=== PATIENT | female | born 1940 | race Caucasian/White ===

== ENCOUNTER 2019-11-28 09:55 | Outpatient (CLI) | payer MEDICARE, SELFPAY ==
--- NOTE | ~2019-11-28 | CT_ITS ---
EXAMINATION: CTA chest PE protocol EXAM DATE: 11/28/2019 11:27 INDICATION: Shortness of breath. TECHNIQUE: Spiral CTA of the chest (pulmonary arteries) was performed with 100 cc Omnipaque 350 intr avenous contrast injection. Images were acquired during the pulmonary arterial phase. Coronal maxi mum intensity projection 3D-reconstructions were created by the technologist on dedicated workstation . Axial, coronal and sagittal reformatted images were reviewed. The dose-length product (DLP) for t his examination was 184.13 mGy-cm. The exposure was tailored according to patient size (auto mA exp osure control), and iterative reconstruction (ASIR) was used as additional dose reduction technique. There is no prior study for comparison. FINDINGS: Pulmonary arteries are well opacified and without intraluminal filling defects. No thora cic aortic dissection. The lungs are clear. Lungs are mildly hyperinflated. There are no pleural or pericardial effusions. Tracheobronchial tree is patent. There is no mediastinal, hilar or axillar y lymphadenopathy. There is no pneumothorax. Heart normal in size. There is mild coronary arter ial calcification, arterial sclerosis. Left liver lobe 1.9 cm cyst. There is small sliding gastroeso phageal hiatal hernia. There is moderate thoracic spondylosis without osteoblastic or osteolytic les ions identified. Breast implants bilaterally. IMPRESSION: 1. No pulmonary emboli or acute findings. 2. Mild hyperinflation. 3. Small hiatal hernia. Reviewed, dictated and finalized at location A. [facility]
--- NOTE | ~2019-11-28 | XR_ITS ---
XR hip RT min 3V w AP pelvis DATE: 11/28/2019 10:57 INDICATION: Right hip pain TECHNIQUE: AP pelvis. AP, lateral and crosstable lateral views of right hip COMPARISON: 08/20/2018 pelvis and left hip 08/10/2018 pelvis and right hip FINDINGS: Diffuse osteopenia. Levoscoliosis and degenerative disease of the lumbar and lumbosacral spine. Probable bone island of the left superior acetabular area. Status post left proximal femur ORIF with compression screw and intramedullary nail. Normal alignment at the pubic symphysis and sacroiliac joints. No pelvic fracture or bone destruction is evident. Prominent osteoarthritic changes including prominent spurring at both hip joints. No fracture, dislocation, avascular necrosis or bone destruction of the right hip is detected. IMPRESSION: Bilateral hip osteoarthritis ORIF left hip Osteopenia Degenerative disc disease of the lumbar/lumbosacral spine Reviewed, dictated and finalized at location B. CAL INSTRUMENT MAKER
[2019-11-28 10:37] LABS: Basophils Absolute Auto 0.1 K/mm3 (0.0-0.1); Basophils Percent Auto 0.9 % (0.2-1.2); Eosinophils Absolute Auto 0.1 K/mm3 (0-0.3); Hemoglobin 12.7 g/dL (12.0-15.0); Immature Granulocyte Absolute 0.02 K/mm3 (0.00-0.031); Immature Granulocyte Percent A 0.4 % (0-0.5); Lymphocytes Absolute Auto 1.55 K/mm3 (0.9-3.2); Lymphocytes Percent Auto 28.1 % (18.3-44.2); Mean Corpuscular HGB Conc 32.6 g/dl (32-36); Mean Corpuscular Hemoglobin 28.2 pg (26-34); Mean Corpuscular Volume 86.5 fl (80-100); Mean Platelet Volume 10.6 fl (7.4-10.4); Monocytes Absolute Auto 0.6 K/mm3 (0.1-0.6); Monocytes Percent Auto 11.1 % (2.6-8.5); Neutrophils Absolute Auto 3.2 K/mm3 (1.3-6.7); Neutrophils Percent Auto 57.5 % (45.5-73.1); Platelet Count Result 260 k/mm3 (150-375); Red Blood Count 4.51 M/mm3 (4.2-5.4); Red Cell Distribution Width 13.3 % (11.5-14.5); White Blood Count 5.5 K/mm3 (4.5-10.0)
[2019-11-28 10:46] LABS: Blood Urea Nitrogen 26 mg/dL (7-17); Calcium 9.7 mg/dL (8.4-10.2); Carbon Dioxide 24 mmol/L (22-30); Chloride 106 mmol/L (98-107); Cholesterol 195 mg/dL (0-200); Estimated Glomerular Filt Rate > 60; Glucose 104 mg/dL (65-105); HDL Direct 60 mg/dL; Potassium 4.4 mmol/L (3.4-5.0); Sodium 140 mmol/L (137-145); Triglycerides 85 mg/dL (<150)
[2019-11-28 10:47] LABS: Add Urine Microscopic? YES; Appearance Urine Cloudy (Clear); Bacteria Urine Trace /hpf; Bilirubin Urine Negative (Negative); Blood Urine Negative (Negative); Color Urine Yellow (Yellow); Glucose Urine UA Negative (Negative); Ketones Urine Negative (Negative); Leukocyte Esterase Ur 3+ LEU/UL (NEGATIVE); Mucus Urine Few /lpf; Nitrate Urine Negative (Negative); Protein Urine Negative (Negative); Specific Grav Ur 1.024 (1.001-1.035); Squamous Epithelial Cell Urine Many /hpf (Few); Urobilinogen Urine Negative mg/dL (<2.0)
[2019-11-28 10:57] LABS: LDL Cholesterol Direct 121 mg/dL
[2019-11-28 12:12] LABS: Free T4 Free Thyroxine 1.25 ng/mL (0.78-2.19)
== END 2019-11-28 09:56 | disposition home or self-care (01) ==
PROVIDERS: PCP Internal Medicine; Visit Provider Internal Medicine
DX: R91.8 Other nonspecific abnormal finding of lung field (principal); K44.9 Diaphragmatic hernia without obstruction or gangrene; M16.0 Bilateral primary osteoarthritis of hip; Z91.89 Other specified personal risk factors, not elsewhere classified; Z87.81 Personal history of (healed) traumatic fracture; E78.5 Hyperlipidemia, unspecified; Z79.899 Other long term (current) drug therapy
CPT/HCPCS: 36415; 71275; 73502; 80048; 80061; 81001; 84439; 84443; 85025; Q9967

== ENCOUNTER 2019-12-09 09:27 | Outpatient (CLI) | payer MEDICARE, SELFPAY ==
--- NOTE | ~2019-12-09 | CT_ITS ---
EXAMINATION: CT abdomen pelvis wo con DATE: 12/09/2019 10:10 INDICATION: Microscopic hematuria with bilateral flank pain TECHNIQUE: Computed tomography (CT) of the abdomen and pelvis was performed without intravenous contr ast. Automated exposure control and iterative reconstruction technique were employed. The dose-length product was 256.50 mGy-cm. COMPARISON: 09/13/2013 FINDINGS: Small fat-containing focal eventration along the posterior left hemidiaphragm. Mild bibasilar atelect asis. Heart size is normal. Atherosclerotic coronary artery calcifications. Bilateral breast implants . Small sliding-type hiatal hernia. 1.8 cm septated cyst in the left hepatic lobe. Cholecystectomy cl ips at the gallbladder fossa. Spleen, pancreas and bilateral adrenal glands are normal. Possible <1 m m nonobstructing stone at the interpolar region of the right kidney but no other urolithiasis. Kidney s and ureters are otherwise normal with no hydroureteronephrosis or perinephric/ureteral stranding. Bladder is normal. The uterus is not identified and has likely been surgically resected. Bowels inclu ding the appendix are normal. There is calcified atherosclerosis of the aorta and many of the other a rteries. Fusiform aneurysm of the infrarenal aorta measuring up to 3.7 x 3.3 cm in maximal diameter m easured orthogonal to the axis flow on sagittal and coronal images respectively. No free intraperiton eal gas or fluid. No pathologically enlarged abdominal or pelvic lymphadenopathy. Relatively recent-a ppearing L4 central superior endplate compression fracture with one third central vertebral body heig ht loss. Lumbar Metcalfe's disease and multilevel moderate to severe lumbar facet osteoarthritis. Halle re right hip osteoarthritis. Moderate osteoarthritis at the left hip with their spleen prior antegrad e intramedullary katie and dynamic femoral screw fixation of an old healed intertrochanteric fracture w hich is in near-anatomic alignment. There are also old healed fractures of the left superior and infe rior pubic rami. Ankylosis across the bilateral sacroiliac joints. IMPRESSION: 1. Possible <1 mm nonobstructing right renal stone. No other urolithiasis or acute intra-abdominal/pe lvic process. 2. Relatively recent-appearing L4 central superior endplate compression fracture with one third centr al vertebral body height loss. Reviewed, dictated and finalized at location A. IAGE COUNSELOR IMPRESSION: 1. Possible <1 mm nonobstructing right renal stone. No other urolithiasis or ac [place] intra-abdominal/pelvic process. 2. Relatively recent-appearing L4 central superior endplate compression fractur e with one third central vertebral body height loss.
== END 2019-12-09 09:28 | disposition home or self-care (01) ==
PROVIDERS: PCP Internal Medicine; Visit Provider Internal Medicine
DX: R31.29 Other microscopic hematuria (principal); N20.0 Calculus of kidney
CPT/HCPCS: 74176

== ENCOUNTER 2019-12-24 09:36 | Outpatient (CLI) | payer MEDICARE, SELFPAY ==
--- NOTE | ~2019-12-24 | MR_ITS ---
EXAMINATION: MR lumbar spine wo con DATE: 12/24/2019 10:15 INDICATION: Lumbago. L4 vertebral fracture. TECHNIQUE: Magnetic resonance imaging (MRI) of the lumbar spine was performed without intravenous con trast. Sequences included sagittal T2-weighted FSE, sagittal T2-weighted FS FSE, sagittal T1-weighted FSE, and axial T2-weighted FSE. COMPARISON: CT abdomen and pelvis 12/09/2019 FINDINGS: There is 4 degrees levocurvature of lumbar spine. There is a burst fracture of L4 with 2/5 loss of height, bone marrow edema, and 4 mm retropulsion of bone fragments. There is mildly decreased disc height at L2-L3. There is ligamentum flavum hypertrophy at the disc levels from L1-L2 through L 4-L5. The distal spinal cord signal intensity is normal. The conus medullaris is at T12-L1. The follo wing disc levels are specifically discussed: L1-L2: The disc is mildly bulging. There is mild bilateral facet joint osteoarthritis. There is mild bilateral neural foraminal stenosis. There is no central canal stenosis. L2-L3: The disc is bulging. There is moderate bilateral facet joint osteoarthritis. There is moderate bilateral neural foraminal stenosis. There is mild central canal stenosis. L3-L4: The disc is bulging. There is severe bilateral facet joint osteoarthritis. There is mild bilat eral neural foraminal stenosis. There is mild central canal stenosis. L4-L5: The disc is mildly bulging. There is severe bilateral facet joint osteoarthritis. There is mil d bilateral neural foraminal stenosis. There is mild central canal stenosis. L5-S1: The disc is mildly bulging. There is severe bilateral facet joint osteoarthritis. There is mod erate bilateral neural foraminal stenosis. There is mild central canal stenosis. IMPRESSION: 1. Subacute L4 burst fracture. 2. Moderate lumbar spondylosis. Reviewed, dictated and finalized at location A. PER OPERATOR
== END 2019-12-24 09:37 | disposition home or self-care (01) ==
PROVIDERS: PCP Internal Medicine; Visit Provider Nurse Practitioner Family
DX: M47.896 Other spondylosis, lumbar region (principal); S32.041D Stable burst fracture of fourth lumbar vertebra, subsequent encounter for fracture with routine healing; X58.XXXD Exposure to other specified factors, subsequent encounter
CPT/HCPCS: 72148

== ENCOUNTER 2020-01-31 09:10 | Observation (INO) | payer MEDICARE, SELFPAY ==
[2020-01-31] VITALS (12 sets, daily range): BP systolic 124–141; BP diastolic 55–74; PULSE 66–73; RESP 14–19; TEMP 36–36.6; O2SAT 18–100; BMI 22.6
--- NOTE | ~2020-01-31 | CT_ITS ---
EXAMINATION: CTA brain carotid DATE: 01/31/2020 09:42 INDICATION: Dysarthria. TECHNIQUE: Computed tomographic angiography (CTA) of the head was performed without and with 100 mL O mnipaque-350 intravenous contrast. CTA of the neck was performed with intravenous contrast. Automated exposure control and iterative reconstruction technique were employed. The dose-length product was 1 519.27 mGy-cm. Maximum intensity projection and volume rendered 3D-reconstructions were created by chris bennett technologist on a separate workstation. COMPARISON: None. FINDINGS: HEAD CTA: There is an old infarct involving the right basal ganglia and anterior limb right internal capsule. There is an old infarct in right cerebellum. There are scattered areas of low attenuation in the cerebral white matter. There is no intracranial hemorrhage, acute infarction, or abnormal intrac ranial mass lesion. There is ex vacuo dilatation of anterior body of right lateral ventricle. The par anasal sinuses are clear. The mastoid air cells are normal. There are likely changes of ocular lens r eplacement surgeries. Left vertebral artery is dominant. There is no significant stenosis of basilar artery or the posterior cerebral arteries. There is no significant stenosis of the intracranial inter nal carotid arteries or anterior or middle cerebral arteries. Anterior communicating artery is normal . Posterior communicating arteries are not identified. There is no aneurysm. NECK CTA: There are nodules in the thyroid measuring up to 9 mm, likely not clinically significant. T here are no pathologically enlarged lymph nodes. There is no significant stenosis of the vertebral ar teries. There is plaque in the proximal internal carotid arteries. There is 0% stenosis of the proxim al right internal carotid artery relative to normal distal artery lumen diameter (NASCET criteria). T here is 0% stenosis of the proximal left internal carotid artery relative to normal distal artery lum en diameter. There is mild cervical spondylosis. IMPRESSION: 1. 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 2. Moderate nonspecific cerebral white matter disease, which likely represents chronic small vessel i schemic disease. 3. No aneurysm or significant intracranial arterial stenosis. 4. 0% stenosis of the proximal internal carotid arteries relative to normal distal artery lumen diame ters (NASCET criteria). Reviewed, dictated and finalized at location A. IMPRESSION: 1. 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 2. Moderate nonspecific cerebral white matter disease, which likely represents chronic small vessel ischemic disease. 3. No aneurysm or significant intracranial arterial stenosis. 4. 0% stenosis of the proximal internal carotid arteries relative to normal dis otoniel artery lumen diameters (NASCET criteria).
--- NOTE | ~2020-01-31 | MR_ITS ---
EXAMINATION: MR brain/brain stem wo/w con EXAM DATE: 01/31/2020 14:14 INDICATION: Intermittent slurred speech. TECHNIQUE: Magnetic resonance imaging (MRI) of the brain/brain stem obtained without contrast. Sagit otoniel T1, axial diffusion, gradient echo (T2*), T1, T2, FLAIR sequences obtained. Patient was then inj ected with 12 cc intravenous Multihance contrast. Axial and coronal postcontrast T1 weighted sequence s obtained. There is no prior study for comparison. FINDINGS: There are no areas of restricted diffusion to suggest acute infarction. There is no acute hemorrhage seen on the T2*, a hemosiderin sensitive sequence. No intraparenchymal brain mass lesion. Old small right cerebellar and right periventricular infarctions. There is moderate periventricula r and subcortical T2/FLAIR signal hyperintensity, nonspecific but probably related to small vessel is chemic disease (microangiopathy). There is moderate prominence of the sulci and ventricles related to cerebral atrophy. There are no extra-axial collections. Flow voids are seen in the cerebral art eries on the T2-weighted sequences consistent with their expected patency. Patient has had bilateral ocular lens surgery. Soft tissue is unremarkable. There are no areas of abnormal enhancement on th e postcontrast images. IMPRESSION: 1. No acute intracranial findings. 2. Chronic age related findings. 3. 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 Reviewed, dictated and finalized at location B.
--- NOTE | ~2020-01-31 | XR_ITS ---
EXAMINATION: XR chest 1V DATE: 01/31/2020 09:55 INDICATION: Dysarthria. TECHNIQUE: A single frontal view of the chest was obtained. COMPARISON: Chest single view 07/04/2014, CT abdomen and pelvis 12/09/2019 FINDINGS: There is eventration of left hemidiaphragm. No pleural effusion or pneumothorax. The heart size is normal. There are multiple healed left rib fractures. Breast implants are noted. Surgical cli ps in the right upper quadrant are likely from cholecystectomy. IMPRESSION: 1. No acute cardiopulmonary disease. Reviewed, dictated and finalized at location A.
--- NOTE | ~2020-01-31 | XR_ITS ---
EXAMINATION: XR lumbar spine 2-3V EXAM DATE: 01/31/2020 10:06 INDICATION: Chronic back pain. TECHNIQUE: Lumber spine frontal, lateral, lateral L5-S1 projections for interpretation. There is no prior study for comparison. FINDINGS: There is contrast within the kidneys. There is a compression fracture of the L4 vertebral body with mild to moderate loss of this vertebral body height centrally and anteriorly, age indetermi leyda. There is advanced lumbar facet arthropathy. There is mild lumbar disc disease. There is a left hip gamma nail. IMPRESSION: 1. Age-indeterminate L4 mild to moderate compression fracture. 2. Advanced lumbar facet arthropathy. Reviewed, dictated and finalized at location B.
--- NOTE | 2020-01-31 09:16 | ECG_ITS ---
Measurements Intervals [place] Rate: 66 P: 60 WI: 133 QRS: -22 QRSD: 81 T: 34 QT: 415 QTc: 436 Interpretive Statements SINUS RHYTHM WITH SINUS ARRHYTHMIA NORMAL ECG Electronically Signed On 01-31-2020 12:38:51 CDT by Davonte Yoon D.O.
--- NOTE | 2020-01-31 09:19 | ED.NEUROSD ---
HPI - Neuro Symptoms/Deficit General Chief Complaint: Suspected CVA Stated Complaint: cva? Time Seen by Provider: 01/31/20 09:14 Source: patient Mode of arrival: wheelchair (from radiology registration) Limitations: no limitations History of Present Illness HPI Narrative: An 79 y/o female pt presents to the ED, with c/o change in speech and tongue irritation that began 20 minutes ago. Pt states she was being registered for radiology/imaging on her lower back when her Sx began. She states she noticed when she was talking to the employee in registration that her tongue began feeling irritated with a burning sensation and she notes feeling that her tongue was too big for her mouth, which was affecting her speech. Pt states that a similar episode happened yesterday morning upon waking up, but she states that she is unsure how long the episode lasted. She states she woke up this morning at 630AM and recalls feeling normal and notes eating yogurt and fruit for breakfast. Pt notes sinus pressure to the lt side of her face, but denies syncope, LOCKE, visual changes, N/V, SOB, CP, weakness or numbness to extremities. She notes a chronic hx of lower back pain, difficulty walking, and SOB upon sitting up that she is actively seeing Dr. Luna for. Onset (ago): minute(s) (20) Location: speech History of same: Yes (yesterday morning) Quality: burning (tongue) Context: sudden onset Associated symptoms: other (sinus pressure to the lt side of face, change in speech, burning and thick sensation to tongue) Related Data Home Medications Medication Instructions Recorded Confirmed brexpiprazole 1 mg tablet 2 mg PO DAILY 11/28/19 01/31/20 escitalopram oxalate 10 mg tablet 10 mg PO DAILY 11/28/19 01/31/20 pravastatin 40 mg tablet 40 mg PO DAILY 11/28/19 01/31/20 Allergies Allergy/AdvReac Type Severity Reaction Status Date / Time No Known Allergies Allergy Verified 01/31/20 09:15 Review of Systems Review of Systems: All systems reviewed & are unremarkable except as noted in HPI and below Constitutional: Constitutional: Denies headache(s) Eyes: Eyes: Denies change in vision ENT: Reports sinus pressure (lt side of face) and Reports other (burning sensation to tongue, tongue too big for mouth ) Cardiovascular: Cardiovascular: Denies chest pain Respiratory: Respiratory: Denies dyspnea Gastrointestinal: Gastrointestinal: Denies nausea and Reports vomiting Neurologic: Reports Abnormal speech present, Denies syncope, Denies numbness (to extremities) and Denies weakness PMFSH Past Medical History Medical History (Updated 01/31/20 @ 15:55 by Tracy Fong MD) Anxiety Arthritis BMI 23.0-23.9, adult Closed fracture of ramus of left pubis Compression fx, lumbar spine Degenerative joint disease of both hips Depression DENNIS (dyspnea on exertion) Dysuria Encounter for Medicare annual wellness exam Encounter for routine adult health examination with abnormal findings Hearing loss Hematuria, microscopic Hyperlipidemia Kidney stone On rat exterminator drug therapy Osteoporosis Recurrent major depression Seasonal allergies SOB (shortness of breath) Vitamin D deficiency Surgical History Surgical History (Updated 01/31/20 @ 10:50 by XIOMY Lopez) History of cholecystectomy History of hip surgery History of hysterectomy History of tubal ligation Family History Family History (Updated 01/31/20 @ 12:21 by Kaitlyn Pool RN) Other COPD (chronic obstructive pulmonary disease) Social History Social History Smoking status: Never smoker Alcohol intake: never Substance use: never Gender identity (if verbalized by the patient): Female Spiritual care concerns: No Agree to blood products: Yes Exam Narrative: Exam Narrative: GENERAL: Well-appearing, well-nourished, and in no acute distress. HEAD: Normocephalic, atraumatic EYES: PERRLA and EOMI, co
[2020-01-31 09:24] LABS: Glucose Point of Care 108 (65-105)
[2020-01-31 09:32] LABS: Basophils Absolute Auto 0.1 K/mm3 (0.0-0.1); Basophils Percent Auto 1.3 % (0.2-1.2); Eosinophils Absolute Auto 0.1 K/mm3 (0-0.3); Eosinophils Percent Auto 1.9 % (0-4.4); Hematocrit 38.6 % (37.0-47.0); Hemoglobin 12.4 g/dL (12.0-15.0); Immature Granulocyte Absolute 0.01 K/mm3 (0.00-0.031); Immature Granulocyte Percent A 0.2 % (0-0.5); Lymphocytes Absolute Auto 1.37 K/mm3 (0.9-3.2); Lymphocytes Percent Auto 28.7 % (18.3-44.2); Mean Corpuscular HGB Conc 32.1 g/dl (32-36); Mean Corpuscular Volume 87.1 fl (80-100); Mean Platelet Volume 10.8 fl (7.4-10.4); Monocytes Absolute Auto 0.4 K/mm3 (0.1-0.6); Monocytes Percent Auto 8.2 % (2.6-8.5); Neutrophils Absolute Auto 2.9 K/mm3 (1.3-6.7); Neutrophils Percent Auto 59.7 % (45.5-73.1); Platelet Count Result 238 k/mm3 (150-375); Red Blood Count 4.43 M/mm3 (4.2-5.4); Red Cell Distribution Width 13.5 % (11.5-14.5); White Blood Count 4.8 K/mm3 (4.5-10.0)
[2020-01-31 09:40] LABS: INR 1.1; Partial Thromboplastin Time 24.7 SECONDS (22.3-36.8); Prothrombin Time 13.8 Seconds (11.1-14.7)
[2020-01-31 09:42] LABS: Blood Urea Nitrogen 27 mg/dL (7-17); Calcium 9.8 mg/dL (8.4-10.2); Carbon Dioxide 30 mmol/L (22-30); Chloride 105 mmol/L (98-107); Estimated CRCL calculation 47 ml/min; Estimated Glomerular Filt Rate > 60; Glucose 92 mg/dL (65-105); Potassium 4.1 mmol/L (3.4-5.0); Sodium 140 mmol/L (137-145)
[2020-01-31 09:54] LABS: Troponin I < 0.012 ng/mL (0.000-0.034)
--- NOTE | 2020-01-31 10:06 | PC.NURSE ---
PT IN CT/XRAY
--- NOTE | 2020-01-31 10:12 | PC.NURSE ---
PT HAS ARRIVED BACK FROM CT AT THIS TIME.
--- NOTE | 2020-01-31 10:35 | PC.NURSE ---
PT FAMILY MEMBER STANDING IN DOOR OF PT ROOM DEMANDING A CONCLUSION FROM THE ERP ABOUT HIS MOTHER'S STATUS. INFORMED PT THAT THE ERP WAS ON THE PHONE AND WILL SPEAK WITH HIM WHEN SHE IS DONE. PT THEN REPLIES WELL, I HAVE PEOPLE COMING TO SIGN LEGAL DOCUMENTS AT 11 SO I NEED HER TO FIGURE THIS OUT NOW. I INFORMED THE FAMILY MEMBER THAT HE IS FREE TO LEAVE THE ED AND WE CAN CONTACT HIM WITH UPDATES. HE THEN TURNS AND RETURNS TO ROOM.
[2020-01-31 11:00] LABS: Estimated CRCL calculation 41 ml/min; Estimated Glomerular Filt Rate > 60
[2020-01-31] MEDS: ASPIRIN 81 MG CHEWABLE TABLET 324 MG PO (11:00)
--- NOTE | 2020-01-31 11:36 | PC.NURSE ---
attempted to call report, RN refused due to being in room with pt, to call back.
--- NOTE | 2020-01-31 12:19 | ADMGEN ---
This patient, Yesenia Mcdonough, was admitted to 2 Medical Room 241-01. Patient/family oriented to hospital policies and general routines including ID bracelet, bed and alarms, visiting hours, pain management, procedures, bathroom and other care routines, personal items, smoking policy, room service/diet, and visiting hours. Valuables list has been completed. Information on how to activate the Rapid Response Team has been discussed. Patient/Family are encouraged to report perceived risks to care and to ask questions if they do not understand what they are told or what they should do.
--- NOTE | 2020-01-31 16:15 | PM.IMHP ---
H&P: HPI History of Present Illness Chief complaint: Intermittent slurred speech. Narrative: Yesenia Mcdonough is an 79-year-old female with dyslipidemia and depression who presented to the emergency department earlier this morning from radiology for evaluation of intermittent slurred speech. While on the phone with her brother yesterday morning, she suddenly began slurring her speech, which lasted throughout the morning before resolving. This morning, she reports that the anterior 1/3 of her tongue as well as the anterior most part of her hard palate feel ?raw and irritated.? She goes on to say that she has been experiencing a burning sensation in these areas as well if she is chewing gum or sucking on a mint. In any regard, she went through outpatient radiology today for lumbar spine x-rays given back pain. While she was registering, the burning sensation returned and she had feelings that her ?tongue was too big for my mouth? and her speech became slurred once again. CTA of the head and neck done on arrival to the emergency department showed old infarcts of which she had no previous knowledge of, and brain MRI this afternoon demonstrated no acute intracranial findings. At the time my evaluation, her speech sounds intermittently slurred but with careful watching it appears that at times she avoids touching the tip of her tongue to her teeth and roof of her mouth while talking. I questioned her about this, and she is uncertain if she is doing this to avoid the discomfort and burning sensation that she has been describing. With further questioning, she reports having felt off balance and occasionally describes vertigo, which is apparently been occurring for the past 1 year and this is unchanged. She denies actual swelling of the tongue and is not having numbness or tingling. She also denies focal weakness and paresthesias. No auditory or visual changes. No chest pain or palpitations. She has not eaten any hot food recently and does not think that she may have accidentally burned her tongue or the roof of her mouth. It should be noted that the patient spends a majority of the time that I am in the room perseverating on family discord, her underlying depression, and increasing stress levels. She was started on Rexulti about in addition to 2 other antidepressants per her psychiatrist. She denies symptoms of tardive dyskinesia. No dysarthria. No diplopia. Review of Systems Review of Systems: Narrative: Twelve systems were reviewed with pertinent positives and negatives as per HPI. She wears corrective lenses. She had shingles in 2015 on her right leg, and has some mild post herpetic neuralgia. She notes losing 25 to 30 pounds in the last 6 months since her passed today, which she attributes to stress. She denies fever, chills, and sweats. No recent cold or flu symptoms. She notes progressive dyspnea on lesser and lesser exertion over the past 2 months, however. No orthopnea, PND, or lower extremity edema. No nausea or vomiting. Occasional constipation. She denies history of venous thromboembolism. She denies suicidal ideation. She has been having pain in the lumbar back, but it has not been significant enough for her to take analgesics. Except as documented, all other systems were reviewed and are negative. [facility] Past Medical History Medical History (Updated 01/31/20 @ 20:52 by Katherine White PA-C) Anxiety Arthritis Closed fracture of ramus of left pubis Compression fx, lumbar spine Degenerative joint disease of both hips Depression Dyslipidemia Hearing loss Hyperlipidemia Kidney stone Lumbar compression fracture Osteoporosis Recurrent major depression Seasonal allergies Vitamin D deficiency Surgical History Surgical History History of cholecystectomy History of hip surgery History of hysterectomy History of tubal ligation Family History Family History (Updated 0
[2020-01-31] MEDS: ENOXAPARIN 40 MG/0.4 ML SYRINGE SUB-Q (21:10)
[2020-02-01] VITALS: PULSE 67
[2020-02-01 04:00] VITALS: PULSE 67
[2020-02-01 05:34] LABS: Alanine Aminotransferase 19 U/L (4-35); Albumin Level 3.4 g/dL (3.5-5.1); Alkaline Phosphatase 90 U/L (38-126); Aspartate Amino Transferase 25 U/L (14-36); Bilirubin,Total 0.4 mg/dL (0.2-1.3); Blood Urea Nitrogen 21 mg/dL (7-17); Calcium 8.8 mg/dL (8.4-10.2); Carbon Dioxide 29 mmol/L (22-30); Chloride 105 mmol/L (98-107); Estimated CRCL calculation 47 ml/min; Estimated Glomerular Filt Rate > 60; Glucose 91 mg/dL (65-105); Magnesium 2.1 mg/dL (1.6-2.3); Phosphorus 4.1 mg/dL (2.5-4.5); Potassium 3.9 mmol/L (3.4-5.0); Sodium 138 mmol/L (137-145)
[2020-02-01 05:57] VITALS: BP 124/63; PULSE 65; RESP 18; TEMP 36.9; O2SAT 96
[2020-02-01 06:38] LABS: Folic Acid 9.2 ng/mL (2.76->20)
[2020-02-01 06:48] LABS: Thyroid Stimulating Hormone Reflex 0.883 uIU/mL (0.465-4.68)
[2020-02-01 08:00] VITALS: PULSE 69
[2020-02-01] MEDS: ASPIRIN 81 MG ENTERIC TABLET PO (08:40)
[2020-02-01] MEDS: PRAVASTATIN SODIUM 20 MG TABLET 40 MG PO (08:40)
[2020-02-01] MEDS: CYANOCOBALAMIN INJ 1,000 MCG/ML VIAL 1000 MCG IM (08:40)
[2020-02-01] MEDS: DULOXETINE 60 MG CAPSULE.DR PO (08:40)
[2020-02-01] MEDS: ESCITALOPRAM OXALATE 10 MG TABLET PO (08:40)
--- NOTE | 2020-02-01 10:00 | PM.DS ---
DS: Diagnosis Admitting Diagnosis Admitting Diagnosis: Slurred speech Discharge Diagnosis (1) Slurred speech: Code(s): R47.81 - Slurred speech Status: Acute Assessment and Plan: Imaging of head/neck demonstrates old strokes, of which the patient was unaware. No acute findings were noted on brain CT or brain MRI. Echo shows normal EF with Grade I diastolic dysfunction. Telemetry shows NSR with no alarms. Still noting occasional slurred speech , but as noted by previous provider, she appears to avoid touching her tongue to her teeth to pronounce certain words occasionally. Majority of my visit today revealed she was speaking normally. She complains of tongue and palate discomfort. Vit B12 low today; replaced. Tardive dyskinesia and myasthenia gravis considered, but are unlikely. There may be a anxiety component and she even notes that she believes this is due to her mental status , spending most of our visit talking about her family issues; it appears she is referring to her anxiety/depression. Recommend discharge today with f/u with PCP Will send home with Vit B12 Recommended patient discuss potentially being fitted for a heart monitor, although, I do not believe this is a cardiovascular-related at this moment (2) Dyslipidemia: Code(s): E78.5 - Hyperlipidemia, unspecified Status: Acute Assessment and Plan: LFTs WNL Continue statin (3) Depression: Code(s): F32.9 - Major depressive disorder, single episode, unspecified Status: Acute Assessment and Plan: Patient continues to have depression, and seems despondent that the 3 medications she is taking for such (brexpiprazole, duloxetine, and escitalopram) are not helping whatsoever, as well as, speaking with her therapist during her sessions Recommneded her f/u with with her psychiatrist, Dr. Grigsby, and her therapist, but also recommended discussing her feelings with her treatment strategy with Dr. Luna as well She denies active suicidal and homicidal ideation. (4) Anxiety: Code(s): F41.9 - Anxiety disorder, unspecified Status: Acute Assessment and Plan: Continue home medication. (5) Shortness of breath: Code(s): R06.02 - Shortness of breath Status: Acute Assessment and Plan: Ongoing over the past 2 months. Lung exam unremarkable. Pulmonary embolism unlikely and echo unremarkable for etiology for SOB. F/u with PCP (6) Lumbar compression fracture: Code(s): S32.000A - Wedge compression fracture of unspecified lumbar vertebra, initial encounter for closed fracture Status: Acute Assessment and Plan: Age indeterminate compression fracture of L4 noted on imaging today as an outpatient. F/u with Dr. Luna Patient declined PT/OT evaluation at this time DS: Summary Hospital Course Reason for hospitalization: Slurred speech Hospital Course: Patient is a 79 yo F with history of anxiety/depression and dyslipidemia who presented to the ER on morning of 01/30 from the radiology department for evaluation of intermittent slurred speech. Patient noticed this slurred speech the day prior while on the phone with her brother; this had resolved after that morning. She then reported that her anterior third of her tongue and her anterior hard palate felt raw and irritated on morning of presentation. She felt a burning sensation in these areas as if she were chewing gum or mint. Her speech became slurred again once in radiology for an outpatient image of her lumbar spine ordered by her PCP for her unrelated back issues. A rapid response was called as she was reported to have also passed out as well. CTA of head/neck was unremarkable other than old infarts. B
--- NOTE | 2020-02-01 20:47 | ECHO_ITS ---
Patient Info Name: Yesenia Mcdonough Age: 79 years : 1940 Gender: Female Ht: 64 in Wt: 131 lbs BSA: 1.64 m2 HR: 70 bpm BP: 124 / 63 mmHg Technical Quality: Good Exam Date: 02/01/2020 7:58 AM Exam Location: [facility] Patient Status: Outpatient Admit Date: 01/31/2020 Staff Ordering Physician: Katherine White PA-C [employer] Lay Up Worker: Daryl Hogan RDCS, RT Attending Provider: Carlos Maxwell PA-C Referring Physician: Christopher LANE; Exam Type: CA echo doppler color flow Study Info Indications R06.02 - Shortness of breath Summary 1. Left ventricular chamber dimension is normal. 2. Left ventricular systolic function is normal, estimated at 65-70%. 3. The left ventricular diastolic function is grade I diastolic dysfunction. 4. There is mild aortic valve sclerosis. 5. The mitral valve has mildly calcified annulus. Left Ventricle Tissue doppler is not performed. Left ventricular chamber dimension is normal. Left ventricular systolic function is normal, estimated at 65-70%. The left ventricular diastolic function is grade I diastolic dysfunction. Right Ventricle Right ventricular chamber dimension is normal. Right ventricular systolic function is normal. Left Atria Left atrial chamber dimension is normal. Right Atria Atrial septal aneurysm. Right atrial chamber dimension is normal. Aortic Valve The aortic valve is trileaflet. There is mild aortic valve sclerosis. There is no aortic valve stenosis. There is no aortic valve regurgitation. Pulmonic Valve There is no pulmonic regurgitation. Mitral Valve The mitral valve has mildly calcified annulus. There is no mitral valve stenosis. There is no mitral valve regurgitation. Tricuspid Valve There is no tricuspid valve regurgitation. Pericardium/Pleural There is no pericardial effusion. Inferior Vena Cava Normal inferior vena cava with >50% collapse upon inspiration consistent with normal right atrial pressure, 5 mmHg. Aorta The aortic root size at the sinus of Valsalva is normal. Left Ventricular Outflow Tract Name Value Normal LVOT Doppler LVOT Peak Gradient 5 mmHg LVOT Mean Gradient 2 mmHg LVOT VTI 21 cm LVOT VTI/AV VTI Ratio 0.8 Pulmonic Valve Name Value Normal PV Doppler PV Peak Gradient 3 mmHg Mitral Valve Name Value Normal MV Doppler MV Decel Potter 202 cm/s2 MV PHT 98 ms MV Area (PHT) 2.2 cm2 4.0-5.0 MV Diastolic Function
== END 2020-02-01 10:57 | disposition home or self-care (01) ==
LOC: ANHED 10:53 → ANH2MED 11:27
PROVIDERS: Physician Assistant; Admitting Provider Internal Medicine; Emergency Provider General Practice; PCP Internal Medicine; Visit Provider Physician Assistant
DX: R47.81 Slurred speech (principal); E53.8 Deficiency of other specified B group vitamins; E78.5 Hyperlipidemia, unspecified; F32.9 Major depressive disorder, single episode, unspecified; F41.9 Anxiety disorder, unspecified; R06.02 Shortness of breath; S32.040A Wedge compression fracture of fourth lumbar vertebra, initial encounter for closed fracture; X58.XXXA Exposure to other specified factors, initial encounter; B02.29 Other postherpetic nervous system involvement; Z79.899 Other long term (current) drug therapy
CPT/HCPCS: 36415; 70496; 70498; 70553; 71045; 72100; 80048; 80053; 82607; 82746; 82948; 83735; 84100; 84443; 84484; 85025; 85610; 85730; 93005; 93306; 96372; 99285; A9270; A9577; G0378; J1650; J3420; Q9967

== ENCOUNTER 2020-02-27 09:04 | Outpatient (CLI) | payer MEDICARE, SELFPAY ==
--- NOTE | ~2020-02-27 | XR_ITS ---
XR lumbar spine 2-3V 02/27/2020 09:32 Indication: Follow-up L4 compression fracture Procedure: 3 views lumbar spine Comparison: Lumbar spine series dated 01/31/2020 and MRI dated 12/24/2019 Findings: Stable appearance to chronic burst fracture of L4. There is loss of disc height at all lumb ar levels. There is advanced multilevel facet hypertrophy at all levels. No new fractures. No evidenc e for spondylolisthesis. Impression: 1: Stable chronic L4 burst fracture. 2: Moderate-severe lumbar spondylosis. Reviewed, dictated and finalized at location A. Impression: 1: Stable chronic L4 burst fracture. 2: Moderate-severe lumbar spondylosis.
== END 2020-02-27 09:05 | disposition home or self-care (01) ==
PROVIDERS: PCP Internal Medicine; Visit Provider Neurological Surgery
DX: S32.041A Stable burst fracture of fourth lumbar vertebra, initial encounter for closed fracture (principal); M47.816 Spondylosis without myelopathy or radiculopathy, lumbar region
CPT/HCPCS: 72100

== ENCOUNTER 2020-03-08 13:35 | Outpatient (CLI) | payer MEDICARE, SELFPAY ==
--- NOTE | ~2020-03-08 | DEXA_ITS ---
Bone Density Report Name: Yesenia Mcdonough Age: 79 Sex: Female Ethnicity: White Date of : 1940 Indication: postmenopausal osteoporosis; height loss; prior fracture; hysterectomy; Referring Provider: ANGELA GREGORY Study: Bone densitometry was performed. Exam Date: March 08, 2020 Accession number: [id number] Bone Density: Region BMD T-score Z-score Classification AP Spine (L1, L2, L3) 0.883 -1.2 1.4 Osteopenia Femoral Neck (Right) 0.607 -2.2 0.2 Osteopenia Total Hip (Right) 0.511 -3.5 -1.4 Osteoporosis World Health Organization criteria for BMD impression classify patients as: Normal (T-score at or above -1.0), Osteopenia (T-score between -1.0 and -2.5), or Osteoporosis (T-score at or below -2.5). 10-year Fracture Risk: FRAX not reported because: Some T-score for Spine Total or Hip Total or Femoral Neck at or below -2.5 Previous Exams: Region Exam Age BMD T-score BMD Change BMD Change Date g/cm2 vs Baseline vs Previous AP Spine(L1, L2, L3) 03/08/2020 79 0.883 -1.2 0.006(0.7%)# 0.006(0.7%)# 12/28/2008 68 0.878 -1.3 Total Hip(Right) 03/08/2020 79 0.511 -3.5 -0.112(-18.0%) -0.112(-18.0%) 12/28/2008 68 0.623 -2.6 *Denotes significance at 95% confidence level, LSC for AP Spine = 0.022 g/cm2, LSC for Total Hip = 0.027 g/cm2 Clinical Information Provided by Patient: Have had a previous hip or vertebral fracture Has had a low trauma fracture Has used the following medications: Vitamin D Has the following medical conditions: Hysterectomy Patient maximum height was 64 Menopause Age: 43 No regular weight bearing exercise Onset of menses at age 11 Number of children 4 Impression: The patient has established osteoporosis, based on the Right Total Hip T-score and the existence of a prior fracture. The patient has risk factors, including: previous fracture. No significant bone loss was observed. Discussion: HIGH RISK OF FRACTURE. BONE DENSITY IS UNDESIRABLY LOW AT ONE OR MORE SKELETAL SITES, CONSISTENT WITH POSTMENOPAUSAL OSTEOPOROSIS. This patient's lowest T-score, in a patient who has previously fractured, meets the World Health Organization's (WHO) criteria for severe osteoporosis. In untreated patients, the risk of osteoporotic fracture increases approximately two-fold for each 1.0 SD decrease in T-score. Low bone density is not the only risk factor for fracture; also consider factors such as patient's age, frailty or poor health, risk of falling, risk of injury, previous osteoporotic fracture, family history
[2020-03-08 14:40] LABS: Calcium 9.6 mg/dL (8.4-10.2); Phosphorus 4.5 mg/dL (2.5-4.5)
[2020-03-08 15:55] LABS: Vitamin D 25 Hydroxy 37.9 ng/mL
[2020-03-12 04:21] LABS: Ionized Calcium 5.4 mg/dL (4.8-5.6)
== END 2020-03-08 13:36 | disposition home or self-care (01) ==
PROVIDERS: PCP Internal Medicine; Visit Provider Internal Medicine
DX: M81.0 Age-related osteoporosis without current pathological fracture (principal); E55.9 Vitamin D deficiency, unspecified; S32.000A Wedge compression fracture of unspecified lumbar vertebra, initial encounter for closed fracture; X58.XXXA Exposure to other specified factors, initial encounter; M85.851 Other specified disorders of bone density and structure, right thigh
CPT/HCPCS: 36415; 77080; 82306; 82310; 82330; 84100

== ENCOUNTER 2020-03-20 08:51 | Outpatient (CLI) | payer MEDICARE, SELFPAY ==
[2020-03-20 09:42] LABS: Cholesterol 220 mg/dL (0-200); HDL Direct 55 mg/dL; Triglycerides 110 mg/dL (<150)
[2020-03-20 09:52] LABS: LDL Cholesterol Direct 128 mg/dL
== END 2020-03-20 08:52 | disposition home or self-care (01) ==
LOC: ANHLAB 08:52
PROVIDERS: PCP Internal Medicine; Visit Provider Internal Medicine
DX: E78.2 Mixed hyperlipidemia (principal)
CPT/HCPCS: 36415; 80061

== ENCOUNTER 2020-05-23 14:55 | Outpatient (CLI) | payer MEDICARE, SELFPAY ==
[2020-05-23 19:12] LABS: Hemoglobin A1C 5.7 % (<5.7)
[2020-05-29 13:08] LABS: Vitamin B1 23 nmol/L (8-30)
== END 2020-05-23 14:56 | disposition home or self-care (01) ==
PROVIDERS: PCP Internal Medicine; Visit Provider Internal Medicine
DX: E53.8 Deficiency of other specified B group vitamins (principal); R53.81 Other malaise; Z79.899 Other long term (current) drug therapy
CPT/HCPCS: 36415; 83036; 84207; 84425

== ENCOUNTER 2020-08-07 12:14 | Outpatient (CLI) | payer MEDICARE, SELFPAY ==
[2020-08-07 12:47] LABS: Basophils Absolute Auto 0.1 K/mm3 (0.0-0.1); Eosinophils Absolute Auto 0.1 K/mm3 (0-0.3); Hematocrit 36.6 % (37.0-47.0); Hemoglobin 11.8 g/dL (12.0-15.0); Immature Granulocyte Absolute 0.01 K/mm3 (0.00-0.031); Immature Granulocyte Percent A 0.2 % (0-0.5); Lymphocytes Absolute Auto 1.81 K/mm3 (0.9-3.2); Lymphocytes Percent Auto 35.8 % (18.3-44.2); Mean Corpuscular HGB Conc 32.2 g/dl (32-36); Mean Corpuscular Hemoglobin 27.9 pg (26-34); Mean Corpuscular Volume 86.5 fl (80-100); Mean Platelet Volume 10.7 fl (7.4-10.4); Monocytes Absolute Auto 0.4 K/mm3 (0.1-0.6); Monocytes Percent Auto 7.7 % (2.6-8.5); Neutrophils Absolute Auto 2.7 K/mm3 (1.3-6.7); Neutrophils Percent Auto 53.3 % (45.5-73.1); Platelet Count Result 201 k/mm3 (150-375); Red Blood Count 4.23 M/mm3 (4.2-5.4); Red Cell Distribution Width 13.7 % (11.5-14.5); White Blood Count 5.1 K/mm3 (4.5-10.0)
[2020-08-07 12:56] LABS: Hemoglobin A1C 5.8 % (<5.7)
[2020-08-07 12:57] LABS: Add Urine Microscopic? YES; Appearance Urine Cloudy (Clear); Bacteria Urine 1+ /hpf; Bilirubin Urine Negative (Negative); Blood Urine 2+ (Negative); Color Urine Yellow (Yellow); Glucose Urine UA Negative (Negative); Ketones Urine Negative (Negative); Leukocyte Esterase Ur 2+ LEU/UL (NEGATIVE); Mucus Urine Few /lpf; Nitrate Urine Positive (Negative); Protein Urine 1+ mg/dL (Negative); Specific Grav Ur 1.021 (1.001-1.035); Squamous Epithelial Cell Urine Many /hpf (Few); Transitional Epi Cells Urine Rare /hpf (None Seen); WBC Urine 31-50 /hpf (0-3)
[2020-08-07 12:59] LABS: Alanine Aminotransferase 23 U/L (4-35); Albumin Level 3.9 g/dL (3.5-5.1); Alkaline Phosphatase 105 U/L (38-126); Anion Gap 6 mmol/L (8-16); Aspartate Amino Transferase 24 U/L (14-36); Bilirubin,Total 0.5 mg/dL (0.2-1.3); Blood Urea Nitrogen 25 mg/dL (7-17); Calcium 9.5 mg/dL (8.4-10.2); Carbon Dioxide 32 mmol/L (22-30); Chloride 104 mmol/L (98-107); Estimated Glomerular Filt Rate > 60; Glucose 98 mg/dL (65-105); Potassium 3.9 mmol/L (3.4-5.0); Sodium 142 mmol/L (137-145)
[2020-08-07 13:30] LABS: Thyroid Stimulating Hormone 0.755 uIU/mL (0.465-4.680)
[2020-08-07 13:36] LABS: Free T4 Free Thyroxine 0.99 ng/mL (0.78-2.19)
[2020-08-07 14:12] LABS: Folic Acid > 20.0 ng/mL (2.76->20)
== END 2020-08-07 12:15 | disposition home or self-care (01) ==
PROVIDERS: PCP Internal Medicine; Visit Provider Internal Medicine
DX: E53.8 Deficiency of other specified B group vitamins (principal); Z79.899 Other long term (current) drug therapy
CPT/HCPCS: 36415; 80053; 81001; 82607; 82746; 83036; 84439; 84443; 85025

== ENCOUNTER 2020-08-10 11:04 | Outpatient (CLI) | payer MEDICARE, SELFPAY ==
[2020-08-10 11:39] LABS: Cholesterol 151 mg/dL (0-200); HDL Direct 46 mg/dL; Triglycerides 98 mg/dL (<150)
[2020-08-10 11:49] LABS: LDL Cholesterol Direct 72 mg/dL
== END 2020-08-10 11:05 | disposition home or self-care (01) ==
LOC: ANHLAB 11:05
PROVIDERS: PCP Internal Medicine; Visit Provider Internal Medicine
DX: E78.2 Mixed hyperlipidemia (principal)
CPT/HCPCS: 36415; 80061

== ENCOUNTER 2021-02-04 09:54 | Outpatient (CLI) | payer MEDICARE, SELFPAY | END 2021-02-04 09:55 | disposition home or self-care (01) | LOC: ANHCOVIDVC 09:54 | PROVIDERS: PCP Internal Medicine | DX: Z23 Encounter for immunization (principal) | CPT/HCPCS: 0001A; 91300 ==

== ENCOUNTER 2021-02-25 10:06 | Outpatient (CLI) | payer MEDICARE, SELFPAY | END 2021-02-25 10:07 | disposition home or self-care (01) | LOC: ANHCOVIDVC 10:06 | PROVIDERS: PCP Internal Medicine | DX: Z23 Encounter for immunization (principal) | CPT/HCPCS: 0002A; 91300 ==

== ENCOUNTER → 2021-07-15 10:19 | Outpatient (CLI) | payer MEDICARE, SELFPAY ==
--- NOTE | ~2021-07-15 | US_ITS ---
EXAMINATION: US abdomen complete EXAM DATE: 07/15/2021 11:09 INDICATION: R63.4 - Abnormal weight loss . Loss of taste. TECHNIQUE: Multiple grayscale and Doppler images of the complete abdomen were obtained (by a technolo sushant who performed the scan) and subsequently reviewed. Correlation is made to CT abdomen and/ FINDINGS: There are scattered aortic arteriosclerosis. The infrarenal abdominal aorta measures 4.1 x 3.9 cm. V isualized portion IVC is patent. The pancreatic head and body are normal in appearance. The pancre atic tail is not visualized. The liver has normal echogenicity and contour. There is a 2 cm cyst in the left liver lobe. There i s no evidence of intrahepatic biliary duct dilation. Portal venous flow was seen in the hepatopedal, normal direction and has normal Doppler waveform. Common bile duct measures 8 mm, which is normal. The gallbladder fossa is unremarkable. Right kidney: There is normal contour and echogenicity. It measures 9.5 x 4.9 x 4.5 centimeters. T here are no focal renal lesions identified. There is no hydronephrosis. Left kidney: There is normal contour and echogenicity. It measures 9.5 x 4.7 x 4.9 centimeters. Th ere are no focal renal lesions identified. There is no hydronephrosis. The spleen measures 8.6 centimeters and is morphologically normal. IMPRESSION: 1. Abdominal aortic 4.1 cm aneurysm. Reviewed, dictated and finalized at location B.
--- NOTE | ~2021-07-15 | XR_ITS ---
EXAMINATION: XR UGIAC w barium swallow EXAM DATE: 07/15/2021 12:19 INDICATION: R68.81 - Early satiety . Loss of appetite. History of COVID. TECHNIQUE: Limited single and double contrast barium esophagram and upper GI examination was performe d by radiologist Rory Kelley M.D. according to patient abilities (difficulty standing, positioning) P ulsed dose reduction fluoroscopy was used with fluoroscopic time of 0.4 minutes. The DAP for this pr ocedure was 0.9 Gycm2. A total of 57 images obtained for the exam. There is no prior study for keith white. FINDINGS: The pharynx is symmetric and without evidence of mass lesion or mucosal irregularity. Ther e is no esophageal stricture, diverticulum or mass identified. Gastroesophageal junction is normal i n appearance. Reflux was not demonstrated during this examination. The stomach has a normal appearance without evidence of mass lesion, ulceration or filling defect. T here is normal rugal fold pattern. Duodenum did not opacify before the exam was. IMPRESSION: Unremarkable esophagus, stomach. Reviewed, dictated and finalized at location B.
== END ==
PROVIDERS: PCP Internal Medicine; Visit Provider Internal Medicine
DX: R68.81 Early satiety (principal); R63.4 Abnormal weight loss; I71.4 Abdominal aortic aneurysm, without rupture
CPT/HCPCS: 74246; 76700

== ENCOUNTER 2022-01-24 11:59 | Outpatient (CLI) | payer MEDICARE, SELFPAY ==
--- NOTE | ~2022-01-24 | XR_ITS ---
XR knee RT 3V DATE: 01/24/2022 12:27 INDICATION: Right lateral knee pain TECHNIQUE: [place], AP, lateral views COMPARISON: 10/24/2016 right knee FINDINGS: There is tricompartment osteophytosis, most severe at the medial and patellofemoral compart ments. Diffuse osteopenia. No fracture or dislocation or joint effusion. No periosteal reaction or bone destruction. No radiopaq ue intra-articular loose body or chondrocalcinosis. 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
== END 2022-01-24 12:00 | disposition home or self-care (01) ==
PROVIDERS: PCP Internal Medicine; Visit Provider Internal Medicine
DX: M25.561 Pain in right knee (principal); M17.11 Unilateral primary osteoarthritis, right knee; M85.861 Other specified disorders of bone density and structure, right lower leg
CPT/HCPCS: 73562

== ENCOUNTER 2022-07-26 18:11 | Inpatient (IN) | payer MEDICARE, SELFPAY ==
[2022-07-26] VITALS (10 sets, daily range): BP systolic 176–203; BP diastolic 80–95; PULSE 84–97; RESP 12–19; TEMP 36.6–36.7; O2SAT 96–99; BMI 23.5
--- NOTE | ~2022-07-26 | MR_ITS ---
EXAMINATION: MR brain/brain stem wo con DATE: 07/27/2022 07:54 INDICATION: Stroke TECHNIQUE: Magnetic resonance imaging (MRI) of the brain and brainstem was performed without intraven ous contrast. Sequences included sagittal and axial T1-weighted SE, axial diffusion-weighted FS SE, a xial T2*-weighted GRE, axial 3D SWAN, axial T2-weighted FLAIR, and axial T2-weighted FSE. Apparent di ffusion coefficient (ADC) maps were created. COMPARISON: Brain CT angiogram dated 07/26/2022 FINDINGS: Multiple small regions of restricted diffusion consistent with acute infarct in the left parietal, po sterior left frontal and posterior left insular regions and lower extremity within the vascular distr ibution of the left middle cerebral artery. Small old infarcts in the left parietal lobe and right fr ontal lobe schmidt radiata and right cerebellar hemisphere. No intracranial hemorrhage or abnormal int racranial mass lesion. There are scattered areas of nonspecific increased T2-weighted signal intensit y in the cerebral white matter, predominantly involving the deep and periventricular white matter. Th ere are no intraparenchymal signal abnormalities seen on the other pulse sequences. The ventricles ar e symmetric and normal in size. There are no abnormal extra-axial fluid collections. Flow voids are s een in the cerebral arteries on the T2-weighted sequences consistent with their expected patency. Chantal nges of bilateral intraocular lens replacement with chronic bilateral lens dislocation. With mild muc osal thickening in the paranasal sinuses. IMPRESSION: 1. Possible small acute infarcts in the posterior left frontal lobe, left parietal lobe and posterior left insula consistent sharp emboli in the transverse views of the left middle cerebral artery. 2. 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 3. Moderate more extensive scattered white matter T2 hyperintensity consistent with chronic small ves kathleen ischemic disease. 4. Changes of bilateral intraocular lens replacement with chronic bilateral lens dislocation. Reviewed, dictated and finalized at location A. IMPRESSION: 1. Possible small acute infarcts in the posterior left frontal lobe, left parie otoniel lobe and posterior left insula consistent sharp emboli in the transverse vi ews of the left middle cerebral artery. 2. Chronic old infarcts in the left parietal lobe and right frontal schmidt radi janet and right cerebellar hemisphere. 3. Moderate more extensive scattered white matter T2 hyperintensity consistent with chronic small vessel ischemic disease. 4. Changes of bilateral intraocular lens replacement with chronic bilateral ceci s dislocation.
--- NOTE | ~2022-07-26 | CT_ITS ---
EXAMINATION: CT cervical spine wo con DATE: 07/26/2022 19:18 INDICATION: fall, HI, ams TECHNIQUE: Computed tomography (CT) of the cervical spine was performed without intravenous contrast. Automated exposure control and iterative reconstruction technique were employed. The dose-length pro duct was 148.61 mGy-cm. COMPARISON: None FINDINGS: Vertebral Body Alignment: Intact. Craniocervical and atlantoaxial alignment: Severe degenerative change. Alignment intact. Osseous structures/fracture: No evidence of a lytic or blastic process in the visualized spine. No e vidence of acute fracture. Cervical soft tissues: The paraspinal soft tissues planes are maintained. Degenerative changes: Degenerative changes, without severe neural foraminal or central canal narrowin g. IMPRESSION: No acute fracture or traumatic malalignment in the cervical spine. Reviewed, dictated and finalized at location K.
--- NOTE | ~2022-07-26 | US_ITS ---
EXAMINATION: US carotid duplex BI DATE: 07/28/2022 15:50 INDICATION: TIA TECHNIQUE: Grayscale, color Doppler, and pulsed Doppler images of the cervical carotid arteries were obtained. The degree of vessel stenosis is placed in one of the following categories: normal, <50%, 5 0-69%, >=70% but less than near-occlusion, near-occlusion, or total occlusion. Note that percent sten osis relative to normal distal artery lumen diameter is indirectly measured from velocity measurement s as described by Tadeo, et al. Radiology 2003; 229:340-346. Notes: Normal: Peak systolic velocity <125 centimeters/sec and no plaque <50%. Peak systolic velocity <125 ( EDV <40; ICA/CCA PSV ratio <2.0; used these factors only a tandem lesions or low cardiac output or co ntralateral disease) 50-69 %: PSV 125-230 (EDV 40-100; ratio 2-4) >= 70% but less than near occlusion: PSV greater than 230 (EDV > 100; ratio> 4.0) Near Occlusion: PSV that is variable; markedly narrowed lumen Occlusion: Absent flow on color/spectral Doppler and no lumen on ramos scale. COMPARISON: None. FINDINGS: RIGHT: The right common carotid artery (CCA) peak systolic velocity (PSV) is 87 cm/s. The right internal car otid artery (ICA) PSV is 85 cm/s. The right ICA end-diastolic velocity (EDV) is 31 cm/s. The right IC A/CCA PSV ratio is 1.0. The external carotid artery (ECA) PSV is 155 cm/s. There is antegrade flow in the right vertebral artery. LEFT: The left CCA PSV is 98 cm/s. The left ICA PSV is 96 cm/s. The left ICA EDV is 33 cm/s. The left ICA/C CA PSV ratio is 1.0. The ECA PSV is 116 cm/s. There is antegrade flow in the left vertebral artery. IMPRESSION: 1. Less than 50% stenosis in the right internal carotid artery by sonographic criteria. 2. Less than 50% stenosis in the left internal carotid artery by sonographic criteria. Reviewed, dictated and finalized at location A. IMPRESSION: 1. Less than 50% stenosis in the right internal carotid artery by sonographic erick borrero. 2. Less than 50% stenosis in the left internal carotid artery by sonographic eric mccall.
--- NOTE | ~2022-07-26 | CT_ITS ---
EXAMINATION: CTA brain DATE: 07/26/2022 19:21 INDICATION: altered mental status s/p fall TECHNIQUE: Computed tomographic angiography (CTA) of the head was performed without and with 100 mL O mnipaque-350 intravenous contrast. CTA of the neck was performed with intravenous contrast. The dose- length product was 1010.97 mGy-cm. Maximum intensity projection and volume rendered 3D-reconstruction s were created by the technologist on a separate workstation. COMPARISON: 01/31/2020. FINDINGS: CT BRAIN: No acute large vessel infarct, intracranial hemorrhage, mass, or hydrocephalus. Moderate atrophy and chronic white matter change. Atherosclerotic intracranial calcification. Bilateral lens replacements, which do not appear to be in standard position. 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 CTA HEAD: No large vessel occlusion, aneurysm, high flow vascular malformation, nidus or extravasation. IMPRESSION: No acute intracranial process. No acute large vessel occlusion. Possible bilateral lens dislocation v ersus postsurgical changes, correlate with recent change in visual acuity and surgical history. Reviewed, dictated and finalized at location K. IMPRESSION: No acute intracranial process. No acute large vessel occlusion. Possible bilate ral lens dislocation versus postsurgical changes, correlate with recent change in visual acuity and surgical history.
--- NOTE | ~2022-07-26 | XR_ITS ---
EXAMINATION: XR chest 1V portable Exam Date/Time: 07/26/2022 21:18 CDT HISTORY: AMS; hx of AAA, non smoker Comparison: 01/31/2020. RESULT: Lines, tubes, and devices: Cholecystectomy clips. Bilateral breast augmentation. Lungs and pleura: Senescent changes, otherwise clear. Cardiomediastinal silhouette: Stable. Other: No acute osseous or upper abdominal finding. IMPRESSION: No acute cardiopulmonary process. Reviewed, dictated and finalized at location K.
--- NOTE | 2022-07-26 18:35 | ECG_ITS ---
Measurements Intervals [place] Rate: 94 P: 65 SD: 204 QRS: -9 QRSD: 77 T: 63 QT: 374 QTc: 470 Interpretive Statements SINUS RHYTHM BASELINE ARTIFACT PRESENT COMPARED TO ECG 01/31/2020 09:20:04 NO SIGNIFICANT CHANGES Electronically Signed On 07-27-2022 17:40:[address] M.D.
[2022-07-26 18:41] LABS: Glucose Point of Care 139 mg/dl (65-105)
[2022-07-26 18:49] LABS: Basophils Absolute Auto 0.1 K/mm3 (0.0-0.1); Basophils Percent Auto 0.9 % (0.2-1.2); Eosinophils Absolute Auto 0.1 K/mm3 (0-0.3); Eosinophils Percent Auto 0.9 % (0-4.4); Hematocrit 38.9 % (37.0-47.0); Hemoglobin 12.9 g/dL (12.0-15.0); Immature Granulocyte Absolute 0.04 K/mm3 (0.00-0.031); Immature Granulocyte Percent A 0.5 % (0-0.5); Lymphocytes Percent Auto 11.5 % (18.3-44.2); Mean Corpuscular HGB Conc 33.2 g/dl (32-36); Mean Corpuscular Hemoglobin 28.6 pg (26-34); Mean Corpuscular Volume 86.3 fl (80-100); Mean Platelet Volume 10.6 fl (7.4-10.4); Monocytes Absolute Auto 0.4 K/mm3 (0.1-0.6); Monocytes Percent Auto 4.6 % (2.6-8.5); Neutrophils Absolute Auto 6.4 K/mm3 (1.3-6.7); Neutrophils Percent Auto 81.6 % (45.5-73.1); Platelet Count Result 196 k/mm3 (150-375); Red Blood Count 4.51 M/mm3 (4.2-5.4); Red Cell Distribution Width 13.3 % (11.5-14.5); White Blood Count 7.8 K/mm3 (4.5-10.0)
[2022-07-26 19:00] LABS: Alanine Aminotransferase 36 U/L (6-35); Albumin Level 4.3 g/dL (3.5-5.1); Alkaline Phosphatase 142 U/L (38-126); Anion Gap 9 mmol/L (8-16); Aspartate Amino Transferase 37 U/L (14-36); Bilirubin,Total 0.7 mg/dL (0.2-1.3); Blood Urea Nitrogen 22 mg/dL (7-17); Calcium 9.5 mg/dL (8.4-10.2); Carbon Dioxide 27 mmol/L (22-30); Chloride 105 mmol/L (98-107); Estimated Glomerular Filt Rate > 60; Glucose 130 mg/dL (65-110); Potassium 4.2 mmol/L (3.4-5.0); Sodium 141 mmol/L (137-145)
[2022-07-26 19:18] LABS: INR 1.2; Prothrombin Time 14.8 Seconds (11.1-14.7)
--- NOTE | 2022-07-26 19:21 | PC.NURSE ---
Assumed care of pt at this time. Pt supine on stretcher, A&Ox2, disoriented to time. Pt and family updated on POC.
[2022-07-26 20:01] LABS: Appearance Urine Clear (Clear); Bilirubin Urine Negative (Negative); Blood Urine Negative (Negative); Color Urine Yellow (Yellow); Glucose Urine UA Negative (Negative); Ketones Urine Trace mg/dL (Negative); Leukocyte Esterase Ur 3+ LEU/UL (Negative); Nitrate Urine Positive (Negative); Protein Urine Negative (Negative); Specific Grav Ur 1.025 (1.001-1.035); Urobilinogen Urine 0.2 mg/dL (<2.0); pH Urine 5.5 (5.0-9.0)
[2022-07-26 20:02] LABS: Bacteria Urine 4+ /hpf; Calcium Oxalate Crystals Urine Present /hpf; Mucus Urine Few /lpf; Squamous Epithelial Cell Urine Moderate /hpf (Few); WBC Urine >75 /hpf
[2022-07-26 20:04] LABS: Add Urine Microscopic? YES
--- NOTE | 2022-07-26 21:02 | ED.GENADULT ---
HPI - General Adult General Chief complaint: Fall Stated complaint: ground level fall, unknown down time Time Seen by Provider: 07/26/22 18:51 History of Present Illness HPI narrative: This is an 81-year-old female presenting ED with a chief complaint of Falling at home. last time her sons are normal was at 10:00 p.m. last night. When he got home he found her lying in bed with a skin tear on her right arm. The patient herself does not recall what happens. She is usually alert and oriented to x4. At this time she knows her name. She denies any physical complaints at this time outside of pain to her right arm. Related Data Home Medications Medication Instructions Recorded Confirmed vitamin B complex (Super B-50 1 cap PO DAILY 05/23/21 06/02/22 Complex capsule) duloxetine 60 mg capsule,delayed 60 mg PO DAILY 07/11/21 06/02/22 release cetirizine 10 mg tablet (Zyrtec) 10 mg PO DAILY PRN 02/17/22 06/02/22 Allergies Allergy/AdvReac Type Severity Reaction Status Date / Time No Known Allergies Allergy Verified 07/26/22 18:39 Review of Systems Review of Systems: CONSTITUTIONAL: Denies night sweats. EYES: No eye pain ENT: Denies rhinorrhea CARDIOVASCULAR: Denies palpitations RESPIRATORY: Denies hemoptysis GASTROINTESTINAL: Denies hematemesis GENITOURINARY: Denies hematuria. SKIN: Denies rash MUSCULOSKELETAL: Denies myalgia. NEUROLOGIC: Denies weakness. PSYCHIATRIC: Denies delusions PMFSH Past Medical History Medical History AAA (abdominal aortic aneurysm) Adult BMI 19-24 kg/sq m Adult BMI <19 kg/sq m Anxiety Anxiety with depression Arthritis BMI 20.0-20.9, adult BMI 21.0-21.9, adult BMI 22.0-22.9, adult Closed fracture of ramus of left pubis Compression fx, lumbar spine Constipation Degenerative joint disease of both hips Depression DJD (degenerative joint disease) Early satiety Encounter for routine adult health examination without abnormal findings Exposure to COVID-19 virus Follow up Hearing loss Hyperlipidemia Impaired functional mobility, balance, gait, and endurance Kidney stone Lumbar compression fracture Orthostatic hypotension Osteoporosis Parkinsonism Physical deconditioning Recurrent major depression Right knee pain Seasonal allergies Sinus congestion Sinus drainage Swollen tongue TIA (transient ischemic attack) Unintentional weight loss Vestibular dizziness Vitamin B12 deficiency Vitamin B6 deficiency Vitamin D deficiency Weakness Surgical History Surgical History History of cholecystectomy History of hip surgery History of hysterectomy History of tubal ligation Family History Family History Grandparent No problems noted. Father Hypertension Other COPD (chronic obstructive pulmonary disease) Social History Social History Social History: The patient lives in her own home in [place]. She has been as of July 2019. She and her were for 60 years and they have 3 sons and 1 daughter. 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 She is a lifelong nonsmoker and denies alcohol and drug abuse. Smoking status: Never smoker Alcohol intake: never Substance use: never Gender identity (if verbalized by the patient): Female Spiritual care concerns: No Agree to blood products: Yes Exam Narrative: APPEARANCE: No apparent distress. Head atraumatic. EYES: PERRLA/EOMI, NOSE: Normal no drainage NECK: Supple, Trachea midline RESPIRATORY: CTAB, No increased work of breathing. CARDIOVASCULAR: S1S2 appreciated ABDOMINAL: Soft, nontender, nondistended, MUSCULOSKELETAl: No obvious deformities NEURO: Alert. Moving 4/4 extremities SKIN:: Patient has a 10 cm size superficial skin tear on the r
[2022-07-26] MEDS: ASPIRIN 81 MG CHEWABLE TABLET 324 MG PO (21:35)
[2022-07-26] MEDS: TETANUS,DIPHTHERIA,AC PERTUSSIS ADULT (0.5 ML) BOOSTRIX IM (21:36)
--- NOTE | 2022-07-26 23:15 | ADMGEN ---
This patient, Yesenia Mcdonough, was admitted to Medical Room 250-01. Patient/family oriented to hospital policies and general routines including ID bracelet, bed and alarms, visiting hours, pain management, procedures, bathroom and other care routines, personal items, smoking policy, room service/diet, and visiting hours. Information on how to activate the Rapid Response Team has been discussed. Patient/Family are encouraged to report perceived risks to care and to ask questions if they do not understand what they are told or what they should do.
[2022-07-26] MEDS: LACTATED RINGERS 1,000 ML 100 ML IV CONT (23:34)
[2022-07-27] VITALS (8 sets, daily range): BP systolic 142–168; BP diastolic 63–75; PULSE 77–92; RESP 16–18; TEMP 36.3–36.7; O2SAT 96–98
[2022-07-27] MEDS: DULoxetine HCL 60 MG CAPSULE.DR PO (09:03)
[2022-07-27] MEDS: FOLIC ACID 1 MG TABLET 2 MG PO (09:03)
[2022-07-27] MEDS: CARBIDOPA/LEVODOPA 10/100 MG TABLET 2 TABLET PO ×3 (09:03→17:42)
[2022-07-27] MEDS: ATORVASTATIN 40 MG TABLET PO (09:04)
[2022-07-27] MEDS: VITAMIN B COMPLEX CAPSULE 1 CAP PO (09:04)
[2022-07-27] MEDS: ENOXAPARIN 40 MG/0.4 ML SYRINGE SUB-Q (09:04)
[2022-07-27] MEDS: MEMANTINE 10 MG TABLET PO ×2 (09:04→17:42)
--- NOTE | 2022-07-27 09:45 | PM.IMHP ---
H&P: HPI History of Present Illness Date/Time: 07/27/22 9751 Chief Complaint: fall, confusion Narrative: Patient is an 81 year old female with a past medical history of dementia, parkinsons, HLD, Anxiety, depression, kidney stones who presented to the ED after a fall. According to the ED the patient was found laying in bed by her son at 10:00pm. Patient stated that she was unable to tell me what happened as she does not remember. She stated that her was a normal day as per usual for her. She does not remember anything being off however she is unsure. She states that she has been urinating okay with no pain or burning. She states that she has been eating and drinking. She did state that she has not done really eat much of anything but go back more to the bathroom. Her younger son does live with her. Patient does have a nice skin tear or wound up the left forearm. Her biggest complaint is that she is very tired. She denies any chest pain, shortness of breath, nausea, vomiting, diarrhea, constipation, visual changes, lightheadedness, dizziness, syncope or falls. She denies any abdominal pain as well. She states that she feels very weak. Patient also states that she has been taking her meds as she should be. Patient is being admitted to the hospitalist service as observation Review of Systems Review of Systems: All systems reviewed & are unremarkable except as noted in HPI and below PMFSH Past Medical History Medical History AAA (abdominal aortic aneurysm) Adult BMI 19-24 kg/sq m Anxiety with depression Closed fracture of ramus of left pubis Compression fx, lumbar spine DJD (degenerative joint disease) History of COVID-19 Hyperlipidemia Kidney stone Osteoporosis Parkinsonism Seasonal allergies TIA (transient ischemic attack) Vestibular dizziness Vitamin B12 deficiency Vitamin B6 deficiency Vitamin D deficiency Surgical History Surgical History History of cholecystectomy History of hip surgery History of hysterectomy History of tubal ligation Family History Family History Grandparent No problems noted. Father Hypertension Other COPD (chronic obstructive pulmonary disease) Social History Social History Social History: The patient lives in her own home in [place]. She has been as of July 2019. She and her were for 60 years and they have 3 sons and 1 daughter. 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 She is a lifelong nonsmoker and denies alcohol and drug abuse. Smoking status: Never smoker Alcohol intake: never Substance use: never Substance use type: does not use Gender identity (if verbalized by the patient): Female Spiritual care concerns: No Agree to blood products: Yes Meds Home Medications and Allergies Home Medications Medication Instructions Recorded Confirmed Type vitamin B complex (Super B-50 1 cap PO DAILY 05/23/21 07/27/22 History Complex capsule) duloxetine 60 mg capsule,delayed 60 mg PO DAILY 07/11/21 07/27/22 History release hydroxyzine HCl 25 mg tablet 25 mg PO BID PRN anxiety #60 tabs 06/16/22 07/27/22 Rx atorvastatin 40 mg tablet 40 mg PO DAILY 07/27/22 07/27/22 History carbidopa 10 mg-levodopa 100 mg 2 tablet PO TID 07/27/22 07/27/22 History disintegrating tablet folic acid 1 mg tablet 2 mg PO DAILY 07/27/22 07/27/22 History memantine 10 mg tablet 10 mg PO BID 07/27/22 07/27/22 History quetiapine 25 mg tablet 25 mg PO HS 07/27/22 07/27/22 History Allergies Allergy/AdvReac Type Severity Reaction Status Date / Time No Known Allergies Allergy Verified 07/26/22 18:39 Vital Signs Vital Signs - 24 hr 07/26/22 18:29 07/26/22 18:45 07/26/22 19:21 Temperat
[2022-07-27] MEDS: polyethylene glycoL 3350 17 GM POWD.PACK PO (13:04)
[2022-07-27] MEDS: SENNA/DOCUSATE SODIUM TABLET 1 TAB PO (13:04)
[2022-07-27] MEDS: hydrOXYzine HCL 25 MG TABLET PO (13:52)
[2022-07-27] MEDS: ONDANSETRON INJ 4 MG/2 ML VIAL IV PUSH (13:55)
[2022-07-27] MEDS: LACTATED RINGERS 1,000 ML 100 ML IV CONT (15:50)
[2022-07-27] MEDS: QUEtiapine FUMARATE 25 MG TABLET PO (21:45)
[2022-07-28] VITALS (9 sets, daily range): BP systolic 115–155; BP diastolic 64–84; PULSE 68–84; RESP 14–20; TEMP 36.2–36.8; O2SAT 97–99
[2022-07-28] MEDS: LACTATED RINGERS 1,000 ML 100 ML IV CONT ×2 (01:52→11:29)
[2022-07-28 06:09] LABS: Basophils Absolute Auto 0.1 K/mm3 (0.0-0.1); Eosinophils Absolute Auto 0.3 K/mm3 (0-0.3); Eosinophils Percent Auto 5.4 % (0-4.4); Hematocrit 32.1 % (37.0-47.0); Hemoglobin 10.2 g/dL (12.0-15.0); Immature Granulocyte Absolute 0.01 K/mm3 (0.00-0.031); Immature Granulocyte Percent A 0.2 % (0-0.5); Lymphocytes Absolute Auto 1.75 K/mm3 (0.9-3.2); Lymphocytes Percent Auto 33.7 % (18.3-44.2); Mean Corpuscular HGB Conc 31.8 g/dl (32-36); Mean Corpuscular Hemoglobin 28.4 pg (26-34); Mean Corpuscular Volume 89.4 fl (80-100); Mean Platelet Volume 10.6 fl (7.4-10.4); Monocytes Absolute Auto 0.6 K/mm3 (0.1-0.6); Monocytes Percent Auto 10.6 % (2.6-8.5); Neutrophils Absolute Auto 2.6 K/mm3 (1.3-6.7); Neutrophils Percent Auto 49.1 % (45.5-73.1); Platelet Count Result 161 k/mm3 (150-375); Red Blood Count 3.59 M/mm3 (4.2-5.4); Red Cell Distribution Width 13.3 % (11.5-14.5); White Blood Count 5.2 K/mm3 (4.5-10.0)
[2022-07-28 06:28] LABS: Alanine Aminotransferase 18 U/L (6-35); Albumin Level 3.3 g/dL (3.5-5.1); Alkaline Phosphatase 102 U/L (38-126); Anion Gap 5 mmol/L (8-16); Aspartate Amino Transferase 43 U/L (14-36); Bilirubin,Total 0.5 mg/dL (0.2-1.3); Blood Urea Nitrogen 16 mg/dL (7-17); Calcium 8.4 mg/dL (8.4-10.2); Carbon Dioxide 26 mmol/L (22-30); Chloride 106 mmol/L (98-107); Cholesterol 131 mg/dL (0-200); Estimated CRCL calculation 50 ml/min; Estimated Glomerular Filt Rate > 60; Glucose 91 mg/dL (65-110); HDL Direct 42 mg/dL; Magnesium 1.9 mg/dL (1.6-2.3); Potassium 3.6 mmol/L (3.4-5.0); Sodium 137 mmol/L (137-145); Triglycerides 92 mg/dL (<150)
[2022-07-28 06:40] LABS: LDL Cholesterol Direct 65 mg/dL
[2022-07-28 07:43] LABS: Hepatitis B Surface Antigen Negative (Negative)
[2022-07-28 07:49] LABS: HAV RESULT Negative (Negative); Hepatitis B Core IgM Result Negative (Negative)
[2022-07-28] MEDS: CARBIDOPA/LEVODOPA 10/100 MG TABLET 2 TABLET PO ×3 (08:41→16:55)
[2022-07-28] MEDS: ATORVASTATIN 40 MG TABLET PO (08:41)
[2022-07-28] MEDS: ASPIRIN 81 MG ENTERIC TABLET PO (08:41)
[2022-07-28] MEDS: FOLIC ACID 1 MG TABLET 2 MG PO (08:41)
[2022-07-28] MEDS: SENNA/DOCUSATE SODIUM TABLET 1 TAB PO (08:41)
[2022-07-28] MEDS: MEMANTINE 10 MG TABLET PO ×2 (08:42→16:54)
[2022-07-28] MEDS: DULoxetine HCL 60 MG CAPSULE.DR PO (08:42)
[2022-07-28] MEDS: VITAMIN B COMPLEX CAPSULE 1 CAP PO (08:42)
[2022-07-28] MEDS: ENOXAPARIN 40 MG/0.4 ML SYRINGE SUB-Q (08:42)
[2022-07-28] MEDS: hydrOXYzine HCL 25 MG TABLET PO ×2 (11:23→18:12)
[2022-07-28] MEDS: ONDANSETRON INJ 4 MG/2 ML VIAL IV PUSH (11:26)
--- NOTE | 2022-07-28 11:47 | PM.IMPN ---
Progress Note: A&P Assessment and Plan (1) CVA (cerebral vascular accident): Code(s): I63.9 - Cerebral infarction, unspecified Status: Acute Assessment and Plan: The patient's son found her in bed, more confused and oriented to self only. On arrival to the ED, noted to have difficulty with word finding NIHSS upon arrival was 2 CTA of the brain showed no acute intracranial process and no acute large vessel occlusion Patient not a candidate for tPA due to duration of time since last known well Received dose of aspirin 325 mg in the ED. Continue aspirin at this time Brain MRI shows possible small acute infarcts in the posterior left frontal lobe, left parietal lobe, and posterior left insula consistent with sharp emboli in the transverse views of the left middle cerebral artery. Also with findings of chronic old infarcts in left parietal lobe and right frontal schmidt radiata and right cerebellar hemisphere Appreciate neurology consultation Appreciate PT/OT eval Continue aspirin 81 mg daily Continue high-intensity statin. Lipid panel reviewed. Echo is pending Continue to monitor on telemetry (2) Acute metabolic encephalopathy: Code(s): G93.41 - Metabolic encephalopathy Status: Acute Assessment and Plan: Patient noted to be confused upon arrival, likely secondary to acute CVA, however may be related to UTI. Patient is not endorse urinary symptoms, though does feel poorly and urine culture is positive. See plan below. Patient A&O x2 today and answered questions appropriately (3) UTI (urinary tract infection): Code(s): N39.0 - Urinary tract infection, site not specified Status: Acute Assessment and Plan: UA abnormal presentation. Urine culture with growth of >100k Klebsiella pneumoniae. Susceptibility report pending. Continue empiric ceftriaxone at this time. Blood cultures pending, negative to date. (4) Fall: Code(s): W19.XXXA - Unspecified fall, initial encounter Status: Acute Assessment and Plan: Unwitnessed, however patient was found with large skin tear to her right forearm. Implement fall precautions. Appreciate PT/OT eval (5) Parkinsonism: Qualifiers: Parkinsonism type: unspecified Qualified Code(s): G20 - Parkinson's disease Code(s): G20 - Parkinson's disease Status: Acute Assessment and Plan: Does not appear to have any acute issues. Continue home carbidopa/levodopa (6) Transaminitis: Code(s): R74.01 - Elevation of levels of liver transaminase levels Status: Acute Assessment and Plan: Nearly resolved. AST mildly elevated with normal ALT and alk-phos. Hepatitis panel negative. Continue to trend. Consider right upper quadrant ultrasound if no improvement/worsening (7) Hypertension: Code(s): I10 - Essential (primary) hypertension Status: Acute Assessment and Plan: Pressures have been stable. Patient does not appear to be on any antihypertensives. Monitor blood pressure trends (8) Skin tear of right upper extremity: Code(s): S41.111A - Laceration without foreign body of right upper arm, initial encounter Status: Acute Assessment and Plan: Patient found by large right skin tear, presumably sustained from a fall. Steri-Strips applied in the ED. Continue with dressing. Subjective Date/time seen: 07/28/22 11:47 Interval history: date of service: 07/28/2022 Yesenia Mcdonough is an 81 year old female with a history of TIA, parkinsonism, HLD, anxiety, depression who is seen in follow up for acute CVA. She is not feeling well today. She states she is terrible but not really able to elaborate on specific symptoms or what is bothering her. She stated multiple times she is just not sure what is wrong. She does endorse headache and weakness. She has been able to get up and walk to the bathroom But does endorse some diff
--- NOTE | 2022-07-28 13:02 | WPDNEURCNPN ---
Assessment and Plan Assessment and plan (1) Parkinsonism: Qualifiers: Parkinsonism type: unspecified Qualified Code(s): G20 - Parkinson's disease Code(s): G20 - Parkinson's disease Status: Acute (2) Fall: Code(s): W19.XXXA - Unspecified fall, initial encounter Status: Acute (3) Acute metabolic encephalopathy: Code(s): G93.41 - Metabolic encephalopathy Status: Acute (4) CVA (cerebral vascular accident): Code(s): I63.9 - Cerebral infarction, unspecified Status: Acute Plan 1 cerebrovascular accident as detailed 2 encephalopathy 3 Parkinson's disease with gait dysfunction 4 multifactorial gait dysfunction and confusion plan is to obtain the EEG as the MRI has already done and also echocardiogram Consult date: 07/28/22 Time Seen: 11:30 Reason for consult: unwitnessed fall HPI: Yesenia Mcdonough is a 81 year old female admitted to the hospital through the emergency room for the complaints of fall at home she was reportedly seen by her son last time at 10:00 p.m. when he returned he found her lying in bed with skin tear on her right upper extremity and patient herself was unable to recall what has actually happened though usually she is awake alert and oriented x4. She has been taking medications such as duloxetine 60 mg daily cetirizine 10 mg daily. He has rather complicated past history but particularly history of abdominal aortic aneurysm, impaired functional mobility with gait disturbance, Parkinson's disease, vestibular dizziness, and generalized weakness with multiple vitamin deficiencies. Never a smoker or drinker and her initial examination was consistent with no focal neurological deficit. Her vital signs were stable except blood pressure was 197/95, she was found to have lacerations on 3 different locations, CTA of the brain documented moderate atrophy with chronic white matter changes and old cerebellar and right basal gangliar infarct but no evidence of epidural or subdural bleed, CT of the cervical spine was negative for fracture and dislocation, routine lab studies were normal though her UA was positive for nitrate and EKG revealed no atrial fibrillation, her medications included duloxetine 60 mg daily carbidopa levodopa 10/102 tablets 3 times a day and Seroquel 25 mg at night. She was admitted to the hospital for the metabolic encephalopathy in addition to the underlying conditions but MRI of the brain has documented small acute infarct in the posterior left frontal lobe and left parietal lobe and posterior left insula in addition to the chronic old infarcts patient's medications include carbidopa levodopa as mentioned above in addition to memantine and Seroquel Review of Systems Review of Systems: All systems reviewed & are unremarkable except as noted in HPI and below PMFSH Past Medical History Medical History AAA (abdominal aortic aneurysm) Adult BMI 19-24 kg/sq m Anxiety with depression Closed fracture of ramus of left pubis Compression fx, lumbar spine DJD (degenerative joint disease) History of COVID-19 Hyperlipidemia Kidney stone Osteoporosis Parkinsonism Seasonal allergies TIA (transient ischemic attack) Vestibular dizziness Vitamin B12 deficiency Vitamin B6 deficiency Vitamin D deficiency Surgical History Surgical History History of cholecystectomy History of hip surgery History of hysterectomy History of tubal ligation Family History Family History Grandparent No problems noted. Father Hypertension Other COPD (chronic obstructive pulmonary disease) Social History Social History Social History: The patient lives in her own home in [place]. She has been as of July 2019. She and her were
[2022-07-28] MEDS: QUEtiapine FUMARATE 25 MG TABLET PO (19:37)
[2022-07-28 22:13] LABS: Hepatitis C Virus Antibody Negative (Negative)
[2022-07-29] VITALS (9 sets, daily range): BP systolic 128–147; BP diastolic 61–92; PULSE 72–82; RESP 20; TEMP 36.3–36.8; O2SAT 92–99
--- NOTE | 2022-07-29 | ECHO_ITS ---
Patient Info Name: Yesenia Mcdonough Age: 81 years : 1940 Gender: Female Ht: 63 in Wt: 132 lbs BSA: 1.64 m2 HR: 71 bpm BP: 159 / 63 mmHg Heart Rhythm: Sinus Rhythm Technical Quality: Fair Exam Date: 07/29/2022 8:39 AM Exam Location: [facility] Card Pulmonary Patient Status: Inpatient Admit Date: 07/28/2022 Staff Ordering Physician: Abhishek King Student Services Advisor: Ruth Oakley RDCS Attending Provider: Kimberly Avina PA-C Referring Physician: Fernando LANDRY; Exam Type: CA echo doppler w bubble study Study Info Indications - TIA/CVA Complete two-dimensional, color flow and Doppler transthoracic echocardiogram is performed with agitated saline. Contrast/Agitated Saline Contrast/Ag. Saline: Agitated Saline Amount: 20.00 ml Administered By: Anahi Jones RDCS Existing IV Access: Yes IV Access Condition: patent with no signs of infiltration Summary 1. Left ventricular systolic function is hyperdynamic, estimated at >70%. 2. The left ventricular diastolic function is grade I diastolic dysfunction. 3. Right ventricular systolic function is normal. 4. Suspected patent foramen ovale visualized by agitated saline imaging. 5. 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 6. The mitral valve has thickened leaflets and restricted posterior leaflet motion. Left Ventricle Left ventricular chamber dimension is normal. Left ventricular systolic function is hyperdynamic, estimated at >70%. There is no increased left ventricular wall thickness. The left ventricular diastolic function is grade I diastolic dysfunction. Right Ventricle Right ventricular chamber dimension is normal. Right ventricular systolic function is normal. Left Atria Left atrial chamber dimension is normal. Right Atria Right atrial chamber dimension is normal. 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 Suspected patent foramen ovale visualized by agitated saline imaging. Aortic Valve The aortic valve is not well visualized. There is no aortic valve stenosis. There is no aortic valve regurgitation. Pulmonic Valve The pulmonic valve is not well visualized. Mitral Valve The mitral valve has thickened leaflets and restricted posterior leaflet motion. There is no mitral valve stenosis. There is no mitral valve regurgitation. There is mild mitral valve calcification. Tricuspid Valve The tricuspid valve leaflets are normal. There is no significant tricuspid valve stenosis. There is trace tricuspid valve regurgitation. Pericardium/Pleural The pericardium appears epicardial fat pad. There is no pericardial effusion. Aorta The aortic root size at the sinus of Valsalva is normal. The prox ascending aorta size is normal. Left Ventricular Outflow Tract Name Value Normal LVOT 2D LVOT Diameter 1.9 cm LVOT Doppler LVOT Peak Gradient 5 mmHg LVOT Mean Gradient 2 mmHg LVOT VTI 19 cm LVOT VTI/AV VTI Ratio 0.6
[2022-07-29] MEDS: LACTATED RINGERS 1,000 ML 65 ML IV CONT (04:36)
[2022-07-29 05:02] LABS: Hematocrit 30.6 % (37.0-47.0); Hemoglobin 9.9 g/dL (12.0-15.0); Mean Corpuscular HGB Conc 32.4 g/dl (32-36); Mean Corpuscular Hemoglobin 28.4 pg (26-34); Mean Corpuscular Volume 87.7 fl (80-100); Mean Platelet Volume 10.8 fl (7.4-10.4); Platelet Count Result 151 k/mm3 (150-375); Red Blood Count 3.49 M/mm3 (4.2-5.4); Red Cell Distribution Width 13.3 % (11.5-14.5)
[2022-07-29 05:18] LABS: Anion Gap 7 mmol/L (8-16); Blood Urea Nitrogen 9 mg/dL (7-17); Calcium 8.3 mg/dL (8.4-10.2); Carbon Dioxide 29 mmol/L (22-30); Chloride 103 mmol/L (98-107); Estimated CRCL calculation 50 ml/min; Estimated Glomerular Filt Rate > 60; Glucose 94 mg/dL (65-110); Potassium 3.3 mmol/L (3.4-5.0); Sodium 139 mmol/L (137-145)
[2022-07-29] MEDS: ASPIRIN 81 MG ENTERIC TABLET PO (08:15)
[2022-07-29] MEDS: DULoxetine HCL 60 MG CAPSULE.DR PO (08:16)
[2022-07-29] MEDS: ATORVASTATIN 40 MG TABLET PO (08:16)
[2022-07-29] MEDS: FOLIC ACID 1 MG TABLET 2 MG PO (08:16)
[2022-07-29] MEDS: CARBIDOPA/LEVODOPA 10/100 MG TABLET 2 TABLET PO ×3 (08:16→16:11)
[2022-07-29] MEDS: SENNA/DOCUSATE SODIUM TABLET 1 TAB PO (08:17)
[2022-07-29] MEDS: MEMANTINE 10 MG TABLET PO ×2 (08:17→16:11)
[2022-07-29] MEDS: VITAMIN B COMPLEX CAPSULE 1 CAP PO (08:17)
[2022-07-29] MEDS: ENOXAPARIN 40 MG/0.4 ML SYRINGE SUB-Q (08:17)
--- NOTE | 2022-07-29 10:52 | PM.IMPN ---
Progress Note: A&P Assessment and Plan (1) CVA (cerebral vascular accident): Code(s): I63.9 - Cerebral infarction, unspecified Status: Acute Assessment and Plan: The patient's son found her in bed, more confused and oriented to self only. On arrival to the ED, noted to have difficulty with word finding NIHSS upon arrival was 2 CTA of the brain showed no acute intracranial process and no acute large vessel occlusion Patient not a candidate for tPA due to duration of time since last known well Received dose of aspirin 325 mg in the ED. Continue aspirin 81 mg daily at this time Brain MRI shows possible small acute infarcts in the posterior left frontal lobe, left parietal lobe. Also with findings of chronic old infarcts in left parietal lobe and right frontal schmidt radiata and right cerebellar hemisphere Appreciate neurology consultation Appreciate PT/OT eval Continue high-intensity statin. Lipid panel reviewed. Echo is pending Continue to monitor on telemetry (2) Acute metabolic encephalopathy: Code(s): G93.41 - Metabolic encephalopathy Status: Acute Assessment and Plan: Patient noted to be confused upon arrival, likely secondary to acute CVA, however may be related to UTI. Patient does not endorse urinary symptoms, though does feel poorly and urine culture is positive. See plan below. Patient alerttoday and answered questions appropriately, likely back to her baseline at this time. (3) UTI (urinary tract infection): Code(s): N39.0 - Urinary tract infection, site not specified Status: Acute Assessment and Plan: UA abnormal presentation. Urine culture with growth of >100k Klebsiella pneumoniae. Continue ceftriaxone based on susceptibility report. Will plan to transition to PO cefdinir pending blood culture results. (4) Fall: Code(s): W19.XXXA - Unspecified fall, initial encounter Status: Acute Assessment and Plan: Unwitnessed, however patient was found with large skin tear to her right forearm. Fall precautions in place. Appreciate PT/OT eval (5) Parkinsonism: Qualifiers: Parkinsonism type: unspecified Qualified Code(s): G20 - Parkinson's disease Code(s): G20 - Parkinson's disease Status: Acute Assessment and Plan: Does not appear to have any acute issues. Continue home carbidopa/levodopa (6) Transaminitis: Code(s): R74.01 - Elevation of levels of liver transaminase levels Status: Acute Assessment and Plan: Nearly resolved. AST mildly elevated with normal ALT and alk-phos. Hepatitis panel negative. Continue to trend. Consider right upper quadrant ultrasound if no improvement/worsening (7) Hypertension: Code(s): I10 - Essential (primary) hypertension Status: Acute Assessment and Plan: Pressures have been stable. Last BP 133/64. Patient does not appear to be on any antihypertensives. Monitor blood pressure trends (8) Skin tear of right upper extremity: Code(s): S41.111A - Laceration without foreign body of right upper arm, initial encounter Status: Acute Assessment and Plan: Patient found to have large right skin tear, presumably sustained from a fall. Steri-Strips applied in the ED. Continue with dressing. Subjective Date/time seen: 07/29/22 10:52 Interval history: date of service: 07/29/2022 Yesenia Mcdonough is an 81 year old female with a history of TIA, parkinsonism, HLD, anxiety, depression who is seen in follow up for acute CVAAnd UTI. She states she does not feel well today. She feels very worn out and fatigued. like someone took my battery out. She states this is been going on for a few months. She denies nausea, vomiting, fever, chills, dizziness, lightheadedness. She denies any weakness. No visual changes, no speech changes. She did not eat much of her breakfast today. She states she has a poor appe
[2022-07-29] MEDS: hydrOXYzine HCL 25 MG TABLET PO (12:36)
[2022-07-29] MEDS: POTASSIUM CHLORIDE 20 MEQ PACKET (FOR LIQUID) PO (15:10)
[2022-07-29] MEDS: QUEtiapine FUMARATE 25 MG TABLET PO (20:09)
[2022-07-30] VITALS (10 sets, daily range): BP systolic 153–163; BP diastolic 69–78; PULSE 68–83; RESP 16–18; TEMP 36.2–36.6; O2SAT 93–97
[2022-07-30] MEDS: LACTATED RINGERS 1,000 ML 65 ML IV CONT (00:40)
[2022-07-30 05:22] LABS: Hematocrit 31.5 % (37.0-47.0); Hemoglobin 10.3 g/dL (12.0-15.0); Mean Corpuscular HGB Conc 32.7 g/dl (32-36); Mean Corpuscular Hemoglobin 28.1 pg (26-34); Mean Corpuscular Volume 85.8 fl (80-100); Mean Platelet Volume 10.6 fl (7.4-10.4); Platelet Count Result 155 k/mm3 (150-375); Red Blood Count 3.67 M/mm3 (4.2-5.4); Red Cell Distribution Width 13.2 % (11.5-14.5); White Blood Count 4.4 K/mm3 (4.5-10.0)
[2022-07-30 05:26] LABS: Alanine Aminotransferase 27 U/L (6-35); Albumin Level 3.2 g/dL (3.5-5.1); Alkaline Phosphatase 91 U/L (38-126); Anion Gap 8 mmol/L (8-16); Aspartate Amino Transferase 46 U/L (14-36); Bilirubin,Total 0.4 mg/dL (0.2-1.3); Blood Urea Nitrogen 6 mg/dL (7-17); Calcium 8.5 mg/dL (8.4-10.2); Carbon Dioxide 29 mmol/L (22-30); Chloride 103 mmol/L (98-107); Estimated CRCL calculation 50 ml/min; Estimated Glomerular Filt Rate > 60; Glucose 98 mg/dL (65-110); Sodium 140 mmol/L (137-145)
[2022-07-30] MEDS: ATORVASTATIN 40 MG TABLET PO (08:44)
[2022-07-30] MEDS: MEMANTINE 10 MG TABLET PO ×2 (08:44→16:56)
[2022-07-30] MEDS: VITAMIN B COMPLEX CAPSULE 1 CAP PO (08:44)
[2022-07-30] MEDS: FOLIC ACID 1 MG TABLET 2 MG PO (08:44)
[2022-07-30] MEDS: CARBIDOPA/LEVODOPA 10/100 MG TABLET 2 TABLET PO ×3 (08:45→16:56)
[2022-07-30] MEDS: DULoxetine HCL 60 MG CAPSULE.DR PO (08:45)
[2022-07-30] MEDS: ENOXAPARIN 40 MG/0.4 ML SYRINGE SUB-Q (08:45)
[2022-07-30] MEDS: SENNA/DOCUSATE SODIUM TABLET 1 TAB PO (08:45)
[2022-07-30] MEDS: ASPIRIN 81 MG ENTERIC TABLET PO (08:45)
--- NOTE | 2022-07-30 13:27 | PC.NURSE ---
On 07/30/22, the student, [Radha Naidu], provided care and completed [facility] documentation on this patient. I have reviewed the student's documentation and agree with the findings.
--- NOTE | 2022-07-30 13:39 | PM.IMPN ---
Progress Note: A&P Assessment and Plan (1) CVA (cerebral vascular accident): Code(s): I63.9 - Cerebral infarction, unspecified Status: Acute Assessment and Plan: The patient's son found her in bed, more confused and oriented to self only. On arrival to the ED, noted to have difficulty with word finding NIHSS upon arrival was 2 CTA of the brain showed no acute intracranial process and no acute large vessel occlusion Patient not a candidate for tPA due to duration of time since last known well Received dose of aspirin 325 mg in the ED. Continue aspirin 81 mg daily at this time Brain MRI shows possible small acute infarcts in the posterior left frontal lobe, left parietal lobe, and posterior left insula consistent with shower emboli in distribution of left MCA . Also with findings of chronic old infarcts in left parietal lobe and right frontal schmidt radiata and right cerebellar hemisphere Echo completed which revealed suspected PFO. Consult to cardiology. Input is appreciated. Appreciate neurology consultation Appreciate PT/OT eval Continue high-intensity statin. Lipid panel reviewed. Continue to monitor on telemetry (2) Acute metabolic encephalopathy: Code(s): G93.41 - Metabolic encephalopathy Status: Acute Assessment and Plan: Patient noted to be confused upon arrival, likely secondary to acute CVA, however may be related to UTI. Patient does not endorse urinary symptoms, though does feel poorly and urine culture is positive. See plan below. Patient alert today and answering questions appropriately, likely back to her baseline at this time. (3) UTI (urinary tract infection): Code(s): N39.0 - Urinary tract infection, site not specified Status: Acute Assessment and Plan: UA abnormal presentation. Urine culture with growth of >100k Klebsiella pneumoniae. Received IV ceftriaxone and has been transition to p.o. cefdinir which she will continue for 7 days total. (4) Fall: Code(s): W19.XXXA - Unspecified fall, initial encounter Status: Acute Assessment and Plan: Unwitnessed, however patient was found with large skin tear to her right forearm. Fall precautions in place. Appreciate PT/OT eval (5) Parkinsonism: Qualifiers: Parkinsonism type: unspecified Qualified Code(s): G20 - Parkinson's disease Code(s): G20 - Parkinson's disease Status: Acute Assessment and Plan: Does not appear to have any acute issues. Continue home carbidopa/levodopa (6) Transaminitis: Code(s): R74.01 - Elevation of levels of liver transaminase levels Status: Acute Assessment and Plan: Nearly resolved. AST mildly elevated with normal ALT and alk-phos. Hepatitis panel negative. Continue to trend. Consider right upper quadrant ultrasound if no improvement/worsening (7) Hypertension: Code(s): I10 - Essential (primary) hypertension Status: Acute Assessment and Plan: Pressures have been stable. Patient does not appear to be on any antihypertensives. Monitor blood pressure trends (8) Skin tear of right upper extremity: Code(s): S41.111A - Laceration without foreign body of right upper arm, initial encounter Status: Acute Assessment and Plan: Patient found to have large right skin tear, presumably sustained from a fall. Steri-Strips applied in the ED. Continue with dressing. Subjective Date/time seen: 07/30/22 13:39 Interval history: date of service: 07/30/2022 Yesenia Mcdonough is an 81 year old female with a history of TIA, parkinsonism, HLD, anxiety, depression who is seen in follow up for acute CVA and UTI. She feels okay today. She admits to being nervous about being in the hospital. She also states that she is having a hard time today because the anniversary of her 's is upcoming. Otherwise, she has no concerns. She has been up and ambul
--- NOTE | 2022-07-30 13:40 | WPDNEUROPN ---
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 left parietal lobe and right frontal coronal radiata and right cerebellar hemisphere patient is receiving aspirin 81 mg daily, echocardiogram has revealed suspected patent foramina ovale by agitated saline imaging and also interatrial septum appeared to be aneurysmal mitral wall has thickened leaflets and restricted posterior as the patient was not candidate for tPA and considering the MRI finding she will be continued on aspirin and Plavix for 4 weeks in addition to continuation of her other medications such Objective Data Vital Signs Vital Signs: Vital Signs - 24 hr 07/29/22 14:00 07/29/22 16:00 07/29/22 20:00 Temperature 36.8 C Pulse Rate 77 80 80 Respiratory Rate 20 20 Blood Pressure 128/61 Pulse Oximetry 92 92 Oxygen Delivery Room Air 07/29/22 20:00 07/29/22 22:57 07/30/22 00:00 Temperature 36.3 C L Pulse Rate 77 79 74 Respiratory Rate 20 Blood Pressure 147/92 H Pulse Oximetry 98 Oxygen Delivery 07/30/22 04:00 07/30/22 06:55 07/30/22 10:20 Temperature 36.2 C L Pulse Rate 73 68 Respiratory Rate 18 Blood Pressure 154/69 H Pulse Oximetry 96 93 Oxygen Delivery Room Air Intake/Output Intake/Output: Intake & Output 07/27/22 07/28/22 07/29/22 07/30/22 23:59 23:59 23:59 23:59 Intake Total 1480 3460 2620 300 Output Total 850 1200 500 700 Balance 630 2260 2120 -400 Meds/Results Medications: Active Medications Generic Name Dose Route Start Last Admin Trade Name Freq PRN Reason Stop Dose Admin Aspirin 81 mg 07/28/22 09:00 07/30/22 08:45 Aspirin 81 Mg Enteric Tablet PO 81 mg QAM EVE Administration Atorvastatin Calcium 40 mg 07/27/22 09:00 07/30/22 08:44 Atorvastatin 40 Mg Tablet PO 40 mg DAILY EVE Administration Carbidopa/Levodopa 2 tablet 07/27/22 09:00 07/30/22 12:54 Carbidopa/Levodopa 10/100 Mg Tablet PO 08/26/22 08:59 2 tablet TID EVE Administration Duloxetine HCl 60 mg 07/27/22 09:00 07/30/22 08:45 Duloxetine Hcl 60 Mg Capsule.Dr PO 60 mg DAILY EVE Administration Enoxaparin Sodium 40 mg 07/27/22 09:00 07/30/22 08:45 Enoxaparin 40 Mg/0.4 Ml Syringe SUB-Q 40 mg DAILY EVE Administration Folic Acid 2 mg 07/27/22 09:00 07/30/22 08:44 Folic Acid 1 Mg Tablet PO 2 mg DAILY EVE Administration Hydroxyzine HCl 25 mg 07/27/22 07:42 07/29/22 12:36 Hydroxyzine Hcl 25 Mg Tablet PO 25 mg BID PRN Administration anxiety Lactated Ringer's 1,000 mls @ 65 mls/hr 07/26/22 22:10 07/30/22 00:40 Lr - Lactated Ringers Iv IV CONT 65 mls/hr .[id number] EVE Administration Ceftriaxone Sodium/Dextrose 1 gm in 50 mls @ 100 mls/hr 07/28/22 08:00 07/30/22 08:44 Rocephin 1 Gm/D5w 50 Ml IVPB 100 mls/hr Q24H EVE Administration Memantine 10 mg 07/27/22 09:00 07/30/22 08:44 Memantine 10 Mg Tablet PO 10 mg BID EVE Administration Ondansetron HCl 4 mg 07/27/22 13:49 07/28/22 11:26 Ondansetron Inj 4 Mg/2 Ml Vial IV PUSH 4 mg Q6H PRN Administration Nausea And Vomiting Polyethylene Glycol 17 gm 07/27/22 10:33 07/27/22 13:04 Polyethylene Glycol 3350 17 Gm Powd.Pack PO 17 gm QAM PRN Administration Constipation Quetiapine Fumarate 25 mg 07/27/22 21:00 07/29/22 20:09 Quetiapine Fumarate 25 Mg Tablet PO 25 mg HS EVE Administration Senna/Docusate Sodium 1 tab 07/27/22 09:00 07/30/22 08:45 S
--- NOTE | 2022-07-30 13:52 | PM.CNCAR ---
Assessment and Plan Assessment and plan (1) CVA (cerebral vascular accident): Code(s): I63.9 - Cerebral infarction, unspecified Status: Acute Assessment and Plan: Given history of old and several acute small infarcts with radiologic concern for showering emboli clinically more suggestive of paroxysmal atrial fibrillation and/or atrial flutter. However, this has yet to be documented patient reports no symptoms suggestive of arrhythmia. Nonetheless, given her risk factors and age in radiographic appearance paroxysmal atrial fibrillation and/or atrial flutter remains a likely contributor and this such given risk versus benefits initiation of systemic anticoagulation is warranted for further stroke risk reduction. Timing of initiation to be okayed by Neurology. I would discontinue aspirin upon initiation of anticoagulation. Discussed at great length risk versus benefit in this regard with anticoagulation including but not limited to bleeding and or potential for catastrophic head bleed if fall with head injury. Patient verbalized understanding. We discussed further evaluation with transesophageal echocardiogram. The likelihood of intracardiac thrombus discovered on MAXX is highly unlikely. Furthermore, given decision to initiate systemic anticoagulation risk versus benefit with MAXX is less favorable. The likelihood of her PFO with atrial septal aneurysm as primary mechanism for recurrent stroke consists with paradoxical septal emboli, while not impossible, clinically would be significantly less likely. Therefore, while we will exclude additional contributions and certainly consideration will be made for risk versus benefit of PFO closure, this should not be the primary focus for source of her strokes. Patient verbalized understanding and agreed with plan of care. Discussed with Dr. Luna and my colleague who are all in agreement with plan of care. -initiate Eliquis 5 mg twice daily and discontinue aspirin. -outpatient 30 day night monitor to assess for atrial fibrillation/flutter. Further recommendation after review at that time in the office with regards to continuation of anticoagulation or discontinuation in favor of aspirin. We also discussed potential recommendations for loop recorder implantation for more definitive and longer-term assessment for paroxysmal AFib and or flutter. She verbalized understanding and agreed with plan of care. All questions answered to her satisfaction. -telemetry has been unremarkable thus far. Continue for now. Disposition per hospitalist service. -continue atorvastatin 40 mg at bedtime. (2) Interatrial septal aneurysm with PFO: Code(s): Q21.12 - Patent foramen ovale; I25.3 - Aneurysm of heart Status: Acute Assessment and Plan: As above. While possible, this is significantly less likely the primary contribution to her recurrent strokes. We did discuss the concept of PFO closure which is not performed in this institution and requires additional and more exhaustive exclusion of hypercoagulable state, AFib/flutter and or treatable reversible metabolic and anatomic causes. (3) Hypertension: Code(s): I10 - Essential (primary) hypertension Status: Acute Assessment and Plan: Patient was significantly hypertensive presentation consistent initially with hypertensive urgency. BP remains elevated but better controlled. Caution to avoid hypotension and or aggressive BP control such close oximetry to acute CVA. Cautious lowering BP is appropriate. (4) Hyperlipidemia: Qualifiers: Hyperlipidemia type: mixed hyperlipidemia Qualified Code(s): E78.2 - Mixed hyperlipidemia Code(s): E78.5 - Hyperlipidemia, unspecified Status: Acute Assessment and Plan: Continue atorvastatin 40 mg at bedtime goal LDL< 70, controlled at present 65. (5) UTI (urinary tract infection): Code(s): N39.0 - Urinary tract infection, site not specified Stat
--- NOTE | 2022-07-30 14:25 | PHAR ---
SPOKE WITH DR. MURRELL ABOUT APIXABAN ORDER AND HE WANTS IT ORDERED AND WILL DISCONTINUE IT IF NEUROLOGY DOESN'T APPROVE.
[2022-07-30] MEDS: CEFDINIR 300 MG CAPSULE PO (20:43)
[2022-07-30] MEDS: QUEtiapine FUMARATE 25 MG TABLET PO (20:43)
[2022-07-31] VITALS: PULSE 71
[2022-07-31 04:00] VITALS: PULSE 66
[2022-07-31 05:10] LABS: Hematocrit 34.9 % (37.0-47.0); Hemoglobin 11.4 g/dL (12.0-15.0); Mean Corpuscular HGB Conc 32.7 g/dl (32-36); Mean Corpuscular Hemoglobin 28.1 pg (26-34); Platelet Count Result 126 k/mm3 (150-375); Red Blood Count 4.06 M/mm3 (4.2-5.4); Red Cell Distribution Width 13.2 % (11.5-14.5); White Blood Count 4.4 K/mm3 (4.5-10.0)
[2022-07-31 05:26] LABS: Anion Gap 7 mmol/L (8-16); Blood Urea Nitrogen 7 mg/dL (7-17); Calcium 8.8 mg/dL (8.4-10.2); Carbon Dioxide 30 mmol/L (22-30); Chloride 102 mmol/L (98-107); Estimated CRCL calculation 43 ml/min; Estimated Glomerular Filt Rate > 60; Glucose 93 mg/dL (65-110); Potassium 4.2 mmol/L (3.4-5.0); Sodium 139 mmol/L (137-145)
[2022-07-31 05:46] VITALS: BP 138/68; PULSE 72; RESP 20; TEMP 36.4; O2SAT 97
[2022-07-31 08:00] VITALS: PULSE 66
[2022-07-31] MEDS: APIXABAN 5 MG TABLET PO (09:36)
[2022-07-31] MEDS: ATORVASTATIN 40 MG TABLET PO (09:36)
[2022-07-31] MEDS: CEFDINIR 300 MG CAPSULE PO (09:36)
[2022-07-31] MEDS: CARBIDOPA/LEVODOPA 10/100 MG TABLET 2 TABLET PO ×2 (09:36→12:13)
[2022-07-31] MEDS: SENNA/DOCUSATE SODIUM TABLET 1 TAB PO (09:36)
[2022-07-31] MEDS: DULoxetine HCL 60 MG CAPSULE.DR PO (09:36)
[2022-07-31] MEDS: VITAMIN B COMPLEX CAPSULE 1 CAP PO (09:36)
[2022-07-31] MEDS: MEMANTINE 10 MG TABLET PO (09:37)
[2022-07-31] MEDS: FOLIC ACID 1 MG TABLET 2 MG PO (09:37)
[2022-07-31 12:00] VITALS: PULSE 81
--- NOTE | 2022-07-31 13:46 | WPDNEUROPN ---
Subjective Date/time seen: 07/31/22 13:46 Interval history: 81 years old lady with ongoing history of Parkinson's disease and cerebrovascular accident with abnormal MRI in the left posterior frontal area and left parietal area in addition to left insula again raising the possibility of multiple emboli, cardiology consultation has been obtained and agreeable with the possibility of multiple strokes likely related to atrial fibrillation but considering the findings of PFO on echocardiogram anticoagulation has been suggest patient was taking Plavix which will be discontinued and at this stage the closure of the PFO has not been recommended patient will be continued on anticoagulation therapy followed by Dr. mann Objective Data Vital Signs Vital Signs: Vital Signs - 24 hr 07/30/22 14:00 07/30/22 16:00 07/30/22 21:21 Temperature 36.5 C 36.6 C Pulse Rate 75 73 83 Respiratory Rate 16 16 Blood Pressure 163/78 H 153/71 H Pulse Oximetry 96 97 07/30/22 20:00 07/31/22 00:00 07/31/22 04:00 Temperature Pulse Rate 83 71 66 Respiratory Rate Blood Pressure Pulse Oximetry 07/31/22 05:46 Temperature 36.4 C Pulse Rate 72 Respiratory Rate 20 Blood Pressure 138/68 Pulse Oximetry 97 Intake/Output Intake/Output: Intake & Output 07/28/22 07/29/22 07/30/22 07/31/22 23:59 23:59 23:59 23:59 Intake Total 3460 2620 1450 470 Output Total 1200 500 700 100 Balance 2260 2120 750 370 Meds/Results Medications: Active Medications Generic Name Dose Route Start Last Admin Trade Name Freq PRN Reason Stop Dose Admin Apixaban 5 mg 07/31/22 09:00 07/31/22 09:36 Apixaban 5 Mg Tablet PO 5 mg Q12HR EVE Administration Atorvastatin Calcium 40 mg 07/27/22 09:00 07/31/22 09:36 Atorvastatin 40 Mg Tablet PO 40 mg DAILY EVE Administration Carbidopa/Levodopa 2 tablet 07/27/22 09:00 07/31/22 12:13 Carbidopa/Levodopa 10/100 Mg Tablet PO 08/26/22 08:59 2 tablet TID EVE Administration Cefdinir 300 mg 07/30/22 21:00 07/31/22 09:36 Cefdinir 300 Mg Capsule PO 300 mg Q12HR EVE Administration Duloxetine HCl 60 mg 07/27/22 09:00 07/31/22 09:36 Duloxetine Hcl 60 Mg Capsule.Dr PO 60 mg DAILY EVE Administration Folic Acid 2 mg 07/27/22 09:00 07/31/22 09:37 Folic Acid 1 Mg Tablet PO 2 mg DAILY EVE Administration Hydroxyzine HCl 25 mg 07/27/22 07:42 07/29/22 12:36 Hydroxyzine Hcl 25 Mg Tablet PO 25 mg BID PRN Administration anxiety Memantine 10 mg 07/27/22 09:00 07/31/22 09:37 Memantine 10 Mg Tablet PO 10 mg BID EVE Administration Ondansetron HCl 4 mg 07/27/22 13:49 07/28/22 11:26 Ondansetron Inj 4 Mg/2 Ml Vial IV PUSH 4 mg Q6H PRN Administration Nausea And Vomiting Polyethylene Glycol 17 gm 07/27/22 10:33 07/27/22 13:04 Polyethylene Glycol 3350 17 Gm Powd.Pack PO 17 gm QAM PRN Administration Constipation Quetiapine Fumarate 25 mg 07/27/22 21:00 07/30/22 20:43 Quetiapine Fumarate 25 Mg Tablet PO 25 mg HS EVE Administration Senna/Docusate Sodium 1 tab 07/27/22 09:00 07/31/22 09:36 Senna/Docusate Sodium Tablet PO 1 tab DAILY EVE Administration Vitamin B Complex 1 cap 07/27/22 09:00 07/31/22 09:36 Vitamin B Complex Capsule PO 1 cap DAILY EVE Administration Radiology Results: ITS Impressions CT Brain Angiography 07/26/22 19:35 IMPRESSION: No acute intracranial process. No acute large vessel occlusion. Possible bilateral lens dislocation versus postsurgical changes, correlate with recent change in visual acuity and surgical history. Cervical Spine CT 07/26/22 19:50 IMPRESSION: No acute fracture or traumatic malalignment in the cervical spine. Chest X-Ray 07/26/22 22:07 IMPRESSION: No acute cardiopulmonary process. Brain MRI 07/27/22 08:22 IMPRESSION: 1. Possible small acute infarcts in the posterior left frontal lobe, left pariet
--- NOTE | 2022-07-31 13:59 | PM.DS ---
DS: Admitting Diagnosis Discharge Date 07/31/2022 Admitting Diagnosis Acute CVA DS: Discharge Diagnosis Discharge Diagnosis (1) CVA (cerebral vascular accident): Code(s): I63.9 - Cerebral infarction, unspecified Status: Acute Assessment and Plan: The patient's son found her in bed, more confused and oriented to self only. On arrival to the ED, noted to have difficulty with word finding. NIHSS upon arrival was 2 CTA of the brain showed no acute intracranial process and no acute large vessel occlusion Patient not a candidate for tPA due to duration of time since last known well Brain MRI showed possible small acute infarcts in the posterior left frontal lobe, left parietal lobe, and posterior left insula consistent with shower emboli in distribution of left MCA . Also with findings of chronic old infarcts in left parietal lobe and right frontal schmidt radiata and right cerebellar hemisphere Seen in consultation by Neurology during admission Echo completed which revealed suspected PFO inpatient was seen in consultation by Cardiology. See plan below Participated in PT/OT during admission, patient was at baseline with no deficits Initiated on Eliquis 5 mg b.i.d. per Cardiology and Neurology recommendations. Aspirin was discontinued upon initiation of Eliquis. Continue high-intensity statin. Lipid panel reviewed. Patient monitored on telemetry during admission and remained in sinus rhythm. Following discharge from the hospital, she will be provided a 30 day conveyor monitor to assess for atrial fibrillation/flutter and will follow-up with cardiology as an outpatient to review. Loop recorder implantation can be considered at a later date. (2) Interatrial septal aneurysm with PFO: Code(s): Q21.12 - Patent foramen ovale; I25.3 - Aneurysm of heart Status: Acute Assessment and Plan: Evident on echocardiogram. Patient was evaluated by Cardiology. Not felt to be primary contribution of recurrent stroke. She will have outpatient telemetry monitoring with subsequent cardiology follow-up. PFO closure to be considered based on results/further workup. (3) Acute metabolic encephalopathy: Code(s): G93.41 - Metabolic encephalopathy Status: Acute Assessment and Plan: Patient noted to be confused upon arrival, likely secondary to acute CVA, however may have also been related to UTI. She had overall improvement and mental status returned to baseline. (4) UTI (urinary tract infection): Code(s): N39.0 - Urinary tract infection, site not specified Status: Acute Assessment and Plan: UA abnormal on presentation. Urine culture with growth of >100k Klebsiella pneumoniae. Received IV ceftriaxone and was transition to p.o. cefdinir which she will continue for 7 days total. (5) Fall: Code(s): W19.XXXA - Unspecified fall, initial encounter Status: Acute Assessment and Plan: Unwitnessed, however patient was found with large skin tear to her right forearm. Fall precautions implemented. Evaluated by PT/OT. No ongoing therapy requirement. (6) Parkinsonism: Qualifiers: Parkinsonism type: unspecified Qualified Code(s): G20 - Parkinson's disease Code(s): G20 - Parkinson's disease Status: Acute Assessment and Plan: No acute issues. Continue home carbidopa/levodopa (7) Transaminitis: Code(s): R74.01 - Elevation of levels of liver transaminase levels Status: Acute Assessment and Plan: AST mildly elevated with normal ALT and alk-phos. Hepatitis panel negative. Outpatient follow up. (8) Hypertension: Code(s): I10 - Essential (primary) hypertension Status: Acute Assessment and Plan: Blood pressures were well controlled. Permissive hypertension allowed in setting of acute CVA. Patient is not on any antihypertensives. (9) Skin tear of right upper extremity: Code
== END 2022-07-31 15:46 | disposition home health service (06) | DRG 65 ==
LOC: ANHED 22:15 → ANH2MED 07-27 02:54
PROVIDERS: Nurse Practitioner; Physician Assistant; Admitting Provider Internal Medicine; Emergency Provider Emergency Medicine; PCP Internal Medicine; Visit Provider Internal Medicine
DX: I63.412 Cerebral infarction due to embolism of left middle cerebral artery (principal); I25.3 Aneurysm of heart; Q21.12 Patent foramen ovale; N39.0 Urinary tract infection, site not specified; I48.92 Unspecified atrial flutter; R29.702 NIHSS score 2; B96.1 Klebsiella pneumoniae [K. pneumoniae] as the cause of diseases classified elsewhere; W19.XXXA Unspecified fall, initial encounter; S61.411A Laceration without foreign body of right hand, initial encounter; S51.811A Laceration without foreign body of right forearm, initial encounter; D64.9 Anemia, unspecified; E78.5 Hyperlipidemia, unspecified; E53.8 Deficiency of other specified B group vitamins; E53.1 Pyridoxine deficiency; E55.9 Vitamin D deficiency, unspecified; F41.8 Other specified anxiety disorders; F03.90 Unspecified dementia, unspecified severity, without behavioral disturbance, psychotic disturbance, mood disturbance, and anxiety; G20 Parkinson's disease; H91.90 Unspecified hearing loss, unspecified ear; I71.40 Abdominal aortic aneurysm, without rupture, unspecified; I10 Essential (primary) hypertension; I48.0 Paroxysmal atrial fibrillation; M16.0 Bilateral primary osteoarthritis of hip; M81.0 Age-related osteoporosis without current pathological fracture; R47.9 Unspecified speech disturbances; R74.01 Elevation of levels of liver transaminase levels; Z86.73 Personal history of transient ischemic attack (TIA), and cerebral infarction without residual deficits; Z79.82 Long term (current) use of aspirin; Z90.49 Acquired absence of other specified parts of digestive tract; Z90.710 Acquired absence of both cervix and uterus
CPT/HCPCS: 36415; 70496; 70551; 71045; 72125; 80048; 80053; 80061; 80074; 81001; 82948; 83735; 85025; 85027; 85610; 85730; 87040; 87077; 87086; 87186; 90471; 90715; 93005; 93306; 93880; 96361; 96365; 96366; 96367; 96372; 96375; 96376; 97161; 97165; 99285; A9270; G0378; J0131; J0696; J1650; J2405; J7120; Q9967

== ENCOUNTER 2022-08-05 08:37 | Outpatient (CLI) | payer MEDICARE, SELFPAY ==
[2022-08-05 09:10] LABS: Add Urine Microscopic? YES; Appearance Urine Cloudy (Clear); Bacteria Urine Trace /hpf; Bilirubin Urine Negative (Negative); Blood Urine Negative (Negative); Color Urine Yellow (Yellow); Glucose Urine UA Negative (Negative); Ketones Urine 1+ mg/dL (Negative); Leukocyte Esterase Ur 3+ LEU/UL (Negative); Mucus Urine Rare /lpf; Nitrate Urine Negative (Negative); Protein Urine 1+ mg/dL (Negative); Specific Grav Ur 1.024 (1.001-1.035); Squamous Epithelial Cell Urine Many /hpf (Few); Urobilinogen Urine Negative mg/dL (<2.0); WBC Urine 21-30 /hpf
== END 2022-08-05 08:38 | disposition home or self-care (01) ==
LOC: ANHLAB 08:38
PROVIDERS: PCP Internal Medicine; Visit Provider Internal Medicine
DX: N39.0 Urinary tract infection, site not specified (principal)
CPT/HCPCS: 81001; 87086; 87088

== ENCOUNTER 2022-08-19 13:06 | Outpatient (NON) | payer MEDICARE, SELFPAY ==
[2022-08-19 15:02] LABS: Add Urine Microscopic? YES; Appearance Urine Cloudy (Clear); Bilirubin Urine Negative (Negative); Calcium Oxalate Crystals Urine Present /hpf; Color Urine Yellow (Yellow); Glucose Urine UA Negative (Negative); Ketones Urine 1+ mg/dL (Negative); Leukocyte Esterase Ur 3+ LEU/UL (Negative); Mucus Urine Rare /lpf; Nitrate Urine Negative (Negative); Protein Urine Negative (Negative); Specific Grav Ur 1.023 (1.001-1.035); Squamous Epithelial Cell Urine Many /hpf (Few); Transitional Epi Cells Urine Rare /hpf (None Seen); Urobilinogen Urine Negative mg/dL (<2.0); WBC Urine 31-50 /hpf
[2022-08-19 15:11] LABS: Blood Urine Negative (Negative)
== END 2022-08-19 13:07 | disposition home or self-care (01) ==
PROVIDERS: PCP Internal Medicine; Visit Provider Internal Medicine
DX: N39.0 Urinary tract infection, site not specified (principal); I69.398 Other sequelae of cerebral infarction; G93.41 Metabolic encephalopathy; R53.1 Weakness
CPT/HCPCS: 81001; 87086; 87088

== ENCOUNTER 2022-08-27 13:03 | Outpatient (NON) | payer MEDICARE, SELFPAY ==
[2022-08-27 13:24] LABS: Appearance Urine Cloudy (Clear); Bilirubin Urine 1+ (Negative); Blood Urine Negative (Negative); Color Urine Yellow (Yellow); Glucose Urine UA Negative (Negative); Ketones Urine 4+ mg/dL (Negative); Leukocyte Esterase Ur 3+ LEU/UL (Negative); Nitrate Urine Negative (Negative); Protein Urine Trace mg/dL (Negative); Specific Grav Ur 1.025 (1.001-1.035); Urobilinogen Urine 0.2 mg/dL (<2.0)
[2022-08-27 14:06] LABS: Bacteria Urine Trace /hpf; Mucus Urine Rare /lpf; RBC Urine 21-50 /hpf (0-2); Squamous Epithelial Cell Urine Many /hpf (Few); Transitional Epi Cells Urine Occasional /hpf (None Seen); WBC Urine 31-50 /hpf
[2022-08-27 14:07] LABS: Add Urine Microscopic? YES
== END 2022-08-27 13:04 | disposition home or self-care (01) ==
PROVIDERS: PCP Internal Medicine; Visit Provider Internal Medicine
DX: N39.0 Urinary tract infection, site not specified (principal)
CPT/HCPCS: 81001; 87077; 87086; 87186

== ENCOUNTER 2022-09-17 10:25 | Emergency (ER) | payer MEDICARE, SELFPAY ==
[2022-09-17] VITALS (28 sets, daily range): BP systolic 112–155; BP diastolic 51–93; PULSE 77–87; RESP 13–29; TEMP 36.3; O2SAT 91–98
--- NOTE | 2022-09-17 10:44 | ECG_ITS ---
Measurements Intervals [place] Rate: 76 P: 77 TN: 168 QRS: -20 QRSD: 70 T: 46 QT: 395 QTc: 446 Interpretive Statements SINUS RHYTHM EARLY PRECORDIAL R/S TRANSITION BASELINE ARTIFACT- II, III, AVR, AVL, AVF, V3-V6 BORDERLINE ECG COMPARED TO ECG 07/26/2022 19:21:16 NO SIGNIFICANT CHANGES Electronically Signed On 09-17-2022 12:00:22 CEMETERY MANAGER by Davonte Yoon D.O.
[2022-09-17 11:08] LABS: Glucose Point of Care 106 mg/dl (65-105)
[2022-09-17 11:11] LABS: Basophils Absolute Auto 0.1 K/mm3 (0.0-0.1); Basophils Percent Auto 1.1 % (0.2-1.2); Eosinophils Absolute Auto 0.1 K/mm3 (0-0.3); Eosinophils Percent Auto 1.8 % (0-4.4); Hematocrit 40.5 % (37.0-47.0); Hemoglobin 13.5 g/dL (12.0-15.0); Immature Granulocyte Absolute 0.02 K/mm3 (0.00-0.031); Immature Granulocyte Percent A 0.3 % (0-0.5); Lymphocytes Percent Auto 12.3 % (18.3-44.2); Mean Corpuscular HGB Conc 33.3 g/dl (32-36); Mean Corpuscular Hemoglobin 28.9 pg (26-34); Mean Corpuscular Volume 86.7 fl (80-100); Mean Platelet Volume 11.1 fl (7.4-10.4); Monocytes Absolute Auto 0.4 K/mm3 (0.1-0.6); Neutrophils Absolute Auto 5.1 K/mm3 (1.3-6.7); Neutrophils Percent Auto 78.5 % (45.5-73.1); Platelet Count Result 245 k/mm3 (150-375); Red Blood Count 4.67 M/mm3 (4.2-5.4); Red Cell Distribution Width 15.8 % (11.5-14.5); White Blood Count 6.5 K/mm3 (4.5-10.0)
[2022-09-17 11:12] LABS: Appearance Urine Clear (Clear); Bilirubin Urine 1+ (Negative); Blood Urine Negative (Negative); Color Urine Yellow (Yellow); Glucose Urine UA Negative (Negative); Ketones Urine 3+ mg/dL (Negative); Leukocyte Esterase Ur Negative LEU/UL (Negative); Nitrate Urine Negative (Negative); Protein Urine 1+ mg/dL (Negative); Urobilinogen Urine 0.2 mg/dL (<2.0)
[2022-09-17] MEDS: SODIUM CHLORIDE 0.9% IV 1,000 ML 999 ML IV CONT ×2 (11:13→12:58)
[2022-09-17 11:16] LABS: INR 1.3; Prothrombin Time 15.4 Seconds (11.1-14.7)
[2022-09-17 11:17] LABS: Partial Thromboplastin Time 22.5 SECONDS (22.3-36.8)
[2022-09-17 11:21] LABS: RBC Urine 0-2 /hpf (0-2); Squamous Epithelial Cell Urine Rare /hpf (Few); WBC Urine 0-3 /hpf
[2022-09-17 11:22] LABS: Add Urine Microscopic? YES
[2022-09-17 11:29] LABS: Alanine Aminotransferase 14 U/L (6-35); Albumin Level 4.6 g/dL (3.5-5.1); Alkaline Phosphatase 131 U/L (38-126); Anion Gap 8 mmol/L (8-16); Aspartate Amino Transferase 65 U/L (14-36); Bilirubin,Total 1.2 mg/dL (0.2-1.3); Blood Urea Nitrogen 32 mg/dL (7-17); Calcium 9.8 mg/dL (8.4-10.2); Carbon Dioxide 28 mmol/L (22-30); Chloride 101 mmol/L (98-107); Estimated CRCL calculation 51 ml/min; Estimated Glomerular Filt Rate > 60; Glucose 101 mg/dL (65-110); Potassium 4.2 mmol/L (3.4-5.0); Sodium 137 mmol/L (137-145)
--- NOTE | 2022-09-17 14:11 | ED.GENADULT ---
HPI - General Adult General Chief complaint: Altered Mental Status Stated complaint: dr. lubin wants a full workup and evaluation Time Seen by Provider: 09/17/22 10:43 History of Present Illness HPI narrative: Patient is an 81-year-old man who presents the ER for evaluation. Patient was hospitalized 6 weeks ago for multiple acute infarcts. She then received home health. She finished on 08/28. Reports patient has been persistently confused since then. He is going to see a patient's PCP today to discuss potentially other options patient lacks appetite. No recent acute changes. Unfortunately patient's PCP is unable to see the patient in the office today. Related Data Home Medications Medication Instructions Recorded Confirmed vitamin B complex (Super B-50 1 cap PO DAILY 05/23/21 08/07/22 Complex capsule) duloxetine 60 mg capsule,delayed 60 mg PO DAILY 07/11/21 08/07/22 release atorvastatin 40 mg tablet 40 mg PO DAILY 07/27/22 08/07/22 carbidopa 10 mg-levodopa 100 mg 2 tablet PO TID 07/27/22 08/07/22 disintegrating tablet memantine 10 mg tablet 10 mg PO BID 07/27/22 08/07/22 quetiapine 25 mg tablet 25 mg PO HS 07/27/22 08/07/22 amoxicillin 500 mg-potassium 1 tablet PO Q12H 09/01/22 clavulanate 125 mg tablet (Augmentin) Allergies Allergy/AdvReac Type Severity Reaction Status Date / Time No Known Allergies Allergy Verified 08/05/22 07:59 Review of Systems Review of Systems: ROS unobtainable: Yes unobtainable due to mental status PMFSH Past Medical History Medical History (Updated 09/17/22 @ 14:27 by Fernando Hernandez MD) AAA (abdominal aortic aneurysm) Adult BMI 19-24 kg/sq m Anxiety with depression Closed fracture of ramus of left pubis Compression fx, lumbar spine DJD (degenerative joint disease) History of COVID-19 Hyperlipidemia Kidney stone Osteoporosis Parkinsonism Seasonal allergies Severe depression Skin tear of upper extremity TIA (transient ischemic attack) Vestibular dizziness Vitamin B12 deficiency Vitamin B6 deficiency Vitamin D deficiency Surgical History Surgical History History of cholecystectomy History of hip surgery History of hysterectomy History of tubal ligation Family History Family History Grandparent No problems noted. Father Hypertension Other COPD (chronic obstructive pulmonary disease) Social History Social History Social History: The patient lives in her own home in [place]. She has been as of July 2019. She and her were for 60 years and they have 3 sons and 1 daughter. 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 She is a lifelong nonsmoker and denies alcohol and drug abuse. Smoking status: Never smoker Alcohol intake: never Substance use: never Substance use type: does not use Gender identity (if verbalized by the patient): Female Spiritual care concerns: No Agree to blood products: Yes Exam Narrative: GENERAL: Well-appearing, well-nourished, and in no acute distress. HEAD: Normocephalic, atraumatic. EYES: PERRL and EOMI. ENT: Dry mucous membranes. CHEST: Clear to auscultation. No respiratory distress. HEART: Regular rate and rhythm. Normal peripheral pulses. ABDOMEN: Soft, nontender, nondistended. EXTREMITIES: Normal range of motion. No edema. SKIN: Warm, dry, no rash. NEURO: No facial droop. Alert and oriented x2. PSYCH: Normal mood and affect. Course Course Emergency Course: Discussed case with patient's son. Feels comfortable with discharge home. Patient received 2 L bolus as he is afebrile. Discussed patient may require assisted living/memory care. Suspect she is beginning to have decline due to her chronic debility. No CVAs from previous hospitalization. May eventually need palliat
== END 2022-09-17 14:35 | disposition home or self-care (01) ==
PROVIDERS: Emergency Provider Emergency Medicine; PCP Internal Medicine
DX: E86.0 Dehydration (principal); E78.5 Hyperlipidemia, unspecified; I25.2 Old myocardial infarction; G20 Parkinson's disease; E53.8 Deficiency of other specified B group vitamins; M81.0 Age-related osteoporosis without current pathological fracture; E55.9 Vitamin D deficiency, unspecified; E53.1 Pyridoxine deficiency; Z90.710 Acquired absence of both cervix and uterus; Z86.73 Personal history of transient ischemic attack (TIA), and cerebral infarction without residual deficits; Z86.16 Personal history of COVID-19; Z87.442 Personal history of urinary calculi; Z79.01 Long term (current) use of anticoagulants; R94.31 Abnormal electrocardiogram [ECG] [EKG]
CPT/HCPCS: 36415; 51701; 80053; 81001; 82948; 85025; 85610; 85730; 93005; 96360; 99283; J7030

== ENCOUNTER 2022-10-29 13:10 | Outpatient (CLI) | payer MEDICARE, SELFPAY ==
[2022-10-29 14:17] LABS: Add Urine Microscopic? YES; Appearance Urine Cloudy (Clear); Bilirubin Urine Negative (Negative); Blood Urine Trace-Intact (Negative); Color Urine Yellow (Yellow); Glucose Urine UA Negative (Negative); Ketones Urine Negative (Negative); Leukocyte Esterase Ur 3+ LEU/UL (Negative); Nitrate Urine Negative (Negative); Protein Urine Trace mg/dL (Negative); Urobilinogen Urine 0.2 mg/dL (<2.0); pH Urine 6.5 (5.0-9.0)
[2022-10-29 14:42] LABS: Mucus Urine Rare /lpf; Squamous Epithelial Cell Urine Occasional /hpf (Few); Transitional Epi Cells Urine Rare /hpf (None Seen); WBC Urine >75 /hpf
== END 2022-10-29 13:11 | disposition home or self-care (01) ==
PROVIDERS: PCP Internal Medicine; Visit Provider Internal Medicine
DX: R41.0 Disorientation, unspecified (principal)
CPT/HCPCS: 81001; 87086; 87147; 87181; 87186

== ENCOUNTER 2022-11-18 10:56 | Outpatient (CLI) | payer MEDICARE, SELFPAY ==
[2022-11-18 13:02] LABS: Appearance Urine Clear (Clear); Bilirubin Urine Negative (Negative); Blood Urine Negative (Negative); Color Urine Yellow (Yellow); Glucose Urine UA Negative (Negative); Ketones Urine Negative (Negative); Leukocyte Esterase Ur Trace LEU/UL (Negative); Nitrate Urine Negative (Negative); Protein Urine Negative (Negative); Urobilinogen Urine 0.2 mg/dL (<2.0)
[2022-11-18 13:11] LABS: Calcium Oxalate Crystals Urine Present /hpf; Mucus Urine Rare /lpf; Squamous Epithelial Cell Urine Few /hpf (Few)
[2022-11-18 13:13] LABS: Add Urine Microscopic? YES
== END 2022-11-18 10:57 | disposition home or self-care (01) ==
LOC: ANHLAB 10:59
PROVIDERS: PCP Internal Medicine; Visit Provider Internal Medicine
DX: N39.0 Urinary tract infection, site not specified (principal)
CPT/HCPCS: 81001

== ENCOUNTER 2023-02-02 14:07 | Outpatient (CLI) | payer MEDICARE, SELFPAY ==
[2023-02-02 14:35] LABS: Basophils Absolute Auto 0.1 K/mm3 (0.0-0.1); Basophils Percent Auto 1.4 % (0.2-1.2); Eosinophils Absolute Auto 0.1 K/mm3 (0-0.3); Eosinophils Percent Auto 2.7 % (0-4.4); Hematocrit 40.7 % (37.0-47.0); Hemoglobin 12.9 g/dL (12.0-15.0); Immature Granulocyte Absolute 0.02 K/mm3 (0.00-0.031); Immature Granulocyte Percent A 0.4 % (0-0.5); Lymphocytes Absolute Auto 1.07 K/mm3 (0.9-3.2); Mean Corpuscular HGB Conc 31.7 g/dl (32-36); Mean Corpuscular Hemoglobin 28.9 pg (26-34); Mean Corpuscular Volume 91.1 fl (80-100); Mean Platelet Volume 10.6 fl (7.4-10.4); Monocytes Absolute Auto 0.4 K/mm3 (0.1-0.6); Monocytes Percent Auto 7.2 % (2.6-8.5); Neutrophils Absolute Auto 3.2 K/mm3 (1.3-6.7); Neutrophils Percent Auto 66.3 % (45.5-73.1); Platelet Count Result 178 k/mm3 (150-375); Red Blood Count 4.47 M/mm3 (4.2-5.4); Red Cell Distribution Width 14.2 % (11.5-14.5); White Blood Count 4.9 K/mm3 (4.5-10.0)
[2023-02-02 14:46] LABS: Alanine Aminotransferase 11 U/L (6-35); Albumin Level 4.3 g/dL (3.5-5.1); Alkaline Phosphatase 115 U/L (38-126); Anion Gap 4 mmol/L (8-16); Aspartate Amino Transferase 36 U/L (14-36); Bilirubin,Total 0.7 mg/dL (0.2-1.3); Blood Urea Nitrogen 19 mg/dL (7-17); Calcium 9.2 mg/dL (8.4-10.2); Carbon Dioxide 36 mmol/L (22-30); Chloride 101 mmol/L (98-107); Estimated Glomerular Filt Rate > 60; Glucose 114 mg/dL (65-110); Potassium 3.5 mmol/L (3.4-5.0); Sodium 141 mmol/L (137-145)
[2023-02-02 15:18] LABS: Thyroid Stimulating Hormone 0.451 uIU/mL (0.465-4.680)
[2023-02-02 17:23] LABS: Free T4 Free Thyroxine 1.21 ng/mL (0.78-2.19); Vitamin D 25 Hydroxy 37.2 ng/mL
[2023-02-02 17:49] LABS: Hemoglobin A1C 5.4 % (<5.7)
== END 2023-02-02 14:08 | disposition home or self-care (01) ==
PROVIDERS: PCP Internal Medicine; Visit Provider Internal Medicine
DX: Z13.1 Encounter for screening for diabetes mellitus (principal); I10 Essential (primary) hypertension; Z79.899 Other long term (current) drug therapy; Z13.29 Encounter for screening for other suspected endocrine disorder; E55.9 Vitamin D deficiency, unspecified
CPT/HCPCS: 36415; 80053; 82306; 83036; 84439; 84443; 85025

== ENCOUNTER 2023-06-02 09:43 | Outpatient (CLI) | payer MEDICARE, SELFPAY ==
[2023-06-02 10:11] LABS: Basophils Absolute Auto 0.1 K/mm3 (0.0-0.1); Basophils Percent Auto 1.1 % (0.2-1.2); Eosinophils Absolute Auto 0.2 K/mm3 (0-0.3); Eosinophils Percent Auto 2.9 % (0-4.4); Hematocrit 34.3 % (37.0-47.0); Hemoglobin 10.8 g/dL (12.0-15.0); Immature Granulocyte Absolute 0.01 K/mm3 (0.00-0.031); Immature Granulocyte Percent A 0.2 % (0-0.5); Lymphocytes Absolute Auto 1.45 K/mm3 (0.9-3.2); Lymphocytes Percent Auto 25.8 % (18.3-44.2); Mean Corpuscular HGB Conc 31.5 g/dl (32-36); Mean Corpuscular Hemoglobin 28.1 pg (26-34); Mean Corpuscular Volume 89.3 fl (80-100); Mean Platelet Volume 10.4 fl (7.4-10.4); Monocytes Absolute Auto 0.5 K/mm3 (0.1-0.6); Monocytes Percent Auto 8.2 % (2.6-8.5); Neutrophils Absolute Auto 3.5 K/mm3 (1.3-6.7); Neutrophils Percent Auto 61.8 % (45.5-73.1); Platelet Count Result 179 k/mm3 (150-375); Red Blood Count 3.84 M/mm3 (4.2-5.4); Red Cell Distribution Width 14.1 % (11.5-14.5); White Blood Count 5.6 K/mm3 (4.5-10.0)
[2023-06-02 10:21] LABS: Hemoglobin A1C 5.5 % (<5.7)
[2023-06-02 10:34] LABS: Alanine Aminotransferase 11 U/L (6-35); Albumin Level 3.6 g/dL (3.5-5.1); Alkaline Phosphatase 90 U/L (38-126); Anion Gap 4 mmol/L (8-16); Aspartate Amino Transferase 33 U/L (14-36); Bilirubin,Total 0.4 mg/dL (0.2-1.3); Blood Urea Nitrogen 26 mg/dL (7-17); Calcium 8.9 mg/dL (8.4-10.2); Carbon Dioxide 28 mmol/L (22-30); Chloride 105 mmol/L (98-107); Cholesterol 175 mg/dL (0-200); Estimated Glomerular Filt Rate > 60; Glucose 91 mg/dL (65-110); HDL Direct 65 mg/dL; Sodium 137 mmol/L (137-145); Triglycerides 92 mg/dL (<150)
[2023-06-02 10:39] LABS: LDL Cholesterol Direct 87 mg/dL
[2023-06-02 10:44] LABS: Free T4 Free Thyroxine 0.99 ng/mL (0.78-2.19); Vitamin D 25 Hydroxy 23.7 ng/mL
[2023-06-02 10:56] LABS: Thyroid Stimulating Hormone 0.816 uIU/mL (0.465-4.680)
[2023-06-02 11:52] LABS: Appearance Urine Clear (Clear); Bacteria Urine None Seen /hpf; Bilirubin Urine Negative (Negative); Blood Urine Negative (Negative); Calcium Oxalate Crystals Urine Present /hpf; Color Urine Dark Yellow (Yellow); Glucose Urine UA Negative (Negative); Ketones Urine Trace mg/dL (Negative); Leukocyte Esterase Ur Trace LEU/UL (Negative); Need Manual Microscopic Reviewed; Nitrate Urine Negative (Negative); Non Pathogenic Casts 0-2; Protein Urine Negative (Negative); RBC Urine 0-2 /hpf (0-2); Squamous Epithelial Cell Urine None seen /hpf (Few); WBC Urine 0-5 /hpf; pH Urine 5.5 (5.0-9.0)
[2023-06-02 11:56] LABS: Add Urine Microscopic? YES
== END 2023-06-02 09:44 | disposition home or self-care (01) ==
PROVIDERS: PCP Internal Medicine; Visit Provider Internal Medicine
DX: Z51.81 Encounter for therapeutic drug level monitoring (principal); Z79.899 Other long term (current) drug therapy; I10 Essential (primary) hypertension; Z13.29 Encounter for screening for other suspected endocrine disorder; E78.2 Mixed hyperlipidemia; E55.9 Vitamin D deficiency, unspecified; Z13.1 Encounter for screening for diabetes mellitus
CPT/HCPCS: 36415; 80053; 80061; 81001; 82306; 83036; 84439; 84443; 85025

== ENCOUNTER 2023-06-16 23:15 | Emergency (ER) | payer MEDICARE, SELFPAY ==
--- NOTE | ~2023-06-16 | XR_ITS ---
EXAMINATION: XR hip RT min 3V w AP pelvis DATE: 06/17/2023 03:11 INDICATION: Right hip pain. Fall. TECHNIQUE: An anteroposterior view of the pelvis and 3 views of right hip were obtained. COMPARISON: Pelvis and right hip radiographs 02/11/2022 FINDINGS: Bone alignment is normal. No acute fracture. There is old healed fracture of left femoral n patrice with internal fixation with antegrade intramedullary katie and femoral head/neck screw. There is a benign bone island in left ilium. There is severe right hip osteoarthritis and moderate left hip oste oarthritis. There is severe lumbar spondylosis. IMPRESSION: 1. Severe right hip osteoarthritis and moderate left hip osteoarthritis. Reviewed, dictated and finalized at location A.
[2023-06-16 23:19] VITALS: BP 130/50; PULSE 75; RESP 16; TEMP 36.7; O2SAT 100
[2023-06-17 01:54] VITALS: BP 207/89; PULSE 77; RESP 15; O2SAT 97
[2023-06-17 03:54] LABS: Appearance Urine Cloudy (Clear); Bacteria Urine None Seen /hpf; Bilirubin Urine 1+ (Negative); Blood Urine Negative (Negative); Calcium Oxalate Crystals Urine Present /hpf; Color Urine Dark Yellow (Yellow); Glucose Urine UA Negative (Negative); Hyaline Casts Urine Present /lpf; Ketones Urine 1+ mg/dL (Negative); Leukocyte Esterase Ur 2+ LEU/UL (Negative); Mucus Urine Present /lpf; Nitrate Urine Negative (Negative); Non Pathogenic Casts 0-2; Protein Urine Trace mg/dL (Negative); RBC Urine 0-2 /hpf (0-2); Specific Grav Ur 1.021 (1.001-1.035); Squamous Epithelial Cell Urine Few /hpf (Few); pH Urine 5.5 (5.0-9.0)
[2023-06-17 03:55] LABS: Add Urine Microscopic? YES
--- NOTE | 2023-06-17 04:58 | ED.FALL ---
HPI - Fall General Chief Complaint: Fall Stated Complaint: fall History of Present Illness HPI Narrative: This is an 82-year-old female, with past history of Parkinson's and TIA, brought in by EMS after ground-level fall. The patient was reportedly walking, when she tripped and landed on her buttocks. She did not hit her head did not lose consciousness. She complains of mild right hip and distal right leg pain. She has no other complaints at this time. Related Data Home Medications Medication Instructions Recorded Confirmed vitamin B complex (Super B-50 1 cap PO DAILY 05/23/21 06/02/23 Complex capsule) quetiapine 25 mg tablet 25 mg PO HS 07/27/22 06/02/23 sertraline 100 mg tablet 100 mg PO DAILY 01/02/23 06/02/23 cholecalciferol (vitamin D3) 50 50 mcg PO DAILY 02/03/23 06/02/23 mcg (2,000 unit) capsule carbidopa 10 mg-levodopa 100 mg 2 tablet PO TID 04/13/23 06/02/23 disintegrating tablet Allergies Allergy/AdvReac Type Severity Reaction Status Date / Time No Known Allergies Allergy Verified 06/02/23 14:01 Review of Systems Review of Systems: CONSTITUTIONAL: Denies fever, chills, or sweats. CARDIOVASCULAR: Denies chest pain, palpitations, or edema. RESPIRATORY: Denies cough or dyspnea. GASTROINTESTINAL: Denies abdominal pain, nausea, vomiting, or diarrhea. GENITOURINARY: Denies dysuria or hematuria. SKIN: Denies rash or itching. MUSCULOSKELETAL: Mild right hip and distal right leg pain denies back pain, or myalgia. NEUROLOGIC: Denies headache, numbness, dizziness, or weakness. PSYCHIATRIC: Denies anxiety or depression. [facility] Past Medical History Medical History AAA (abdominal aortic aneurysm) Adult BMI 19-24 kg/sq m Anxiety with depression Closed fracture of ramus of left pubis Compression fx, lumbar spine Dizziness DJD (degenerative joint disease) Encounter for routine adult health examination with abnormal findings History of COVID-19 Hyperlipidemia Kidney stone Mild cognitive impairment On computer terminal operator drug therapy Orthostatic hypotension Osteoporosis Parkinsonism Seasonal allergies Severe depression Skin tear of upper extremity TIA (transient ischemic attack) Vestibular dizziness Vitamin B12 deficiency Vitamin B6 deficiency Vitamin D deficiency Surgical History Surgical History History of cholecystectomy History of hip surgery History of hysterectomy History of tubal ligation Family History Family History Grandparent No problems noted. Father Hypertension Other COPD (chronic obstructive pulmonary disease) Social History Social History Social History: The patient lives in her own home in [place]. She has been as of July 2019. She and her were for 60 years and they have 3 sons and 1 daughter. 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 She is a lifelong nonsmoker and denies alcohol and drug abuse. Smoking status: Never smoker Alcohol intake: never Substance use: never Substance use type: does not use Lack of Transportation: No Lack of Food: Never True Current Housing: I Have Housing Concerned About Future Housing: No Difficulty Paying Gas/Electric Bills: No Difficulty Paying for Meds: No Currently Unemployed: No Education: High School Diploma/GED Difficulty w/ Childcare or Family Care: No Living arrangements: with family Occupation/Education: retired Gender identity (if verbalized by the patient): Female Spiritual care concerns: No Agree to blood products: Yes Exam Narrative: GENERAL: Well-developed, well-nourished, and in no acute distress. HEAD: Normocephalic, atraumatic. EYES: PERRLA and EOMI. NECK: No midline spine tenderness to palpation, no s
[2023-06-17 06:06] VITALS: BP 173/69; PULSE 67; RESP 15; O2SAT 100
--- NOTE | 2023-06-17 06:14 | PC.NURSE ---
This RN spoke with staff from [facility] around 0400. [facility] requested an update when a plan was made for pt. This RN attempted to call report at this time. No answer, voicemail left.
[2023-06-17 06:41] VITALS: BP 166/74; PULSE 67; RESP 15; O2SAT 99
== END 2023-06-17 07:12 ==
PROVIDERS: Emergency Provider Preventive Medicine Aerospace Medicine; PCP Internal Medicine
DX: S80.11XA Contusion of right lower leg, initial encounter (principal); W18.30XA Fall on same level, unspecified, initial encounter; E78.5 Hyperlipidemia, unspecified; G20 Parkinson's disease
CPT/HCPCS: 73502; 81001; 87086; 99283

== ENCOUNTER 2023-07-02 16:46 | Inpatient (IN) | payer MEDICARE, SELFPAY ==
--- NOTE | ~2023-07-02 | XR_ITS ---
EXAMINATION: XR chest 1V DATE: 07/02/2023 18:21 INDICATION: Hiatal hernia. Preop. TECHNIQUE: A single frontal view of the chest was obtained. COMPARISON: Chest CT 12/27/2019, chest single view 07/26/2022 FINDINGS: There is no pneumonia, pleural effusion, or pneumothorax. The heart size is normal. There a re bilateral breast implants. Surgical clips in the right upper quadrant are likely from cholecystect tonya. IMPRESSION: 1. No acute cardiopulmonary disease. Reviewed, dictated and finalized at location E.
--- NOTE | ~2023-07-02 | XR_ITS ---
EXAMINATION: XR hip RT 2V w AP pelvis DATE: 07/02/2023 18:21 INDICATION: Right hip pain. Fall. TECHNIQUE: An anteroposterior view of the pelvis and 2 views of right hip were obtained. COMPARISON: Pelvis and right hip radiographs 06/17/2023 FINDINGS: There is a comminuted intertrochanteric fracture of proximal right femur. The main distal f racture fragment demonstrates posterior angulation. There are old healed fractures of left superior a nd inferior pubic rami. There is internal fixation of proximal left femur. There is severe osteoarthr itis of hips. There is severe lumbar spondylosis. There is a benign bone island in left ilium. IMPRESSION: 1. Comminuted intertrochanteric fracture of proximal right femur. 2. Severe osteoarthritis of the hips. Reviewed, dictated and finalized at location E.
--- NOTE | ~2023-07-02 | XR_ITS ---
EXAMINATION: XR surgery orthopedic DATE: 07/03/2023 14:46 INDICATION: Right hip fracture post intertrochanteric nailing TECHNIQUE: 7 fluoroscopic images of the right hip and proximal femur were obtained during procedure p erformed by Dr. Amin. Radiologist was not present for the imaging or procedure. The amount of f luoroscopy time used during this procedure was 1.5 minutes. COMPARISON: None. FINDINGS: Intratrochanteric katie with femoral neck dynamic erosions through distal interlocking screw fixation. Mildly comminuted intratrochanteric fracture of the proximal right femur. There is near anatomic alig nment of the proximal femoral head and neck fragment and the main more distal fragment comprising the greater trochanter and subtrochanteric femur. No interval change in approximately 2 cm medial distra ction of the lesser trochanteric fragment which is not included within the fixation. No new fractures identified. Moderate osteoarthritis at the right hip. IMPRESSION: 1. Fluoroscopy utilized during internal fixation of a comminuted intratrochanteric fracture of the pr oximal right femur with expected appearance. Reviewed, dictated and finalized at location A. IMPRESSION: 1. Fluoroscopy utilized during internal fixation of a comminuted intratrochante stanley fracture of the proximal right femur with expected appearance.
[2023-07-02 16:46] VITALS: BP 107/73; PULSE 80; RESP 13; TEMP 36.4; O2SAT 99
--- NOTE | 2023-07-02 17:14 | ED.FALL ---
HPI - Fall General Chief Complaint: Fall Stated Complaint: fall Time Seen by Provider: 07/02/23 17:14 Source: patient Mode of arrival: ambulatory Limitations: no limitations History of Present Illness HPI Narrative: 82 years old white female [facility] ground [facility], complaining of right hip pain. History of Parkinson's, TIA, hypertension, hyperlipidemia, major depression patient Eliquis. Related Data Home Medications Medication Instructions Recorded Confirmed vitamin B complex (Super B-50 1 cap PO DAILY 05/23/21 06/02/23 Complex capsule) quetiapine 25 mg tablet 25 mg PO HS 07/27/22 06/02/23 sertraline 100 mg tablet 100 mg PO DAILY 01/02/23 06/02/23 cholecalciferol (vitamin D3) 50 50 mcg PO DAILY 02/03/23 06/02/23 mcg (2,000 unit) capsule carbidopa 10 mg-levodopa 100 mg 2 tablet PO TID 04/13/23 06/02/23 disintegrating tablet Allergies Allergy/AdvReac Type Severity Reaction Status Date / Time No Known Allergies Allergy Verified 07/02/23 17:00 Review of Systems Review of Systems: ROS unobtainable: Yes unobtainable due to medical condition and unobtainable due to mental status PMFSH Past Medical History Medical History AAA (abdominal aortic aneurysm) Adult BMI 19-24 kg/sq m Anxiety with depression Closed fracture of ramus of left pubis Compression fx, lumbar spine Dizziness DJD (degenerative joint disease) Encounter for routine adult health examination with abnormal findings History of COVID-19 Hyperlipidemia Kidney stone Mild cognitive impairment On group home drug therapy Orthostatic hypotension Osteoporosis Parkinsonism Seasonal allergies Severe depression Skin tear of upper extremity TIA (transient ischemic attack) Vestibular dizziness Vitamin B12 deficiency Vitamin B6 deficiency Vitamin D deficiency Surgical History Surgical History History of cholecystectomy History of hip surgery History of hysterectomy History of tubal ligation Family History Family History Grandparent No problems noted. Father Hypertension Other COPD (chronic obstructive pulmonary disease) Social History Social History Social History: The patient lives in her own home in [place]. She has been as of July 2019. She and her were for 60 years and they have 3 sons and 1 daughter. 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 She is a lifelong nonsmoker and denies alcohol and drug abuse. Smoking status: Never smoker Alcohol intake: never Substance use: never Substance use type: does not use Lack of Transportation: No Lack of Food: Never True Current Housing: I Have Housing Concerned About Future Housing: No Difficulty Paying Gas/Electric Bills: No Difficulty Paying for Meds: No Currently Unemployed: No Education: High School Diploma/GED Difficulty w/ Childcare or Family Care: No Living arrangements: with family Occupation/Education: retired Gender identity (if verbalized by the patient): Female Spiritual care concerns: No Agree to blood products: Yes Exam Narrative: General appearance: Well-developed, well-nourished, in pain Skin: Normal color Head: Normocephalic, nontraumatic Eyes: Clear conjunctiva ENT: Oropharynx normal, ears normal, nose normal Neck: Supple, nontender Chest and respiratory: Airway patent, no respiratory distress, no accessory muscle use Heart: Regular rate/rhythm Abdomen: Soft, nontender, no organomegaly, quiet bowel sounds Vascular: Normal peripheral pulses, normal capillary refill. Musculoskeletal: Right lower extremity externally rotated and shorter than the left 1 Neurologic: Alert and oriented to her name only
--- NOTE | 2023-07-02 17:15 | ECG_ITS ---
Measurements Intervals Warner Rate: 82 P: 78 CO: 170 QRS: 22 QRSD: 72 T: 51 QT: 304 QTc: 357 Interpretive Statements SINUS RHYTHM BASELINE ARTIFACT- I, III, AVL NORMAL ECG COMPARED TO ECG 09/17/2022 10:58:15 NO SIGNIFICANT CHANGES Electronically Signed On 07-02-2023 19:42:36 CDT by Davonte Yoon D.O.
[2023-07-02] MEDS: HYDROmorphone HCL INJ (*CRX) 1 MG/ML SYR 0.5 MG IV PUSH ×3 (17:16→22:08)
[2023-07-02 17:21] VITALS: BP 172/78; PULSE 83; RESP 20; O2SAT 96
[2023-07-02 17:50] LABS: Eosinophils Absolute Auto 0.1 K/mm3 (0-0.3); Eosinophils Percent Auto 1.7 % (0-4.4); Hematocrit 34.5 % (37.0-47.0); Hemoglobin 10.8 g/dL (12.0-15.0); Immature Granulocyte Absolute 0.02 K/mm3 (0.00-0.031); Immature Granulocyte Percent A 0.5 % (0-0.5); Lymphocytes Absolute Auto 0.74 K/mm3 (0.9-3.2); Mean Corpuscular HGB Conc 31.3 g/dl (32-36); Mean Corpuscular Hemoglobin 28.6 pg (26-34); Mean Corpuscular Volume 91.5 fl (80-100); Mean Platelet Volume 10.8 fl (7.4-10.4); Monocytes Absolute Auto 0.3 K/mm3 (0.1-0.6); Neutrophils Absolute Auto 2.9 K/mm3 (1.3-6.7); Neutrophils Percent Auto 70.8 % (45.5-73.1); Platelet Count Result 151 k/mm3 (150-375); Red Blood Count 3.77 M/mm3 (4.2-5.4); Red Cell Distribution Width 14.4 % (11.5-14.5); White Blood Count 4.1 K/mm3 (4.5-10.0)
[2023-07-02 18:01] LABS: Alanine Aminotransferase 14 U/L (6-35); Albumin Level 3.1 g/dL (3.5-5.1); Alkaline Phosphatase 77 U/L (38-126); Anion Gap 4 mmol/L (8-16); Aspartate Amino Transferase 32 U/L (14-36); Bilirubin,Total 0.5 mg/dL (0.2-1.3); Blood Urea Nitrogen 27 mg/dL (7-17); Calcium 7.9 mg/dL (8.4-10.2); Carbon Dioxide 31 mmol/L (22-30); Chloride 108 mmol/L (98-107); Estimated CRCL calculation 60 ml/min; Estimated Glomerular Filt Rate > 60; Glucose 113 mg/dL (65-110); Potassium 3.7 mmol/L (3.4-5.0); Sodium 143 mmol/L (137-145)
[2023-07-02 18:02] LABS: INR 1.6; Partial Thromboplastin Time 28.8 SECONDS (22.3-36.8); Prothrombin Time 20.5 Seconds (11.1-14.7)
[2023-07-02 18:07] LABS: Appearance Urine Cloudy (Clear); Bacteria Urine None Seen /hpf; Bilirubin Urine Negative (Negative); Blood Urine Negative (Negative); Color Urine Dark Yellow (Yellow); Glucose Urine UA Negative (Negative); Ketones Urine Negative (Negative); Leukocyte Esterase Ur Trace LEU/UL (Negative); Nitrate Urine Negative (Negative); Non Pathogenic Casts 0-2; Protein Urine Negative (Negative); RBC Urine 0-2 /hpf (0-2); Specific Grav Ur 1.018 (1.001-1.035); Squamous Epithelial Cell Urine None seen /hpf (Few); WBC Urine 0-5 /hpf; pH Urine 6.5 (5.0-9.0)
[2023-07-02 18:09] LABS: Add Urine Microscopic? YES
--- NOTE | 2023-07-02 18:09 | PC.NURSE ---
Pt to XRAY via stretcher at this time.
[2023-07-02 18:40] VITALS: BP 170/78; PULSE 85; RESP 13; O2SAT 95
[2023-07-02 21:09] VITALS: BP 150/72; PULSE 87; RESP 18; TEMP 36.4; O2SAT 93; BMI 18.6
--- NOTE | 2023-07-02 21:13 | ADMGEN ---
This patient, Yesenia Mcdonough, was admitted to 2 Medical Room 260-01. Patient/family oriented to hospital policies and general routines including ID bracelet, bed and alarms, visiting hours, pain management, procedures, bathroom and other care routines, personal items, smoking policy, room service/diet, and visiting hours. Information on how to activate the Rapid Response Team has been discussed. Patient/Family are encouraged to report perceived risks to care and to ask questions if they do not understand what they are told or what they should do.
[2023-07-02] MEDS: SODIUM CHLORIDE 0.9% IV 1,000 ML 100 ML IV CONT (22:14)
[2023-07-02 23:50] VITALS: BP 142/72; PULSE 93; RESP 18; TEMP 36; O2SAT 94
[2023-07-03] VITALS (13 sets, daily range): BP systolic 111–147; BP diastolic 53–105; PULSE 67–95; RESP 13–22; TEMP 36.1–37; O2SAT 93–100
--- NOTE | 2023-07-03 02:04 | PM.IMHP ---
H&P: HPI History of Present Illness Date/Time: 07/03/23 02:04 Chief Complaint: Fall Narrative: 82 y/o F with PMH of parkinsonism, HLD, HTN, depression, TIA and AAA presents here with fall from skilled nursing. Patient unable to collaborate HPI. Per ED note, patient sustained ground level fall and complaining of right hip pain. No report of headache, abdominal pain, upper extremity pain. Patient denies syncope. Orientated to self only. Review of Systems Review of Systems: All systems reviewed & are unremarkable except as noted in HPI and below PMFSH Past Medical History Medical History AAA (abdominal aortic aneurysm) Adult BMI 19-24 kg/sq m Anxiety with depression Closed fracture of ramus of left pubis Compression fx, lumbar spine Dizziness DJD (degenerative joint disease) Encounter for routine adult health examination with abnormal findings History of COVID-19 Hyperlipidemia Kidney stone Mild cognitive impairment On senior care drug therapy Orthostatic hypotension Osteoporosis Parkinsonism Seasonal allergies Severe depression Skin tear of upper extremity TIA (transient ischemic attack) Vestibular dizziness Vitamin B12 deficiency Vitamin B6 deficiency Vitamin D deficiency Surgical History Surgical History History of cholecystectomy History of hip surgery History of hysterectomy History of tubal ligation Family History Family History Grandparent No problems noted. Father Hypertension Other COPD (chronic obstructive pulmonary disease) Social History Social History Social History: The patient lives in her own home in [place]. She has been as of July 2019. She and her were for 60 years and they have 3 sons and 1 daughter. 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 Smoking status: Never smoker Alcohol intake: never Substance use: never Substance use type: does not use Lack of Transportation: No Lack of Food: Never True Current Housing: I Have Housing Concerned About Future Housing: No Difficulty Paying Gas/Electric Bills: No Difficulty Paying for Meds: No Currently Unemployed: No Education: Don't Know Difficulty w/ Childcare or Family Care: No Living arrangements: with family Occupation/Education: retired Gender identity (if verbalized by the patient): Female Spiritual care concerns: No Agree to blood products: Yes Meds Home Medications and Allergies Home Medications Medication Instructions Recorded Confirmed Type vitamin B complex (Super B-50 1 cap PO DAILY 05/23/21 07/02/23 History Complex capsule) quetiapine 25 mg tablet 25 mg PO HS 07/27/22 07/02/23 History fludrocortisone 0.1 mg tablet 0.1 mg PO DAILY #30 tabs 01/02/23 07/02/23 Rx folic acid 1 mg tablet See Rx Instructions .Route 01/02/23 07/02/23 Rx .COMPLEX #60 tabs sertraline 100 mg tablet 125 mg PO DAILY 01/02/23 07/02/23 History cholecalciferol (vitamin D3) 50 50 mcg PO DAILY 02/03/23 07/02/23 History mcg (2,000 unit) capsule carbidopa 10 mg-levodopa 100 mg 2 tablet PO TID 04/13/23 07/02/23 History disintegrating tablet duloxetine 60 mg capsule,delayed 60 mg PO DAILY #90 caps 04/21/23 07/02/23 Rx release atorvastatin 40 mg tablet 40 mg PO DAILY #90 tabs 05/18/23 07/02/23 Rx cholecalciferol (vitamin D3) 1,250 1,250 mcg PO WEEKLY #10 caps 06/02/23 07/02/23 Rx mcg (50,000 unit) capsule apixaban 5 mg tablet (Eliquis) See Rx Instructions .Route 06/22/23 07/02/23 Rx .COMPLEX #60 tabs hydroxyzine HCl 50 mg tablet See Rx Instructions .Route 07/02/23 07/02/23 History .COMPLEX PRN Anxiety mirtazapine 15 mg tablet 15 mg PO DAILY 07/02/23 07/02/23
[2023-07-03] MEDS: QUEtiapine FUMARATE 25 MG TABLET PO ×2 (02:15→19:58)
[2023-07-03] MEDS: ACETAMINOPHEN 325 MG TABLET 650 MG PO ×2 (04:09→11:09)
[2023-07-03] MEDS: HYDROmorphone HCL INJ (*CRX) 1 MG/ML SYR 0.5 MG IV PUSH (05:10)
--- NOTE | 2023-07-03 09:15 | PM.IMPN ---
Progress Note: A&P Assessment and Plan (1) Closed fracture of right hip: Qualifiers: Encounter type: subsequent encounter Fracture healing: with nonunion Qualified Code(s): S72.001K - Fracture of unspecified part of neck of right femur, subsequent encounter for closed fracture with nonunion Code(s): S72.001A - Fracture of unspecified part of neck of right femur, initial encounter for closed fracture Status: Acute Assessment and Plan: Patient presented after a fall. x-ray shows community intratrochanteric fracture of the proximal right femur neurovascular checks q.4 pain medications on board, Dilaudid Tylenol Eliquis on home await further recommendations from Ortho PT OT when appropriate (2) Parkinsonism: Qualifiers: Parkinsonism type: unspecified Qualified Code(s): G20 - Parkinson's disease Code(s): G20 - Parkinson's disease Status: Acute Assessment and Plan: alert oriented times to self location continue carbidopa levodopa and fludrocortisone mental status seems to be stable and at baseline Trend mental status (3) Mild cognitive impairment: Code(s): G31.84 - Mild cognitive impairment of uncertain or unknown etiology Status: Acute Assessment and Plan: seems to be at baseline A&O x2 continue current vitamin-D, folic acid, vitamin-B continue hydroxyzine, sertraline, mirtazapine, Seroquel Trend mood and cognition appears stable at this point adjust therapy as indicated Time Spent With Patient Time: 48 minutes Time with patient: Greater than 35 minutes Subjective Date/time seen: 07/03/23914 Interval history: 07/03/23914 patient is resting comfortably in bed. She denies any current chest pain, shortness a breath, nausea, vomiting, diarrhea constipation. She did state that she had pain in her hip however she stated that she could tell me how much pain. She finally just tell me to put a 5 down. She does appear to be thirsty. Currently awaiting Orthopedics at this point. She was alert oriented times 2. 07/03/23? 02:04 82 y/o F with PMH of parkinsonism, HLD, HTN, depression, TIA and AAA presents here with fall from [facility]. Patient unable to collaborate HPI.? Per ED note, patient sustained ground level fall and complaining of right hip pain.? No report of headache, abdominal pain, upper extremity pain.? Patient denies syncope. Orientated to self only. Review of Systems Review of Systems: All systems reviewed & are unremarkable except as noted in HPI and below Exam Narrative: General: well-nourished, well-appearing 82-year-old female, laying in bed, comfortable, NARD Neuro: awake, alert and oriented x2, speech clear, no focal neuro deficits noted HEENMT: normocephalic, atraumatic, EOMI, sclerae anicteric, moist oral mucosa Respiratory: Clear to auscultation bilaterally without crackles, rhonchi or wheezes, nonlabored breathing Cardio: regular rate, regular rhythm with S1-S2 Abdomen: nondistended, normoactive bowel sounds, soft, nontender to palpation Extremities: no edema, erythema, or tenderness to palpation, DP pulses 2+ bilaterally, right foot is externally rotated, slight bruising noted to the other lateral part of the hip Skin: no rashes or lesions, warm and dry Psych: appropriate mood and affect, judgment and insight intact Objective Data Vital Signs Vital Signs: Vital Signs - 24 hr 07/02/23 16:46 07/02/23 17:21 07/02/23 18:40 Temperature 97.5 F L Pulse Rate 80 83 85 Respiratory Rate 13 20 13 Blood Pressure 107/73 172/78 H 170/78 H Pulse Oximetry 99 96 95 Oxygen Delivery Room Air 07/02/23 21:09 07/02/23 21:50 07/02/23 23:50 Temperature 97.6 F 96.8 F L Pulse Rate 87 93 Respiratory Rate 18 18 Blood Pressure 150/72 H 142/72 H Pulse Oximetry 93 94 Oxygen Delivery Room Air 07/03/23 05:01 Temperature 97.2 F L Pul
--- NOTE | 2023-07-03 09:22 | PM.CNOR ---
Assessment and Plan Assessment and plan (1) Closed intertrochanteric fracture of right hip: Qualifiers: Encounter type: initial encounter <CHENTE Hwang - Last Filed: 07/03/23 09:27> Code(s): S72.141A - Displaced intertrochanteric fracture of right femur, initial encounter for closed fracture <CHENTE Hwang - Last Filed: 07/03/23 09:27> Status: Acute <CHENTE Hwang - Last Filed: 07/03/23 09:27> Assessment and Plan: Displaced intertrochanteric fracture right hip. Associated arthritis and dementia. Patient seen and examined. Radiographic images reviewed personally. Will benefit from surgery. I reviewed the proposed procedure with the patient and her son, the LYNN. Risks, benefits, and alternatives discussed. Proceed with ORIF right hip with IM nail. <Rene Amin MD - Last Filed: 07/03/23 13:00> History of Present Illness HPI Consult date: 07/03/23 <CHENTE Hwang - Last Filed: 07/03/23 09:27> 07/03/23 <Rene Amin MD - Last Filed: 07/03/23 13:00> Chief complaint: Right Hip FX <CHENTE Hwang - Last Filed: 07/03/23 09:27> Narrative: Patient was found on the ground at [facility]. History of left hip fracture 8-9 years ago. [place] Per her son, she thinks [facility] is a casino most of the time. PMH: parkinsonism, HLD, HTN, depression, TIA and AAA <CHENTE Hwang - Last Filed: 07/03/23 09:27> Review of Systems Review of Systems: All systems reviewed & are unremarkable except as noted in HPI and below <CHENTE Hwang - Last Filed: 07/03/23 09:27> PMFSH Past Medical History Medical History: Medical History AAA (abdominal aortic aneurysm) Adult BMI 19-24 kg/sq m Anxiety with depression Closed fracture of ramus of left pubis Compression fx, lumbar spine Dizziness DJD (degenerative joint disease) Encounter for routine adult health examination with abnormal findings History of COVID-19 Hyperlipidemia Kidney stone Mild cognitive impairment On director long term care drug therapy Orthostatic hypotension Osteoporosis Parkinsonism Seasonal allergies Severe depression Skin tear of upper extremity TIA (transient ischemic attack) Vestibular dizziness Vitamin B12 deficiency Vitamin B6 deficiency Vitamin D deficiency <CHENTE Hwang - Last Filed: 07/03/23 09:27> Surgical History Surgical History: Surgical History History of cholecystectomy History of hip surgery History of hysterectomy History of tubal ligation <CHENTE Hwang - Last Filed: 07/03/23 09:27> Family History Family History: Family History Grandparent No problems noted. Father Hypertension Other COPD (chronic obstructive pulmonary disease) <CHENTE Hwang - Last Filed: 07/03/23 09:27> Social History Social History: Social History Social History: The patient lives in her own home in [place]. She has been as of July 2019. She and her were for 60 years and they have 3 sons and 1 daughter. 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 Smoking status: Never smoker Alcohol intake: never Substance use: never Substance use type: does not use Lack of Transportation: No Lack of Food: Never True Current Housing: I Have Housing Concerned About Future Housing: No Difficulty Paying Gas/Electric Bills: No Difficulty Paying for Meds: No Currently Unemployed: No Education: Don't Know Difficulty w/ Childcare or Family Care: No Living arrangements: with family
[2023-07-03] MEDS: CARBIDOPA/LEVODOPA 10/100 MG TABLET 2 TABLET PO ×3 (11:11→21:43)
[2023-07-03] MEDS: SERTRALINE HCL 50 MG TABLET 100 MG PO (11:17)
[2023-07-03] MEDS: SERTRALINE HCL 25 MG TABLET PO (11:18)
--- NOTE | 2023-07-03 12:03 | PC.NURSE ---
To OR per bed, IV left AC. Report given to Rg. RN
--- NOTE | 2023-07-03 12:19 | WPDANESEPPF ---
Anes - Initial Pre Proc Eval Procedure: Operation Date: 07/03/23 13:30 Proposed Procedures p Right Intertrochanteric Nail - Rene Amin MD Date/Time: 07/03/23 12:19 Surgeon: Zhane Calhoun DO Pre Op Diagnosis: Right Hip FX Patient Data Age: 82 Gender: F Height: 1.6 m Weight: 47.6 kg Last Vital Signs Temp 36.2 C L 07/03/23 05:01 Pulse 94 07/03/23 05:01 Resp 18 07/03/23 05:01 BP 143/68 H 07/03/23 05:01 Pulse Ox 93 07/03/23 05:01 O2 Del Method Room Air 07/02/23 21:50 Allergies Allergy/AdvReac Type Severity Reaction Status Date / Time No Known Allergies Allergy Verified 07/02/23 17:00 Home Medications Medication Instructions Recorded Confirmed Type vitamin B complex (Super B-50 1 cap PO DAILY 05/23/21 07/02/23 History Complex capsule) quetiapine 25 mg tablet 25 mg PO HS 07/27/22 07/02/23 History fludrocortisone 0.1 mg tablet 0.1 mg PO DAILY #30 tabs 01/02/23 07/02/23 Rx folic acid 1 mg tablet See Rx Instructions .Route 01/02/23 07/02/23 Rx .COMPLEX #60 tabs sertraline 100 mg tablet 125 mg PO DAILY 01/02/23 07/02/23 History cholecalciferol (vitamin D3) 50 50 mcg PO DAILY 02/03/23 07/02/23 History mcg (2,000 unit) capsule carbidopa 10 mg-levodopa 100 mg 2 tablet PO TID 04/13/23 07/02/23 History disintegrating tablet duloxetine 60 mg capsule,delayed 60 mg PO DAILY #90 caps 04/21/23 07/02/23 Rx release atorvastatin 40 mg tablet 40 mg PO DAILY #90 tabs 05/18/23 07/02/23 Rx cholecalciferol (vitamin D3) 1,250 1,250 mcg PO WEEKLY #10 caps 06/02/23 07/02/23 Rx mcg (50,000 unit) capsule apixaban 5 mg tablet (Eliquis) See Rx Instructions .Route 06/22/23 07/02/23 Rx .COMPLEX #60 tabs hydroxyzine HCl 50 mg tablet See Rx Instructions .Route 07/02/23 07/02/23 History .COMPLEX PRN Anxiety mirtazapine 15 mg tablet 15 mg PO DAILY 07/02/23 07/02/23 History Laboratory Tests 07/02/23 07/02/23 17:31 17:53 WBC 4.1 L K/mm3 (4.5-10.0) RBC 3.77 L M/mm3 (4.2-5.4) Hgb 10.8 L g/dL (12.0-15.0) Hct 34.5 L % (37.0-47.0) MCV 91.5 fl (80-100) MCH 28.6 pg (26-34) MCHC 31.3 L g/dl (32-36) RDW 14.4 % (11.5-14.5) Plt Count 151 k/mm3 (150-375) MPV 10.8 H fl (7.4-10.4) Immature Gran % (Auto) 0.5 % (0-0.5) Neut % (Auto) 70.8 % (45.5-73.1) Lymph % (Auto) 18.0 L % (18.3-44.2) Cook % (Auto) 8.0 % (2.6-8.5) Eos % (Auto) 1.7 % (0-4.4) Baso % (Auto) 1.0 % (0.2-1.2) Lymph # (Auto) 0.74 L K/mm3 (0.9-3.2) Cook # (Auto) 0.3 K/mm3 (0.1-0.6) Eos # (Auto) 0.1 K/mm3 (0-0.3) Baso # (Auto) 0.0 K/mm3 (0.0-0.1) Abs Immat Gran (auto) 0.02 K/mm3 (0.00-0.031) Absolute Neuts (auto) 2.9 K/mm3 (1.3-6.7) Absolute Nucleated RBC 0.0 K/mm3 (0.0-0.012) Nucleated RBC % 0.0 % (0.0-0.2) PT 20.5 H Seconds (11.1-14.7) INR 1.6 APTT 28.8 SECONDS (22.3-36.8) Sodium 143 mmol/L (137-145) Potassium 3.7 mmol/L (3.4-5.0) Chloride 108 H mmol/L (98-107) Carbon Dioxide 31 H mmol/L (22-30) Anion Gap 4 L mmol/L (8-16) BUN 27 H mg/dL (7-17) Creatinine 0.50 L mg/dL (0.7-1.0) Estim Creat Clear Calc 60 ml/min Estimated GFR > 60 (59 - ) Glucose 113 H mg/dL (65-110) Calcium 7.9 L mg/dL (8.4-10.2) Total Bilirubin 0.5 mg/dL (0.2-1.3) AST 32 U/L (14-36) ALT 14 U/L (6-35) Alkaline Phosphatase 77 U/L (38-126) Total Protein 6.0 L g/dL (6.3-8.2) Albumin 3.1 L g/dL (3.5-5.1) Urine Color Dark yellow (Yellow) Urine Appearance Cloudy H (Clear) Urine pH 6.5 (5.0-9.0) Ur Specific [place] 1.018 (1.001-1.035) Urine Protein Negative mg/dL (Negative) Urine Glucose (UA) Negative mg/dL (Negativ
[2023-07-03] MEDS: fentaNYL CITRATE INJ (*CRX) 100 MCG/2 ML VIAL 25 MCG IV PUSH ×7 (12:50→15:51)
--- NOTE | 2023-07-03 13:00 | WPDHPUPDATE1 ---
History and Physical Update Update Date/Time: 07/03/23 13:00 History and Physical has been reviewed, including an updated exam of the patient. There are NO changes in the patient's condition. Risks, benefits, and alternatives have been discussed and questions answered. Patient agrees to proceed with procedure.
[2023-07-03] MEDS: LACTATED RINGERS 1,000 ML 30 ML IV CONT (13:01)
[2023-07-03] MEDS: TRANEXAMIC ACID 1,000MG/ISO100 1,000 MG/100 ML BAG 200 MG IVPB (13:01)
[2023-07-03] MEDS: ceFAZolin 2 GM/D5W 50 ML 2 GM/50 ML BAG IVPB ×2 (13:39→21:44)
--- NOTE | 2023-07-03 15:19 | W.PM.PROC2 ---
Procedure Note - Detailed Date of Procedure 07/03/23 Pre-op Diagnosis Intertrochanteric hip fracture displaced right hip. Post-op Diagnosis Same Procedure Performed Open reduction and internal fixation right hip intertrochanteric fracture with cephalomedullary nail. Surgeon Rene Amin MD Pre Billing Specialist Charlee Lui PA-C Anesthesia General Findings Degenerative disease at that joint. Short locked nail used. Near anatomic reduction residual lesser tuberosity displacement. Description of Procedure The patient was given a general anesthetic, then carefully placed in fracture table. Sterile prep and drape performed in the usual fashion. Sterile curtain was used. Gentle traction was utilized to reduce the fracture. Fluoroscopy was used to confirm anatomic reduction and a proper placement of the implants. A longitudinal incision was created at the tip of the trochanter. The deep fascia was incised. The cannulated awl was used to open the proximal femur. The guidewire was placed across the fracture. The reamer was used to open the canal. The gamma nail was placed across the fracture site. A separate incision was made for placement of the cannulated guide sleeve. The guide pin was placed in the center of the femoral head. Appropriate measurement was taken. The pin was over reamed. The screw was placed with excellent purchase. The set screw was placed proximally and backed out a quater turn. The distal locking screw was drilled through the jig attachment. 35 mm screw was used. The jig was removed. The wound was irrigated. The deep fascia was closed with #1 Vicryl suture followed by 2-0 Vicryl suture and aretha. Sterile dressing was applied. The patient was transferred to the recovery room in stable condition. There were no complications. Implants Henok gamma nail 125 degree angle 11 mm distal diameter, short. 35 mm locking screw. Estimated Blood Loss -100.0 Urine Output -25.0 Drains No Complications None Condition Stable Disposition PACU [facility] Billing Surgery - Charge Forward: Surgery Billing
[2023-07-03] MEDS: SODIUM CHLORIDE 0.9% IV 1,000 ML 125 ML IV CONT (16:05)
--- NOTE | 2023-07-03 16:25 | PC.NURSE ---
Returned from OR per bed. Report received from Andrew DE LA CRUZ.
--- NOTE | 2023-07-03 16:37 | PM.PNORT ---
Progress Note: A&P Assessment and Plan (1) Closed intertrochanteric fracture of right hip: Qualifiers: Encounter type: initial encounter Code(s): S72.141A - Displaced intertrochanteric fracture of right femur, initial encounter for closed fracture Status: Acute Plan Postoperative check. Patient is comfortable. Responsive. Here with 2 family members. Vital signs stable. Dressing clean dry and intact. Thigh soft no hematoma. Wiggles toes. Dorsalis pedis pulse palpable. No edema. Overall limb alignment very good. Doing well. Discussed care plan with the patient and the family. Advanced diet as tolerated. Mobilize as able. Physical therapy and occupational therapy consulted. Plan for discharge back to [facility] early next week. When she is discharged we will resume her previous oral anticoagulant. Subjective Subjective Date/Time Seen: 07/03/23 16:37 Objective Data Vital Signs Vital Signs: Vital Signs - 24 hr 07/02/23 16:46 07/02/23 17:21 07/02/23 18:40 Temperature 36.4 C L Pulse Rate 80 83 85 Respiratory Rate 13 20 13 Blood Pressure 107/73 172/78 H 170/78 H Pulse Oximetry 99 96 95 Oxygen Delivery Room Air Oxygen Flow Rate 07/02/23 21:09 07/02/23 21:50 07/02/23 23:50 Temperature 36.4 C 36.0 C L Pulse Rate 87 93 Respiratory Rate 18 18 Blood Pressure 150/72 H 142/72 H Pulse Oximetry 93 94 Oxygen Delivery Room Air Oxygen Flow Rate 07/03/23 05:01 07/03/23 12:15 07/03/23 15:01 Temperature 36.2 C L 36.2 C L 36.1 C L Pulse Rate 94 83 81 Respiratory Rate 18 16 22 H Blood Pressure 143/68 H 140/65 125/105 H Pulse Oximetry 93 97 97 Oxygen Delivery Room Air Simple Face Mask Oxygen Flow Rate 10 07/03/23 15:15 07/03/23 15:30 07/03/23 15:45 Temperature Pulse Rate 82 88 88 Respiratory Rate 13 17 16 Blood Pressure 140/70 111/63 127/67 Pulse Oximetry 98 98 100 Oxygen Delivery Simple Face Mask Nasal Cannula Nasal Cannula Oxygen Flow Rate 10 2 2 07/03/23 16:00 Temperature Pulse Rate 88 Respiratory Rate 16 Blood Pressure 111/80 Pulse Oximetry 100 Oxygen Delivery Nasal Cannula Oxygen Flow Rate 2 Intake/Output Intake/Output: Intake & Output 06/30/23 07/01/23 07/02/23 07/03/23 23:59 23:59 23:59 23:59 Intake Total 350 Output Total 550 Balance -200 Meds/Results Medications: Active Medications Generic Name Dose Route Start Last Admin Trade Name Freq PRN Reason Stop Dose Admin Acetaminophen 1,000 mg 07/03/23 16:05 Acetaminophen 500 Mg Tablet PO Q6H [facility] Atorvastatin Calcium 40 mg 07/03/23 09:00 Atorvastatin 40 Mg Tablet PO DAILY EVE Carbidopa/Levodopa 2 tablet 07/03/23 08:00 07/03/23 11:11 Carbidopa/Levodopa 10/100 Mg Tablet PO 2 tablet TIDWM EVE Administration Duloxetine HCl 60 mg 07/03/23 09:00 Duloxetine Hcl 60 Mg Capsule.Dr PO DAILY [facility] Enoxaparin Sodium 30 mg 07/04/23 09:00 Enoxaparin 30 Mg/0.3 Ml Syringe SUB-Q DAILY [facility] Ergocalciferol 50,000 units 07/08/23 09:00 Ergocalciferol 50,000 Units Capsule PO We@0900 [facility] Fludrocortisone Acetate 0.1 mg 07/03/23 08:00 Fludrocortisone Acetate 0.1 Mg Tablet PO DAILY@0800 [facility] Folic Acid 2 mg 07/03/23 09:00 Folic Acid 1 Mg Tablet PO DAILY [facility] Hydromorphone HCl 0.5 mg 07/02/23 19:16 07/03/23 05:10 Hydromorphone Hcl Inj (*Crx) 1 Mg/Ml Syr IV PUSH 0.5 mg Q4H PRN Administration Pain Rated 7-10 Hydroxyzine HCl 50 mg 07/03/23 00:30 Hydroxyzine Hcl 25 Mg Tablet PO Q8H PRN Anxiety Sodium Chloride 1,000 mls @ 100 mls/hr 07/02/23 19:30 07/02/23 22:14 Normal Saline Iv IV CONT 100 mls/hr .Q10H EVE Administration Sodium Chloride 1,000 mls @ 125 mls/hr 07/03/23 16:05 Normal Saline Iv IV CONT .Q8H [facility]E Cefazolin Sodium 2 gm in 50 mls @ 100 mls/hr 07/03/23 22:00 Ancef 2 Gm/D5w 50 Ml IVPB 07/04/23 14:29 Q8H EVE Mirtazapine
[2023-07-03] MEDS: ACETAMINOPHEN 500 MG TABLET 1000 MG PO ×2 (18:06→21:43)
[2023-07-03] MEDS: SENNA/DOCUSATE SODIUM TABLET 2 TAB PO (18:06)
[2023-07-03] MEDS: hydrOXYzine HCL 25 MG TABLET 50 MG PO (19:58)
[2023-07-04] VITALS (9 sets, daily range): BP systolic 100–121; BP diastolic 48–58; PULSE 77–84; RESP 14–18; TEMP 36.5–37.1; O2SAT 95–98
[2023-07-04] MEDS: SODIUM CHLORIDE 0.9% IV 1,000 ML 125 ML IV CONT ×2 (00:32→09:01)
[2023-07-04] MEDS: ACETAMINOPHEN 500 MG TABLET 1000 MG PO ×4 (05:13→21:22)
[2023-07-04] MEDS: ceFAZolin 2 GM/D5W 50 ML 2 GM/50 ML BAG IVPB ×2 (05:14→13:40)
[2023-07-04 05:26] LABS: Basophils Percent Auto 0.6 % (0.2-1.2); Immature Granulocyte Absolute 0.03 K/mm3 (0.00-0.031); Immature Granulocyte Percent A 0.5 % (0-0.5); Immature Platelet Fraction Pct 4.6 % (0.9-11.2); Lymphocytes Absolute Auto 0.99 K/mm3 (0.9-3.2); Mean Corpuscular HGB Conc 31.9 g/dl (32-36); Mean Corpuscular Hemoglobin 29.1 pg (26-34); Mean Corpuscular Volume 91.2 fl (80-100); Mean Platelet Volume 11.3 fl (7.4-10.4); Monocytes Absolute Auto 0.8 K/mm3 (0.1-0.6); Monocytes Percent Auto 12.6 % (2.6-8.5); Neutrophils Absolute Auto 4.4 K/mm3 (1.3-6.7); Neutrophils Percent Auto 70.3 % (45.5-73.1); Platelet Count Result 140 k/mm3 (150-375); Red Blood Count 2.27 M/mm3 (4.2-5.4); Red Cell Distribution Width 14.4 % (11.5-14.5); White Blood Count 6.2 K/mm3 (4.5-10.0)
[2023-07-04 05:38] LABS: Alanine Aminotransferase 12 U/L (6-35); Albumin Level 2.6 g/dL (3.5-5.1); Alkaline Phosphatase 66 U/L (38-126); Anion Gap 4 mmol/L (8-16); Aspartate Amino Transferase 56 U/L (14-36); Bilirubin,Total 0.4 mg/dL (0.2-1.3); Blood Urea Nitrogen 34 mg/dL (7-17); Carbon Dioxide 30 mmol/L (22-30); Chloride 105 mmol/L (98-107); Estimated CRCL calculation 31 ml/min; Estimated Glomerular Filt Rate 60; Glucose 132 mg/dL (65-110); Magnesium 1.9 mg/dL (1.6-2.3); Sodium 139 mmol/L (137-145)
[2023-07-04 05:54] LABS: Hemoglobin 6.6 g/dL (12.0-15.0)
[2023-07-04 05:55] LABS: Hematocrit 20.7 % (37.0-47.0)
--- NOTE | 2023-07-04 06:05 | PC.NURSE ---
Contacted pt Jose A BAILEY, to obtain consent to give blood. Orders placed (1 unit of PRBC)
--- NOTE | 2023-07-04 06:40 | PC.NURSE ---
0640 ATTEMPTED TO CALL LYNN GRAY AGAIN. NO ANSWER TO OBTAIN CONSENT.
--- NOTE | 2023-07-04 07:41 | PC.NURSE ---
call to LYNN Naranjo to attempt to get consent for blood transfusion, message left on cell phone
--- NOTE | 2023-07-04 07:51 | WPDANESPN ---
Anes - Prog Note Post-Op Date/Time: 07/04/23 07:51 Cardiovascular status: normal Respiratory status: normal Airway patency: baseline Mental status: baseline Post-Op hydration status: normal Vital Signs: Last Vital Signs Temp 36.7 C 07/04/23 05:21 Pulse 84 07/04/23 05:21 Resp 16 07/04/23 05:21 BP 121/50 L 07/04/23 05:21 Pulse Ox 95 07/04/23 05:21 O2 Del Method Room Air 07/03/23 21:42 O2 Flow Rate 2 07/03/23 16:00 Pain Score (VAS): 2 I/O: Intake & Output 07/03/23 07/03/23 07/04/23 15:59 23:59 07:59 Intake Total 406 091 0577 Output Total 200 300 Balance -50 410 1100 Laboratory Tests 07/04/23 04:59 07/04/23 04:59 07/03/23 07/04/23 16:42 04:59 WBC 6.2 RBC 2.27 L Hgb 6.6 L* D Hct 20.7 L* MCV 91.2 MCH 29.1 MCHC 31.9 L RDW 14.4 Plt Count 140 L MPV 11.3 H Immature Gran % (Auto) 0.5 Neut % (Auto) 70.3 Lymph % (Auto) 16.0 L [place] % (Auto) 12.6 H Eos % (Auto) 0.0 Baso % (Auto) 0.6 Lymph # (Auto) 0.99 [place] # (Auto) 0.8 H Eos # (Auto) 0.0 Baso # (Auto) 0.0 Abs Immat Gran (auto) 0.03 Absolute Neuts (auto) 4.4 Absolute Nucleated RBC 0.0 Nucleated RBC % 0.0 % Immature Plt Fraction 4.6 Sodium 139 Potassium 5.0 Chloride 105 Carbon Dioxide 30 Anion Gap 4 L BUN 34 H Creatinine 0.90 Estim Creat Clear Calc 31 Estimated GFR 60 Glucose 132 H Calcium 8.0 L Magnesium 1.9 Total Bilirubin 0.4 AST 56 H ALT 12 Alkaline Phosphatase 66 Total Protein 5.0 L Albumin 2.6 L Blood Type A Negative Antibody Screen Negative Post-procedural complaints: none Patient Feedback: Patient satisfied with anesthetic care.
--- NOTE | 2023-07-04 08:41 | PCPTNOTE ---
08:42 Per nursing, request PT/OT to return later. Pt cont to have bedrest orders that need to be removed to proceed with therapy.
--- NOTE | 2023-07-04 08:50 | PCOTNOTE ---
Attempted OT evaluation; per RN please hold this morning as she may receive blood. Will check back this afternoon as able.
[2023-07-04 09:00] LABS: Hemoglobin 6.1 g/dL (12.0-15.0)
[2023-07-04 09:01] LABS: Hematocrit 19.3 % (37.0-47.0)
[2023-07-04] MEDS: SERTRALINE HCL 50 MG TABLET 100 MG PO (09:04)
[2023-07-04] MEDS: SERTRALINE HCL 25 MG TABLET PO (09:04)
[2023-07-04] MEDS: SENNA/DOCUSATE SODIUM TABLET 2 TAB PO ×2 (09:05→16:55)
[2023-07-04] MEDS: FOLIC ACID 1 MG TABLET 2 MG PO (09:05)
[2023-07-04] MEDS: DULoxetine HCL 60 MG CAPSULE.DR PO (09:06)
[2023-07-04] MEDS: MIRTAZAPINE 15 MG TABLET PO (09:06)
[2023-07-04] MEDS: ATORVASTATIN 40 MG TABLET PO (09:06)
[2023-07-04] MEDS: VITAMIN B COMPLEX CAPSULE 1 CAP PO (09:06)
[2023-07-04] MEDS: CHOLECALCIFEROL 1,000 UNITS TABLET 2000 UNITS PO (09:07)
[2023-07-04] MEDS: FLUDROCORTISONE ACETATE 0.1 MG TABLET PO (09:07)
[2023-07-04] MEDS: polyethylene glycoL 3350 17 GM POWD.PACK PO (09:08)
[2023-07-04] MEDS: CARBIDOPA/LEVODOPA 10/100 MG TABLET 2 TABLET PO ×3 (09:08→16:55)
--- NOTE | 2023-07-04 09:16 | PC.NURSE ---
repeat call to son LYNN, able to obtain telephone consent for transfusion
--- NOTE | 2023-07-04 09:17 | PM.IMPN ---
Progress Note: A&P Assessment and Plan (1) Closed fracture of right hip: Qualifiers: Encounter type: subsequent encounter Fracture healing: with nonunion Qualified Code(s): S72.001K - Fracture of unspecified part of neck of right femur, subsequent encounter for closed fracture with nonunion Code(s): S72.001A - Fracture of unspecified part of neck of right femur, initial encounter for closed fracture Status: Acute Assessment and Plan: S/p surgery Patient pain is under control. Plan is to continue current treatment, start physical therapy. l (2) Parkinsonism: Qualifiers: Parkinsonism type: unspecified Qualified Code(s): G20 - Parkinson's disease Code(s): G20 - Parkinson's disease Status: Acute Assessment and Plan: alert oriented times to self location continue carbidopa levodopa and fludrocortisone mental status seems to be stable and at baseline (3) Mild cognitive impairment: Code(s): G31.84 - Mild cognitive impairment of uncertain or unknown etiology Status: Acute Assessment and Plan: seems to be at baseline A&O x2 continue current vitamin-D, folic acid, vitamin-B continue hydroxyzine, sertraline, mirtazapine, Seroquel appears stable at this point adjust therapy as indicated (4) Anemia: Qualifiers: Iron deficiency anemia type: other iron deficiency Code(s): D64.9 - Anemia, unspecified Status: Acute Assessment and Plan: Hemoglobin 6.1. Will transfuse 1 unit and monitor glucose Subjective Date/time seen: 07/04/23 09:17 Interval history: Patient was seen during the today. 82 y/o F with PMH of parkinsonism, HLD, HTN, depression, TIA and AAA presents here with fall from detention. Patient is status post right intertrochanteric surgery. Patient is feeling fine. Pain control. No shortness of breath or chest pain No abdominal pain, nausea or vomiting Mood stable. Review of Systems Review of Systems: All systems reviewed & are unremarkable except as noted in HPI and below Exam Narrative: General: well-nourished, well-appearing 82-year-old female, laying in bed, comfortable, NARD Neuro: awake, alert and oriented x2, speech clear, no focal neuro deficits noted HEENMT: normocephalic, atraumatic, EOMI, sclerae anicteric, moist oral mucosa Respiratory: Clear to auscultation bilaterally without crackles, rhonchi or wheezes, nonlabored breathing Cardio: regular rate, regular rhythm with S1-S2 Abdomen: nondistended, normoactive bowel sounds, soft, nontender to palpation Extremities: no edema, erythema, or tenderness to palpation, DP pulses 2+ bilaterally, S/p right leg surgery. Skin: no rashes or lesions, warm and dry Psych: appropriate mood and affect, judgment and insight intact Const: General: comfortable Other: mild distress due to pain/confusion due to new setting. HENMT: Mouth: Yes moist mucous membranes Eyes: General: appearance normal, both eyes and all related structures Sclera: sclerae normal Pupils: Equal, round and reactive pupils present EOM: EOMs intact bilaterally Resp: Effort & Inspection: normal respiratory effort Auscultation: clear to auscultation bilaterally Cardio: Rate: regular rate Rhythm: regular rhythm GI: Auscultation: normal bowel sounds Other: non-tender. Skin: General skin exam: normal color and no rashes or lesions noted Wounds: no wounds Neuro: Cranial nerves: Yes Equal, round and reactive pupils present Speech: normal speech Other: A/Ox1 (self), unable to assess gait. +5 in BUE. Normal sensation. Extrem: Other: deformity to R upper thigh/hip, +tenderness. RLE shortened and externally rotated. Cap refill sluggish in RLE compared to LLE. LLE cooler than RLE. Pulse diminished on R compared to L. Psych: Affect: Sad affect present and Anxious affect present Other: A/
--- NOTE | 2023-07-04 10:01 | PC.NURSE ---
Addendum entered by Hermelinda Peralta RN 07/04/23 10:03: time of note 0818 Original Note: repeat H&H ordered to confirm value prior to blood transfusion
[2023-07-04] MEDS: ENOXAPARIN 30 MG/0.3 ML SYRINGE SUB-Q (11:18)
[2023-07-04] MEDS: SODIUM CHLORIDE 0.9% IV 250 ML 30 ML IV CONT (11:19)
[2023-07-04] MEDS: hydrOXYzine HCL 25 MG TABLET 50 MG PO (14:53)
[2023-07-04] MEDS: HYDROmorphone HCL INJ (*CRX) 1 MG/ML SYR 0.5 MG IV PUSH (17:45)
[2023-07-04] MEDS: QUEtiapine FUMARATE 25 MG TABLET PO (21:22)
[2023-07-05 04:40] VITALS: BP 134/61; PULSE 73; RESP 16; TEMP 36.6; O2SAT 95
[2023-07-05] MEDS: ACETAMINOPHEN 500 MG TABLET 1000 MG PO ×4 (05:00→21:34)
[2023-07-05 05:06] LABS: Immature Platelet Fraction Pct 5.5 % (0.9-11.2); Mean Corpuscular Hemoglobin 29.7 pg (26-34); Mean Corpuscular Volume 92.7 fl (80-100); Mean Platelet Volume 11.6 fl (7.4-10.4); Platelet Count Result 89 k/mm3 (150-375); Red Blood Count 2.19 M/mm3 (4.2-5.4); White Blood Count 4.4 K/mm3 (4.5-10.0)
[2023-07-05 05:31] LABS: Hemoglobin 6.5 g/dL (12.0-15.0)
[2023-07-05 05:32] LABS: Hematocrit 20.3 % (37.0-47.0)
[2023-07-05] MEDS: SODIUM CHLORIDE 0.9% IV 250 ML 30 ML IV CONT (05:40)
[2023-07-05 05:55] VITALS: BP 119/49; PULSE 73; RESP 16; TEMP 36.1; O2SAT 99
[2023-07-05 06:10] VITALS: BP 125/55; PULSE 73; RESP 18; TEMP 36; O2SAT 99
[2023-07-05] MEDS: HYDROmorphone HCL INJ (*CRX) 1 MG/ML SYR 0.5 MG IV PUSH ×2 (06:14→19:59)
[2023-07-05 09:15] VITALS: BP 130/50; PULSE 73; RESP 16; TEMP 35.8; O2SAT 95
[2023-07-05 09:23] LABS: Hematocrit 27.3 % (37.0-47.0); Hemoglobin 8.9 g/dL (12.0-15.0)
[2023-07-05] MEDS: CARBIDOPA/LEVODOPA 10/100 MG TABLET 2 TABLET PO ×3 (09:57→17:08)
[2023-07-05] MEDS: SENNA/DOCUSATE SODIUM TABLET 2 TAB PO ×2 (09:58→17:09)
[2023-07-05] MEDS: ATORVASTATIN 40 MG TABLET PO (09:58)
[2023-07-05] MEDS: FLUDROCORTISONE ACETATE 0.1 MG TABLET PO (09:58)
[2023-07-05] MEDS: CHOLECALCIFEROL 1,000 UNITS TABLET 2000 UNITS PO (09:58)
[2023-07-05] MEDS: SERTRALINE HCL 50 MG TABLET 100 MG PO (09:59)
[2023-07-05] MEDS: polyethylene glycoL 3350 17 GM POWD.PACK PO (09:59)
[2023-07-05] MEDS: MIRTAZAPINE 15 MG TABLET PO (09:59)
[2023-07-05] MEDS: DULoxetine HCL 60 MG CAPSULE.DR PO (09:59)
[2023-07-05] MEDS: VITAMIN B COMPLEX CAPSULE 1 CAP PO (09:59)
[2023-07-05] MEDS: SERTRALINE HCL 25 MG TABLET PO (09:59)
[2023-07-05] MEDS: FOLIC ACID 1 MG TABLET 2 MG PO (09:59)
--- NOTE | 2023-07-05 12:50 | PM.IMPN ---
Progress Note: A&P Assessment and Plan (1) Closed fracture of right hip: Qualifiers: Encounter type: subsequent encounter Fracture healing: with nonunion Qualified Code(s): S72.001K - Fracture of unspecified part of neck of right femur, subsequent encounter for closed fracture with nonunion Code(s): S72.001A - Fracture of unspecified part of neck of right femur, initial encounter for closed fracture Status: Acute Assessment and Plan: S/p surgery with therapy services involved pt/ot. Patient pain is variable. Will add in moderate pain option with oxycodone 2.5mg q6hprn. Tylenol is scheduled. (2) Parkinsonism: Qualifiers: Parkinsonism type: unspecified Qualified Code(s): G20 - Parkinson's disease Code(s): G20 - Parkinson's disease Status: Acute Assessment and Plan: alert oriented times to self and situation. continue carbidopa levodopa and fludrocortisone mental status seems to be stable and at baseline. (3) Mild cognitive impairment: Code(s): G31.84 - Mild cognitive impairment of uncertain or unknown etiology Status: Acute Assessment and Plan: seems to be at baseline A&O x2 continue current vitamin-D, folic acid, vitamin-B continue hydroxyzine, sertraline, mirtazapine, Seroquel appears stable at this point adjust therapy as indicated (4) Anemia: Qualifiers: Iron deficiency anemia type: other iron deficiency Code(s): D64.9 - Anemia, unspecified Status: Acute Assessment and Plan: Hgb at 6.5 this am, transfusions were not complete as of lab time. - Repeat hgb ~9. Hold lovenox. Check stool occult blood. - Review of guest experience captain labs show hgb in 11 range. (5) Urinary retention: Code(s): R33.9 - Retention of urine, unspecified Status: Acute Assessment and Plan: Urinary retention overnight with bladder scan in the 400ml range this am. Have ordered straight cath and scan protocol. Likely postop retention that should resolve spontaneously. Plan - Stable with improved hgb, further evaluation to ensure no GI cause. Holding home anticoag planned from ortho as per their note. Possibly able to resume this on discharge if no additional sources of bleeding noted. Time Spent With Patient Time: >35 minutes. Subjective Date/time seen: 07/05/23 12:50 Interval history: Yesenia states she is not short of breath this morning and does not have chest pain. She does have pain in the right hip but it is stable while still, the pain increases in intensity with movement, such as working with therapy services. Review of Systems Review of Systems: No new ROS items other than as detailed above. Exam Narrative: GENERAL APPEARANCE: Appears to be in no acute distress. HEAD: normocephalic atraumatic EYES: PERRL, EOMI. Vision grossly intact. ENT: Hearing grossly intact, no nasal discharge NECK: Neck supple, trachea midline. CARDIAC: Normal S1/S2. Rhythm is regular. No murmurs, rubs, or gallops. No cyanosis or pallor. Extremities are warm and well perfused. LUNGS: Clear to auscultation without rales, rhonchi, wheezing or diminished breath sounds. Respirations even and unlabored. ABDOMEN: BS positive x 4 quadrants. Soft, nondistended, nontender. No guarding or rebound. PERIPHERAL VASCULAR: Peripheral pulses palpable. Normal perfusion, cap refill <2 seconds. No edema. NEURO: Follows commands. No focal deficits. Moves all extremities. Distal NV intact lower ext bilat. SKIN: [place] without lesions or eruptions. PSYCH: Stable, no paranoia or delusional thinking. Objective Data Vital Signs Vital Signs: Vital Signs - 24 hr 07/04/23 13:00 07/04/23 15:17 07/04/23 15:55 Temperature 98.3 F Pulse Rate 77 Respiratory Rate 18 Blood Pressure 108/54 L Pulse Oximetry 98 Oxygen Delivery Room Air Room Air 07/04/23 21:24 07/04/23 20:00 07/04/23 23:29 Temperature 98.2 F Pulse R
[2023-07-05] MEDS: hydrOXYzine HCL 25 MG TABLET 50 MG PO ×2 (12:58→21:34)
[2023-07-05] MEDS: oxyCODONE HCL (*CRX) 2.5 MG TAB IR PO (12:59)
[2023-07-05 14:07] VITALS: BP 160/67; PULSE 71; RESP 18; TEMP 36.5; O2SAT 99
[2023-07-05] MEDS: QUEtiapine FUMARATE 25 MG TABLET PO (19:32)
[2023-07-05 19:58] VITALS: BP 139/55; PULSE 79; RESP 16; TEMP 36.8; O2SAT 100
[2023-07-06] MEDS: HYDROmorphone HCL INJ (*CRX) 1 MG/ML SYR 0.5 MG IV PUSH (05:11)
[2023-07-06] MEDS: ACETAMINOPHEN 500 MG TABLET 1000 MG PO ×3 (05:12→17:35)
[2023-07-06 05:38] VITALS: BP 142/64; PULSE 77; RESP 17; TEMP 36.8; O2SAT 98
[2023-07-06 06:12] LABS: Hematocrit 28.7 % (37.0-47.0); Hemoglobin 9.4 g/dL (12.0-15.0); Immature Platelet Fraction Pct 5.7 % (0.9-11.2); Mean Corpuscular HGB Conc 32.8 g/dl (32-36); Mean Corpuscular Hemoglobin 30.9 pg (26-34); Mean Corpuscular Volume 94.4 fl (80-100); Mean Platelet Volume 11.5 fl (7.4-10.4); Platelet Count Result 112 k/mm3 (150-375); Red Blood Count 3.04 M/mm3 (4.2-5.4); Red Cell Distribution Width 14.7 % (11.5-14.5)
[2023-07-06 06:28] LABS: Alanine Aminotransferase 34 U/L (6-35); Albumin Level 2.8 g/dL (3.5-5.1); Alkaline Phosphatase 78 U/L (38-126); Anion Gap 2 mmol/L (8-16); Aspartate Amino Transferase 62 U/L (14-36); Bilirubin,Total 0.7 mg/dL (0.2-1.3); Blood Urea Nitrogen 19 mg/dL (7-17); Calcium 8.1 mg/dL (8.4-10.2); Carbon Dioxide 28 mmol/L (22-30); Chloride 107 mmol/L (98-107); Estimated CRCL calculation 52 ml/min; Estimated Glomerular Filt Rate > 60; Glucose 87 mg/dL (65-110); Phosphorus 2.3 mg/dL (2.5-4.5); Potassium 3.7 mmol/L (3.4-5.0); Sodium 137 mmol/L (137-145)
--- NOTE | 2023-07-06 07:17 | P.PNIM_ITS ---
Progress Note: A&P Assessment and Plan (1) Closed fracture of right hip: Qualifiers: Encounter type: subsequent encounter Fracture healing: with nonunion Qualified Code(s): S72.001K - Fracture of unspecified part of neck of right femur, subsequent encounter for closed fracture with nonunion Code(s): S72.001A - Fracture of unspecified part of neck of right femur, initial encounter for closed fracture Status: Acute Assessment and Plan: * POD 3 * Patient presented after a fall. * x-ray shows community intratrochanteric fracture of the proximal right femur * neurovascular checks q.4 * pain medications on board, Dilaudid Tylenol, oxycodone add for intermediate pain * Eliquis on home * await further recommendations from Ortho * PT OT when appropriate (2) Parkinsonism: Qualifiers: Parkinsonism type: unspecified Qualified Code(s): G20 - Parkinson's disease Code(s): G20 - Parkinson's disease Status: Acute Assessment and Plan: * alert oriented times to self and situation * continue carbidopa levodopa and fludrocortisone * mental status seems to be stable and at baseline * Trend mental status (3) Mild cognitive impairment: Code(s): G31.84 - Mild cognitive impairment of uncertain or unknown etiology Status: Acute Assessment and Plan: * seems to be at baseline A&O x2 * continue current vitamin-D, folic acid, vitamin-B * continue hydroxyzine, sertraline, mirtazapine, Seroquel * Trend mood and cognition * appears stable at this point * adjust therapy as indicated (4) Anemia: Qualifiers: Anemia type: B12 deficiency Vitamin B12 deficiency anemia type: unspecified B12 deficiency Qualified Code(s): D51.9 - Vitamin B12 deficiency anemia, unspecified Code(s): D64.9 - Anemia, unspecified Status: Acute Assessment and Plan: * H/H 6.1/19.3 post op * Post 3 units of PRBC * Current H/H is 9.4/28.7 * Continue to trend H/H * Continue folic acid * Add ferrous sulfate on daily * Most likely acute blood loss from surgery and chronic iron deficiency anemia * Occult blood pending (5) Urinary retention: Code(s): R33.9 - Retention of urine, unspecified Status: Acute Assessment and Plan: * Noted after surgery * Bladder scan was 400ml * Post residual void ordered * PRN bladder scans * Consider tamsulosin Time Spent With Patient Time: 47 minutes Time with patient: Greater than 35 minutes Subjective Date/time seen: 07/06/23 07:17 Interval history: 07/06/23 07/05/23? 12:50 Yesenia states she is not short of breath this morning and does not have chest pain.? She does have pain in the right hip but it is stable while still, the pain increases in intensity with movement, such as working with therapy services. 07/04/23? 09:17 Patient was seen during the today. 82 y/o F with PMH of parkinsonism, HLD, HTN, depression, TIA and AAA presents here with fall from retirement. Patient is status post right intertrochanteric surgery. Patient is feeling fine. Pain control. No shortness of breath or chest pain No abdominal pain, nausea or vomiting Mood stable. 07/03/23 0915 patient is resting comfortably in bed. She denies any current chest pain, shortness a breath, nausea, vomit
--- NOTE | 2023-07-06 07:17 | PM.IMPN ---
Progress Note: A&P Assessment and Plan (1) Closed fracture of right hip: Qualifiers: Encounter type: subsequent encounter Fracture healing: with nonunion Qualified Code(s): S72.001K - Fracture of unspecified part of neck of right femur, subsequent encounter for closed fracture with nonunion Code(s): S72.001A - Fracture of unspecified part of neck of right femur, initial encounter for closed fracture Status: Acute Assessment and Plan: POD 3 Patient presented after a fall. x-ray shows community intratrochanteric fracture of the proximal right femur neurovascular checks q.4 pain medications on board, Dilaudid Tylenol, oxycodone add for intermediate pain Eliquis on home await further recommendations from Ortho PT OT when appropriate (2) Parkinsonism: Qualifiers: Parkinsonism type: unspecified Qualified Code(s): G20 - Parkinson's disease Code(s): G20 - Parkinson's disease Status: Acute Assessment and Plan: alert oriented times to self and situation continue carbidopa levodopa and fludrocortisone mental status seems to be stable and at baseline Trend mental status (3) Mild cognitive impairment: Code(s): G31.84 - Mild cognitive impairment of uncertain or unknown etiology Status: Acute Assessment and Plan: seems to be at baseline A&O x2 continue current vitamin-D, folic acid, vitamin-B continue hydroxyzine, sertraline, mirtazapine, Seroquel Trend mood and cognition appears stable at this point adjust therapy as indicated (4) Anemia: Qualifiers: Anemia type: B12 deficiency Vitamin B12 deficiency anemia type: unspecified B12 deficiency Qualified Code(s): D51.9 - Vitamin B12 deficiency anemia, unspecified Code(s): D64.9 - Anemia, unspecified Status: Acute Assessment and Plan: H/H 6.1/19.3 post op Post 3 units of PRBC Current H/H is 9.4/28.7 Continue to trend H/H Continue folic acid Add ferrous sulfate on daily Most likely acute blood loss from surgery and chronic iron deficiency anemia Occult blood pending (5) Urinary retention: Code(s): R33.9 - Retention of urine, unspecified Status: Acute Assessment and Plan: Noted after surgery Bladder scan was 400ml Post residual void ordered PRN bladder scans Consider tamsulosin Time Spent With Patient Time: 47 minutes Time with patient: Greater than 35 minutes Subjective Date/time seen: 07/06/23 07:17 Interval history: 07/06/23 07/05/23? 12:50 Yesenia states she is not short of breath this morning and does not have chest pain.? She does have pain in the right hip but it is stable while still, the pain increases in intensity with movement, such as working with therapy services. 07/04/23? 09:17 Patient was seen during the today. 82 y/o F with PMH of parkinsonism, HLD, HTN, depression, TIA and AAA presents here with fall from long-term. Patient is status post right intertrochanteric surgery. Patient is feeling fine. Pain control. No shortness of breath or chest pain No abdominal pain, nausea or vomiting Mood stable. 07/03/23 0915 patient is resting comfortably in bed. She denies any current chest pain, shortness a breath, nausea, vomiting, diarrhea constipation. She did state that she had pain in her hip however she stated that she could tell me how much pain. She finally just tell me to put a 5 down. She does appear to be thirsty. Currently awaiting Orthopedics at this point. She was alert oriented times 2. 07/03/23? 02:04 82 y/o F with PMH of parkinsonism, HLD, HTN, depression, TIA and AAA presents here with fall from long-term. Patient unable to collaborate HPI.? Per ED note, patient sustained ground level fall and complaining of right hip pain.? No report of headache, abdominal pain, upper extremit
[2023-07-06] MEDS: oxyCODONE HCL (*CRX) 2.5 MG TAB IR PO (08:40)
[2023-07-06] MEDS: FOLIC ACID 1 MG TABLET 2 MG PO (08:41)
[2023-07-06] MEDS: SERTRALINE HCL 50 MG TABLET 100 MG PO (08:41)
[2023-07-06] MEDS: ATORVASTATIN 40 MG TABLET PO (08:41)
[2023-07-06] MEDS: VITAMIN B COMPLEX CAPSULE 1 CAP PO (08:41)
[2023-07-06] MEDS: SERTRALINE HCL 25 MG TABLET PO (08:42)
[2023-07-06] MEDS: MIRTAZAPINE 15 MG TABLET PO (08:42)
[2023-07-06] MEDS: SENNA/DOCUSATE SODIUM TABLET 2 TAB PO ×2 (08:42→17:35)
[2023-07-06] MEDS: CARBIDOPA/LEVODOPA 10/100 MG TABLET 2 TABLET PO ×3 (08:42→17:35)
[2023-07-06] MEDS: CHOLECALCIFEROL 1,000 UNITS TABLET 2000 UNITS PO (08:42)
[2023-07-06] MEDS: FLUDROCORTISONE ACETATE 0.1 MG TABLET PO (08:42)
[2023-07-06] MEDS: polyethylene glycoL 3350 17 GM POWD.PACK PO (08:43)
--- NOTE | 2023-07-06 10:15 | PM.DS ---
DS: Admitting Diagnosis Discharge Date 07/06/23 1015 Admitting Diagnosis Right hip fracture DS: Discharge Diagnosis Discharge Diagnosis (1) Closed fracture of right hip: Qualifiers: Encounter type: subsequent encounter Fracture healing: with nonunion Qualified Code(s): S72.001K - Fracture of unspecified part of neck of right femur, subsequent encounter for closed fracture with nonunion Code(s): S72.001A - Fracture of unspecified part of neck of right femur, initial encounter for closed fracture Status: Acute Assessment and Plan: POD 3 Patient presented after a fall. x-ray shows community intratrochanteric fracture of the proximal right femur neurovascular checks q.4 pain medications on board, Dilaudid Tylenol, oxycodone add for intermediate pain Eliquis on home await further recommendations from Ortho PT OT when appropriate (2) Parkinsonism: Qualifiers: Parkinsonism type: unspecified Qualified Code(s): G20 - Parkinson's disease Code(s): G20 - Parkinson's disease Status: Acute Assessment and Plan: alert oriented times to self and situation continue carbidopa levodopa and fludrocortisone mental status seems to be stable and at baseline Trend mental status (3) Mild cognitive impairment: Code(s): G31.84 - Mild cognitive impairment of uncertain or unknown etiology Status: Acute Assessment and Plan: seems to be at baseline A&O x2 continue current vitamin-D, folic acid, vitamin-B continue hydroxyzine, sertraline, mirtazapine, Seroquel Trend mood and cognition appears stable at this point adjust therapy as indicated (4) Anemia: Qualifiers: Anemia type: B12 deficiency Vitamin B12 deficiency anemia type: unspecified B12 deficiency Qualified Code(s): D51.9 - Vitamin B12 deficiency anemia, unspecified Code(s): D64.9 - Anemia, unspecified Status: Acute Assessment and Plan: H/H 6.1/19.3 post op Post 3 units of PRBC Current H/H is 9.4/28.7 Continue to trend H/H Continue folic acid Add ferrous sulfate on daily Most likely acute blood loss from surgery and chronic iron deficiency anemia Occult blood pending (5) Urinary retention: Code(s): R33.9 - Retention of urine, unspecified Status: Acute Assessment and Plan: Noted after surgery Bladder scan was 400ml Post residual void ordered PRN bladder scans Consider tamsulosin DS: Summary Hospital Course Hospital Course: patient 82-year-old female with a past medical history of parkinsonism diane hyperlipidemia, hypertension, depression, TIA, AAA who presented from the assisted after a fall. Upon arrival it was noted the patient did have a comminuted inter trochanteric fracture of the proximal right femur. Orthopedics was consulted patient was taken to the OR. Pain medication was on board. PT and OT has worked with the patient. Patient does have mild cognitive impairment however seems to be stable and within her limits. H&H was noted to be low postop patient was given 3 units of packed red blood cells. H&H did get as low as 6.1/19.3 however is currently at 9.4/28.7. Ferrous sulfate with has been added on daily and her folic acid has been continued. Patient was also noted to have some urinary tension most likely related to postop complications however seems to have resolved as well. Currently patient is stable for discharge per labs and vital signs. Patient is being discharged to rehab. Currently patient denies any current chest pain, shortness a breath, nausea, vomiting, diarrhea constipation. Time Spent with Patient Time attestation: Total time spent providing and/or coordinating discharge services: Exam Narrative: General: well-nourished, well-appearing 82-year-old female, laying in bed, comfortable, NARD Neuro: awake
--- NOTE | 2023-07-06 10:15 | P.DS_ITS ---
DS: Admitting Diagnosis Discharge Date 07/06/23 1015 Admitting Diagnosis Right hip fracture DS: Discharge Diagnosis Discharge Diagnosis (1) Closed fracture of right hip: Qualifiers: Encounter type: subsequent encounter Fracture healing: with nonunion Qualified Code(s): S72.001K - Fracture of unspecified part of neck of right femur, subsequent encounter for closed fracture with nonunion Code(s): S72.001A - Fracture of unspecified part of neck of right femur, initial encounter for closed fracture Status: Acute Assessment and Plan: * POD 3 * Patient presented after a fall. * x-ray shows community intratrochanteric fracture of the proximal right femur * neurovascular checks q.4 * pain medications on board, Dilaudid Tylenol, oxycodone add for intermediate pain * Eliquis on home * await further recommendations from Ortho * PT OT when appropriate (2) Parkinsonism: Qualifiers: Parkinsonism type: unspecified Qualified Code(s): G20 - Parkinson's disease Code(s): G20 - Parkinson's disease Status: Acute Assessment and Plan: * alert oriented times to self and situation * continue carbidopa levodopa and fludrocortisone * mental status seems to be stable and at baseline * Trend mental status (3) Mild cognitive impairment: Code(s): G31.84 - Mild cognitive impairment of uncertain or unknown etiology Status: Acute Assessment and Plan: * seems to be at baseline A&O x2 * continue current vitamin-D, folic acid, vitamin-B * continue hydroxyzine, sertraline, mirtazapine, Seroquel * Trend mood and cognition * appears stable at this point * adjust therapy as indicated (4) Anemia: Qualifiers: Anemia type: B12 deficiency Vitamin B12 deficiency anemia type: unspecified B12 deficiency Qualified Code(s): D51.9 - Vitamin B12 deficiency anemia, unspecified Code(s): D64.9 - Anemia, unspecified Status: Acute Assessment and Plan: * H/H 6.1/19.3 post op * Post 3 units of PRBC * Current H/H is 9.4/28.7 * Continue to trend H/H * Continue folic acid * Add ferrous sulfate on daily * Most likely acute blood loss from surgery and chronic iron deficiency anemia * Occult blood pending (5) Urinary retention: Code(s): R33.9 - Retention of urine, unspecified Status: Acute Assessment and Plan: * Noted after surgery * Bladder scan was 400ml * Post residual void ordered * PRN bladder scans * Consider tamsulosin DS: Summary Hospital Course Hospital Course: patient 82-year-old female with a past medical history of parkinsonism diane hyperlipidemia, hypertension, depression, TIA, AAA who presented from the [facility] after a fall. Upon arrival it was noted the patient did have a comminuted inter trochanteric fracture of the proximal right femur. Orthopedics was consulted patient was taken to the OR. Pain medication was on board. PT and OT has worked with the patient. Patient does have mild cognitive impairment however seems to be stable and within her limits. H&H was noted to be low postop patient was given 3 units of packed red blood cells. H&H did get as low as 6.1/19.3 however is currently at 9.4/28.7. Ferrous sulfate with has been added on daily and her folic acid has been continued. Patient was also noted to have some urinary tension most likely related to postop compli
[2023-07-06] MEDS: DULoxetine HCL 60 MG CAPSULE.DR PO (11:27)
--- NOTE | 2023-07-06 13:53 | PM.PNORT ---
Progress Note: A&P Assessment and Plan (1) Closed intertrochanteric fracture of right hip: Qualifiers: Encounter type: initial encounter Code(s): S72.141A - Displaced intertrochanteric fracture of right femur, initial encounter for closed fracture Status: Acute Plan POD #3 IM nail. Patient progressing well. She did have a large hematoma and required blood transfusion after surgery. Her blood counts are now rising. Okay for discharge from orthopedic standpoint. When she is discharged we will resume her previous oral anticoagulant. Discussed plan with Dr. Amin who agrees with plan. Ortho instructions: Follow up in office in 4 weeks with xrays. Call office at for apt. Wound Care: remove aretha at 2 weeks post op. Daily dressing changes until healed. Weight bearing as tolerated with a walker. DVT prophylaxis: may resume previous anticoagulation. Pain medication: Tylenol. Subjective Subjective Date/Time Seen: 07/06/23 13:53 Interval history: Patient complains of thigh pain. She states she is very afraid of falling. No other complaints. Review of Systems Review of Systems: All systems reviewed & are unremarkable except as noted in HPI and below Exam Narrative: Patient is alert and oriented. Resting comfortably in a chair. No acute distress. No erythema. Large hematoma wiht ecchymosis in the inner thigh. No rashes or lesions noted. Warm, normal appearing skin. Tenderness at the hip. Moderate swelling. Calf nontender. Distal pulses palpable. Normal capillary refill. Patient able to move and wiggle toes. Light touch sensation intact. Objective Data Vital Signs Vital Signs: Vital Signs - 24 hr 07/05/23 14:07 07/05/23 19:58 07/05/23 20:00 Temperature 97.7 F 98.2 F Pulse Rate 71 79 Respiratory Rate 18 16 Blood Pressure 160/67 H 139/55 L Pulse Oximetry 99 100 Oxygen Delivery Room Air 07/06/23 05:38 07/06/23 08:00 Temperature 98.3 F Pulse Rate 77 Respiratory Rate 17 Blood Pressure 142/64 H Pulse Oximetry 98 Oxygen Delivery Room Air Intake/Output Intake/Output: Intake & Output 07/03/23 07/04/23 07/05/23 07/06/23 23:59 23:59 23:59 23:59 Intake Total 560 3070 1260 50 Output Total 550 800 700 450 Balance 10 2270 560 -400 Meds/Results Medications: Active Medications Generic Name Dose Route Start Last Admin Trade Name Karelq PRN Reason Stop Dose Admin Acetaminophen 1,000 mg 07/03/23 16:05 07/06/23 11:27 Acetaminophen 500 Mg Tablet PO 1,000 mg Q6H EVE Administration Atorvastatin Calcium 40 mg 07/03/23 09:00 07/06/23 08:41 Atorvastatin 40 Mg Tablet PO 40 mg DAILY EVE Administration Carbidopa/Levodopa 2 tablet 07/03/23 08:00 07/06/23 11:27 Carbidopa/Levodopa 10/100 Mg Tablet PO 2 tablet TIDWM EVE Administration Duloxetine HCl 60 mg 07/03/23 09:00 07/06/23 11:27 Duloxetine Hcl 60 Mg Capsule.Dr PO 60 mg DAILY EVE Administration Ergocalciferol 50,000 units 07/08/23 09:00 Ergocalciferol 50,000 Units Capsule PO We@0900 EVE Fludrocortisone Acetate 0.1 mg 07/03/23 08:00 07/06/23 08:42 Fludrocortisone Acetate 0.1 Mg Tablet PO 0.1 mg DAILY@0800 [facility] Administration Folic Acid 2 mg 07/03/23 09:00 07/06/23 08:41 Folic Acid 1 Mg Tablet PO 2 mg DAILY EVE Administration Hydromorphone HCl 0.5 mg 07/02/23 19:16 07/06/23 05:11 Hydromorphone Hcl Inj (*Crx) 1 Mg/Ml Syr IV PUSH 0.5 mg Q4H PRN Administration Pain Rated 7-10 Hydroxyzine HCl 50 mg 07/03/23 00:30 07/05/23 21:34 Hydroxyzine Hcl 25 Mg Tablet PO 50 mg Q8H PRN Administration Anxiety Mirtazapine 15 mg 07/03/23 09:00 07/06/23 08:42 Mirtazapine 15 Mg Tablet PO 15 mg DAILY EVE Administration Naloxone HCl 0.1 mg 07/03/23 16:05 Naloxone Hcl 0.4 Mg/Ml Vial IV PUSH Q2M PRN Opiate Reversal Ondansetron HCl 4 mg 07/02/23 19:16 Ondanse
[2023-07-06 14:00] VITALS: BP 158/93; PULSE 89; RESP 16; TEMP 36; O2SAT 99
[2023-07-06] MEDS: hydrOXYzine HCL 25 MG TABLET 50 MG PO (14:17)
[2023-07-06 16:11] LABS: SARS-CoV-2 RNA PCR Negative (Negative)
== END 2023-07-06 18:15 | DRG 481 ==
LOC: ANHED 19:35 → ANH2MED 20:09
PROVIDERS: Internal Medicine; Nurse Practitioner Family; Orthopaedic Surgery; Physician Assistant Surgical; Admitting Provider Student in an Organized Health Care Education/Training Program; Emergency Provider Emergency Medicine; PCP Internal Medicine; Visit Provider Nurse Practitioner
PROC: 0QS634Z Reposition Right Upper Femur with Internal Fixation Device, Percutaneous Approach (ICD-10-PCS; CPT 27245; principal; 2023-07-03 13:30)
DX: S72.141A Displaced intertrochanteric fracture of right femur, initial encounter for closed fracture (principal); D62 Acute posthemorrhagic anemia; Z20.822 Contact with and (suspected) exposure to COVID-19; E78.5 Hyperlipidemia, unspecified; I10 Essential (primary) hypertension; G20 Parkinson's disease; M81.0 Age-related osteoporosis without current pathological fracture; F41.8 Other specified anxiety disorders; I71.40 Abdominal aortic aneurysm, without rupture, unspecified; G31.84 Mild cognitive impairment of uncertain or unknown etiology; M16.0 Bilateral primary osteoarthritis of hip; Z66 Do not resuscitate; Z86.73 Personal history of transient ischemic attack (TIA), and cerebral infarction without residual deficits; Z86.16 Personal history of COVID-19; Z79.01 Long term (current) use of anticoagulants; Z90.49 Acquired absence of other specified parts of digestive tract; Z90.710 Acquired absence of both cervix and uterus; R33.8 Other retention of urine; N99.89 Other postprocedural complications and disorders of genitourinary system
CPT/HCPCS: 36415; 36430; 71045; 73502; 80053; 81001; 83735; 84100; 85014; 85018; 85025; 85027; 85055; 85610; 85730; 86850; 86900; 86901; 86923; 87635; 93005; 96374; 96375; 97110; 97162; 97165; 97530; 97535; 99199; 99285; A9270; C1713; C1769; J0690; J1170; J1650; J2371; J2405; J2704; J3010; J7030; J7050; J7120; P9016

== ENCOUNTER 2023-11-05 07:57 | Emergency (ER) | payer MEDICARE, SELFPAY ==
[2023-11-05] VITALS (12 sets, daily range): BP systolic 140–198; BP diastolic 74–94; PULSE 69–72; RESP 15–20; TEMP 36.5–36.8; O2SAT 97–100
--- NOTE | ~2023-11-05 | CT_ITS ---
EXAMINATION: CT brain wo con DATE: 11/05/2023 09:38 INDICATION: Fall. TECHNIQUE: Computed tomography (CT) of the head was performed without intravenous contrast. The mA wa s adjusted according to patient size. Iterative reconstruction technique was employed. Exam dose: 68 1.00 mGy-cm total exam DLP. COMPARISON: 07/27/2022 MRI brain/brainstem 07/26/2022 CTA brain 01/31/2020 MRI brain/brainstem 01/31/2020 CT brain carotid FINDINGS: Prominent bilateral vertebral artery calcifications, basilar artery and prominent bilateral carotid siphon internal carotid artery calcifications. There is nonspecific diminished attenuation of the cerebral white matter, likely due to chronic small vessel ischemic changes. Chronic right basal ganglia and periventricular lacunar infarcts. Focal posterior left parietal old infarct. Old posterior right cerebellar hemispheric infarct. No intracranial mass lesion or hemorrhage, midline shift or mass effect or recent cerebrovascular acc ident is evident. No subdural or epidural hematoma is detected. Minimal soft tissue thickening and/or fluid in the posterior dependent left maxillary sinus. The para nasal sinuses and mastoid air cells are otherwise unremarkable. No fracture or bone destruction of the cranial vault. 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 Reviewed, dictated and finalized at [facility]. 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
--- NOTE | 2023-11-05 08:15 | ED.FALL ---
HPI - Fall General Chief Complaint: Fall Stated Complaint: glf, R hip pain Time Seen by Provider: 11/05/23 08:07 History of Present Illness HPI Narrative: Patient is an 83-year-old female with history of dementia who presents ER after a fall. Reports she fell out of bed. Unsure if she hit her head. No reports of LOC. Patient has no complaints at this time. She moves all her extremities that issue. History obtained from EMS. Related Data Home Medications Medication Instructions Recorded Confirmed vitamin B complex (Super B-50 1 cap PO DAILY 05/23/21 10/15/23 Complex capsule) quetiapine 25 mg tablet 25 mg PO HS 07/27/22 10/15/23 sertraline 100 mg tablet 125 mg PO DAILY 01/02/23 10/15/23 cholecalciferol (vitamin D3) 50 50 mcg PO DAILY 02/03/23 10/15/23 mcg (2,000 unit) capsule carbidopa 10 mg-levodopa 100 mg 2 tablet PO TID 04/13/23 10/15/23 disintegrating tablet hydroxyzine HCl 50 mg tablet See Rx Instructions .Route 07/02/23 10/15/23 .COMPLEX PRN Anxiety mirtazapine 15 mg tablet 15 mg PO DAILY 07/02/23 10/15/23 Allergies Allergy/AdvReac Type Severity Reaction Status Date / Time No Known Allergies Allergy Verified 10/08/23 14:49 Review of Systems Review of Systems: ROS unobtainable: Yes unobtainable due to mental status PMFSH Past Medical History Medical History AAA (abdominal aortic aneurysm) Adult BMI 19-24 kg/sq m Anxiety with depression Closed fracture of ramus of left pubis Compression fx, lumbar spine Dizziness DJD (degenerative joint disease) Encounter for routine adult health examination with abnormal findings History of COVID-19 Hyperlipidemia Kidney stone Mild cognitive impairment On [facility] drug therapy Orthostatic hypotension Osteoporosis Parkinsonism Seasonal allergies Severe depression Skin tear of upper extremity TIA (transient ischemic attack) Vestibular dizziness Vitamin B12 deficiency Vitamin B6 deficiency Vitamin D deficiency Surgical History Surgical History History of cholecystectomy History of hip surgery History of hysterectomy History of tubal ligation Family History Family History Grandparent No problems noted. Father Hypertension Other COPD (chronic obstructive pulmonary disease) Social History Social History Social History: The patient lives in her own home in [place]. She has been as of July 2019. She and her were for 60 years and they have 3 sons and 1 daughter. 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 She is a lifelong nonsmoker and denies alcohol and drug abuse. Smoking status: Never smoker Alcohol intake: never Substance use: never Substance use type: does not use Lack of Transportation: No Lack of Food: Never True Current Housing: I Have Housing Concerned About Future Housing: No Difficulty Paying Gas/Electric Bills: No Difficulty Paying for Meds: No Currently Unemployed: No Education: Don't Know Difficulty w/ Childcare or Family Care: No Living arrangements: with family Occupation/Education: retired Gender identity (if verbalized by the patient): Female Spiritual care concerns: No Agree to blood products: Yes Exam Narrative: GENERAL: Well-appearing, well-nourished, and in no acute distress. HEAD: Normocephalic, atraumatic. EYES: PERRL and EOMI. ENT: Dry mucous membranes CHEST: Clear to auscultation. No respiratory distress. HEART: Regular rate and rhythm. Normal peripheral pulses. ABDOMEN: Soft, nontender, nondistended. EXTREMITIES: Normal range of motion. No edema. SKIN: Warm, dry, no rash. NEURO: Alert and oriented x2. PSYCH: Normal mood and affect. Course Course Emergency Course: Genna
[2023-11-05 08:56] LABS: Basophils Absolute Auto 0.1 K/mm3 (0.0-0.1); Basophils Percent Auto 0.8 % (0.2-1.2); Eosinophils Absolute Auto 0.3 K/mm3 (0-0.3); Eosinophils Percent Auto 4.7 % (0-4.4); Hematocrit 38.5 % (37.0-47.0); Hemoglobin 11.8 g/dL (12.0-15.0); Immature Granulocyte Absolute 0.02 K/mm3 (0.00-0.031); Immature Granulocyte Percent A 0.3 % (0-0.5); Lymphocytes Absolute Auto 1.08 K/mm3 (0.9-3.2); Lymphocytes Percent Auto 18.2 % (18.3-44.2); Mean Corpuscular HGB Conc 30.6 g/dl (32-36); Mean Corpuscular Hemoglobin 26.3 pg (26-34); Mean Corpuscular Volume 85.7 fl (80-100); Mean Platelet Volume 10.7 fl (7.4-10.4); Monocytes Absolute Auto 0.5 K/mm3 (0.1-0.6); Monocytes Percent Auto 7.8 % (2.6-8.5); Neutrophils Percent Auto 68.2 % (45.5-73.1); Platelet Count Result 165 k/mm3 (150-375); Red Blood Count 4.49 M/mm3 (4.2-5.4); Red Cell Distribution Width 15.9 % (11.5-14.5); White Blood Count 5.9 K/mm3 (4.5-10.0)
[2023-11-05 08:57] LABS: Appearance Urine Clear (Clear); Bilirubin Urine Negative (Negative); Blood Urine Negative (Negative); Color Urine Yellow (Yellow); Glucose Urine UA Negative (Negative); Ketones Urine Negative (Negative); Leukocyte Esterase Ur Negative LEU/UL (Negative); Nitrate Urine Negative (Negative); Protein Urine Negative (Negative); Specific Grav Ur 1.017 (1.001-1.035); Urobilinogen Urine 0.2 mg/dL (<2.0); pH Urine 6.5 (5.0-9.0)
[2023-11-05 09:06] LABS: Add Urine Microscopic? NO
[2023-11-05 09:12] LABS: Alanine Aminotransferase 57 U/L (6-35); Albumin Level 3.9 g/dL (3.5-5.1); Alkaline Phosphatase 140 U/L (38-126); Anion Gap 5 mmol/L (8-16); Aspartate Amino Transferase 49 U/L (14-36); Bilirubin,Total 0.6 mg/dL (0.2-1.3); Blood Urea Nitrogen 26 mg/dL (7-17); Calcium 9.3 mg/dL (8.4-10.2); Carbon Dioxide 32 mmol/L (22-30); Chloride 104 mmol/L (98-107); Estimated CRCL calculation 50 ml/min; Estimated Glomerular Filt Rate > 60; Glucose 89 mg/dL (65-110); Potassium 4.6 mmol/L (3.4-5.0); Sodium 141 mmol/L (137-145)
[2023-11-05] MEDS: SODIUM CHLORIDE 0.9% IV 1,000 ML 999 ML IV CONT (10:32)
--- NOTE | 2023-11-05 10:37 | PC.NURSE ---
Update given to Niki at [facility].
--- NOTE | 2023-11-05 12:37 | PC.NURSE ---
Transported at this time by [facility] staff
== END 2023-11-05 12:38 ==
PROVIDERS: Emergency Provider Emergency Medicine; PCP Internal Medicine
DX: Z04.3 Encounter for examination and observation following other accident (principal); E78.5 Hyperlipidemia, unspecified; G20.C Parkinsonism, unspecified; E53.8 Deficiency of other specified B group vitamins; E53.1 Pyridoxine deficiency; E55.9 Vitamin D deficiency, unspecified; M81.0 Age-related osteoporosis without current pathological fracture; F41.8 Other specified anxiety disorders; Z86.73 Personal history of transient ischemic attack (TIA), and cerebral infarction without residual deficits; Z87.442 Personal history of urinary calculi; Z86.16 Personal history of COVID-19; W06.XXXA Fall from bed, initial encounter
CPT/HCPCS: 36415; 70450; 80053; 81003; 85025; 96360; 99284; J7030

== ENCOUNTER 2024-06-25 22:24 | Emergency (ER) | payer MEDICARE, SELFPAY ==
--- NOTE | ~2024-06-25 | XR_ITS ---
Right Forearm AP and lateral views of the right forearm were performed. Clinical History: Injury Findings: No fracture or dislocation is seen. Osseous alignment in anatomic. There are mild to moder ate degenerative changes in the wrist. Soft tissues are unremarkable. Impression: No fracture or dislocation. Reviewed, dictated and finalized at [facility]. Impression: No fracture or dislocation.
--- NOTE | ~2024-06-25 | CT_ITS ---
Noncontrast CT scan of the cervical spine Technique: Multiple contiguous axial [address] images of the cervical spine were obtained and rec onstructed in 2D sagittal and coronal planes on the acquisition scanner. Dose reduction technique was used on this scan by utilizing automated exposure control, adjustment of the mA and/or kV according to patient size. The dose-length product (DLP) was 172.09 mGy-cm. Clinical History: Pain COMPARISON: 07/26/2022 Findings: No fractures or dislocations. There are mild degenerative disc changes. There is advanced degenerative change at the articulation of the odontoid process with the anterior arch of C1. There a re moderate facet joint degenerative changes throughout the cervical spine. There is probable mild bi lateral neural foraminal narrowing at C3-C4. There is left neural foraminal narrowing at C4-C5. There is bilateral neural foraminal narrowing at C5-C6. No prevertebral soft tissue swelling. Impression: No fracture or subluxation of the cervical spine. Degenerative change, as well. Reviewed, dictated and finalized at location . Impression: No fracture or subluxation of the cervical spine. Degenerative change, as well.
--- NOTE | ~2024-06-25 | CT_ITS ---
CT head without contrast Indication: Status post fall COMPARISON: 11/05/2023 Technique: Serial scans were obtained through the brain without the administration of contrast. Dose reduction technique was used on this scan by utilizing automated exposure control and iterative recon struction technique. The dose-length product (DLP) was 681.00 mGy-cm. Findings: There is no evidence of intracranial hemorrhage, mass lesion, or acute infarct. The ventri cles and subarachnoid spaces are dilated, consistent with moderate atrophy. Low attenuation regions are seen within the periventricular white matter bilaterally, likely representing changes from chroni c microvascular ischemic disease. There is no evidence of edema, mass effect or midline shift. The visualized paranasal sinuses and mastoid air cells are clear. Impression: No intracranial hemorrhage, mass, or acute infarct. Atrophy and chronic white matter changes, as above. Reviewed, dictated and finalized at location . Impression: No intracranial hemorrhage, mass, or acute infarct. Atrophy and chronic white matter changes, as above.
[2024-06-25 22:25] VITALS: BP 196/85; PULSE 77; RESP 18; TEMP 36.6; O2SAT 99
--- NOTE | 2024-06-25 23:53 | ED.FALL ---
HPI - Fall General Chief Complaint: Fall <RENATA Lara Last Filed: 06/26/24 02:07> Stated Complaint: FALL, ARM LAC <RENATA Lara Last Filed: 06/26/24 02:07> Time Seen by Provider: 06/25/24 23:45 <RENATA Lara Last Filed: 06/26/24 02:07> Source: patient <RENATA Lara Last Filed: 06/26/24 02:07> Mode of arrival: ambulatory <RENATA Lara Last Filed: 06/26/24 02:07> Limitations: no limitations <RENATA Lara Filed: 06/26/24 02:07> History of Present Illness HPI Narrative: This is an 83-year-old female who presents to the ED via EMS from [facility] for chief complaint of a fall and right arm laceration. EMS states that patient slipped and fell about 45 minutes ago. Patient reports she tried to brace herself with her right arm and up crushing it against the door. She suffered a laceration to the right arm that is running over half the length of the forearm. She is on Plavix. patient denies any further sites of pain. History is limited due to dementia. According to EMS and nursing staff patient is at her mental status baseline which is A&O times 1-2. <RENATA Lara Last Filed: 06/26/24 02:07> Related Data Home Medications: Home Medications Medication Instructions Recorded Confirmed food supplemt, lactose-reduced 1 ea PO TID 02/09/24 0.04 gram-1 kcal/mL oral liquid (Boost) <RENATA Lara Last Filed: 06/26/24 02:07> Allergies/Adverse Reactions: Allergies Allergy/AdvReac Type Severity Reaction Status Date / Time No Known Allergies Allergy Verified 04/12/24 15:32 <RENATA Lara Last Filed: 06/26/24 02:07> Review of Systems Review of Systems: All systems as dictated in HPI <RENATA Lara Last Filed: 06/26/24 02:07> [facility] Past Medical History Medical History: Medical History (Updated 06/26/24 @ 02:07 by Mo Jones PA-C) AAA (abdominal aortic aneurysm) Anxiety with depression Closed fracture of ramus of left pubis Compression fx, lumbar spine Dementia Dizziness DJD (degenerative joint disease) Elevated BUN Encounter for routine adult health examination with abnormal findings History of COVID-19 Hyperlipidemia Kidney stone Mild cognitive impairment 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 Orthostatic hypotension Osteoporosis Parkinsonism Screening for thyroid disorder Seasonal allergies Severe depression Skin tear of upper extremity TIA (transient ischemic attack) UTI (urinary tract infection) Vestibular dizziness Vitamin B12 deficiency Vitamin B6 deficiency Vitamin D deficiency <Mo Jones PA-C - Last Filed: 06/26/24 02:07> Surgical History Surgical History: Surgical History History of cholecystectomy History of hip surgery History of hysterectomy History of tubal ligation <Mo Jones PA-C - Last Filed: 06/26/24 02:07> Family History Family History: Family History Grandparent No problems noted. Father Hypertension Other COPD (chronic obstructive pulmonary disease) <Mo Jones PA-C - Last Filed: 06/26/24 02:07> Social History Social History: Social History Social History: The patient lives in her own home in [place]. She has been as of July 2019. She and her were for 60 years and they have 3 sons and 1 daughter. 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 Smoking status: Never smoker Alcohol intake: never Substance use: never Substance use type: does not use Do You Feel Safe in your Home?: Yes Lack of Transportation: No Lack of Food: Never True Current Housing: I Have Housing Concerne
--- NOTE | 2024-06-26 01:19 | PC.NURSE ---
Patient taken to CT at this time.
[2024-06-26] MEDS: QUEtiapine FUMARATE 25 MG TABLET PO (03:16)
[2024-06-26 03:17] VITALS: BP 184/95; PULSE 81; RESP 18; O2SAT 98
[2024-06-26 08:08] VITALS: BP 195/91; PULSE 73; RESP 15; O2SAT 97
== END 2024-06-26 08:08 ==
PROVIDERS: Emergency Provider Physician Assistant; PCP Family Medicine
DX: S51.811A Laceration without foreign body of right forearm, initial encounter (principal); F41.9 Anxiety disorder, unspecified; F32.A Depression, unspecified; Z87.442 Personal history of urinary calculi; G20.C Parkinsonism, unspecified; F02.80 Dementia in other diseases classified elsewhere, unspecified severity, without behavioral disturbance, psychotic disturbance, mood disturbance, and anxiety; Z87.440 Personal history of urinary (tract) infections; W01.0XXA Fall on same level from slipping, tripping and stumbling without subsequent striking against object, initial encounter
CPT/HCPCS: 12004; 70450; 72125; 73090; 99284; A9270

== ENCOUNTER 2024-07-19 16:14 | Emergency (ER) | payer MEDICARE, SELFPAY ==
--- NOTE | ~2024-07-19 | XR_ITS ---
EXAMINATION: XR femur RT min 2V, XR knee RT 3V, XR pelvis 1-2V DATE: 07/19/2024 17:03 INDICATION: Right hip and right lower extremity pain post fall TECHNIQUE: 1. AP view of the pelvis was obtained. 2. AP and lateral views of the right femur were obtained on overlapping proximal and distal images. 3. Anteroposterior, 2 oblique and crosstable lateral views of the right knee were obtained COMPARISON: None. FINDINGS: Bilateral old healed intertrochanteric fracture the proximal bilateral femurs with short antegrade in tramedullary katie, femoral neck dynamic compression screw and distal locking screw fixation at the pro ximal right femur. Partially visualized longer antegrade intramedullary katie and dynamic femoral neck compression screw fixation at the contralateral left femur. Alignment of the fixed fractures appears near-anatomic. Old healed left superior and inferior pubic rami fractures. No acute fractures identif ied. There is mild lumbar levocurvature with severe spondylosis. Moderate osteoarthritis at the bilateral hip joints. Unchanged left supra-acetabular sclerotic bone island. Tricompartmental osteoarthritis at the right knee, moderate severity medial compartment and mild to moderate at the lateral and patello femoral compartments. No right knee joint effusion. Atherosclerotic calcific lesion along the bilater al vertebral arteries. IMPRESSION: 1. Old internally fixed intertrochanteric fractures of the bilateral proximal femurs an old healed fr actures of the left superior and inferior pubic rami. 2. No acute osseous abnormality at the pelvis, right femur or knee. 2. Degenerative skeletal changes severe lower lumbar spondylosis and moderate osteoarthritis at the b ilateral hips and right knee. Reviewed, dictated and finalized at location A. IMPRESSION: 1. Old internally fixed intertrochanteric fractures of the bilateral proximal f emurs an old healed fractures of the left superior and inferior pubic rami. 2. No acute osseous abnormality at the pelvis, right femur or knee. 2. Degenerative skeletal changes severe lower lumbar spondylosis and moderate o steoarthritis at the bilateral hips and right knee. IMPRESSION: 1. Old internally fixed intertrochanteric fractures of the bilateral proximal f emurs an old healed fractures of the left superior and inferior pubic rami. 2. No acute osseous abnormality at the pelvis, right femur or knee. 2. Degenerative skeletal changes severe lower lumbar spondylosis and moderate o steoarthritis at the bilateral hips and right knee.
--- NOTE | ~2024-07-19 | CT_ITS ---
CT brain wo con Ordering provider: David Alfaro MD History: 83 years Female with . GLF on plavix . Comparison: September 25, 2024 Technique: CT of the head without contrast. Radiation reduction technique utilized. The dose-length product was 605.33 mGy-cm. FINDINGS: BRAIN PARENCHYMA AND CSF SPACES: Mild leukoaraiosis and diffuse cortical atrophy. Mild atheromatous d isease. No midline shift, mass effect or hemorrhage. The brain parenchyma and CSF spaces are otherwi se normal. VISUALIZED PARANASAL SINUSES: Left maxillary sinus disease.. MASTOIDS: Well aerated. BONES: The bones appear intact. SOFT TISSUES: Visualized nasopharynx is normal. Superficial soft tissues are normal. IMPRESSION: No acute intracranial findings. Reviewed, dictated and finalized at location A.
--- NOTE | ~2024-07-19 | XR_ITS ---
XR chest 1V Ordering provider: David Alfaro MD History: 83 years Female with . FALL . Comparison: July 02, 2023 FINDINGS: MEDIASTINUM: The cardiac silhouette is mildly enlarged. LUNGS: No effusions or pneumothorax. Blunting of the left costophrenic angle. OTHER: No free air under the diaphragm. Degenerative spine. Possible fracture in the left third rib. IMPRESSION: Blunting of the left costophrenic angle which may be due to effusion. Possible fracture in the left 3 rd rib. Reviewed, dictated and finalized at location A. IMPRESSION: Blunting of the left costophrenic angle which may be due to effusion. Possible fracture in the left 3rd rib.
--- NOTE | ~2024-07-19 | CT_ITS ---
EXAMINATION: CT chest abdomen pelvis w con DATE: 07/19/2024 19:59 INDICATION: Trauma. Hematuria. TECHNIQUE: Computed tomography (CT) of the chest, abdomen, and pelvis was performed with 100 mL Omnip aque-350 intravenous contrast. Automated exposure control and iterative reconstruction technique were employed. The dose-length product was 684.39 mGy-cm. COMPARISON: CT abdomen pelvis dated 12/09/2019 FINDINGS: CHEST CT: Dependent and discoid atelectasis in both lower lobes with additional mild discoid atelectasis at the posterolateral left upper lobe and lingula. No pulmonary contusions, pneumonia, pulmonary edema or o ther pulmonary infiltrates. No pleural effusion or pneumothorax. Heart size is normal. Atheroscleroti c coronary artery calcification. Aortic valve calcification. No pericardial effusion. Thoracic aorta is normal in caliber with no dissection or acute traumatic aortic injury. No pathologically enlarged thoracic lymphadenopathy. Bilateral breast implants. Small sliding-type hiatal hernia. Mild thoracic kyphosis with moderate to severe spondylosis. ABDOMEN/PELVIS CT: Unchanged mild intra and extra hepatic ductal or ductal dilation likely related to prior cholecystect tonya with surgical clips the gallbladder fossa. No significant change in a 2.4 similar cyst in the lef t hepatic lobe. Spleen, pancreas, bilateral adrenal glands and kidneys are normal. Bowels including t he appendix are normal. Bladder is normal. The uterus is not identified and has likely been surgicall y resected. There is calcified atherosclerosis of the aorta and many of the other arteries. Fusiform infrarenal abdominal aortic aneurysm measuring up to 4.5 x 4.4 cm which is increased from 3.7 x 3.4 c m. 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 Chronic L4 burst fracture with 40% central vertebral body height loss and couple millimeter retropulsion. Partially visualized internal fixation at bilateral old healed in tratrochanteric fractures. Chronic left supra-acetabular bone island. IMPRESSION: 1. No acute fractures or acute vascular or visceral organ injury in the chest, abdomen or pelvis. 2. Small sliding-type hiatal hernia. 3. Interval increase in size of a now 4.5 x 4.4 cm infrarenal abdominal aortic aneurysm with unchange d chronic small dissection flap situated between the inferior margin aneurysm and the aortic bifurcat ion. Reviewed, dictated and finalized at location A. IMPRESSION: 1. No acute fractures or acute vascular or visceral organ injury in the chest, abdomen or pelvis. 2. Small sliding-type hiatal hernia. 3. Interval increase in size of a now 4.5 x 4.4 cm infrarenal abdominal aortic aneurysm with unchanged chronic small dissection flap situated between the infe rior margin aneurysm and the aortic bifurcation.
--- NOTE | ~2024-07-19 | CT_ITS ---
CT cervical spine wo con Ordering provider: David Alfaro MD History: . GLF on plavix . Comparison: None. Technique: CT of the cervical spine was performed without contrast. Sagittal and coronal reformatted images were also obtained and reviewed. Automated exposure control and iterative reconstruction devan hnique were employed. The dose-length product was 137.40 mGy-cm. FINDINGS: VERTEBRAE: No subluxation or acute fracture. The occipital condyles are intact. Sclerotic area in th e left side of the axis bone. DISC SPACES: Normal. Multilevel facet joint disease. PARASPINOUS SOFT TISSUES: Normal. IMPRESSION: No acute osseous abnormality cervical spine. Reviewed, dictated and finalized at location A.
[2024-07-19 16:17] VITALS: BP 161/99; PULSE 66; RESP 18; TEMP 36.4; O2SAT 100
--- NOTE | 2024-07-19 16:34 | ED.GENADULT ---
HPI - General Adult General Chief complaint: Fall <David Alfaro MD - Last Filed: 07/20/24 10:35> Stated complaint: glf, on plavix <David Alfaro MD - Last Filed: 07/20/24 10:35> Time Seen by Provider: 07/19/24 16:25 <David Alfaro MD - Last Filed: 07/20/24 10:35> History of Present Illness HPI narrative: This is an 83-year-old female presenting from the [place] [facility] for ground level fall. Patient has dementia and cannot tell me the events of fall and does not even know she had a fall on her. Her only complaint is she has pain in her right thigh. Denies fevers chills nausea vomiting diarrhea. No chest pain difficulty breathing or abdominal pain. She is on Plavix. <David Alfaro MD - Last Filed: 07/20/24 10:35> Related Data Home medications: Home Medications Medication Instructions Recorded Confirmed food supplemt, lactose-reduced 1 ea PO TID 02/09/24 0.04 gram-1 kcal/mL oral liquid (Boost) <David Alfaro MD - Last Filed: 07/20/24 10:35> Allergies/adverse reactions: Allergies Allergy/AdvReac Type Severity Reaction Status Date / Time No Known Allergies Allergy Verified 04/12/24 15:32 <David Alfaro MD - Last Filed: 07/20/24 10:35> [facility] Past Medical History Medical History: Medical History AAA (abdominal aortic aneurysm) Anxiety with depression Closed fracture of ramus of left pubis Compression fx, lumbar spine Dementia Dizziness DJD (degenerative joint disease) Elevated BUN Encounter for routine adult health examination with abnormal findings History of COVID-19 Hyperlipidemia Kidney stone Mild cognitive impairment On terminal supervisor drug therapy Orthostatic hypotension Osteoporosis Parkinsonism Screening for thyroid disorder Seasonal allergies Severe depression Skin tear of upper extremity TIA (transient ischemic attack) UTI (urinary tract infection) Vestibular dizziness Vitamin B12 deficiency Vitamin B6 deficiency Vitamin D deficiency <David Alfaro MD - Last Filed: 07/20/24 10:35> Surgical History Surgical History: Surgical History History of cholecystectomy History of hip surgery History of hysterectomy History of tubal ligation <David Alfaro MD - Last Filed: 07/20/24 10:35> Family History Family History: Family History Grandparent No problems noted. Father Hypertension Other COPD (chronic obstructive pulmonary disease) <David Alfaro MD - Last Filed: 07/20/24 10:35> Social History Social History: Social History Social History: The patient lives in her own home in [place]. She has been as of July 2019. She and her were for 60 years and they have 3 sons and 1 daughter. 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 She is a lifelong nonsmoker and denies alcohol and drug abuse. Smoking status: Never smoker Alcohol intake: never Substance use: never Substance use type: does not use Do You Feel Safe in your Home?: Yes Lack of Transportation: No Lack of Food: Never True Current Housing: I Have Housing Concerned About Future Housing: No Difficulty Paying Gas/Electric Bills: No Difficulty Paying for Meds: No Currently Unemployed: No Education: Don't Know Difficulty w/ Childcare or Family Care: No Living arrangements: with family Occupation/Education: retired Gender identity (if verbalized by the patient): Female Spiritual care concerns: No Agree to blood products: Yes <David Alfaro MD - Last Filed: 07/20/24 10:35> Exam Narrative: APPEARANCE: No apparent distress. A&O x1 Head: atraumatic. EYES: EOMI, NOSE: Atraumatic NECK: Trachea midline RESPIRATORY: No increased rate of br
[2024-07-19 17:30] VITALS: BP 146/76; PULSE 68; RESP 16; TEMP 36.6; O2SAT 100
[2024-07-19 18:15] LABS: Add Urine Microscopic? YES; Appearance Urine Cloudy (Clear); Bacteria Urine None Seen /hpf; Bilirubin Urine Negative (Negative); Blood Urine 3+ (Negative); Color Urine Dark Yellow (Yellow); Glucose Urine UA Negative (Negative); Ketones Urine Trace mg/dL (Negative); Leukocyte Esterase Ur Negative LEU/UL (Negative); Need Manual Microscopic Reviewed; Nitrate Urine Negative (Negative); Non Pathogenic Casts 0-2; Protein Urine 1+ mg/dL (Negative); RBC Urine >100 /hpf (0-2); Squamous Epithelial Cell Urine None Seen /hpf (Few); Urobilinogen Urine 0.2 mg/dL (<2.0); WBC Urine 0-5 /hpf (0-3)
--- NOTE | 2024-07-19 18:18 | PC.NURSE ---
Spoke with Pat at [facility] she requested we check for UTI reports a couple falls and reports this is not normal for pt. Reports unsteady gait is normal for pt and she gets around [place] in [place]
[2024-07-19 18:27] VITALS: BP 142/70; PULSE 66; RESP 16; TEMP 36.6; O2SAT 98
[2024-07-19 19:28] LABS: Estimated Glomerular Filt Rate > 60
[2024-07-19 20:50] VITALS: BP 168/92; PULSE 70; RESP 14; O2SAT 100
[2024-07-20 02:55] VITALS: BP 170/84; PULSE 84; RESP 15; O2SAT 100
== END 2024-07-20 02:59 ==
PROVIDERS: Emergency Medicine; Emergency Provider Student in an Organized Health Care Education/Training Program; PCP Family Medicine
DX: F03.90 Unspecified dementia, unspecified severity, without behavioral disturbance, psychotic disturbance, mood disturbance, and anxiety (principal); I71.40 Abdominal aortic aneurysm, without rupture, unspecified; F41.9 Anxiety disorder, unspecified; F32.A Depression, unspecified; M19.90 Unspecified osteoarthritis, unspecified site; E78.5 Hyperlipidemia, unspecified; Z87.442 Personal history of urinary calculi; G20.C Parkinsonism, unspecified; Z87.440 Personal history of urinary (tract) infections; Z86.73 Personal history of transient ischemic attack (TIA), and cerebral infarction without residual deficits; W19.XXXA Unspecified fall, initial encounter
CPT/HCPCS: 70450; 71045; 71260; 72125; 72170; 73552; 73562; 74177; 81001; 99284; Q9967

== ENCOUNTER 2024-09-22 07:24 | Emergency (ER) | payer MEDICARE, SELFPAY ==
--- NOTE | ~2024-09-22 | CT_ITS ---
EXAMINATION: CT cervical spine wo con DATE: 09/22/2024 07:51 INDICATION: Alzheimer's disease presenting with unwitnessed fall TECHNIQUE: Computed tomography (CT) of the cervical spine was performed without intravenous contrast. Automated exposure control and iterative reconstruction technique were employed. The dose-length pro duct was 180.01 mGy-cm. COMPARISON: None FINDINGS: Moderate osteoarthritis at the atlantoaxial articulation. Alignment is normal. Vertebral body heights are normal. Moderate disc height loss at C7-T1 and T2-3 and mild disc height loss at C5-C6 and T1-T2 . Multilevel mild to moderate cervical uncovertebral osteoarthritis. There is also multilevel left-si ded predominant moderate to severe cervical facet osteoarthritis. No central canal stenosis. Multilev el mild to moderate cervical neural foraminal stenosis prominent bilaterally at C3-C4, C4-C5 and C5-C 6. Small amount of atherosclerotic calcification is at the bilateral carotid bulbs. A few likely mario gn subcentimeter mildly hyperdense bilateral thyroid nodules. Mild groundglass opacities in the visua lized upper lungs. IMPRESSION: 1. Mild to moderate cervical spondylosis with no acute osseous abnormality. 2. Mild groundglass opacity in the visualized upper lungs which could represent atelectasis, pneumoni a, hypersensitivity pneumonitis or minimal pulmonary edema. Reviewed, dictated and finalized at location A. ER INSPECTOR IMPRESSION: 1. Mild to moderate cervical spondylosis with no acute osseous abnormality. 2. Mild groundglass opacity in the visualized upper lungs which could represent atelectasis, pneumonia, hypersensitivity pneumonitis or minimal pulmonary venkata a.
--- NOTE | ~2024-09-22 | CT_ITS ---
EXAMINATION: CT brain wo con DATE: 09/22/2024 07:51 INDICATION: Alzheimer's presenting with unwitnessed fall. TECHNIQUE: Computed tomography (CT) of the head was performed without intravenous contrast. Sagittal and coronal reconstructions were performed. The mA was adjusted according to patient size. Iterative reconstruction technique was employed. The dose-length product was 605.33 mGy-cm. COMPARISON: head CT dated 07/19/2024 FINDINGS: No fracture. No acute intracranial hemorrhage, acute infarction or abnormal extra axial fluid collect ion. Small to moderate-sized region of encephalomalacia consistent with chronic infarct in the left p arietal lobe. Additional small old lacunar infarcts at the anterior limb of the right internal capsul e and at the right cerebral. There is moderate scattered white matter hypoattenuation consistent with chronic small vessel ischemic disease. Symmetric prominence of the sulci and ventricles consistent w ith moderate age-appropriate diffuse cerebral volume loss. No mass/mass effect. Changes of bilateral intraocular lens replacement. The dens appears to be displaced in the left globe. Paranasal sinuses a nd mastoid air cells are normal. IMPRESSION: 1. No fracture or acute intracranial process. 2. 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 3. Age-related changes including moderate diffuse volume loss and moderate scattered white matter hyp oattenuation consistent with chronic small vessel ischemic disease. 4. Changes of bilateral intraocular lens replacement with displacement of the left lens. Reviewed, dictated and finalized at location A. ENER IMPRESSION: 1. No fracture or acute intracranial process. 2. 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 3. Age-related changes including moderate diffuse volume loss and moderate scat tered white matter hypoattenuation consistent with chronic small vessel ischemi c disease. 4. Changes of bilateral intraocular lens replacement with displacement of the l eft lens.
[2024-09-22 07:23] VITALS: BP 191/85; PULSE 77; RESP 14; TEMP 36.9; O2SAT 95
[2024-09-22 07:57] VITALS: BP 183/83; PULSE 78; RESP 19; O2SAT 93
--- NOTE | 2024-09-22 07:58 | ED_ITS ---
HPI - General Adult General Chief complaint: Fall Stated complaint: fall Time Seen by Provider: 09/22/24 07:30 History of Present Illness HPI narrative: Patient is an 83-year-old female who presents ER after being found down by her bed at a nursing facility. Patient has dementia. She is on a blood thinner and struck her head. She has swelling to the right parietal occipital region without break in skin. Patient has no complaints but also does not know what occurred. Related Data Home Medications Medication Instructions Recorded Confirmed food supplemt, lactose-reduced 1 ea PO TID 02/09/24 0.04 gram-1 kcal/mL oral liquid (Boost) Allergies Allergy/AdvReac Type Severity Reaction Status Date / Time No Known Allergies Allergy Verified 09/22/24 07:35 Review of Systems Review of Systems: ROS unobtainable: Yes unobtainable due to mental status PMFSH Past Medical History Medical History (Updated 09/22/24 @ 08:27 by Fernando Hernandez MD) AAA (abdominal aortic aneurysm) Anxiety with depression Aortic aneurysm Closed fracture of ramus of left pubis Compression fx, lumbar spine Dementia Dizziness DJD (degenerative joint disease) Elevated BUN Encounter for routine adult health examination with abnormal findings History of COVID-19 Hyperlipidemia Kidney stone Mild cognitive impairment On ferry terminal agent drug therapy Orthostatic hypotension Osteoporosis Parkinsonism Screening for thyroid disorder Seasonal allergies Severe depression Skin tear of upper extremity TIA (transient ischemic attack) UTI (urinary tract infection) Vestibular dizziness Vitamin B12 deficiency Vitamin B6 deficiency Vitamin D deficiency Surgical History Surgical History History of cholecystectomy History of hip surgery History of hysterectomy History of tubal ligation Family History Family History Grandparent No problems noted. Father Hypertension Other COPD (chronic obstructive pulmonary disease) Social History Social History Social History: The patient lives in her own home in [place]. She has been as of July 2019. She and her were for 60 years and they have 3 sons and 1 daughter. 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 Smoking status: Never smoker Alcohol intake: never Substance use: never Substance use type: does not use Do You Feel Safe in your Home?: Yes Lack of Transportation: No Lack of Food: Never True Current Housing: I Have Housing Concerned About Future Housing: No Difficulty Paying Gas/Electric Bills: No Difficulty Paying for Meds: No Currently Unemployed: No Education: Don't Know Difficulty w/ Childcare or Family Care: No Living arrangements: with family Occupation/Education: retired Gender identity (if verbalized by the patient): Female Spiritual care concerns: No Agree to blood products: Yes Exam Narrative: GENERAL: Well-appearing, well-nourished, and in no acute distress. HEAD: Normocephalic, Soft tissue swelling right parotid occipital region. ENT: Mucous membranes moist. NECK: Supple. CHEST: Clear to auscultation. No respiratory distress. HEART: Regular rate and rhythm. Normal peripheral pulses. ABDOMEN: Soft, nontender, nondistended. EXTREMITIES: Normal range of motion. No edema. SKIN: Warm, dry, no rash. NEURO: Alert and oriented x2. PSYCH: Normal mood and affect. Course Course Emergency Course: No acute injury on imaging. Patient asymptomatic from lung finding since felt to be atelectasis. Vital Signs Vital signs: Vital Signs Temperature 98.5 F 09/22/24 07:23 Pulse Rate 77 09/22/24 07:23 Respiratory Rate 14 09/22/24 07:23 Blood Pressure 191/85 H 09/22/24 07:23 Pulse Oximetry 95 09/22/24 07:23 Oxygen Delivery Room Air 09/22/24 07:23 Temperature 98.5 F 09/22/24 07:23 Pulse Rate 78 09/22/24 07:57 Respiratory Rate 19 09/22/24 07:57 Blood Pressure 183/83 H 09/22/24 07:57 Pulse Oximetry 93 09/22/24 07:57 Oxygen Delivery Room Air 09/22/24 07:23 Medical Decision Making Vital Signs Vital Signs: Vital Signs Temperature 98.5 F 09/22/24 07:23 Pulse Rate 77 09/22/24 07:23 Respiratory Rate 14 09/22/24 07:23 Blood Pressure 191/85 H 09/22/24 07:23 Pulse Oximetry 95 09/22/24 07:23 Oxygen Delivery Room Air 09/22/24 07:23 Temperature 98.5 F 09/22/24 07:23 Pulse Rate 78 09/22/24 07:57 Respiratory Rate 19 09/22/24 07:57 Blood Pressure 183/83 H 09/22/24 07:57 Pulse Oximetry 93 09/22/24 07:57 Oxygen Delivery Room Air 09/22/24 07:23 Discharge Plan Discharge Clinical Impression: Minor traumatic injury of head with normal mental status Patient Disposition: Home, Self-Care Condition: Stable Additional Instructions: there is no evidence of injury on your evaluation other than some swelling to your scalp. Return the ER if you have additional concerns. Prescriptions: No Action Boost 0.04 gram- 1 kcal/mL liquid 1 ea PO TID acetaminophen [Pain Relief (acetaminophen)] 325 mg tablet 650 mg PO Q6H PRN (Reason: pain) Qty: 120 0RF atorvastatin 40 mg tablet 40 mg PO DAILY Qty: 90 0RF buspirone 15 mg tablet 15 mg PO TID Qty: 90 0RF carbidopa-levodopa 10-100 mg tablet,disintegrating 2 tablet PO TID Qty: 90 0RF cholecalciferol (vitamin D3) 50 mcg (2,000 unit) capsule 50 mcg PO DAILY Qty: 30 0RF clopidogrel [Plavix] 75 mg tablet 75 mg PO DAILY Qty: 90 1RF Rx Instructions: Please D/C the Eliquis. Thank you duloxetine 60 mg capsule,delayed release(DR/EC) 60 mg PO DAILY Qty: 90 0RF fludrocortisone 0.1 mg tablet 0.1 mg PO DAILY Qty: 90 2RF folic acid 1 mg tablet 1 mg PO DAILY Qty: 90 0RF mirtazapine 15 mg tablet 15 mg PO DAILY Qty: 90 0RF quetiapine 25 mg tablet 25 mg PO DAILY Qty: 90 3RF sertraline 100 mg tablet 125 mg PO DAILY Qty: 90 3RF Rx Instructions: PT TAKES 100MG PLUS 25MG TO EQUAL 125MG DOSE vitamin B complex Capsule 1 cap PO DAILY Qty: 90 3RF hydroxyzine HCl 50 mg tablet See Rx Instructions .ROUTE BID PRN (Reason: Anxiety) Qty: 60 0RF Rx Instructions: TAKE 1 TABLET BY MOUTH TID DAILY NEEDED FOR ANXIETY twice a day PRN; alprazolam [Xanax] 0.5 mg tablet 0.5 mg PO TID PRN (Reason: anxiety) Qty: 60 0RF Follow-up/Referrals: Tu Rouse MD [Primary Care Provider] - 1 Week
--- NOTE | 2024-09-22 08:35 | PC.NURSE ---
Attempted to call report to [facility], was transferred to memory care and did not receive an answer
--- NOTE | 2024-09-22 08:38 | PC.NURSE ---
RN gave report to Pat DE LA CRUZ at [facility]
[2024-09-22 09:02] VITALS: BP 175/83; PULSE 82; RESP 17; TEMP 36.4; O2SAT 94
== END 2024-09-22 09:07 ==
PROVIDERS: Emergency Provider Emergency Medicine; PCP Family Medicine
DX: S09.90XA Unspecified injury of head, initial encounter (principal); F03.90 Unspecified dementia, unspecified severity, without behavioral disturbance, psychotic disturbance, mood disturbance, and anxiety; G20.A1 Parkinson's disease without dyskinesia, without mention of fluctuations; G31.84 Mild cognitive impairment of uncertain or unknown etiology; E78.5 Hyperlipidemia, unspecified; M81.0 Age-related osteoporosis without current pathological fracture; F41.8 Other specified anxiety disorders; Z87.442 Personal history of urinary calculi; Z86.16 Personal history of COVID-19; Z86.73 Personal history of transient ischemic attack (TIA), and cerebral infarction without residual deficits; Z87.440 Personal history of urinary (tract) infections; E53.8 Deficiency of other specified B group vitamins; E53.1 Pyridoxine deficiency; E55.9 Vitamin D deficiency, unspecified; Z90.710 Acquired absence of both cervix and uterus; Z90.49 Acquired absence of other specified parts of digestive tract; Z79.02 Long term (current) use of antithrombotics/antiplatelets; Z79.899 Other long term (current) drug therapy; W19.XXXA Unspecified fall, initial encounter
CPT/HCPCS: 70450; 72125; 99284

== ENCOUNTER 2024-12-20 17:53 | Inpatient (IN) | payer MEDICARE, SELFPAY ==
[2024-12-20] VITALS (37 sets, daily range): BP systolic 145–187; BP diastolic 70–110; PULSE 94–109; RESP 19–34; TEMP 37.1; O2SAT 93–100
--- NOTE | ~2024-12-20 | XR_ITS ---
EXAMINATION: XR chest 1V portable Exam Date/Time: 12/20/2024 18:15 CARE DIRECTOR RN HISTORY: FEVER Comparison: 07/19/2024; CT cap 07/19/2024. RESULT: Lines, tubes, and devices: None. Lungs and pleura: Senescent changes in the lungs, minimal bibasilar atelectasis/scar, otherwise angelica r. Cardiomediastinal silhouette: Stable. Other: No acute osseous or upper abdominal finding. Multiple old left rib fractures. IMPRESSION: No acute cardiopulmonary process. Reviewed, dictated and finalized at location K. DIRECTOR RN
--- NOTE | ~2024-12-20 | US_ITS ---
EXAMINATION: US abdomen limited DATE: 12/23/2024 14:55 INDICATION: Abnormal liver function tests. Pancytopenia. TECHNIQUE: Multiple grayscale and Doppler ultrasound images of the abdomen were obtained. COMPARISON: CT 07/19/2024 FINDINGS: The visualized portions of the head and body of the pancreas are normal. There is a 4.5 cm fusiform infrarenal aortic aneurysm. There is a 2.9 cm cyst in the liver. There is normal flow in jesisca n portal vein. The gallbladder is absent. The common duct is normal and measures 9 mm. IMPRESSION: 1. Stable 4.5 cm fusiform aneurysm of infrarenal aorta. Reviewed, dictated and finalized at location A. ONAL TRAINER
--- NOTE | ~2024-12-20 | XR_ITS ---
EXAMINATION: XR chest 1V portable DATE: 12/26/2024 09:20 INDICATION: Shortness of breath. TECHNIQUE: A single frontal view of the chest was obtained. COMPARISON: Chest single view 12/20/2024, chest CT 12/20/2024 FINDINGS: There are airspace opacities at the lung bases, left worse than right. No pleural effusion or pneumothorax. The heart size is normal. There are old healed left rib fractures. Breast implants a re noted. IMPRESSION: 1. Airspace opacities at the lung bases, left worse than right, consistent with atelectasis versus pn eumonia. Reviewed, dictated and finalized at location A. CTION MOLDING OPERATOR IMPRESSION: 1. Airspace opacities at the lung bases, left worse than right, consistent with atelectasis versus pneumonia.
--- NOTE | ~2024-12-20 | CT_ITS ---
EXAMINATION: CTA chest PE protocol DATE: 12/20/2024 21:42 INDICATION: SOB TECHNIQUE: Computed tomography angiography (CTA) of the chest was performed with 100 mL Omnipaque-350 intravenous contrast timed to evaluate the pulmonary arteries. Coronal maximum intensity projection 3D-reconstructions were created by the technologist. The dose-length product (DLP) was 382.47 mGy-cm. Automated exposure control and iterative reconstruction technique were employed. COMPARISON: 11/28/2019; CT cap 07/19/2024. FINDINGS: Lung parenchyma and airways: Mild bibasilar scar/atelectasis. Patent airways. Pleura: Unremarkable. Thoracic inlet, axillae and chest wall: Subcentimeter left thyroid nodule which requires no additiona l evaluation at this time. Bilateral breast implants.. Thoracic aorta: No significant dilation. No dissection. Calcified and noncalcified atherosclerotic pl aque. Mediastinum: Normal. Heart and pericardium: Mild cardiomegaly. Mitral and aortic valve calcification. Coronary artery calcifications: Moderate. Upper abdomen: No significant finding. Bones: No acute osseous finding. Pulmonary arteries: Study quality: Mild motion artifact, overall diagnostic. No pulmonary emboli dete cted. IMPRESSION: No CT evidence of acute pulmonary embolus. No acute process detected in the chest. Reviewed, dictated and finalized at location K. OYMENT TRAINING SPECIALIST
--- NOTE | ~2024-12-20 | CT_ITS ---
EXAMINATION: CT brain wo con DATE: 12/20/2024 19:01 INDICATION: Acute change of mental status . TECHNIQUE: Computed tomography (CT) of the head was performed without intravenous contrast. The mA wa s adjusted according to patient size. Iterative reconstruction technique was employed. The dose-lengt h product was 681.00 mGy-cm. COMPARISON: 09/22/2024. FINDINGS: No acute intracranial hemorrhage or extra-axial fluid collection. No hydrocephalus, mass, or herniation. No acute ischemic infarct. Unremarkable dural venous sinus attenuation. No acute osseous abnormality. Left maxillary mucosal thickening with an air-fluid level, mild bilateral inferior frontal, ethmoid a nd sphenoid mucosal thickening, the remaining aerated spaces are clear. Moderate atrophy and chronic white matter change. Atherosclerotic intracranial calcification. Bilater al lens replacements with chronic displacement of the left lens. Old right basal ganglia lacunar and focal periventricular infarcts. Focal left parietal encephalomalacia. Old focal right cerebellar infa rct. IMPRESSION: No acute intracranial process. CT findings suggestive of left maxillary sinusitis. Reviewed, dictated and finalized at location K. ADJUSTER
[2024-12-20 18:06] LABS: Glucose Point of Care 102 mg/dl (65-105)
--- NOTE | 2024-12-20 18:10 | ECG_ITS ---
Test Date: 2024-12-20 18:20:42 Measurements Intervals [place] Rate: 113 P: 62 HI: 158 QRS: -30 QRSD: 77 T: 65 QT: 350 QTc: 480 Interpretive Statements SINUS TACHYCARDIA WITH FREQUENT SUPRAVENTRICULAR PREMATURE COMPLEXES BASELINE ARTIFACT- I, II, III, AVR, AVL, AVF, V1-V3 ABNORMAL ECG No previous ECG available for comparison Electronically Signed On 12-20-2024 18:32:43 [employer] by Davonte Yoon D.O.
[2024-12-20] MEDS: SODIUM CHLORIDE 0.9% IV 1,000 ML 999 ML IV CONT (18:25)
[2024-12-20 18:30] LABS: Basophils Percent Auto 0.6 % (0.2-1.2); Eosinophils Absolute Auto 0.2 K/mm3 (0-0.3); Hematocrit 37.4 % (37.0-47.0); Hemoglobin 12.1 g/dL (12.0-15.0); Immature Granulocyte Absolute 0.03 K/mm3 (0.00-0.031); Immature Granulocyte Percent A 0.5 % (0-0.5); Lymphocytes Absolute Auto 0.52 K/mm3 (0.9-3.2); Lymphocytes Percent Auto 8.2 % (18.3-44.2); Mean Corpuscular HGB Conc 32.4 g/dl (32-36); Mean Corpuscular Hemoglobin 26.5 pg (26-34); Mean Platelet Volume 11.7 fl (7.4-10.4); Monocytes Absolute Auto 0.3 K/mm3 (0.1-0.6); Monocytes Percent Auto 5.3 % (2.6-8.5); Neutrophils Absolute Auto 5.3 K/mm3 (1.3-6.7); Neutrophils Percent Auto 82.4 % (45.5-73.1); Platelet Count Result 147 k/mm3 (150-375); Red Blood Count 4.56 M/mm3 (4.2-5.4); Red Cell Distribution Width 16.7 % (11.5-14.5); White Blood Count 6.4 K/mm3 (4.5-10.0)
[2024-12-20 18:40] LABS: Lactic Acid Reflex 0.9 mmol/L (0.7-2.0)
[2024-12-20 18:41] LABS: INR 1.2; Partial Thromboplastin Time 32.7 Seconds (22.3-36.8); Prothrombin Time 15.8 Seconds (11.1-14.7)
[2024-12-20 18:44] LABS: Alanine Aminotransferase 26 U/L (6-35); Albumin Level 4.1 g/dL (3.5-5.1); Alkaline Phosphatase 142 U/L (38-126); Anion Gap 12 mmol/L (4-12); Aspartate Amino Transferase 60 U/L (14-36); Bilirubin,Total 0.9 mg/dL (0.2-1.3); Blood Urea Nitrogen 18 mg/dL (7-17); CRP 6.4 mg/dL (<1.0); Calcium 9.1 mg/dL (8.4-10.2); Carbon Dioxide 24 mmol/L (22-30); Chloride 103 mmol/L (98-107); Estimated CRCL calculation 44 ml/min; Estimated Glomerular Filt Rate > 60; Glucose 104 mg/dL (65-110); Potassium 3.6 mmol/L (3.4-5.0); Sodium 139 mmol/L (137-145)
[2024-12-20 19:06] LABS: Influenza A QL RT-PCR Positive (Negative); Influenza B QL RT-PCR Negative (Negative); RSV RNA, RT-PCR Negative (Negative); SARS-CoV-2 RNA PCR Negative (Negative)
--- OUTSIDE RECORDS SUMMARY | 2024-12-20 19:41 | XMS_ITS | Referral Summary ---
Author Organization [facility] [address] Address [address] [place] [address] Care Team Providers Care Senior Strategy Analyst Name Role Phone Tu Rouse MD Primary Care Provider [phone] Allergies No known active allergies Medications carbidopa-levod opa (SINEMET) 10-100 mg per tablet 07/30/2024 Active sertraline (ZOLOFT) 100 mg tablet 07/30/2024 Active sertraline (ZOLOFT) 25 mg tablet 07/30/2024 Active QUEtiapine (SEROquel) 25 mg tablet 07/30/2024 Active mirtazapine (REMERON) 15 mg tablet 07/30/2024 Active meloxicam (MOBIC) 7.5 mg tablet 07/30/2024 Active folic acid (FOLVITE) 1 mg tablet 07/30/2024 Active fludrocortisone 0.1 mg tablet 07/30/[address] (CYMBALTA) 60 mg capsule Take by mouth daily 02/07/2020 Active clopidogreL (PLAVIX) 75 mg tablet 07/30/2024 Active atorvastatin (LIPITOR) 40 mg tablet 07/30/2024 Active ALPRAZolam (XANAX) 0.5 mg tablet 08/15/2024 Active cholecalciferol (VITAMIN D-3) 2000 unit tablet Active busPIRone (BUSPAR) 15 mg tabletIndicatio ns:Generalized Anxiety Disorder Take 1 tablet (15 mg total) by mouth 3 (three) times a day Active vitamin B complex capsule Take 1 capsule by mouth daily Active food supplemt, lactose-reduced liquid Take by mouth Active Active Problems Problem Noted Date Diagnosed Date Mixed hyperlipidemia 08/25/2024 Assessment & Plan (08/25/2024 12:58 PM CDT): Stable continue Lipitor Infrarenal abdominal aortic aneurysm (AAA) witho ut rupture 08/25/2024 Assessment & Plan (08/25/2024 12:58 PM CDT): 4.5 cm infrarenal abdominal aortic aneurysms found on CTA abdomen pelvis at [facility]. Discussed findings with the patient and her son with the recommendation for ongoing surveillance and intervention if we progressed to 5 cm or with rapid growth. Continue risk factor modification with Plavix statin therapy good blood pressure control. Follow up in 6 months with repeat imaging. 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 Gender Identity Not on file Sexual Orientation Not on file Last Filed Vital Signs Vital Sign Reading Time Taken Comments Blood Pressure 135/63 08/24/2024 9:22 AM CDT Pulse 77 08/24/2024 9:22 AM CDT Temperature - - Respiratory Rate - - Oxygen Saturation 96% 08/24/2024 9:22 AM CDT Inhaled Oxygen Concentration - - Weight 63.5 kg (140 lb) 08/24/2024 9:22 AM CDT Height 167.6 cm (5' 6 ) 08/24/2024 9:22 AM CDT Body Mass Index 22.6 08/24/2024 9:22 AM CDT Plan of Treatment Not on file Insurance [facility] Address: [address] [address] [place] [address] MEDICARE SOL[employer]IONS [facility] Address: [address] [address] [place] [address] Care Teams Senior Strategy Analyst Relationship Specialty Start Date End Date Tu Rouse MD [address] [place] [address] PCP - General Family Medicine 07/26/24
--- OUTSIDE RECORDS SUMMARY | 2024-12-20 19:41 | XMS_ITS | Continuity of Care Document ---
Author Name Auto Generated, Auto Generated Organization [facility] Support Name Relationship Address Phone Jose A Mcdonough Emergency Contact [address] [place] [address] CeasarJose A Son [address] [place] [address] Ceasar, Sohan Son [address] [place] [address] Unavailable Kecia Mcdonough Daughter Unknown Unavailable CeasarNegrito Son [address] [place] [address] Unavailable Negrito Mcdonough [employer] [address] [place] [address] Unavailable Jose A Mcdonough Financial Responsible [employer] [address] [place] [address] Jose A Mcdonough [facility] [address] [place] [address] CeasarSohan Emergency Contact [address] [place] [address] Unavailable Kecia Mcdonough Emergency Contact 3 Unknown Unavaila ble Summary Purpose Consult/Referral Allergies, Adverse Reactions, Alerts Type Description/Agent Code Date Allergy Active Date Allergy Inactivated Date of Last Reaction Adverse Reactions Severity Status Comments Source of Information [employer] No Known Drug Allergies Active Patien t History Medications Medications Prescription Date Begun Date Discontinued Status Associated Diagnoses Ordering Provider QUEtiapine 25 mg tablet 12.5 mg 2 Times Daily 09/21/20 24 Active AUTUMN Chamorro ALPRAZolam 0.5 mg tablet 0.5 mg 0.5 mg 2 Times Daily 09/12/20 24 Active JOHN Pinto meloxicam 7.5 mg tablet 1 tab 1 Time Daily 04/14/20 24 Active JOHN Pinto carbidopa 10 mg-levodopa 100 mg tablet 20-200mg 3 Times Daily 03/24/20 24 Active MD Tu Rouse vitamin B complex capsule 1 capsule 1 Time Daily 03/24/20 24 Active MD Tu Rouse sertraline 100 mg tablet 100mg 1 Time Daily 03/24/20 24 Active MD uT Rouse sertraline 25 mg tablet 1 Tablet 1 Time Daily 03/24/20 24 Active MD Tu Rouse folic acid 1 mg tablet 1 mg 1 Time Daily 03/24/20 24 Active MD Tu Rouse cholecalciferol (vitamin D3) 50 mcg (2,000 unit) capsule 50 mcg (2,000 unit) 1 Time Daily 03/24/20 24 Active MD Tu Rouse DULoxetine 60 mg capsule,delayed release 60 mg 1 Time Daily 03/24/20 24 Active MD Tu Rouse atorvastatin 40 mg tablet 40 mg 1 Time Daily 03/24/20 24 Active MD Tu Rouse mirtazapine 15 mg tablet 1 Tablet 1 Time Daily 03/24/20 24 Active MD Tu Rouse acetaminophen 325 mg tablet 650 mg PRN Every 6 Hours 03/24/20 24 Active MD Tu Rouse clopidogreL 75 mg tablet 1 Tablet 1 Time Daily 03/24/20 24 Active MD Kimberly Rousen Boost 0.04 gram-1 kcal/mL oral liquid TID 3 Times Daily 03/24/20 24 Active MD Tu Rouse fludrocortisone 0.1 mg tablet 0.1 mg 1 Time Daily 03/24/20 24 Active MD Tu Rouse busPIRone 15 mg tablet 1 tab 3 Times Daily 03/24/20 24 Active MD Tu Rouse Conditions/Problems Problem/Diagnosis Awareness of Diagnosis Code (ICD-10) Onset Date (Start Date) Resolution Date (End Date) Status Source Comments 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 DISEASES CLASSIFIED ELSEWHERE, SEVERE, WITH MOOD DISTURBANCE F02.C3 07/15/20 24 [facility], UNSPECIFIED F41.9 07/15/20 24 Active MD Tu Scott [facility] UNSPECIFIED MULTIPLE INJURIES, SUBSEQUENT ENCOUNTER T07.XXXD 06/25/20 24 Active MD Tu Scott UNSPECIFIED FALL, SUBSEQUENT ENCOUNTER W19.XXXD 06/25/20 24 Active MD Tu Scott RESIDENTIAL (CURRENT) USE OF ANTITHROMBOTICS/ANT IPLATELETS Z79.02 06/23/20 24 Active Daria clarke MD Tu VITAMIN DEFICIENCY, UNSPECIFIED E56.9 04/06/20 Active Daria clarke MD Tu PARKINSON'S DISEASE WITHOUT DYSKINESIA, WITHOUT MENTION OF FLUCTUATIONS G20.A1 01/28/20 Active Daria clarke MD Tu MAPC UNSTEADINESS ON FEET R26.81 01/28/20 Active Daria clarke MD Tu WEAKNESS R53.1 01/28/20 Active Daria clarke MD Tu OTHER SPECIFIED ANXIETY DISORDERS F41.8 01/20/20 24 01/20/2024 Resolved Daria clarke MD Tu p/[place] 01/20/24 FALL FROM BED, SUBSEQUENT ENCOUNTER W06.XXXD 11/05/19 24 01/05/2024 Resolved Daria clarke MD Tu PAIN IN RIGHT HIP M25.551 11/05/19 24 01/05/2024 Resolved Daria clarke MD Tu HYPOKALEMIA E87.6 07/08/20 Active Daria clarke MD Tu OTHER DISORDERS OF GLYCOPROTEIN METABOLISM E77.8 07/08/20 23 Active Daria clarke MD Tu OTHER DISORDERS OF PLASMA-PROTEIN METABOLISM, NOT ELSEWHERE CLASSIFIED E88.09 07/08/20 23 Active Daria clarke MD Tu MAJOR DEPRESSIVE DISORDER, SINGLE EPISODE, UNSPECIFIED F32.9 07/06/20 23 07/14/2024 Resolved Daria clarke MD Tu 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 DISEASES CLASSIFIED ELSEWHERE, UNSPECIFIED SEVERITY, WITH ANXIETY F02.84 07/06/20 23 01/05/2024 Resolved Daria clarke MD Tu GENERALIZED ANXIETY DISORDER F41.1 07/06/20 23 07/14/2024 Resolved Daria clarke MD Tu INSOMNIA DUE TO OTHER MENTAL DISORDER F51.05 07/06/20 23 Active Daria clarke MD Tu ORTHOSTATIC HYPOTENSION I95.1 07/06/20 23 Active Daria clarke MD Tu ANEMIA, UNSPECIFIED D64.9 07/06/20 23 Active Daria clarke MD Tu BENIGN PAROXYSMAL VERTIGO, UNSPECIFIED EAR H81.10 07/06/20 23 Active Daria clarke MD Tu MIXED HYPERLIPIDEMIA E78.2 07/06/20 Active Daria clarke MD Tu UNSPECIFIED HEARING LOSS, BILATERAL H91.93 07/06/20 Active Daria clarke MD Tu PERSONAL HISTORY OF (HEALED) TRAUMATIC FRACTURE Z87.81 07/02/20 Active Daria clarke MD Tu S72.141 DISPLACED INTERTROCHANTERIC FRACTURE OF RIGHT FEMUR, SUBSEQUENT ENCOUNTER FOR CLOSED FRACTURE WITH ROUTINE HEALING S72.141D 07/02/20 23 11/06/2023 Resolved Daria clarke MD Tu PRESENCE OF OTHER BONE AND TENDON IMPLANTS Z96.7 07/02/20 Active Daria clarke MD Tu UNSPECIFIED FALL, SUBSEQUENT ENCOUNTER W19.XXXD 07/02/20 23 11/06/2023 Resolved Daria clarke MD Tu CONTUSION OF RIGHT LOWER LEG, SUBSEQUENT ENCOUNTER S80.11XD 06/16/20 23 07/27/2023 Resolved Daria clarke MD Tu OTHER REDUCED MOBILITY Z74.09 06/04/20 23 11/06/2023 Resolved Daria clarke MD Tu MUSCLE WEAKNESS (GENERALIZED) M62.81 06/04/20 23 11/06/2023 Resolved Daria clarke MD Tu AGE-RELATED OSTEOPOROSIS WITHOUT CURRENT PATHOLOGICAL FRACTURE M81.0 06/03/20 Active Daria clarke MD Tu OTHER SEASONAL ALLERGIC RHINITIS J30.2 06/03/20 Active Daria clarke MD Tu PERSONAL HISTORY OF TRANSIENT ISCHEMIC ATTACK (TIA), 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.73 06/03/20 Active Daria clarke MD Tu DEFICIENCY OF OTHER SPECIFIED B GROUP VITAMINS E53.8 06/03/20 Active Daria clarke MD Tu AUTOMATION TECH (CURRENT) USE OF ANTICOAGULANTS Z79.01 06/03/20 23 06/29/2024 Resolved Daria clarke MD Tu VITAMIN D DEFICIENCY, UNSPECIFIED E55.9 06/03/20 Active Daria clarke MD Tu PARKINSON'S DISEASE G20 06/03/20 23 07/27/2023 Resolved Daria clarke MD Tu URINARY TRACT INFECTION, SITE NOT SPECIFIED N39.0 06/03/20 23 07/08/2023 Resolved Daria clarke MD Tu HYPERLIPIDEMIA, UNSPECIFIED E78.5 06/03/20 Active Daria clarke MD Tu ESSENTIAL (PRIMARY) HYPERTENSION I10 06/03/20 Active MD Tu Scott MAJOR DEPRESSIVE DISORDER, SINGLE EPISODE, SEVERE WITHOUT PSYCHOTIC FEATURES F32.2 06/03/20 Active Daria clarke MD Tu [facility] PANIC DISORDER [EPISODIC PAROXYSMAL ANXIETY] F41.0 06/03/20 23 01/22/2024 Resolved MD Kimberly Scottn ABDOMINAL AORTIC ANEURYSM, WITHOUT RUPTURE, UNSPECIFIED I71.40 06/03/20 Active MD Kimberly Scottn UNSPECIFIED OSTEOARTHRITIS, UNSPECIFIED SITE M19.90 06/03/20 Active Daria clarke MD Tu RESIDENTIAL (CURRENT) USE OF OPIATE ANALGESIC Z79.891 06/03/20 23 07/14/2024 Resolved MD Tu Scott 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 DISEASES CLASSIFIED ELSEWHERE, UNSPECIFIED SEVERITY, WITH MOOD DISTURBANCE F02.83 06/03/20 23 07/20/2024 Resolved Daria clarke MD Tu MILD COGNITIVE IMPAIRMENT OF UNCERTAIN OR UNKNOWN ETIOLOGY G31.84 06/03/20 23 07/08/2023 Resolved Daria clarke MD Tu Procedures No Known Procedures
--- OUTSIDE RECORDS SUMMARY | 2024-12-20 19:41 | XMS_ITS | Clinical Summary ---
Author Organization [facility] [address] Address [address] [place] [address] Care Team Providers Care Call Center Recruiter Name Role Phone Tu Rouse MD Primary Care Provider Allergies No known active allergies Medications carbidopa-levod [...] aneurysms found on CTA abdomen pelvis at [facility]. 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 Gender Identity Not on file Sexual Orientation Not on file Obstetrics History Last Filed Vital Signs Vital Sign Reading [...] 08/24/2024 9:22 AM CDT Plan of Treatment Health Maintenance Due Date Last Done Comments Depression Screening 1938 Fall Risk Assessment 1938 DTaP/Tdap/Td Vaccine (1 - Tdap) 1949 Hepatitis B Screening 1956 Zoster Vaccine (1 of 2) 1988 Well Visit 65+ 2003 Pneumococcal vaccine 65+ (2 of 2 - PPSV23) 09/07/2019 09/07/2018 Influenza Vaccine (#1) 2024 8, 09/20/2012, 08/26/2012 Insurance [facility] Address: [address] [address] [facility] Address: [facility] [address] [place] [address] Care Teams Call Center Recruiter Relationship Specialty Start Date End Date Tu Rouse MD [address] [place] [address] PCP - General Family Medicine 10/1/24
--- OUTSIDE RECORDS SUMMARY | 2024-12-20 19:41 | XMS_ITS | Clinical Summary ---
Author Organization [facility] Address [address] [place] [address] Care Team Providers Care Lottery Clerk Name Role Phone Abdon Luna MD Primary Care Provider [phone] Social History Tobacco Use Types Packs/Day Years Used Date Smoking Tobacco: Never Assessed Comments Unknown Sex and Gender Information Value Date Recorded Sex Assigned at Not on file Legal Sex Female 9:13 AM CDT Gender Identity Not on file Sexual Orientation Not on file Plan of Treatment Health Maintenance Due Date Last Done Comments DTaP, Tdap and Td Vaccines ( 1 - Tdap) 1957 Zoster Vaccines (1 of 2) 1988 Annual Medicare Wellness Visit 2003 RSV Immunization or 60+ Years (1 - 1-dose 75+ series) 2013 Pneumococcal Vaccine: 65+ Ye ars (2 of 2 - PPSV23 or PCV20) 09/07/2019 09/07/2018 COVID-19 Vaccine (2023-2 5 season) 2024 Influenza Adult (#1) 2024 Meningococcal B Vaccine Aged Out No l onger eligible based on patient's age to complete this topic Meningococcal Vaccine Aged Out No silvia carla eligible based on patient's age to complete this topic RSV Immunizations Under 20 Months Aged Out No longer eligible based on patient's age to complete this topic Insurance [facility] Advance Directives Documents on File Type Date Recorded Patient Lens Marker Expl anation Advance Directives and Living Will 06/11/2020 2:30 PM DRIVERS LICENSE Care Teams Lottery Clerk Relationship Specialty Start Date End Date Abdon Luna MD [address] - [facility] [address] [place] [address] PCP - General INTERNAL MEDICINE 05/25/20
--- NOTE | 2024-12-20 19:43 | ED_ITS ---
HPI - General Adult General Chief complaint: Altered Mental Status Stated complaint: FLU +, Temperature Time Seen by Provider: 12/20/24 18:57 History of Present Illness HPI narrative: 84-year-old female present to the emergency department for evaluation for increased altered mental status. Patient does have dementia and is comfort care at a local memory care unit. Patient was recently diagnosed with flu A. Staff checked on the patient today and found that she was less responsive than usual. Upon arrival to the emergency department patient was tachycardia with heart rate of 109 and does have a new O2 requirement. Family is present and they confirmed that the patient is more lethargic than typical. Related Data Home Medications ?Medication ?Instructions ?Recorded ?Confirmed ?Last Taken ?Type food supplemt, lactose-reduced 1 ea PO TID 02/09/24 Unknown History 0.04 gram-1 kcal/mL oral liquid (Boost) Allergies Allergy/AdvReac Type Severity Reaction Status Date / Time No Known Allergies Allergy Verified 09/22/24 07:35 Review of Systems 2 Review of Systems: All systems reviewed & are unremarkable except as noted in HPI and below PMFSH Past Medical History Medical History (Updated 12/21/24 @ 01:18 by Fernando Lerma MD) Aortic aneurysm Elevated BUN Screening for thyroid disorder Dementia Mild cognitive impairment On rn long term care drug therapy Encounter for routine adult health examination with abnormal findings Orthostatic hypotension Dizziness Skin tear of upper extremity Severe depression UTI (urinary tract infection) DJD (degenerative joint disease) AAA (abdominal aortic aneurysm) Anxiety with depression Vitamin B6 deficiency Vestibular dizziness History of COVID-19 Parkinsonism Vitamin B12 deficiency TIA (transient ischemic attack) Osteoporosis Kidney stone Compression fx, lumbar spine Vitamin D deficiency Seasonal allergies Hyperlipidemia Closed fracture of ramus of left pubis Surgical History Surgical History History of cholecystectomy History of hysterectomy History of tubal ligation History of hip surgery Family History Family History Grandparent No problems noted. Father Hypertension Other COPD (chronic obstructive pulmonary disease) Social History Social History Social History: The patient lives in her own home in [place]. She has been as of July 2019. She and her were for 60 years and they have 3 sons and 1 daughter. 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 She is a lifelong nonsmoker and denies alcohol and drug abuse. Smoking status: Never smoker Alcohol intake: never Substance use: never Substance use type: does not use Do You Feel Safe in your Home?: Yes Lack of Transportation: No Lack of Food: Never True Current Housing: I Have Housing Concerned About Future Housing: No Difficulty Paying Gas/Electric Bills: No Difficulty Paying for Meds: No Currently Unemployed: No Education: Don't Know Difficulty w/ Childcare or Family Care: No Living arrangements: with family Occupation/Education: retired Gender identity (if verbalized by the patient): Female Spiritual care concerns: No Agree to blood products: Yes Exam 2 Narrative: APPEARANCE: Ill-appearing HEAD: normocephalic, atraumatic. EYES: PERRLA/EOMI, conjunctivae clear. NOSE: Normal no drainage EARS:TMS clear with good light reflex. THROAT: Pharynx clear, no exudate. NECK: Supple. No adenopathy, no masses. RESPIRATORY: Airway patent, respirations nonlabored. Clear to auscultation bilaterally, no rales, rhonchi, wheezing. CARDIOVASCULAR: Regular rate and rhythm without murmurs rubs or gallops. ABDOMINAL: Soft, nontender, nondistended, normal bowel sounds MUSCULOSKELETAL: Moves all extremities. Strength/ROM intact, No edema, No calf tenderness. NEURO: Alert low confused. Cranial nerves II through XII intact. Grossly intact SKIN: Warm, dry. Normal Color Course Vital Signs Vital signs: Vital Signs Temperature 98.7 F 12/20/24 17:57 Pulse Rate 109 H 12/20/24 17:57 Respiratory Rate 25 H 12/20/24 17:57 Blood Pressure 187/101 H 12/20/24 17:57 Pulse Oximetry 94 12/20/24 17:57 Oxygen Delivery Nasal Cannula 12/20/24 17:57 Oxygen Flow Rate 2 12/20/24 17:57 Temperature 98.7 F 12/20/24 17:57 Pulse Rate 99 12/20/24 19:38 Respiratory Rate 22 H 12/20/24 19:38 Blood Pressure 157/110 H 12/20/24 19:38 Pulse Oximetry 94 12/20/24 19:39 Oxygen Delivery Nasal Cannula 12/20/24 19:39 Oxygen Flow Rate 2 12/20/24 19:39 Medical Decision Making MDM Narrative Medical decision making narrative: 84-year-old female present to the emergency department for evaluation for increased altered mental status. Patient is moving all limbs equally and has no current facial droop. Patient is not verbal at this time. Family states is a change from her typical baseline. Typically she is able to recognize family members. Patient is currently afebrile with no leukocytosis and hemoglobin of 12.1. INR is 1.2. No significant abnormalities on the patient's CMP, patient's CRP is 6.4, patient was positive for influenza A. Chest x-ray shows no acute cardiopulmonary abnormality. Head CT was negative for acute intracranial abnormality. Hospice requested a troponin this was not elevated, BNP was mildly elevated at 1:20 p.m., CTA was negative for pulmonary embolism and for pneumonia. Differential Diagnosis Differential Diagnosis: COVID, RSV, influenza, pneumonia, UTI, CHF, subdural hematoma, subarachnoid hemorrhage Vital Signs Vital Signs: Vital Signs Temperature 98.7 F 12/20/24 17:57 Pulse Rate 109 H 12/20/24 17:57 Respiratory Rate 25 H 12/20/24 17:57 Blood Pressure 187/101 H 12/20/24 17:57 Pulse Oximetry 94 12/20/24 17:57 Oxygen Delivery Nasal Cannula 12/20/24 17:57 Oxygen Flow Rate 2 12/20/24 17:57 Temperature 98.7 F 12/20/24 17:57 Pulse Rate 99 12/20/24 19:38 Respiratory Rate 22 H 12/20/24 19:38 Blood Pressure 157/110 H 12/20/24 19:38 Pulse Oximetry 94 12/20/24 19:39 Oxygen Delivery Nasal Cannula 12/20/24 19:39 Oxygen Flow Rate 2 12/20/24 19:39 Lab Data Lab results reviewed: Yes I reviewed the patient's lab results. 12/20/24 18:22 12/20/24 18:22 Labs: Lab Results 12/20/24 12/20/24 12/20/24 Range/Units 18:02 18:22 19:36 WBC 6.4 (4.5-10.0) K/mm3 RBC 4.56 (4.2-5.4) M/mm3 Hgb 12.1 (12.0-15.0) g/dL Hct 37.4 (37.0-47.0) % MCV 82.0 (80-100) fl MCH 26.5 (26-34) pg MCHC 32.4 (32-36) g/dl RDW 16.7 H (11.5-14.5) % Plt Count 147 L (150-375) k/mm3 MPV 11.7 H (7.4-10.4) fl Immature Gran % (Auto) 0.5 (0-0.5) % Neut % (Auto) 82.4 H (45.5-73.1) % Lymph % (Auto) 8.2 L (18.3-44.2) % Ll[place] % (Auto) 5.3 (2.6-8.5) % Eos % (Auto) 3.0 (0-4.4) % Baso % (Auto) 0.6 (0.2-1.2) % Lymph # (Auto) 0.52 L (0.9-3.2) K/mm3 [place] # (Auto) 0.3 (0.1-0.6) K/mm3 Eos # (Auto) 0.2 (0-0.3) K/mm3 Baso # (Auto) 0.0 (0.0-0.1) K/mm3 Abs Immat Gran (auto) 0.03 (0.00-0.031) K/mm3 Absolute Neuts (auto) 5.3 (1.3-6.7) K/mm3 Absolute Nucleated RBC 0.000 (0.0-0.012) K/mm3 Nucleated RBC % 0.0 (0.0-0.2) % PT 15.8 H (11.1-14.7) Seconds INR 1.2 APTT 32.7 (22.3-36.8) Seconds Sodium 139 (137-145) mmol/L Potassium 3.6 (3.4-5.0) mmol/L Chloride 103 (98-107) mmol/L Carbon Dioxide 24 (22-30) mmol/L Anion Gap 12 (4-12) mmol/L BUN 18 H (7-17) mg/dL Creatinine 0.63 L (0.7-1.0) mg/dL Estim Creat Clear Calc 44 ml/min Estimated GFR > 60 (59 - ) Glucose 104 (65-110) mg/dL POC Capillary Glucose 102 (65-105) mg/dl Lactic Acid 0.9 (0.7-2.0) mmol/L Calcium 9.1 (8.4-10.2) mg/dL Total Bilirubin 0.9 (0.2-1.3) mg/dL AST 60 H (14-36) U/L ALT 26 (6-35) U/L Alkaline Phosphatase 142 H (38-126) U/L Troponin I 0.025 (0.000-0.034) ng/mL C-Reactive Protein 6.4 H (<1.0) mg/dL NT-Pro-B Natriuret Pep 1320 H (19.9-100) pg/mL Total Protein 8.0 (6.3-8.2) g/dL Albumin 4.1 (3.5-5.1) g/dL Urine Color Yellow (Yellow) Urine Appearance Clear (Clear) Urine pH 6.0 (5.0-9.0) Ur Specific [place] 1.020 (1.001-1.035) Urine Protein 1+ H (Negative) mg/dL Urine Glucose (UA) Negative (Negative) mg/dL Urine Ketones 2+ H (Negative) mg/dL Ur Blood (Man) Negative (Negative) Urine Nitrate Negative (Negative) Urine Bilirubin Negative (Negative) Urine Urobilinogen 1.0 (<2.0) mg/dL Leukocyte Esterase Rfl Negative (Negative) MARIA DEL CARMEN/UL Urine RBC 0-2 (0-2) /hpf Urine WBC 0-5 (0-3) /hpf Ur Squamous Epith Cells None seen (Few) /hpf Urine Bacteria None seen /hpf Urine Casts 0-2 Influenza A (RT-PCR) Positive A (Negative) Influenza B (RT-PCR) Negative (Negative) RSV (RT-PCR) Negative (Negative) SARS-CoV-2 RNA (RT-PCR) Negative (Negative) Imaging Data Radiologist's impression: Impressions Chest X-Ray 12/20/24 18:42 IMPRESSION: No acute cardiopulmonary process. Head CT 12/20/24 19:02 IMPRESSION: No acute intracranial process. CT findings suggestive of left maxillary sinusitis. Chest CTA 12/20/24 21:44 IMPRESSION: No CT evidence of acute pulmonary embolus. No acute process detected in the chest. Discharge Plan Discharge Clinical Impression: AMS (altered mental status), Influenza A Patient Disposition: Still a Patient Condition: Stable
[2024-12-20 19:46] LABS: Add Urine Microscopic? YES; Appearance Urine Clear (Clear); Bacteria Urine None Seen /hpf; Bilirubin Urine Negative (Negative); Blood Urine Negative (Negative); Color Urine Yellow (Yellow); Glucose Urine UA Negative (Negative); Ketones Urine 2+ mg/dL (Negative); Leukocyte Esterase Ur Negative LEU/UL (Negative); Nitrate Urine Negative (Negative); Non Pathogenic Casts 0-2; Protein Urine 1+ mg/dL (Negative); RBC Urine 0-2 /hpf (0-2); Squamous Epithelial Cell Urine None Seen /hpf (Few); WBC Urine 0-5 /hpf (0-3)
[2024-12-20 21:36] LABS: NT Pro B Type Natriuretic Pept 1320 pg/mL (19.9-100)
[2024-12-20 22:17] LABS: Troponin I 0.025 ng/mL (0.000-0.034)
--- NOTE | 2024-12-20 23:30 | PM.IMHP ---
H&P: HPI History of Present Illness Date/Time: 12/21/24 00:43 Chief Complaint: 1. Fatigue 2. Altered mental status Narrative: Yesenia Mcdonough is an 84F with a mHx significant for dementia, parkinson's disease, anxiety, depression, dyslipidemia and a sedentary status. A resident of [facility]), she was brought in to the ED due to concerns for a worsening mentation compared to baseline; with no known modifying factors, her symptoms are associated with anorexia, malaise, dyspnea and a poor alertness. There were no associated symptoms of falls, vomiting, diarrhea, skin/joint changes, headaches, cough, PND or orthopnea. She does not smoke/chew tobacco, drink alcohol or consume recreational/illicit drugs. Work-up findings: Chest CTA: No CT evidence of acute pulmonary embolus. No acute process detected in the chest. Head CT: No acute intracranial process. Findings suggestive of left maxillary sinusitis. CXR: Unremarkable PLT 147 WBC 6.4 Hb 12 Influenza A+ Troponin: 0.025 BNP 1320 CRP 6.4 UA: Unremarkable Yesenia Mcdonough will be admitted, evaluated and managed for acute metabolic encephalopathy with influenza A with hypoxia Review of Systems Review of Systems: ROS unobtainable: Yes unobtainable due to mental status PMFSH Past Medical History Medical History (Updated 12/21/24 @ 01:18 by Fernando Lerma MD) Aortic aneurysm Elevated BUN Screening for thyroid disorder Dementia Mild cognitive impairment On supervisor intermediates drug therapy Encounter for routine adult health examination with abnormal findings Orthostatic hypotension Dizziness Skin tear of upper extremity Severe depression UTI (urinary tract infection) DJD (degenerative joint disease) AAA (abdominal aortic aneurysm) Anxiety with depression Vitamin B6 deficiency Vestibular dizziness History of COVID-19 Parkinsonism Vitamin B12 deficiency TIA (transient ischemic attack) Osteoporosis Kidney stone Compression fx, lumbar spine Vitamin D deficiency Seasonal allergies Hyperlipidemia Closed fracture of ramus of left pubis Surgical History Surgical History History of cholecystectomy History of hysterectomy History of tubal ligation History of hip surgery Family History Family History Grandparent No problems noted. Father Hypertension Other COPD (chronic obstructive pulmonary disease) Social History Social History Social History: The patient lives in her own home in [place]. She has been as of July 2019. She and her were for 60 years and they have 3 sons and 1 daughter. 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 She is a lifelong nonsmoker and denies alcohol and drug abuse. Smoking status: Never smoker Alcohol intake: never Substance use: never Substance use type: does not use Do You Feel Safe in your Home?: Yes Lack of Transportation: No Lack of Food: Never True Current Housing: I Have Housing Concerned About Future Housing: No Difficulty Paying Gas/Electric Bills: No Difficulty Paying for Meds: No Currently Unemployed: No Education: Don't Know Difficulty w/ Childcare or Family Care: No Living arrangements: with family Occupation/Education: retired Gender identity (if verbalized by the patient): Female Spiritual care concerns: No Agree to blood products: Yes Meds Home Medications and Allergies Home Medications ?Medication ?Instructions ?Recorded ?Confirmed ?Type food supplemt, lactose-reduced 1 ea PO TID 02/09/24 History 0.04 gram-1 kcal/mL oral liquid (Boost) acetaminophen 325 mg tablet (Pain 650 mg (2 x 325 mg) PO Q6H PRN 03/23/24 Rx Relief (acetaminophen)) pain #120 tabs atorvastatin 40 mg tablet 40 mg PO DAILY #90 tabs 03/23/24 Rx buspirone 15 mg tablet 15 mg PO TID #90 tabs 03/23/24 Rx carbidopa 10 mg-levodopa 100 mg 2 tablet PO TID #90 tabs 03/23/24 Rx disintegrating tablet cholecalciferol (vitamin D3) 50 50 mcg PO DAILY #30 caps 03/23/24 Rx mcg (2,000 unit) capsule clopidogrel 75 mg tablet (Plavix) 75 mg PO DAILY changed due to fall 03/23/24 Rx risk #90 tabs duloxetine 60 mg capsule,delayed 60 mg PO DAILY #90 caps 03/23/24 Rx release fludrocortisone 0.1 mg tablet 0.1 mg PO DAILY #90 tabs 03/23/24 Rx folic acid 1 mg tablet 1 mg PO DAILY #90 tabs 03/23/24 Rx mirtazapine 15 mg tablet 15 mg PO DAILY #90 tabs 03/23/24 Rx quetiapine 25 mg tablet 25 mg PO DAILY #90 tabs 03/23/24 Rx sertraline 100 mg tablet 125 mg (1.25 x 100 mg) PO DAILY 03/23/24 Rx #90 tabs vitamin B complex 1 cap PO DAILY #90 caps 03/23/24 Rx hydroxyzine HCl 50 mg tablet See Rx Instructions .Route BID PRN 03/28/24 Rx Anxiety #60 tabs alprazolam 0.5 mg tablet (Xanax) 0.5 mg PO TID PRN anxiety #60 tabs 11/16/24 Rx Allergies Allergy/AdvReac Type Severity Reaction Status Date / Time No Known Allergies Allergy Verified 09/22/24 07:35 Vital Signs Vital Signs - 24 hr 12/20/24 17:57 12/20/24 17:57 12/20/24 18:09 Temperature 98.7 F Pulse Rate 109 H 109 H Respiratory Rate 25 H 25 H Blood Pressure 187/101 H 187/100 H Pulse Oximetry 94 94 94 Oxygen Delivery Nasal Cannula Nasal Cannula Oxygen Flow Rate 2 2 2 12/20/24 18:10 12/20/24 18:26 12/20/24 19:38 Temperature Pulse Rate 108 H 107 H 99 Respiratory Rate 31 H 22 H Blood Pressure 175/95 H 157/110 H Pulse Oximetry 93 95 Oxygen Delivery Oxygen Flow Rate 12/20/24 19:39 Temperature Pulse Rate Respiratory Rate Blood Pressure Pulse Oximetry 94 Oxygen Delivery Nasal Cannula Oxygen Flow Rate 2 Exam Const: General: no acute distress HENMT: Face/Nose/Sinus: Normal nares present Eyes: Sclera: sclerae normal Pupils: Equal, round and reactive pupils present Neck: Neck: supple Resp: Effort & Inspection: normal respiratory effort Cardio: Rate: tachycardic Rhythm: abnormal rhythm Skin: General skin exam: normal color Lesions: no lesions noted Rashes: no rashes noted Neuro: General: deep tendon reflexes 2+ bilaterally Extrem: General: normal to inspection Psych: Mental Status: mental status grossly abnormal H&P: Results Labs Labs: Short CBC 12/20/24 Range/Units 18:22 WBC 6.4 (4.5-10.0) K/mm3 Hgb 12.1 (12.0-15.0) g/dL Hct 37.4 (37.0-47.0) % Plt Count 147 L (150-375) k/mm3 BMP 12/20/24 18:22 Sodium 139 Potassium 3.6 Chloride 103 Carbon Dioxide 24 BUN 18 H Creatinine 0.63 L Glucose 104 Calcium 9.1 Cardiac Enzymes 12/20/24 Range/Units 18:22 Troponin I 0.025 (0.000-0.034) ng/mL Liver Function 12/20/24 Range/Units 18:22 Total Bilirubin 0.9 (0.2-1.3) mg/dL AST 60 H (14-36) U/L ALT 26 (6-35) U/L Alkaline Phosphatase 142 H (38-126) U/L Albumin 4.1 (3.5-5.1) g/dL Urine 12/20/24 Range/Units 19:36 Urine Color Yellow (Yellow) Urine Appearance Clear (Clear) Urine pH 6.0 (5.0-9.0) Ur Specific [place] 1.020 (1.001-1.035) Urine Protein 1+ H (Negative) mg/dL Urine Glucose (UA) Negative (Negative) mg/dL Assessment and Plan Assessment and plan (1) Acute hypoxemic respiratory failure: Code(s): J96.01 - Acute respiratory failure with hypoxia Status: Acute (2) Influenza: Code(s): J11.1 - Influenza due to unidentified influenza virus with other respiratory manifestations Status: Acute (3) Acute metabolic encephalopathy: Code(s): G93.41 - Metabolic encephalopathy Status: Acute Plan Acute and principal conditions 1. Acute hypoxic respiratory failure 2. Influenza A infection 3. Acute metabolic encephalopathy 4. Left maxillary sinusitis 5. Elevated BNP Rx: A. IVFs; B. Falls and safety precautions C. IS; Supplemental oxygen with wean as tolerated D. ECHO Chronic and stable conditions 1. Sedentary status. 2. Dementia. 3. Parkinson's disease 4. Recurrent depression with anxiety. 5. Dyslipidemia. Miscellaneous care. 1. Code status. DNR 2. VTE prophylaxis. SCDs; EVE 3. Nutrition. Heart healthy Hospitalist [facility] Advance Care Plan I have confirmed that the patient's Advanced Care Plan is present, code status is documented, or surrogate decision maker is listed in patient medical record.: Yes Medication Reconciliation I have utilized all available resources to obtain, update and review the patients current medications (includes all prescriptions, OTC, herbals, cannabis, and nutritional supplements).: Yes The patient is not eligible for med reconciliation; the patient is in a emergent medical situation where delaying treatment would jeopardize the patients health.: Yes
[2024-12-21] VITALS (26 sets, daily range): BP systolic 124–208; BP diastolic 63–97; PULSE 90–105; RESP 16–36; TEMP 36.1–37.6; O2SAT 94–98; BMI 21.3
--- NOTE | 2024-12-21 | ECHOL_ITS ---
Patient Info Name: Yesenia Mcdonough Age: 84 years : 1940 Gender: Female Ht: 66 in Wt: 111 lbs BSA: 1.52 m2 HR: 99 bpm BP: 164 / 79 mmHg Technical Quality: Poor Exam Date: 12/21/2024 11:28 AM Exam Location: Echo Lab Exam Room: [facility] Patient Status: Inpatient Admit Date: 12/21/2024 Staff Ordering Physician: Fernando Lerma MD Time Clerk: Padmini Garrido RDCS Attending Provider: Fernando Lerma MD Referring Physician: Maria Guadalupe MARTI; Exam Type: CA echo limited Study Info Indications - Elevated BNP Limited two-dimensional transthoracic echocardiogram is performed. Reason for Poor Study: poor patient cooperation Summary 1. Very technically difficult study with limited views. 2. Left ventricular chamber dimension is normal. 3. Left ventricular systolic function is normal, estimated at >70%. 4. Right ventricular systolic function is normal. 5. There is mild tricuspid valve regurgitation. Left Ventricle Left ventricular chamber dimension is normal. Left ventricular systolic function is normal, estimated at >70%. Right Ventricle Right ventricular chamber dimension is normal. Right ventricular systolic function is normal. Left Atria Left atrial chamber dimension is normal. Right Atria Right atrial chamber dimension is normal. Atrial Septum Intact interatrial septum visualized by color flow imaging. Aortic Valve The aortic valve is not well visualized. There is no aortic valve regurgitation. Pulmonic Valve The pulmonic valve is not well visualized. Mitral Valve The mitral valve annulus is moderately calcified. Tricuspid Valve There is mild tricuspid valve regurgitation. Pericardium/Pleural There is no pericardial effusion. Inferior Vena Cava Inferior vena cava is not well visualized. Aorta The aortic root size at the sinus of Valsalva is normal. Left Ventricular Outflow Tract Name Value Normal LVOT 2D LVOT Diameter 1.8 cm Aortic Valve Name Value Normal AV Regurgitation 2D LVOT Area 2.6 cm2 Ventricles Name Value Normal LV Dimensions 2D/MM LVOT Diameter 1.8 cm Report Signatures
--- NOTE | 2024-12-21 00:44 | PC.NURSE ---
[facility] updated on pt admit diagnosis.
[2024-12-21] MEDS: SODIUM CHLORIDE 0.9% IV 1,000 ML 100 ML IV CONT ×2 (01:54→15:11)
[2024-12-21 05:55] LABS: Basophils Percent Auto 0.4 % (0.2-1.2); Hematocrit 35.3 % (37.0-47.0); Hemoglobin 11.3 g/dL (12.0-15.0); Immature Granulocyte Absolute 0.03 K/mm3 (0.00-0.031); Immature Granulocyte Percent A 0.4 % (0-0.5); Lymphocytes Absolute Auto 0.82 K/mm3 (0.9-3.2); Lymphocytes Percent Auto 10.2 % (18.3-44.2); Mean Corpuscular Hemoglobin 26.9 pg (26-34); Monocytes Absolute Auto 0.5 K/mm3 (0.1-0.6); Monocytes Percent Auto 5.9 % (2.6-8.5); Neutrophils Absolute Auto 6.7 K/mm3 (1.3-6.7); Neutrophils Percent Auto 83.1 % (45.5-73.1); Platelet Count Result 136 k/mm3 (150-375); Red Cell Distribution Width 16.6 % (11.5-14.5); White Blood Count 8.1 K/mm3 (4.5-10.0)
--- NOTE | 2024-12-21 06:00 | PC.NURSE ---
notified pt's BP is 195/96. Waiting on new orders at this time.
[2024-12-21 06:12] LABS: Alanine Aminotransferase 55 U/L (6-35); Albumin Level 3.4 g/dL (3.5-5.1); Alkaline Phosphatase 123 U/L (38-126); Anion Gap 11 mmol/L (4-12); Aspartate Amino Transferase 59 U/L (14-36); Bilirubin,Total 0.7 mg/dL (0.2-1.3); Blood Urea Nitrogen 17 mg/dL (7-17); Calcium 8.8 mg/dL (8.4-10.2); Carbon Dioxide 24 mmol/L (22-30); Chloride 106 mmol/L (98-107); Estimated CRCL calculation 51 ml/min; Estimated Glomerular Filt Rate > 60; Glucose 102 mg/dL (65-110); Potassium 3.5 mmol/L (3.4-5.0); Sodium 141 mmol/L (137-145)
[2024-12-21] MEDS: hydrALAZINE HCL 20 MG/ML VIAL 10 MG IV PUSH (07:26)
[2024-12-21] MEDS: ACETAMINOPHEN 325 MG TABLET 650 MG PO ×2 (08:39→20:43)
[2024-12-21] MEDS: HEPARIN SODIUM 5,000 UNITS/ML VIAL 5000 UNITS SUB-Q ×2 (09:34→20:44)
--- NOTE | 2024-12-21 11:01 | ADMGEN ---
This patient, Yesenia Mcdonough, was admitted to [facility] Surg Room 303-01. Patient/family oriented to hospital policies and general routines including ID bracelet, bed and alarms, visiting hours, pain management, procedures, bathroom and other care routines, personal items, smoking policy, room service/diet, and visiting hours. Information on how to activate the Rapid Response Team has been discussed. Patient/Family are encouraged to report perceived risks to care and to ask questions if they do not understand what they are told or what they should do.
--- NOTE | 2024-12-21 11:04 | ADMGEN ---
This patient, Yesenia Mcdonough, was admitted to [facility] Surg Room 303-01. Patient/family oriented to hospital policies and general routines including ID bracelet, bed and alarms, visiting hours, pain management, procedures, bathroom and other care routines, personal items, smoking policy, room service/diet, and visiting hours. Information on how to activate the Rapid Response Team has been discussed. Patient/Family are encouraged to report perceived risks to care and to ask questions if they do not understand what they are told or what they should do.
[2024-12-21] MEDS: MELOXICAM 7.5 MG TABLET PO (11:53)
[2024-12-21] MEDS: CLOPIDOGREL BISULFATE 75 MG TABLET PO (11:54)
[2024-12-21] MEDS: SERTRALINE HCL 25 MG TABLET 125 MG PO (11:54)
[2024-12-21] MEDS: MIRTAZAPINE 15 MG TABLET PO (11:54)
[2024-12-21] MEDS: DULoxetine HCL 60 MG CAPSULE.DR PO (11:54)
[2024-12-21] MEDS: FOLIC ACID 1 MG TABLET PO (11:55)
[2024-12-21] MEDS: VITAMIN B COMPLEX CAPSULE 1 CAP PO (11:55)
[2024-12-21] MEDS: FLUDROCORTISONE ACETATE 0.1 MG TABLET PO (12:11)
[2024-12-21] MEDS: busPIRone HCL 5 MG TABLET 15 MG PO ×2 (12:11→16:25)
[2024-12-21] MEDS: CARBIDOPA/LEVODOPA 10/100 MG TABLET 2 TABLET PO ×2 (12:11→16:25)
--- NOTE | 2024-12-21 14:38 | P.PNIM_ITS ---
Progress Note: A&P Assessment and Plan (1) Acute hypoxemic respiratory failure: Code(s): J96.01 - Acute respiratory failure with hypoxia Status: Acute (2) Influenza: Code(s): J11.1 - Influenza due to unidentified influenza virus with other respiratory manifestations Status: Acute (3) Acute metabolic encephalopathy: Code(s): G93.41 - Metabolic encephalopathy Status: Acute Plan Acute and principal conditions 1. Acute hypoxic respiratory failure 2. Influenza A infection 3. Acute metabolic encephalopathy 4. Left maxillary sinusitis 5. Elevated BNP Rx: A. IVFs; B. Falls and safety precautions C. IS; Supplemental oxygen with wean as tolerated D. ECHO- pending E. PT/OT once more alert and able to follow commands Chronic and stable conditions 1. Sedentary status. 2. Dementia. 3. Parkinson's disease 4. Recurrent depression with anxiety. 5. Dyslipidemia. 1. Code status: DNR 2. VTE prophylaxis. SCDs; EVE 3. Nutrition. Heart healthy Subjective Date/time seen: 12/21/24 14:38 Interval history: Yesenia Mcdonough is an 84F with a mHx significant for dementia, parkinson's disease, anxiety, depression, dyslipidemia and a sedentary status admitted for fatigue and AMS. A resident of [facility]), she was brought in to the ED due to concerns for a worsening mentation compared to baseline; with no known modifying factors, her symptoms are associated with anorexia, malaise, dyspnea and a poor alertness. There were no associated symptoms of falls, vomiting, diarrhea, skin/joint changes, headaches, cough, PND or orthopnea. She does not smoke/chew tobacco, drink alcohol or consume recreational/illicit drugs. Work-up findings: Chest CTA: No CT evidence of acute pulmonary embolus. No acute process detected in the chest. Head CT: No acute intracranial process. Findings suggestive of left maxillary sinusitis. CXR: Unremarkable PLT 147 WBC 6.4 Hb 12 Influenza A+ Troponin: 0.025 BNP 1320 CRP 6.4 UA: Unremarkable Pt is admitted for acute metabolic encephalopathy with influenza A with hypoxia. Pt is resting with eyes closed, in no resp distress. 2l per [place] Review of Systems Review of Systems: confused ROS unobtainable: Yes unobtainable due to mental status Exam Const: General: comfortable; No no acute distress Other: resting in bed HENMT: Face/Nose/Sinus: Normal nares present Eyes: Sclera: sclerae normal Pupils: Equal, round and reactive pupils present Neck: Neck: supple Resp: Effort & Inspection: normal respiratory effort Cardio: Rate: tachycardic Rhythm: abnormal rhythm Skin: General skin exam: normal color, No lesion and No rashes Lesions: no lesions noted Rashes: no rashes noted Neuro: General: deep tendon reflexes 2+ bilaterally Cranial nerves: Yes Equal, round and reactive pupils present Extrem: General: normal to inspection Psych: Mental Status: mental status grossly abnormal Objective Data Vital Signs Vital Signs: Vital Signs - 24 hr 12/20/24 17:57 12/20/24 17:57 12/20/24 18:09 Temperature 98.7 F Pulse Rate 109 H 109 H Respiratory Rate 25 H 25 H Blood Pressure 187/101 H 187/100 H Pulse Oximetry 94 94 94 Oxygen Delivery Nasal Cannula Nasal Cannula Oxygen Flow Rate 2 2 2 12/20/24 18:10 12/20/24 18:11 12/20/24 18:22 Temperature Pulse Rate 108 H 107 H 109 H Respiratory Rate 21 H 34 H Blood Pressure Pulse Oximetry 94 Oxygen Delivery Oxygen Flow Rate 12/20/24 18:26 12/20/24 18:30 12/20/24 18:38 Temperature Pulse Rate 107 H 103 H 95 Respiratory Rate 31 H 29 H 25 H Blood Pressure 175/95 H 182/88 H Pulse Oximetry 93 95 Oxygen Delivery Oxygen Flow Rate 12/20/24 18:46 12/20/24 19:02 12/20/24 19:08 Temperature Pulse Rate 95 94 95 Respiratory Rate 22 H 31 H 29 H Blood Pressure 171/94 H Pulse Oximetry 99 97 Oxygen Delivery Oxygen Flow Rate 12/20/24 19:38 12/20/24 19:39 12/20/24 19:40 Temperature Pulse Rate 99 98 Respiratory Rate 22 H 26 H Blood Pressure 157/110 H Pulse Oximetry 95 94 95 Oxygen Delivery Nasal Cannula Oxygen Flow Rate 2 12/20/24 19:45 12/20/24 20:00 12/20/24 20:01 Temperature Pulse Rate 99 99 98 Respiratory Rate 28 H 22 H 20 Blood Pressure 160/94 H Pulse Oximetry Oxygen Delivery Oxygen Flow Rate 12/20/24 20:15 12/20/24 20:30 12/20/24 20:31 Temperature Pulse Rate 97 98 100 Respiratory Rate 24 H 26 H 23 H Blood Pressure 165/70 H Pulse Oximetry Oxygen Delivery Oxygen Flow Rate 12/20/24 20:46 12/20/24 21:00 12/20/24 21:02 Temperature Pulse Rate 99 101 H 101 H Respiratory Rate 24 H 27 H 25 H Blood Pressure 161/81 H Pulse Oximetry Oxygen Delivery Oxygen Flow Rate 12/20/24 21:33 12/20/24 21:34 12/20/24 21:45 Temperature Pulse Rate 96 95 95 Respiratory Rate 27 H 23 H 24 H Blood Pressure 149/98 H Pulse Oximetry 93 100 100 Oxygen Delivery Oxygen Flow Rate 12/20/24 22:00 12/20/24 22:01 12/20/24 22:15 Temperature Pulse Rate 96 96 95 Respiratory Rate 23 H 21 H 24 H Blood Pressure 166/77 H Pulse Oximetry 99 100 99 Oxygen Delivery Oxygen Flow Rate 12/20/24 22:34 12/20/24 22:45 12/20/24 23:00 Temperature Pulse Rate 102 H 98 98 Respiratory Rate 24 H 25 H 19 Blood Pressure Pulse Oximetry 100 100 Oxygen Delivery Oxygen Flow Rate 12/20/24 23:01 12/20/24 23:15 12/20/24 23:30 Temperature Pulse Rate 100 99 98 Respiratory Rate 27 H 23 H 25 H Blood Pressure 145/94 H Pulse Oximetry Oxygen Delivery Oxygen Flow Rate 12/20/24 23:31 12/20/24 23:45 12/21/24 00:02 Temperature Pulse Rate 99 101 H 100 Respiratory Rate 26 H 25 H 26 H Blood Pressure 152/92 H Pulse Oximetry Oxygen Delivery Oxygen Flow Rate 12/21/24 00:15 12/21/24 00:38 12/21/24 00:58 Temperature Pulse Rate 98 97 100 Respiratory Rate 25 H 23 H 24 H Blood Pressure Pulse Oximetry Oxygen Delivery Oxygen Flow Rate 12/21/24 01:00 12/21/24 01:01 12/21/24 01:15 Temperature Pulse Rate 96 98 99 Respiratory Rate 23 H 27 H 26 H Blood Pressure 175/96 H Pulse Oximetry Oxygen Delivery Oxygen Flow Rate 12/21/24 01:58 12/21/24 02:00 12/21/24 02:01 Temperature Pulse Rate 99 99 98 Respiratory Rate 34 H 36 H 32 H Blood Pressure 175/97 H Pulse Oximetry Oxygen Delivery Oxygen Flow Rate 12/21/24 02:02 12/21/24 07:00 12/21/24 07:25 Temperature Pulse Rate 96 97 96 Respiratory Rate 25 H 20 24 H Blood Pressure 208/81 H 201/90 H Pulse Oximetry 97 97 Oxygen Delivery Oxygen Flow Rate 12/21/24 08:00 12/21/24 08:30 12/21/24 09:10 Temperature Pulse Rate 99 100 95 Respiratory Rate 22 H 22 H 22 H Blood Pressure 164/79 H 146/90 H 124/63 Pulse Oximetry 98 98 98 Oxygen Delivery Oxygen Flow Rate 12/21/24 09:30 12/21/24 10:20 12/21/24 11:09 Temperature 97.9 F Pulse Rate 92 100 99 Respiratory Rate 22 H 26 H 18 Blood Pressure 138/65 127/68 134/73 Pulse Oximetry 96 95 95 Oxygen Delivery Oxygen Flow Rate 12/21/24 11:29 12/21/24 12:00 Temperature Pulse Rate 101 H Respiratory Rate Blood Pressure Pulse Oximetry 95 Oxygen Delivery Nasal Cannula Oxygen Flow Rate 2 Intake/Output Intake/Output: Intake & Output 12/18/24 12/19/24 12/20/24 12/21/24 23:59 23:59 23:59 23:59 Intake Total 1000 Output Total 125 Balance 875 Meds/Results Medications: Active Medications Generic Name Dose Route Start Last Admin Trade Name Freq PRN Reason Stop Dose Admin Acetaminophen 650 mg 12/21/24 00:35 12/21/24 08:39 Acetaminophen 325 Mg Tablet PO 650 mg Q4H PRN Administration Mild Pain (1-3) or Fever Albuterol/Ipratropium 3 ml 12/21/24 00:35 Ipratropium 0.5 Mg/Albuterol Sulfate 2.5 Mg Ampul.Neb 3 Ml INHALATION Q4HRT PRN shortness of breath/Wheezing Alprazolam 0.5 mg 12/21/24 17:00 Alprazolam (*Crx) 0.5 Mg Tablet PO BID EVE Atorvastatin Calcium 40 mg 12/22/24 09:00 Atorvastatin 40 Mg Tablet PO DAILY EVE Buspirone HCl 15 mg 12/21/24 13:00 12/21/24 12:11 Buspirone Hcl 5 Mg Tablet PO 15 mg TID EVE Administration Carbidopa/Levodopa 2 tablet 12/21/24 13:00 12/21/24 12:11 Carbidopa/Levodopa 10/100 Mg Tablet PO 2 tablet TID EVE Administration Clopidogrel Bisulfate 75 mg 12/21/24 12:00 12/21/24 11:54 Clopidogrel Bisulfate 75 Mg Tablet PO 75 mg DAILY EVE Administration Duloxetine HCl 60 mg 12/21/24 12:00 12/21/24 11:54 Duloxetine Hcl 60 Mg Capsule.Dr PO 60 mg DAILY EVE Administration Fludrocortisone Acetate 0.1 mg 12/21/24 12:00 12/21/24 12:11 Fludrocortisone Acetate 0.1 Mg Tablet PO 0.1 mg DAILY EVE Administration Folic Acid 1 mg 12/21/24 12:00 12/21/24 11:55 Folic Acid 1 Mg Tablet PO 1 mg DAILY EVE Administration Guaifenesin/Dextromethorphan 10 ml 12/21/24 00:35 Guaifenesin/Dextromethorphan 10 Ml Udc PO Q4H PRN Cough Heparin Sodium (Porcine) 5,000 units 12/21/24 09:00 12/21/24 09:34 Heparin Sodium 5,000 Units/Ml Vial SUB-Q 5,000 units Q12HR EVE Administration Hydralazine HCl 10 mg 12/21/24 05:56 12/21/24 07:26 Hydralazine Hcl 20 Mg/Ml Vial IV PUSH 10 mg Q8H PRN Administration Blood Pressure > 150 Sodium Chloride 1,000 mls @ 100 mls/hr 12/21/24 00:35 12/21/24 01:54 Normal Saline Iv IV CONT 100 mls/hr .Q10H EVE Administration Meloxicam 7.5 mg 12/21/24 12:00 12/21/24 11:53 Meloxicam 7.5 Mg Tablet PO 7.5 mg DAILY EVE Administration Mirtazapine 15 mg 12/21/24 12:00 12/21/24 11:54 Mirtazapine 15 Mg Tablet PO 15 mg DAILY EVE Administration Perflutren Lipid Microsphere 0 ml 12/21/24 01:26 Perflutren Lipid Microspheres 1.5 Ml Vial Diluted To 10 Ml Total Volume IV PUSH 12/24/24 01:26 ONCE PRN adequate visualization Protocol Prochlorperazine Edisylate 10 mg 12/21/24 00:35 Prochlorperazine Edisylate 10 Mg/2 Ml Vial IV PUSH Q6H PRN Nausea And Vomiting Sertraline HCl 125 mg 12/21/24 12:00 12/21/24 11:54 Sertraline Hcl 25 Mg Tablet PO 125 mg DAILY EVE Administration Vitamin B Complex 1 cap 12/21/24 12:00 12/21/24 11:55 Vitamin B Complex Capsule PO 1 cap DAILY EVE Administration Vitamin D 2,000 units 12/22/24 09:00 Cholecalciferol 1,000 Units Tablet PO DAILY [facility] Radiology Results: ITS Impressions Chest X-Ray 12/20/24 18:42 IMPRESSION: No acute cardiopulmonary process. Head CT 12/20/24 19:02 IMPRESSION: No acute intracranial process. CT findings suggestive of left maxillary sinusitis. Chest CTA 12/20/24 21:44 IMPRESSION: No CT evidence of acute pulmonary embolus. No acute process detected in the chest. Labs Labs: Laboratory Results - last 24 hr 12/20/24 12/20/24 12/20/24 18:02 18:22 19:36 WBC 6.4 RBC 4.56 Hgb 12.1 Hct 37.4 MCV 82.0 MCH 26.5 MCHC 32.4 RDW 16.7 H Plt Count 147 L MPV 11.7 H Immature Gran % (Auto) 0.5 Neut % (Auto) 82.4 H Lymph % (Auto) 8.2 L [place] % (Auto) 5.3 Eos % (Auto) 3.0 Baso % (Auto) 0.6 Lymph # (Auto) 0.52 L [place] # (Auto) 0.3 Eos # (Auto) 0.2 Baso # (Auto) 0.0 Abs Immat Gran (auto) 0.03 Absolute Neuts (auto) 5.3 Absolute Nucleated RBC 0.000 Nucleated RBC % 0.0 PT 15.8 H INR 1.2 APTT 32.7 Sodium 139 Potassium 3.6 Chloride 103 Carbon Dioxide 24 Anion Gap 12 BUN 18 H Creatinine 0.63 L Estim Creat Clear Calc 44 Estimated GFR > 60 Glucose 104 POC Capillary Glucose 102 Lactic Acid 0.9 Calcium 9.1 Total Bilirubin 0.9 AST 60 H ALT 26 Alkaline Phosphatase 142 H Troponin I 0.025 C-Reactive Protein 6.4 H NT-Pro-B Natriuret Pep 1320 H Total Protein 8.0 Albumin 4.1 Urine Color Yellow Urine Appearance Clear Urine pH 6.0 Ur Specific [place] 1.020 Urine Protein 1+ H Urine Glucose (UA) Negative Urine Ketones 2+ H Ur Blood (Man) Negative Urine Nitrate Negative Urine Bilirubin Negative Urine Urobilinogen 1.0 Leukocyte Esterase Rfl Negative Urine RBC 0-2 Urine WBC 0-5 Ur Squamous Epith Cells None seen Urine Bacteria None seen Urine Casts 0-2 Influenza A (RT-PCR) Positive A Influenza B (RT-PCR) Negative RSV (RT-PCR) Negative SARS-CoV-2 RNA (RT-PCR) Negative 12/21/24 05:40 WBC 8.1 RBC 4.20 Hgb 11.3 L Hct 35.3 L MCV 84.0 MCH 26.9 MCHC 32.0 RDW 16.6 H Plt Count 136 L MPV 12.0 H Immature Gran % (Auto) 0.4 Neut % (Auto) 83.1 H Lymph % (Auto) 10.2 L [place] % (Auto) 5.9 Eos % (Auto) 0.0 Baso % (Auto) 0.4 Lymph # (Auto) 0.82 L [place] # (Auto) 0.5 Eos # (Auto) 0.0 Baso # (Auto) 0.0 Abs Immat Gran (auto) 0.03 Absolute Neuts (auto) 6.7 Absolute Nucleated RBC 0.000 Nucleated RBC % 0.0 PT INR APTT Sodium 141 Potassium 3.5 Chloride 106 Carbon Dioxide 24 Anion Gap 11 BUN 17 Creatinine 0.53 L Estim Creat Clear Calc 51 Estimated GFR > 60 Glucose 102 POC Capillary Glucose Lactic Acid Calcium 8.8 Total Bilirubin 0.7 AST 59 H ALT 55 H Alkaline Phosphatase 123 Troponin I C-Reactive Protein NT-Pro-B Natriuret Pep Total Protein 7.0 Albumin 3.4 L Urine Color Urine Appearance Urine pH Ur Specific [place] Urine Protein Urine Glucose (UA) Urine Ketones Ur Blood (Man) Urine Nitrate Urine Bilirubin Urine Urobilinogen Leukocyte Esterase Rfl Urine RBC Urine WBC Ur Squamous Epith Cells Urine Bacteria Urine Casts Influenza A (RT-PCR) Influenza B (RT-PCR) RSV (RT-PCR) SARS-CoV-2 RNA (RT-PCR)
[2024-12-21] MEDS: ALPRAZolam (*CRX) 0.5 MG TABLET PO (16:25)
[2024-12-21] MEDS: guaiFENesin/DEXTROMETHORPHAN 10 ML UDC PO (20:43)
[2024-12-22] VITALS (10 sets, daily range): BP systolic 128–152; BP diastolic 61–84; PULSE 74–117; RESP 14–16; TEMP 36.3–37.4; O2SAT 93–97
[2024-12-22] MEDS: SODIUM CHLORIDE 0.9% IV 1,000 ML 100 ML IV CONT (00:39)
[2024-12-22 06:41] LABS: Basophils Percent Auto 0.2 % (0.2-1.2); Eosinophils Absolute Auto 0.1 K/mm3 (0-0.3); Eosinophils Percent Auto 0.9 % (0-4.4); Hematocrit 32.3 % (37.0-47.0); Hemoglobin 10.3 g/dL (12.0-15.0); Immature Granulocyte Absolute 0.02 K/mm3 (0.00-0.031); Immature Granulocyte Percent A 0.4 % (0-0.5); Lymphocytes Absolute Auto 0.79 K/mm3 (0.9-3.2); Lymphocytes Percent Auto 13.9 % (18.3-44.2); Mean Corpuscular HGB Conc 31.9 g/dl (32-36); Mean Corpuscular Hemoglobin 26.5 pg (26-34); Mean Platelet Volume 11.8 fl (7.4-10.4); Monocytes Absolute Auto 0.3 K/mm3 (0.1-0.6); Monocytes Percent Auto 5.8 % (2.6-8.5); Neutrophils Absolute Auto 4.5 K/mm3 (1.3-6.7); Neutrophils Percent Auto 78.8 % (45.5-73.1); Platelet Count Result 103 k/mm3 (150-375); Red Blood Count 3.89 M/mm3 (4.2-5.4); Red Cell Distribution Width 16.7 % (11.5-14.5); White Blood Count 5.7 K/mm3 (4.5-10.0)
[2024-12-22 06:56] LABS: Alanine Aminotransferase 52 U/L (6-35); Albumin Level 2.8 g/dL (3.5-5.1); Alkaline Phosphatase 98 U/L (38-126); Anion Gap 6 mmol/L (4-12); Aspartate Amino Transferase 62 U/L (14-36); Bilirubin,Total 0.5 mg/dL (0.2-1.3); Blood Urea Nitrogen 16 mg/dL (7-17); Calcium 8.1 mg/dL (8.4-10.2); Carbon Dioxide 26 mmol/L (22-30); Chloride 110 mmol/L (98-107); Estimated CRCL calculation 64 ml/min; Estimated Glomerular Filt Rate > 60; Glucose 98 mg/dL (65-110); Potassium 2.9 mmol/L (3.4-5.0); Sodium 142 mmol/L (137-145)
[2024-12-22] MEDS: HEPARIN SODIUM 5,000 UNITS/ML VIAL 5000 UNITS SUB-Q ×2 (08:51→21:56)
[2024-12-22] MEDS: SERTRALINE HCL 25 MG TABLET 125 MG PO (08:51)
[2024-12-22] MEDS: CHOLECALCIFEROL 1,000 UNITS TABLET 2000 UNITS PO (08:53)
[2024-12-22] MEDS: busPIRone HCL 5 MG TABLET 15 MG PO ×3 (08:53→17:41)
[2024-12-22] MEDS: CARBIDOPA/LEVODOPA 10/100 MG TABLET 2 TABLET PO ×3 (08:54→17:41)
[2024-12-22] MEDS: MELOXICAM 7.5 MG TABLET PO (08:54)
[2024-12-22] MEDS: FOLIC ACID 1 MG TABLET PO (08:54)
[2024-12-22] MEDS: VITAMIN B COMPLEX CAPSULE 1 CAP PO (08:54)
[2024-12-22] MEDS: FLUDROCORTISONE ACETATE 0.1 MG TABLET PO (08:54)
[2024-12-22] MEDS: ALPRAZolam (*CRX) 0.5 MG TABLET PO ×2 (08:54→17:41)
[2024-12-22] MEDS: DULoxetine HCL 60 MG CAPSULE.DR PO (08:54)
[2024-12-22] MEDS: MIRTAZAPINE 15 MG TABLET PO (08:54)
[2024-12-22] MEDS: CLOPIDOGREL BISULFATE 75 MG TABLET PO (08:54)
[2024-12-22] MEDS: ATORVASTATIN 40 MG TABLET PO (08:54)
[2024-12-22] MEDS: SODIUM CHLORIDE 0.9% IV 1,000 ML 75 ML IV CONT ×2 (10:44→21:54)
--- NOTE | 2024-12-22 15:16 | PM.IMPN ---
Progress Note: A&P Assessment and Plan (1) Acute hypoxemic respiratory failure: Code(s): J96.01 - Acute respiratory failure with hypoxia Status: Acute (2) Influenza: Code(s): J11.1 - Influenza due to unidentified influenza virus with other respiratory manifestations Status: Acute (3) Acute metabolic encephalopathy: Code(s): G93.41 - Metabolic encephalopathy Status: Acute Plan Acute and principal conditions 1. Acute hypoxic respiratory failure 2. Influenza A infection 3. Acute metabolic encephalopathy 4. Left maxillary sinusitis 5. Elevated BNP Rx: A. IVFs; B. Falls and safety precautions C. IS; Supplemental oxygen with wean as tolerated D. ECHO- pending E. PT/OT once more alert and able to follow commands Chronic and stable conditions 1. Sedentary status. 2. Dementia. 3. Parkinson's disease 4. Recurrent depression with anxiety. 5. Dyslipidemia. 1. Code status: DNR 2. VTE prophylaxis. SCDs; EVE 3. Nutrition. Heart healthy- help with feeding. Time Spent With Patient Time with patient: 25 - 35 minutes Subjective Date/time seen: 12/22/24 15:16 Interval history: Yesenia Mcdonough is an 84F with a mHx significant for dementia, parkinson's disease, anxiety, depression, dyslipidemia and a sedentary status admitted for fatigue and AMS. A resident of [facility] ([facility]), she was brought in to the ED due to concerns for a worsening mentation compared to baseline; with no known modifying factors, her symptoms are associated with anorexia, malaise, dyspnea and a poor alertness. There were no associated symptoms of falls, vomiting, diarrhea, skin/joint changes, headaches, cough, PND or orthopnea. She does not smoke/chew tobacco, drink alcohol or consume recreational/illicit drugs. Work-up findings: Chest CTA: No CT evidence of acute pulmonary embolus. No acute process detected in the chest. Head CT: No acute intracranial process. Findings suggestive of left maxillary sinusitis. CXR: Unremarkable PLT 147 WBC 6.4 Hb 12 Influenza A+ Troponin: 0.025 BNP 1320 CRP 6.4 UA: Unremarkable Pt is admitted for acute metabolic encephalopathy with influenza A with hypoxia. Pt is resting with eyes closed, in no resp distress. 2l per [place] 12/22- still drowsy but was able to take meds. confused. able to wean her off oxygen. Review of Systems Review of Systems: confused ROS unobtainable: Yes unobtainable due to mental status Exam Const: General: comfortable; No no acute distress Other: resting in bed HENMT: Face/Nose/Sinus: Normal nares present Eyes: Sclera: sclerae normal Pupils: Equal, round and reactive pupils present Neck: Neck: supple Resp: Effort & Inspection: normal respiratory effort Cardio: Rate: tachycardic Rhythm: abnormal rhythm Skin: General skin exam: normal color, No lesion and No rashes Lesions: no lesions noted Rashes: no rashes noted Neuro: General: deep tendon reflexes 2+ bilaterally Cranial nerves: Yes Equal, round and reactive pupils present Extrem: General: normal to inspection Psych: Mental Status: mental status grossly abnormal Objective Data Vital Signs Vital Signs: Vital Signs - 24 hr 12/21/24 16:00 12/21/24 16:29 12/21/24 20:00 Temperature Pulse Rate 95 Respiratory Rate Blood Pressure Pulse Oximetry 94 Oxygen Delivery Room Air Room Air 12/21/24 20:00 12/21/24 21:05 12/22/24 00:00 Temperature 99.6 F Pulse Rate 105 H 100 117 H Respiratory Rate 16 Blood Pressure 155/75 H Pulse Oximetry 94 Oxygen Delivery 12/22/24 04:00 12/22/24 05:35 12/22/24 08:00 Temperature 98.9 F Pulse Rate 106 H 74 74 Respiratory Rate 16 Blood Pressure 152/84 H Pulse Oximetry 94 Oxygen Delivery 12/22/24 08:20 12/22/24 12:00 12/22/24 14:00 Temperature 97.4 F L Pulse Rate 86 92 Respiratory Rate 15 Blood Pressure 128/71 Pulse Oximetry 95 93 Oxygen Delivery Room Air Intake/Output Intake/Output: Intake & Output 12/19/24 12/20/24 12/21/24 12/22/24 23:59 23:59 23:59 23:59 Intake Total 1000 1357 2206.7 Output Total 125 500 Balance 875 1357 1706.7 Meds/Results Medications: Active Medications Generic Name Dose Route Start Last Admin Trade Name Freq PRN Reason Stop Dose Admin Acetaminophen 650 mg 12/21/24 00:35 12/21/24 20:43 Acetaminophen 325 Mg Tablet PO 650 mg Q4H PRN Administration Mild Pain (1-3) or Fever Albuterol/Ipratropium 3 ml 02/26/25 00:35 Ipratropium 0.5 Mg/Albuterol Sulfate 2.5 Mg Ampul.Neb 3 Ml INHALATION Q4HRT PRN shortness of breath/Wheezing Alprazolam 0.5 mg 12/21/24 17:00 12/22/24 08:54 Alprazolam (*Crx) 0.5 Mg Tablet PO 0.5 mg BID EVE Administration Atorvastatin Calcium 40 mg 12/22/24 09:00 12/22/24 08:54 Atorvastatin 40 Mg Tablet PO 40 mg DAILY EVE Administration Buspirone HCl 15 mg 12/21/24 13:00 12/22/24 12:34 Buspirone Hcl 5 Mg Tablet PO 15 mg TID EVE Administration Carbidopa/Levodopa 2 tablet 12/21/24 13:00 12/22/24 12:34 Carbidopa/Levodopa 10/100 Mg Tablet PO 2 tablet TID EVE Administration Clopidogrel Bisulfate 75 mg 12/21/24 12:00 12/22/24 08:54 Clopidogrel Bisulfate 75 Mg Tablet PO 75 mg DAILY EVE Administration Duloxetine HCl 60 mg 12/21/24 12:00 12/22/24 08:54 Duloxetine Hcl 60 Mg Capsule.Dr PO 60 mg DAILY EVE Administration Fludrocortisone Acetate 0.1 mg 12/21/24 12:00 12/22/24 08:54 Fludrocortisone Acetate 0.1 Mg Tablet PO 0.1 mg DAILY EVE Administration Folic Acid 1 mg 12/21/24 12:00 12/22/24 08:54 Folic Acid 1 Mg Tablet PO 1 mg DAILY EVE Administration Guaifenesin/Dextromethorphan 10 ml 12/21/24 00:35 12/21/24 20:43 Guaifenesin/Dextromethorphan 10 Ml Udc PO 10 ml Q4H PRN Administration Cough Heparin Sodium (Porcine) 5,000 units 12/21/24 09:00 12/22/24 08:51 Heparin Sodium 5,000 Units/Ml Vial SUB-Q 5,000 units Q12HR EVE Administration Hydralazine HCl 10 mg 12/21/24 05:56 12/21/24 07:26 Hydralazine Hcl 20 Mg/Ml Vial IV PUSH 10 mg Q8H PRN Administration Blood Pressure > 150 Sodium Chloride 1,000 mls @ 75 mls/hr 12/21/24 00:35 12/22/24 10:44 Normal Saline Iv IV CONT 75 mls/hr .[id number] EVE Administration Meloxicam 7.5 mg 12/21/24 12:00 12/22/24 08:54 Meloxicam 7.5 Mg Tablet PO 7.5 mg DAILY EVE Administration Mirtazapine 15 mg 12/21/24 12:00 12/22/24 08:54 Mirtazapine 15 Mg Tablet PO 15 mg DAILY EVE Administration Perflutren Lipid Microsphere 0 ml 12/21/24 01:26 Perflutren Lipid Microspheres 1.5 Ml Vial Diluted To 10 Ml Total Volume IV PUSH 12/24/24 01:26 ONCE PRN adequate visualization Protocol Prochlorperazine Edisylate 10 mg 12/21/24 00:35 Prochlorperazine Edisylate 10 Mg/2 Ml Vial IV PUSH Q6H PRN Nausea And Vomiting Sertraline HCl 125 mg 12/21/24 12:00 12/22/24 08:51 Sertraline Hcl 25 Mg Tablet PO 125 mg DAILY EVE Administration Vitamin B Complex 1 cap 12/21/24 12:00 12/22/24 08:54 Vitamin B Complex Capsule PO 1 cap DAILY EVE Administration Vitamin D 2,000 units 12/22/24 09:00 12/22/24 08:53 Cholecalciferol 1,000 Units Tablet PO 2,000 units DAILY EVE Administration Radiology Results: ITS Impressions Chest X-Ray 12/20/24 18:42 IMPRESSION: No acute cardiopulmonary process. Head CT 12/20/24 19:02 IMPRESSION: No acute intracranial process. CT findings suggestive of left maxillary sinusitis. Chest CTA 12/20/24 21:44 IMPRESSION: No CT evidence of acute pulmonary embolus. No acute process detected in the chest. Labs Labs: Laboratory Results - last 24 hr 12/22/24 05:56 WBC 5.7 RBC 3.89 L Hgb 10.3 L Hct 32.3 L MCV 83.0 MCH 26.5 MCHC 31.9 L RDW 16.7 H Plt Count 103 L MPV 11.8 H Immature Gran % (Auto) 0.4 Neut % (Auto) 78.8 H Lymph % (Auto) 13.9 L [place] % (Auto) 5.8 Eos % (Auto) 0.9 Baso % (Auto) 0.2 Lymph # (Auto) 0.79 L [place] # (Auto) 0.3 Eos # (Auto) 0.1 Baso # (Auto) 0.0 Abs Immat Gran (auto) 0.02 Absolute Neuts (auto) 4.5 Absolute Nucleated RBC 0.000 Nucleated RBC % 0.0 % Immature Plt Fraction 4.0 Sodium 142 Potassium 2.9 L Chloride 110 H Carbon Dioxide 26 Anion Gap 6 BUN 16 Creatinine 0.49 L Estim Creat Clear Calc 64 Estimated GFR > 60 Glucose 98 Calcium 8.1 L Total Bilirubin 0.5 AST 62 H ALT 52 H Alkaline Phosphatase 98 Total Protein 6.0 L Albumin 2.8 L
[2024-12-23] VITALS (9 sets, daily range): BP systolic 114–171; BP diastolic 59–75; PULSE 81–90; RESP 18–24; TEMP 36.3–37.4; O2SAT 92–97
[2024-12-23 06:19] LABS: Basophils Percent Auto 0.2 % (0.2-1.2); Eosinophils Absolute Auto 0.1 K/mm3 (0-0.3); Eosinophils Percent Auto 3.1 % (0-4.4); Hematocrit 28.7 % (37.0-47.0); Hemoglobin 9.1 g/dL (12.0-15.0); Immature Granulocyte Absolute 0.01 K/mm3 (0.00-0.031); Immature Granulocyte Percent A 0.2 % (0-0.5); Lymphocytes Absolute Auto 0.84 K/mm3 (0.9-3.2); Lymphocytes Percent Auto 20.1 % (18.3-44.2); Mean Corpuscular HGB Conc 31.7 g/dl (32-36); Mean Corpuscular Hemoglobin 26.7 pg (26-34); Mean Corpuscular Volume 84.2 fl (80-100); Monocytes Absolute Auto 0.3 K/mm3 (0.1-0.6); Monocytes Percent Auto 6.9 % (2.6-8.5); Neutrophils Absolute Auto 2.9 K/mm3 (1.3-6.7); Neutrophils Percent Auto 69.5 % (45.5-73.1); Platelet Count Result 112 k/mm3 (150-375); Red Blood Count 3.41 M/mm3 (4.2-5.4); Red Cell Distribution Width 16.8 % (11.5-14.5); White Blood Count 4.2 K/mm3 (4.5-10.0)
[2024-12-23 06:35] LABS: Alanine Aminotransferase 55 U/L (6-35); Albumin Level 2.4 g/dL (3.5-5.1); Alkaline Phosphatase 88 U/L (38-126); Anion Gap 4 mmol/L (4-12); Aspartate Amino Transferase 102 U/L (14-36); Bilirubin,Total 0.5 mg/dL (0.2-1.3); Blood Urea Nitrogen 15 mg/dL (7-17); Carbon Dioxide 26 mmol/L (22-30); Chloride 110 mmol/L (98-107); Estimated CRCL calculation 62 ml/min; Estimated Glomerular Filt Rate > 60; Glucose 86 mg/dL (65-110); Potassium 2.9 mmol/L (3.4-5.0); Sodium 140 mmol/L (137-145)
[2024-12-23 09:22] LABS: Creatine Kinase 49 U/L (30-135); Magnesium 1.5 mg/dL (1.6-2.3)
[2024-12-23 09:32] LABS: Ammonia < 9 umol/L (9-30)
[2024-12-23 09:36] LABS: INR 1.2; Prothrombin Time 15.7 Seconds (11.1-14.7)
[2024-12-23] MEDS: POTASSIUM CHLORIDE INJ 40 MEQ in SODIUM CHLORIDE 0.9% IV 500 ML 130 MEQ IVPB (09:54)
[2024-12-23] MEDS: CHOLECALCIFEROL 1,000 UNITS TABLET 2000 UNITS PO (09:54)
[2024-12-23] MEDS: MELOXICAM 7.5 MG TABLET PO (09:56)
[2024-12-23] MEDS: busPIRone HCL 5 MG TABLET 15 MG PO ×3 (09:56→16:45)
[2024-12-23] MEDS: CARBIDOPA/LEVODOPA 10/100 MG TABLET 2 TABLET PO ×3 (09:56→16:45)
[2024-12-23] MEDS: SERTRALINE HCL 25 MG TABLET 125 MG PO (09:56)
[2024-12-23] MEDS: FLUDROCORTISONE ACETATE 0.1 MG TABLET PO (09:56)
[2024-12-23] MEDS: DULoxetine HCL 60 MG CAPSULE.DR PO (09:56)
[2024-12-23] MEDS: CLOPIDOGREL BISULFATE 75 MG TABLET PO (09:56)
[2024-12-23] MEDS: ALPRAZolam (*CRX) 0.5 MG TABLET PO ×2 (09:56→16:45)
[2024-12-23] MEDS: ATORVASTATIN 40 MG TABLET PO (09:56)
[2024-12-23] MEDS: FOLIC ACID 1 MG TABLET PO (09:57)
[2024-12-23] MEDS: MIRTAZAPINE 15 MG TABLET PO (09:57)
[2024-12-23] MEDS: VITAMIN B COMPLEX CAPSULE 1 CAP PO (09:57)
[2024-12-23] MEDS: HEPARIN SODIUM 5,000 UNITS/ML VIAL 5000 UNITS SUB-Q ×2 (09:57→21:07)
--- NOTE | 2024-12-23 10:36 | P.PNIM_ITS ---
Progress Note: A&P Assessment and Plan (1) Acute hypoxemic respiratory failure: Code(s): J96.01 - Acute respiratory failure with hypoxia Status: Acute (2) Influenza: Code(s): J11.1 - Influenza due to unidentified influenza virus with other respiratory manifestations Status: Acute (3) Acute metabolic encephalopathy: Code(s): G93.41 - Metabolic encephalopathy Status: Acute Plan Acute and principal conditions 1. Acute hypoxic respiratory failure 2. Influenza A infection 3. Acute metabolic encephalopathy 4. Left maxillary sinusitis 5. Elevated BNP 6. elevated liver enzymes - drug induced vs MASLD vs hepatitis vs autoimmune vs myocytes vs genetic disorder vs nonhepatic disease-muscle injury, thyroid ) vs other Rx: A. IVFs; B. Falls and safety precautions C. IS; Supplemental oxygen with wean as tolerated D. ECHO- pending E. PT/OT once more alert and able to follow commands f. add tsh/reflux, hepatitis panel, ammonia level, CK level (normal) gi consult continue IV fluids hold statin for now Chronic and stable conditions 1. Sedentary status. 2. Dementia. 3. Parkinson's disease 4. Recurrent depression with anxiety. 5. Dyslipidemia. Code status: DNR VTE prophylaxis. SCDs; EVE Nutrition. Heart healthy- help with feeding. Time Spent With Patient Time with patient: 25 - 35 minutes Subjective Date/time seen: 12/23/24 10:36 Interval history: Yesenia Mcdonough is an 84F with a mHx significant for dementia, parkinson's disease, anxiety, depression, dyslipidemia and a sedentary status admitted for fatigue and AMS. A resident of [facility] ([facility]), she was brought in to the ED due to concerns for a worsening mentation compared to baseline; with no known modifying factors, her symptoms are associated with anorexia, malaise, dyspnea and a poor alertness. There were no associated symptoms of falls, vomiting, diarrhea, skin/joint changes, headaches, cough, PND or orthopnea. She does not smoke/chew tobacco, drink alcohol or consume recreational/illicit drugs. Work-up findings: Chest CTA: No CT evidence of acute pulmonary embolus. No acute process detected in the chest. Head CT: No acute intracranial process. Findings suggestive of left maxillary sinusitis. CXR: Unremarkable PLT 147 WBC 6.4 Hb 12 Influenza A+ Troponin: 0.025 BNP 1320 CRP 6.4 UA: Unremarkable Pt is admitted for acute metabolic encephalopathy with influenza A with hypoxia. Pt is resting with eyes closed, in no resp distress. 2l per MN 12/23- pt is seen and examined. able ambulate to [facility] chair with assits. more alert today Review of Systems Review of Systems: confused ROS unobtainable: Yes unobtainable due to mental status Exam Const: General: comfortable; No no acute distress Other: resting in bed HENMT: Face/Nose/Sinus: Normal nares present Eyes: Sclera: sclerae normal Pupils: Equal, round and reactive pupils pres ent Neck: Neck: supple Resp: Effort & Inspection: normal respiratory effort Cardio: Rate: tachycardic Rhythm: abnormal rhythm Skin: General skin exam: normal color, No lesion and No rashes Lesions: no lesions noted Rashes: no rashes noted Neuro: General: deep tendon reflexes 2+ bilaterally Cranial nerves: Yes Equal, round and reactive pupils present Extrem: General: normal to inspection Psych: Mental Status: mental status grossly abnormal Objective Data Vital Signs Vital Signs: Vital Signs - 24 hr 12/22/24 12:00 12/22/24 14:00 12/22/24 16:00 Temperature 97.4 F L Pulse Rate 86 92 94 Respiratory Rate 15 Blood Pressure 128/71 Pulse Oximetry 93 Oxygen Delivery 12/22/24 20:00 12/22/24 20:00 12/22/24 21:25 Temperature 99.3 F Pulse Rate 84 84 Respiratory Rate 14 Blood Pressure 137/61 Pulse Oximetry 97 Oxygen Delivery Room Air 12/23/24 00:00 12/23/24 04:00 12/23/24 05:38 Temperature 99.4 F Pulse Rate 81 81 81 Respiratory Rate 18 Blood Pressure 171/65 H Pulse Oximetry 92 Oxygen Delivery 12/23/24 10:02 Temperature Pulse Rate Respiratory Rate Blood Pressure Pulse Oximetry Oxygen Delivery Room Air Intake/Output Intake/Output: Intake & Output 12/20/24 12/21/24 12/22/24 12/23/24 23:59 23:59 23:59 23:59 Intake Total 1000 1357 3584.2 100 Output Total 125 500 475 Balance 875 1357 3084.2 -375 Meds/Results Medications: Active Medications Generic Name Dose Route Start Last Admin Trade Name Freq PRN Reason Stop Dose Admin Acetaminophen 650 mg 12/21/24 00:35 12/21/24 20:43 Acetaminophen 325 Mg Tablet PO 650 mg Q4H PRN Administration Mild Pain (1-3) or Fever Albuterol/Ipratropium 3 ml 12/21/24 00:35 Ipratropium 0.5 Mg/Albuterol Sulfate 2.5 Mg Ampul.Neb 3 Ml INHALATION Q4HRT PRN shortness of breath/Wheezing Alprazolam 0.5 mg 12/21/24 17:00 12/23/24 09:56 Alprazolam (*Crx) 0.5 Mg Tablet PO 0.5 mg BID EVE Administration Atorvastatin Calcium 40 mg 12/22/24 09:00 12/23/24 09:56 Atorvastatin 40 Mg Tablet PO 01/02/25 09:01 40 mg DAILY EVE Administration Buspirone HCl 15 mg 12/21/24 13:00 12/23/24 09:56 Buspirone Hcl 5 Mg Tablet PO 15 mg TID EVE Administration Carbidopa/Levodopa 2 tablet 12/21/24 13:00 12/23/24 09:56 Carbidopa/Levodopa 10/100 Mg Tablet PO 2 tablet TID EVE Administration Clopidogrel Bisulfate 75 mg 12/21/24 12:00 12/23/24 09:56 Clopidogrel Bisulfate 75 Mg Tablet PO 75 mg DAILY EVE Administration Duloxetine HCl 60 mg 12/21/24 12:00 12/23/24 09:56 Duloxetine Hcl 60 Mg Capsule.Dr PO 60 mg DAILY EVE Administration Fludrocortisone Acetate 0.1 mg 12/21/24 12:00 12/23/24 09:56 Fludrocortisone Acetate 0.1 Mg Tablet PO 0.1 mg DAILY EVE Administration Folic Acid 1 mg 12/21/24 12:00 12/23/24 09:57 Folic Acid 1 Mg Tablet PO 1 mg DAILY EVE Administration Guaifenesin/Dextromethorphan 10 ml 12/21/24 00:35 12/21/24 20:43 Guaifenesin/Dextromethorphan 10 Ml Udc PO 10 ml Q4H PRN Administration Cough Heparin Sodium (Porcine) 5,000 units 12/21/24 09:00 12/23/24 09:57 Heparin Sodium 5,000 Units/Ml Vial SUB-Q 5,000 units Q12HR EVE Administration Hydralazine HCl 10 mg 12/21/24 05:56 12/21/24 07:26 Hydralazine Hcl 20 Mg/Ml Vial IV PUSH 10 mg Q8H PRN Administration Blood Pressure > 150 Sodium Chloride 1,000 mls @ 75 mls/hr 12/21/24 00:35 12/22/24 21:54 Normal Saline Iv IV CONT 75 mls/hr .[id number] EVE Administration Potassium Chloride 40 meq/ 520 mls @ 130 mls/hr 12/23/24 08:44 12/23/24 09:54 Sodium Chloride IVPB 12/23/24 12:43 130 mls/hr ONCE ONE Administration Meloxicam 7.5 mg 12/21/24 12:00 12/23/24 09:56 Meloxicam 7.5 Mg Tablet PO 7.5 mg DAILY EVE Administration Mirtazapine 15 mg 12/21/24 12:00 12/23/24 09:57 Mirtazapine 15 Mg Tablet PO 15 mg DAILY EVE Administration Perflutren Lipid Microsphere 0 ml 12/21/24 01:26 Perflutren Lipid Microspheres 1.5 Ml Vial Diluted To 10 Ml Total Volume IV PUSH 12/24/24 01:26 ONCE PRN adequate visualization Protocol Prochlorperazine Edisylate 10 mg 12/21/24 00:35 Prochlorperazine Edisylate 10 Mg/2 Ml Vial IV PUSH Q6H PRN Nausea And Vomiting Sertraline HCl 125 mg 12/21/24 12:00 12/23/24 09:56 Sertraline Hcl 25 Mg Tablet PO 125 mg DAILY EVE Administration Vitamin B Complex 1 cap 12/21/24 12:00 12/23/24 09:57 Vitamin B Complex Capsule PO 1 cap DAILY EVE Administration Vitamin D 2,000 units 12/22/24 09:00 12/23/24 09:54 Cholecalciferol 1,000 Units Tablet PO 2,000 units DAILY EVE Administration Radiology Results: ITS Impressions Chest X-Ray 12/20/24 18:42 IMPRESSION: No acute cardiopulmonary process. Head CT 12/20/24 19:02 IMPRESSION: No acute intracranial process. CT findings suggestive of left maxillary sinusitis. Chest CTA 12/20/24 21:44 IMPRESSION: No CT evidence of acute pulmonary embolus. No acute process detected in the chest. Labs Labs: Laboratory Results - last 24 hr 12/23/24 12/23/2425 05:49 05:55 09:03 WBC 4.2 L RBC 3.41 L Hgb 9.1 L Hct 28.7 L MCV 84.2 MCH 26.7 MCHC 31.7 L RDW 16.8 H Plt Count 112 L MPV 12.0 H Immature Gran % (Auto) 0.2 Neut % (Auto) 69.5 Lymph % (Auto) 20.1 Whiteside % (Auto) 6.9 Eos % (Auto) 3.1 Baso % (Auto) 0.2 Lymph # (Auto) 0.84 L Whiteside # (Auto) 0.3 Eos # (Auto) 0.1 Baso # (Auto) 0.0 Abs Immat Gran (auto) 0.01 Absolute Neuts (auto) 2.9 Absolute Nucleated RBC 0.000 Nucleated RBC % 0.0 PT INR Sodium 140 Potassium 2.9 L Chloride 110 H Carbon Dioxide 26 Anion Gap 4 BUN 15 Creatinine 0.51 L Estim Creat Clear Calc 62 Estimated GFR > 60 Glucose 86 Calcium 8.0 L Magnesium 1.5 L Total Bilirubin 0.5 AST 102 H ALT 55 H Alkaline Phosphatase 88 Ammonia < 9 L Total Creatine Kinase 49 Total Protein 5.0 L Albumin 2.4 L 12/23/24 09:04 WBC RBC Hgb Hct MCV MCH MCHC RDW Plt Count MPV Immature Gran % (Auto) Neut % (Auto) Lymph % (Auto) Whiteside % (Auto) Eos % (Auto) Baso % (Auto) Lymph # (Auto) Whiteside # (Auto) Eos # (Auto) Baso # (Auto) Abs Immat Gran (auto) Absolute Neuts (auto) Absolute Nucleated RBC Nucleated RBC % PT 15.7 H INR 1.2 Sodium Potassium Chloride Carbon Dioxide Anion Gap BUN Creatinine Estim Creat Clear Calc Estimated GFR Glucose Calcium Magnesium Total Bilirubin AST ALT Alkaline Phosphatase Ammonia Total Creatine Kinase Total Protein Albumin
[2024-12-23 10:46] LABS: Hepatitis B Surface Antigen Negative (Negative)
[2024-12-23 10:52] LABS: HAV RESULT Negative (Negative); Hepatitis B Core IgM Result Negative (Negative)
[2024-12-23 11:03] LABS: Hepatitis C Virus Antibody Negative (Negative)
--- NOTE | 2024-12-23 12:57 | P.CONGI_ITS ---
<Statement entered by Rojas Womack MD - 12/23/24 16:44> I, Rojas Womack MD, have provided a substantive portion of the care of this patient and discussed the patient with my Nurse Practitioner. I have reviewed any new relevant radiographic and laboratory results including medications. I agree with her documentation as noted below.?I personally performed the medical decision making and much of the history and exam for this encounter. birefly, she is a resident at [place] and staff noted she was more confused with malaise, also had cough. Work up + influenza, n obvious pneumonia, also had elevated liver enzymes but chronically elevated based on records. Ultrasound no obvious cirrhosis, also she has mild pancytopenia for which underlying liver disease is a consideration. Will complete work up of chronic liver condition (hepatitis negative) and then she can see us in office. Will follow as needed. Assessment and Plan Assessment and plan (1) Elevated liver enzymes: Code(s): R74.8 - Abnormal levels of other serum enzymes <Amelie Ashley APRN - Last Filed: 12/23/24 13:19> Status: Acute <Amelie Ashley APRN - Last Filed: 12/23/24 13:19> (2) Pancytopenia: Code(s): D61.818 - Other pancytopenia <Amelie Ashley APRN - Last Filed: 12/23/24 13:19> Status: Acute <Amelie Ashley APRN - Last Filed: 12/23/24 13:19> (3) Influenza A: Code(s): J10.1 - Influenza due to other identified influenza virus with other respiratory manifestations <Amelie Ashley APRN - Last Filed: 12/23/24 13:19> Status: Acute <Amelie Ashley APRN - Last Filed: 12/23/24 13:19> (4) Dementia: Code(s): F03.90 - Unspecified dementia, unspecified severity, without behavioral disturbance, psychotic disturbance, mood disturbance, and anxiety < Amelie Ashley APRN - Last Filed: 12/23/24 13:19> Status: Acute <Amelie Ashley APRN - Last Filed: 12/23/24 13:19> (5) Acute hypoxemic respiratory failure: Code(s): J96.01 - Acute respiratory failure with hypoxia <Amelie Ashley APRN - Last Filed: 12/23/24 13:19> Status: Acute <Amelie Ashley APRN - Last Filed: 12/23/24 13:19> Assessment and Plan: 1. Elevated liver enzymes/Pancytopenia: Liver enzymes have been chronically elevated and on admission AST 60, ALT 26, alk phos 142 with normal T bili, since being hospitalized that have mildly increased, which acute elevation could be secondary to viral as she does have FLU A. Acute Hep ABC negative. She does have chronically low platelets as well with the elevation of liver enzymes, underlying cirrhosis? It does not appear she has history of fatty liver or alcohol history. Previous imaging of the liver in 2023 with normal appearing liver with benign hepatic cyst. Chronically elevated LFTs to be evaluated. -Will do liver workup labs to rule out chronic liver disease due to chronic elevation. TSH has already been ordered by hospitalist. Will also add celiac -RUQ US to be completed, assess for cirrhosis due to low platelets -Will follow. Thank you very much for allowing me to share in the care of this very nice patient. This report may have been done utilizing a voice recognition system. Attempts have been made to correct errors. However, there may be uncorrected grammatical, spelling, and recognition errors present. <Amelie Ashley APRN - Last Filed: 12/23/24 13:19> GI Consult Note Consult date/time: 12/23/24 12:57 <Amelie Ashley APRN - Last Filed: 12/23/24 13:19> Reason for consult: elevated liver enzymes <Amelie Ashley APRN - Last Filed: 12/23/24 13:19> HPI: This is 84 year old confused female A&O x 1. HPI completed through medical records. She was unable to provide me with any information. Resides at [facility], she is DNR. She has past medical surgical history of aortic aneurysm, dementia, depression, degenerative joint disease, Parkinson's, history of TIA, osteoporosis, hyperlipidemia, cholecystectomy, hysterectomy, tubal ligation. She presented to the ER 12/20/2024 due to worsening altered mental status and has influenza A. GI consulted for elevated liver enzymes. It does not appear she has history of cirrhosis or liver work up in the past. It appears liver enzymes have been chronically mild elevated, never 3 times greater. She has had chronically low platelets as well. Per chart denies any alchohol or past drug use. It does not appear past history of NAFLD, or RIVAS. No antibiotics given since here in the hospital. Blood pressure has been elevated, never hypotensive. Unsure of any antibiotics prior to admission. She is on atorvastatin 40 mg daily. 12/20/2024 AST 60, ALT 26, alkaline phosphatase 142 12/21/2024 AST 59, ALT 55, alkaline phosphatase 123 12/23/2024 AST 102, ALT 55, alkaline phosphatase 88, acute hepatitis panel negative, WBC 4.2, HB 9, hematocrit 28, MCV 84.2, platelets 126187. 07/04/2023 AST 56, ALT 12, alkaline phosphatase 66, platelets 89,000 IMAGING: CT chest abdomen pelvis w con 07/19/2024: 2.4 cm cyst on left hepatic lobe, no evidence of hepatic steatosis or cirrhosis. <Amelie Ashley APRN - Last Filed: 12/23/24 13:19> [facility] Past Medical History Medical History: Medical History (Updated 12/23/24 @ 12:59 by Amelie Ashley APRN) Aortic aneurysm Elevated BUN Screening for thyroid disorder Dementia Mild cognitive impairment On alf drug therapy Encounter for routine adult health examination with abnormal findings Orthostatic hypotension Dizziness Skin tear of upper extremity Severe depression UTI (urinary tract infection) DJD (degenerative joint disease) AAA (abdominal aortic aneurysm) Anxiety with depression Vitamin B6 deficiency Vestibular dizziness History of COVID-19 Parkinsonism Vitamin B12 deficiency TIA (transient ischemic attack) Osteoporosis Kidney stone Compression fx, lumbar spine Vitamin D deficiency Seasonal allergies Hyperlipidemia Closed fracture of ramus of left pubis <Amelie Ashley APRN - Last Filed: 12/23/24 13:19> Surgical History Surgical History: Surgical History History of cholecystectomy History of hysterectomy History of tubal ligation History of hip surgery <Aemlie Ashley APRN - Last Filed: 12/23/24 13:19> Family History Family History: Family History Grandparent No problems noted. Father Hypertension Other COPD (chronic obstructive pulmonary disease) <Amelie Ashley APRN - Last Filed: 12/23/24 13:19> Social History Social History: Social History Social History: The patient lives in her own home in [place]. She has been as of July 2019. She and her were for 60 years and they have 3 sons and 1 daughter. 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 She is a lifelong nonsmoker and denies alcohol and drug abuse. Smoking status: Never smoker Alcohol intake: never Substance use: never Substance use type: does not use Do You Feel Safe in your Home?: No Lack of Transportation: No Lack of Food: Never True Current Housing: I Have Housing Concerned About Future Housing: No Difficulty Paying Gas/Electric Bills: No Difficulty Paying for Meds: No Currently Unemployed: No Education: Don't Know Difficulty w/ Childcare or Family Care: No Living arrangements: with family Occupation/Education: retired Gender identity (if verbalized by the patient): Female Spiritual care concerns: No Agree to blood products: Yes <Amelie Ashley APRN - Last Filed: 12/23/24 13:19> Meds Home Medications and Allergies Home medications: Home Medications ?Medication ?Instructions ?Recorded ?Confirmed ?Type food supplemt, lactose-reduced 1 ea PO TID 02/09/24 12/21/24 History 0.04 gram-1 kcal/mL oral liquid (Boost) acetaminophen 325 mg tablet (Pain 650 mg (2 x 325 mg) PO Q6H PRN 03/23/24 12/21/24 Rx Relief (acetaminophen)) pain #120 tabs atorvastatin 40 mg tablet 40 mg PO DAILY #90 tabs 03/23/24 12/21/24 Rx buspirone 15 mg tablet 15 mg PO TID #90 tabs 03/23/24 12/21/24 Rx carbidopa 10 mg-levodopa 100 mg 2 tablet PO TID #90 tabs 03/23/24 12/21/24 Rx disintegrating tablet cholecalciferol (vitamin D3) 50 50 mcg PO DAILY #30 caps 03/23/24 12/21/24 Rx mcg (2,000 unit) capsule clopidogrel 75 mg tablet (Plavix) 75 mg PO DAILY changed due to fall 03/23/24 12/21/24 Rx risk #90 tabs duloxetine 60 mg capsule,delayed 60 mg PO DAILY #90 caps 03/23/24 12/21/24 Rx release fludrocortisone 0.1 mg tablet 0.1 mg PO DAILY #90 tabs 03/23/24 12/21/24 Rx folic acid 1 mg tablet 1 mg PO DAILY #90 tabs 03/23/24 12/21/24 Rx mirtazapine 15 mg tablet 15 mg PO DAILY #90 tabs 03/23/24 12/21/24 Rx sertraline 100 mg tablet 125 mg (1.25 x 100 mg) PO DAILY 03/23/24 12/21/24 Rx #90 tabs vitamin B complex 1 cap PO DAILY #90 caps 03/23/24 12/21/24 Rx alprazolam 0.5 mg tablet (Xanax) 0.5 mg PO BID anxiety 12/21/24 12/21/24 History meloxicam 7.5 mg tablet 7.5 mg PO DAILY arthritis pain 12/21/24 12/21/24 History quetiapine 25 mg tablet 12.5 mg PO BID 12/21/24 12/21/24 History <Amelie Ashley APRN - Last Filed: 12/23/24 13:19> Allergies/Adverse reactions: Allergies Allergy/AdvReac Type Severity Reaction Status Date / Time No Known Allergies Allergy Verified 12/21/24 11:05 <Amelie Ashley APRN - Last Filed: 12/23/24 13:19> Vital Signs Vital Signs - 24 hr 12/22/24 14:00 12/22/24 16:00 12/22/24 20:00 Temperature 97.4 F L Pulse Rate 92 94 Respiratory Rate 15 Blood Pressure 128/71 Pulse Oximetry 93 Oxygen Delivery Room Air 12/22/24 20:00 12/22/24 21:25 12/23/24 00:00 Temperature 99.3 F Pulse Rate 84 84 81 Respiratory Rate 14 Blood Pressure 137/61 Pulse Oximetry 97 Oxygen Delivery 12/23/24 04:00 12/23/24 05:38 12/23/24 10:02 Temperature 99.4 F Pulse Rate 81 81 Respiratory Rate 18 Blood Pressure 171/65 H Pulse Oximetry 92 Oxygen Delivery Room Air <Amelie BooneGeorgina Ashley APRN - Last Filed: 12/23/24 13:19> Exam 2 Const: General: comfortable <Ameliejanette Ashley APRN - Last Filed: 12/23/24 13:19> HENMT: Other: has nasal cannula in place <Amelie Ashley APRN - Last Filed: 12/23/24 13:19> Eyes: Sclera: sclerae normal <Amelie BooneGeorgina Ashley APRN - Last Filed: 12/23/24 13:19> Resp: Effort & Inspection: normal respiratory effort <Amelie Ashley APRN - Last Filed: 12/23/24 13:19> GI: Inspection: non-distended <Amelie BooneGeorgina Ashley APRN - Last Filed: 12/23/24 13:19> GI Palp: Yes Soft to palpation and No Tenderness to palpation present (GI) < Ameliejanette Ashley APRN - Last Filed: 12/23/24 13:19> Auscultation: normal bowel sounds <Amelie BooneGeorgina Ashley APRN - Last Filed: 12/23/24 13:19> Skin: General skin exam: normal color <Ameliejanette Ashley APRN - Last Filed: 12/23/24 13:19> Neuro: Other: a&0 x 1 <Ameliejanette Ashley APRN - Last Filed: 12/23/24 13:19> Extrem: General: normal to inspection and no edema <Amelie Ashley APRN - Last Filed: 12/23/24 13:19> Results Labs CBC & Chem 7: 12/23/24 05:55 12/23/24 05:55 <Amelie Ashley APRN - Last Filed: 12/23/24 13:19> Labs: Short CBC 12/23/24 Range/Units 05:55 WBC 4.2 L (4.5-10.0) K/mm3 Hgb 9.1 L (12.0-15.0) g/dL Hct 28.7 L (37.0-47.0) % Plt Count 112 L (150-375) k/mm3 BMP 12/23/24 05:55 Sodium 140 Potassium 2.9 L Chloride 110 H Carbon Dioxide 26 BUN 15 Creatinine 0.51 L Glucose 86 Calcium 8.0 L Cardiac Enzymes 12/23/24 Range/Units 05:49 Total Creatine Kinase 49 (30-135) U/L Liver Function 12/23/24 Range/Units 05:55 Total Bilirubin 0.5 (0.2-1.3) mg/dL AST 102 H (14-36) U/L ALT 55 H (6-35) U/L Alkaline Phosphatase 88 (38-126) U/L Albumin 2.4 L (3.5-5.1) g/dL <Amelie Ashley, PODIATRIC MEDICINE PROFESSOR - Last Filed: 12/23/24 13:19>
--- NOTE | 2024-12-23 13:57 | PCDIET ---
Nutrition consult for supplement preference. GLOVE TAGGER/Nursing stated pt drinks well, ate well today when fed. Ensure Enlive TID is ordered, will also add nutrition ice cream cups BID
[2024-12-23 14:39] LABS: Iron 27 ug/dL (37-170)
[2024-12-23 14:46] LABS: Percent Iron Saturation 10 % (20-50)
[2024-12-23] MEDS: MAGNESIUM SULF 1 GM/D5W 100 ML 1 GM/100 ML BAG IVPB (14:48)
[2024-12-23] MEDS: SODIUM CHLORIDE 0.9% IV 1,000 ML 75 ML IV CONT (16:44)
[2024-12-24] VITALS (9 sets, daily range): BP systolic 117–172; BP diastolic 55–72; PULSE 70–92; RESP 16–20; TEMP 36.2–36.8; O2SAT 95–98
[2024-12-24] MEDS: PROCHLORPERAZINE EDISYLATE 10 MG/2 ML VIAL IV PUSH (03:07)
[2024-12-24] MEDS: SODIUM CHLORIDE 0.9% IV 1,000 ML 75 ML IV CONT (06:05)
[2024-12-24 06:28] LABS: Basophils Percent Auto 0.3 % (0.2-1.2); Eosinophils Absolute Auto 0.1 K/mm3 (0-0.3); Eosinophils Percent Auto 3.7 % (0-4.4); Hematocrit 28.6 % (37.0-47.0); Hemoglobin 9.1 g/dL (12.0-15.0); Immature Granulocyte Absolute 0.01 K/mm3 (0.00-0.031); Immature Granulocyte Percent A 0.3 % (0-0.5); Immature Platelet Fraction Pct 5.1 % (0.9-11.2); Lymphocytes Percent Auto 14.2 % (18.3-44.2); Mean Corpuscular HGB Conc 31.8 g/dl (32-36); Mean Corpuscular Hemoglobin 26.5 pg (26-34); Mean Corpuscular Volume 83.4 fl (80-100); Mean Platelet Volume 12.7 fl (7.4-10.4); Monocytes Absolute Auto 0.2 K/mm3 (0.1-0.6); Monocytes Percent Auto 5.9 % (2.6-8.5); Neutrophils Absolute Auto 2.7 K/mm3 (1.3-6.7); Neutrophils Percent Auto 75.6 % (45.5-73.1); Platelet Count Result 93 k/mm3 (150-375); Red Blood Count 3.43 M/mm3 (4.2-5.4); Red Cell Distribution Width 16.4 % (11.5-14.5); White Blood Count 3.5 K/mm3 (4.5-10.0)
[2024-12-24 06:44] LABS: Alanine Aminotransferase 121 U/L (6-35); Albumin Level 2.5 g/dL (3.5-5.1); Alkaline Phosphatase 99 U/L (38-126); Anion Gap 8 mmol/L (4-12); Aspartate Amino Transferase 233 U/L (14-36); Bilirubin,Total 0.7 mg/dL (0.2-1.3); Blood Urea Nitrogen 10 mg/dL (7-17); Calcium 7.7 mg/dL (8.4-10.2); Carbon Dioxide 23 mmol/L (22-30); Chloride 106 mmol/L (98-107); Estimated CRCL calculation 77 ml/min; Estimated Glomerular Filt Rate > 60; Glucose 85 mg/dL (65-110); Potassium 2.7 mmol/L (3.4-5.0); Sodium 137 mmol/L (137-145)
[2024-12-24 07:14] LABS: Anisocytosis 1+; Ovalocytes 1+; Platelet Estimate Decreased (Adequate); Schistocytes None Seen
[2024-12-24 08:20] LABS: Magnesium 1.6 mg/dL (1.6-2.3)
[2024-12-24] MEDS: POTASSIUM CHLORIDE INJ 40 MEQ in SODIUM CHLORIDE 0.9% IV 500 ML 130 MEQ IVPB (10:15)
[2024-12-24] MEDS: CHOLECALCIFEROL 1,000 UNITS TABLET 2000 UNITS PO (10:15)
[2024-12-24] MEDS: CLOPIDOGREL BISULFATE 75 MG TABLET PO (10:16)
[2024-12-24] MEDS: CARBIDOPA/LEVODOPA 10/100 MG TABLET 2 TABLET PO ×3 (10:16→16:20)
[2024-12-24] MEDS: FOLIC ACID 1 MG TABLET PO (10:16)
[2024-12-24] MEDS: busPIRone HCL 5 MG TABLET 15 MG PO ×3 (10:17→16:20)
[2024-12-24] MEDS: ALPRAZolam (*CRX) 0.5 MG TABLET PO ×2 (10:18→16:20)
[2024-12-24] MEDS: VITAMIN B COMPLEX CAPSULE 1 CAP PO (10:18)
[2024-12-24] MEDS: FLUDROCORTISONE ACETATE 0.1 MG TABLET PO (10:18)
[2024-12-24] MEDS: DULoxetine HCL 60 MG CAPSULE.DR PO (10:19)
[2024-12-24] MEDS: MELOXICAM 7.5 MG TABLET PO (10:19)
[2024-12-24] MEDS: MIRTAZAPINE 15 MG TABLET PO (10:19)
[2024-12-24] MEDS: SERTRALINE HCL 25 MG TABLET 125 MG PO (10:19)
--- NOTE | 2024-12-24 10:57 | P.PNIM_ITS ---
Progress Note: A&P Assessment and Plan (1) Acute hypoxemic respiratory failure: Code(s): J96.01 - Acute respiratory failure with hypoxia Status: Acute (2) Influenza: Code(s): J11.1 - Influenza due to unidentified influenza virus with other respiratory manifestations Status: Acute (3) Acute metabolic encephalopathy: Code(s): G93.41 - Metabolic encephalopathy Status: Acute (4) Hypokalemia: Code(s): E87.6 - Hypokalemia Status: Acute Plan Acute and principal conditions 1. Acute hypoxic respiratory failure 2. Influenza A infection 3. Acute metabolic encephalopathy 4. Left maxillary sinusitis 5. Elevated BNP 6. elevated liver enzymes - drug induced vs MASLD vs hepatitis vs autoimmune vs myocytes vs genetic disorder vs nonhepatic disease-muscle injury, thyroid ) vs other 7. hypocalcemia/hypokalemia.hypomagensia 8. anemia Rx: A. IVFs; B. Falls and safety precautions C. IS; Supplemental oxygen with wean as tolerated D. ECHO- pending E. PT/OT once more alert and able to follow commands f. add tsh/reflux, hepatitis panel, ammonia level, CK level (normal) gi consult continue IV fluids hold statin for now Ca level is 7.7- will add oral supplemed with vit d, order PTH to check level add iron studies - add IV K and Mg replacement- must be intake related as no diarrhea reported. Remains on tele- no arrhythmias- will continue to monitor Chronic and stable conditions 1. Sedentary status. 2. Dementia. 3. Parkinson's disease 4. Recurrent depression with anxiety. 5. Dyslipidemia. Code status: DNR VTE prophylaxis. SCDs; EVE Nutrition. Heart healthy- help with feeding. Subjective Date/time seen: 12/24/24 10:57 Interval history: Yesenia Mcdonough is an 84F with a mHx significant for dementia, parkinson's disease, anxiety, depression, dyslipidemia and a sedentary status admitted for fatigue and AMS. A resident of [facility]), she was brought in to the ED due to concerns for a worsening mentation compared to baseline; with no known modifying factors, her symptoms are associated with anorexia, malaise, dyspnea and a poor alertness. There were no associated symptoms of falls, vomiting, diarrhea, skin/joint ch anges, headaches, cough, PND or orthopnea. She does not smoke/chew tobacco, drink alcohol or consume recreational/illicit drugs. Work-up findings: Chest CTA: No CT evidence of acute pulmonary embolus. No acute process detected in the chest. Head CT: No acute intracranial process. Findings suggestive of left maxillary sinusitis. CXR: Unremarkable PLT 147 WBC 6.4 Hb 12 Influenza A+ Troponin: 0.025 BNP 1320 CRP 6.4 UA: Unremarkable Pt is admitted for acute metabolic encephalopathy with influenza A with hypoxia. Pt is resting with eyes closed, in no resp distress. 2l per NC 12/23- pt is seen and examined. able ambulate to the chair with assist. more alert today 12/24- pt is resting in bed. Able to state her name and denies pain. A bit more alert. Unable to say where she is at. Reports drinking alcohol in the past but unable to provide more details- so unsure if it reliable information or not. Review of Systems Review of Systems: confused ROS unobtainable: Yes unobtainable due to mental status Exam Const: General: comfortable; No no acute distress Other: resting in bed HENMT: Face/Nose/Sinus: Normal nares present Eyes: Sclera: sclerae normal Pupils: Equal, round and reactive pupils present Neck: Neck: supple Resp: Effort & Inspection: normal respiratory effort Other: coarse Cardio: Rate: regular rate Rhythm: abnormal rhythm Skin: General skin exam: normal color, No lesion and No rashes Lesions: no lesions noted Rashes: no rashes noted Neuro: Cranial nerves: Yes Equal, round and reactive pupils present Other: a little more alert today, answers some questions. able to follow some simple one step commands Extrem: General: normal to inspection Psych: Mental Status: mental status grossly abnormal Objective Data Vital Signs Vital Signs: Vital Signs - 24 hr 12/23/24 12:00 12/23/24 14:00 12/23/24 16:00 Temperature 97.3 F L Pulse Rate 87 88 83 Respiratory Rate 24 H Blood Pressure 114/59 L Pulse Oximetry 96 12/23/24 20:00 12/23/24 21:46 12/24/24 00:00 Temperature 98.9 F Pulse Rate 83 90 75 Respiratory Rate 20 Blood Pressure 135/75 Pulse Oximetry 97 12/24/24 04:00 12/24/24 05:57 Temperature 98.2 F Pulse Rate 82 89 Respiratory Rate 20 Blood Pressure 146/72 H Pulse Oximetry 95 Intake/Output Intake/Output: Intake & Output 12/21/24 12/22/24 12/23/24 12/24/24 23:59 23:59 23:59 23:59 Intake Total 1357 3584.2 1100 1220 Output Total 500 1075 1600 Balance 1357 3084.2 25 -380 Meds/Results Medications: Active Medications Generic Name Dose Route Start Last Admin Trade Name Freq PRN Reason Stop Dose Admin Acetaminophen 650 mg 12/21/24 00:35 12/21/24 20:43 Acetaminophen 325 Mg Tablet PO 650 mg Q4H PRN Administration Mild Pain (1-3) or Fever Albuterol/Ipratropium 3 ml 12/21/24 00:35 Ipratropium 0.5 Mg/Albuterol Sulfate 2.5 Mg Ampul.Neb 3 Ml INHALATION Q4HRT PRN shortness of breath/Wheezing Alprazolam 0.5 mg 12/21/24 17:00 12/24/24 10:18 Alprazolam (*Crx) 0.5 Mg Tablet PO 0.5 mg BID EVE Administration Buspirone HCl 15 mg 12/21/24 13:00 12/24/24 10:17 Buspirone Hcl 5 Mg Tablet PO 15 mg TID EVE Administration Carbidopa/Levodopa 2 tablet 12/21/24 13:00 12/24/24 10:16 Carbidopa/Levodopa 10/100 Mg Tablet PO 2 tablet TID EVE Administration Clopidogrel Bisulfate 75 mg 12/21/24 12:00 12/24/24 10:16 Clopidogrel Bisulfate 75 Mg Tablet PO 75 mg DAILY EVE Administration Duloxetine HCl 60 mg 12/21/24 12:00 12/24/24 10:19 Duloxetine Hcl 60 Mg Capsule.Dr PO 60 mg DAILY EVE Administration Fludrocortisone Acetate 0.1 mg 12/21/24 12:00 12/24/24 10:18 Fludrocortisone Acetate 0.1 Mg Tablet PO 0.1 mg DAILY EVE Administration Folic Acid 1 mg 12/21/24 12:00 12/24/24 10:16 Folic Acid 1 Mg Tablet PO 1 mg DAILY EVE Administration Guaifenesin/Dextromethorphan 10 ml 12/21/24 00:35 12/21/24 20:43 Guaifenesin/Dextromethorphan 10 Ml Udc PO 10 ml Q4H PRN Administration Cough Heparin Sodium (Porcine) 5,000 units 12/21/24 09:00 12/23/24 21:07 Heparin Sodium 5,000 Units/Ml Vial SUB-Q 5,000 units Q12HR EVE Administration Hydralazine HCl 10 mg 12/21/24 05:56 12/21/24 07:26 Hydralazine Hcl 20 Mg/Ml Vial IV PUSH 10 mg Q8H PRN Administration Blood Pressure > 150 Sodium Chloride 1,000 mls @ 75 mls/hr 12/21/24 00:35 12/24/24 06:05 Normal Saline Iv IV CONT 75 mls/hr .[id number] EVE Administration Potassium Chloride 40 meq/ 520 mls @ 130 mls/hr 12/24/24 07:06 12/24/24 10:15 Sodium Chloride IVPB 12/24/24 11:05 130 mls/hr ONCE ONE Administration Meloxicam 7.5 mg 12/21/24 12:00 12/24/24 10:19 Meloxicam 7.5 Mg Tablet PO 7.5 mg DAILY EVE Administration Mirtazapine 15 mg 12/21/24 12:00 12/24/24 10:19 Mirtazapine 15 Mg Tablet PO 15 mg DAILY EVE Administration Prochlorperazine Edisylate 10 mg 12/21/24 00:35 12/24/24 03:07 Prochlorperazine Edisylate 10 Mg/2 Ml Vial IV PUSH 10 mg Q6H PRN Administration Nausea And Vomiting Sertraline HCl 125 mg 12/21/24 12:00 12/24/24 10:19 Sertraline Hcl 25 Mg Tablet PO 125 mg DAILY EVE Administration Vitamin B Complex 1 cap 12/21/24 12:00 12/24/24 10:18 Vitamin B Complex Capsule PO 1 cap DAILY EVE Administration Vitamin D 2,000 units 12/22/24 09:00 12/24/24 10:15 Cholecalciferol 1,000 Units Tablet PO 2,000 units DAILY EVE Administration Radiology Results: ITS Impressions Chest X-Ray 12/20/24 18:42 IMPRESSION: No acute cardiopulmonary process. Head CT 12/20/24 19:02 IMPRESSION: No acute intracranial process. CT findings suggestive of left maxillary sinusitis. Chest CTA 12/20/24 21:44 IMPRESSION: No CT evidence of acute pulmonary embolus. No acute process detected in the chest. Abdomen Ultrasound 12/23/24 14:55 IMPRESSION: 1. Stable 4.5 cm fusiform aneurysm of infrarenal aorta. Labs Labs: Laboratory Results - last 24 hr 12/23/24 12/23/24 12/24/24 05:55 13:47 05:55 WBC RBC Hgb Hct MCV MCH MCHC RDW Plt Count MPV Immature Gran % (Auto) Neut % (Auto) Lymph % (Auto) [place] % (Auto) Eos % (Auto) Baso % (Auto) Lymph # (Auto) [place] # (Auto) Eos # (Auto) Baso # (Auto) Abs Immat Gran (auto) Absolute Neuts (auto) Absolute Nucleated RBC Band Neutrophils % Nucleated RBC % Platelet Estimate % Immature Plt Fraction Anisocytosis Ovalocytes Schistocytes Sodium Potassium Chloride Carbon Dioxide Anion Gap BUN Creatinine Estim Creat Clear Calc Estimated GFR Glucose Calcium Magnesium 1.6 Iron 27 L TIBC 267 % Saturation 10 L Ferritin 90.60 Total Bilirubin AST ALT Alkaline Phosphatase Total Protein Albumin TSH (Reflex) Hepatitis C Ab Screen Negative 12/24/24 06:00 WBC 3.5 L RBC 3.43 L Hgb 9.1 L Hct 28.6 L MCV 83.4 MCH 26.5 MCHC 31.8 L RDW 16.4 H Plt Count 93 L MPV 12.7 H Immature Gran % (Auto) 0.3 Neut % (Auto) 75.6 H Lymph % (Auto) 14.2 L [place] % (Auto) 5.9 Eos % (Auto) 3.7 Baso % (Auto) 0.3 Lymph # (Auto) 0.50 L [place] # (Auto) 0.2 Eos # (Auto) 0.1 Baso # (Auto) 0.0 Abs Immat Gran (auto) 0.01 Absolute Neuts (auto) 2.7 Absolute Nucleated RBC 0.000 Band Neutrophils % Not Reportable Nucleated RBC % 0.0 Platelet Estimate Decreased % Immature Plt Fraction 5.1 Anisocytosis 1+ Ovalocytes 1+ Schistocytes None seen Sodium 137 Potassium 2.7 L* Chloride 106 Carbon Dioxide 23 Anion Gap 8 BUN 10 D Creatinine 0.40 L Estim Creat Clear Calc 77 Estimated GFR > 60 Glucose 85 Calcium 7.7 L Magnesium Iron TIBC % Saturation Ferritin Total Bilirubin 0.7 AST 233 H ALT 121 H Alkaline Phosphatase 99 Total Protein 5.0 L Albumin 2.5 L TSH (Reflex) 3.310 Hepatitis C Ab Screen
[2024-12-24] MEDS: MAGNESIUM SULF 1 GM/D5W 100 ML 1 GM/100 ML BAG IVPB (16:39)
[2024-12-25] VITALS (9 sets, daily range): BP systolic 133–170; BP diastolic 61–80; PULSE 75–85; RESP 16–19; TEMP 36.5–37.1; O2SAT 93–94
[2024-12-25] MEDS: SODIUM CHLORIDE 0.9% IV 1,000 ML 75 ML IV CONT ×2 (02:21→09:49)
[2024-12-25 04:49] LABS: Ceruloplasmin 27 mg/dL (14-48)
--- NOTE | 2024-12-25 07:50 | P.PNIM_ITS ---
Progress Note: A&P Assessment and Plan (1) Acute hypoxemic respiratory failure: Code(s): J96.01 - Acute respiratory failure with hypoxia Status: Acute (2) Influenza: Code(s): J11.1 - Influenza due to unidentified influenza virus with other respiratory manifestations Status: Acute (3) Acute metabolic encephalopathy: Code(s): G93.41 - Metabolic encephalopathy Status: Acute (4) Hypokalemia: Code(s): E87.6 - Hypokalemia Status: Acute Plan Acute and principal conditions 1. Acute hypoxic respiratory failure 2. Influenza A infection 3. Acute metabolic encephalopathy 4. Left maxillary sinusitis 5. Elevated BNP 6. elevated liver enzymes - drug induced vs MASLD vs hepatitis vs autoimmune vs myocytes vs genetic disorder vs nonhepatic disease-muscle injury, thyroid ) vs other 7. hypocalcemia/hypokalemia.hypomagensia 8. anemia Plan: A. IVFs; B. Falls and safety precautions C. IS; Supplemental oxygen with wean as tolerated D. ECHO completed on 12/21- mild tricuspid valve regurgitation. Left ventricular systolic function is normal, estimated at >70%. E. PT/OT ordered-workign with pt f. add tsh/reflux, hepatitis panel, ammonia level(normal), CK level (normal) gi consult- appreciate recommendations continue IV fluids-montior strict I/O hold statin for now Ca level is 7.7- will add oral supplement with vit d, order PTH to check level add iron studies - add IV K and Mg replacement- must be intake related as no diarrhea reported. Remains on tele- no arrhythmias- will continue to monitor Chronic and stable conditions 1. Sedentary status. 2. Dementia. 3. Parkinson's disease 4. Recurrent depression with anxiety. 5. Dyslipidemia. Code status: DNR VTE prophylaxis. SCDs; EVE Nutrition. Heart healthy- help with feeding. Time Spent With Patient Time with patient: Greater than 35 minutes Subjective Date/time seen: 12/25/24 07:50 Interval history: Yesenia Mcdonough is an 84F with a mHx significant for dementia, parkinson's disease, anxiety, depression, dyslipidemia and a sedentary status admitted for fatigue and AMS. A resident of [facility]), she was brought in to the ED due to concerns for a worsening mentation compared to baseline; with no known modifying factors, her symptoms are associated with anorexia, malaise, dyspnea and a poor alertness. There were no associated symptoms of falls, vomiting, diarrhea, skin/joint changes, headaches, cough, PND or orthopnea. She does not smoke/chew tobacco, drink alcohol or consume recreational/illicit drugs. Work-up findings: Chest CTA: No CT evidence of acute pulmonary embolus. No acute process detected in the chest. Head CT: No acute intracranial process. Findings suggestive of left maxillary sinusitis. CXR: Unremarkable PLT 147 WBC 6.4 Hb 12 Influenza A+ Troponin: 0.025 BNP 1320 CRP 6.4 UA: Unremarkable Pt is admitted for acute metabolic encephalopathy with influenza A with hypoxia. Pt is resting with eyes closed, in no resp distress. 2l per NC 12/23- pt is seen and examined. able ambulate to the chair with assist. more alert today 12/24- pt is resting in bed. Able to state her name and denies pain. A bit more alert. Unable to say where she is at. Reports drinking alcohol in the past but unable to provide more details- so unsure if it reliable information or not. 12/25- pt is examined during morning rounds. Labs are still pending. Follow K. Vs reviewed. more alert but not oriented. Review of Systems Review of Systems: confused ROS unobtainable: Yes unobtainable due to mental status Exam Narrative: improving slowly Const: General: comfortable; No no acute distress Other: resting in bed HENMT: Face/Nose/Sinus: Normal nares present Eyes: Sclera: sclerae normal Pupils: Equal, round and reactive pupils present Neck: Neck: supple Resp: Effort & Inspection: normal respiratory effort Other: coarse Cardio: Rate: regular rate and tachycardic Rhythm: abnormal rhythm Skin: General skin exam: normal color, No lesion and No rashes Lesions: no lesions noted Rashes: no rashes noted Neuro: General: deep tendon reflexes 2+ bilaterally Cranial nerves: Yes Equal, round and reactive pupils present Other: a little more alert today, answers some questions. able to follow some simple one step commands Extrem: General: normal to inspection Psych: Mental Status: mental status grossly abnormal Objective Data Vital Signs Vital Signs: Vital Signs - 24 hr 12/24/24 09:45 12/24/24 12:00 12/24/24 14:00 Temperature 97.1 F L Pulse Rate 92 73 78 Respiratory Rate 18 Blood Pressure 117/55 L Pulse Oximetry 95 Oxygen Delivery 12/24/24 16:00 12/24/24 20:00 12/24/24 20:00 Temperature Pulse Rate 78 70 Respiratory Rate Blood Pressure Pulse Oximetry Oxygen Delivery Room Air 12/24/24 21:53 12/25/24 00:00 12/25/24 04:00 Temperature 97.4 F L Pulse Rate 72 75 78 Respiratory Rate 16 Blood Pressure 172/71 H Pulse Oximetry 98 Oxygen Delivery 12/25/24 06:22 Temperature 98.0 F Pulse Rate 77 Respiratory Rate 19 Blood Pressure 163/66 H Pulse Oximetry 93 Oxygen Delivery Intake/Output Intake/Output: Intake & Output 12/22/24 12/23/24 12/24/24 12/25/24 23:59 23:59 23:59 23:59 Intake Total 3584.2 1100 1340 1000 Output Total 500 1075 2550 500 Balance 3084.2 25 -1210 500 Meds/Results Medications: Active Medications Generic Name Dose Route Start Last Admin Trade Name Freq PRN Reason Stop Dose Admin Acetaminophen 650 mg 12/21/24 00:35 12/21/24 20:43 Acetaminophen 325 Mg Tablet PO 650 mg Q4H PRN Administration Mild Pain (1-3) or Fever Albuterol/Ipratropium 3 ml 12/21/24 00:35 Ipratropium 0.5 Mg/Albuterol Sulfate 2.5 Mg Ampul.Neb 3 Ml INHALATION Q4HRT PRN shortness of breath/Wheezing Alprazolam 0.5 mg 12/21/24 17:00 12/24/24 16:20 Alprazolam (*Crx) 0.5 Mg Tablet PO 0.5 mg BID EVE Administration Buspirone HCl 15 mg 12/21/24 13:00 12/24/24 16:20 Buspirone Hcl 5 Mg Tablet PO 15 mg TID EVE Administration Calcium Citrate 1 tablet 12/25/24 09:00 Calcium Citrate 315 Mg/Vitamin D 6.25 Mcg (250 Units) Tab PO QAM EVE Carbidopa/Levodopa 2 tablet 12/21/24 13:00 12/24/24 16:20 Carbidopa/Levodopa 10/100 Mg Tablet PO 2 tablet TID EVE Administration Clopidogrel Bisulfate 75 mg 12/21/24 12:00 12/24/24 10:16 Clopidogrel Bisulfate 75 Mg Tablet PO 75 mg DAILY EVE Administration Duloxetine HCl 60 mg 12/21/24 12:00 12/24/24 10:19 Duloxetine Hcl 60 Mg Capsule.Dr PO 60 mg DAILY EVE Administration Fludrocortisone Acetate 0.1 mg 12/21/24 12:00 12/24/24 10:18 Fludrocortisone Acetate 0.1 Mg Tablet PO 0.1 mg DAILY EVE Administration Folic Acid 1 mg 12/21/24 12:00 12/24/24 10:16 Folic Acid 1 Mg Tablet PO 1 mg DAILY EVE Administration Guaifenesin/Dextromethorphan 10 ml 12/21/24 00:35 12/21/24 20:43 Guaifenesin/Dextromethorphan 10 Ml Udc PO 10 ml Q4H PRN Administration Cough Heparin Sodium (Porcine) 5,000 units 12/21/24 09:00 12/23/24 21:07 Heparin Sodium 5,000 Units/Ml Vial SUB-Q 5,000 units Q12HR EVE Administration Hydralazine HCl 10 mg 12/21/24 05:56 12/21/24 07:26 Hydralazine Hcl 20 Mg/Ml Vial IV PUSH 10 mg Q8H PRN Administration Blood Pressure > 150 Sodium Chloride 1,000 mls @ 75 mls/hr 12/21/24 00:35 12/25/24 02:23 Normal Saline Iv IV CONT Not Given .[id number] EVE Meloxicam 7.5 mg 12/21/24 12:00 12/24/24 10:19 Meloxicam 7.5 Mg Tablet PO 7.5 mg DAILY EVE Administration Mirtazapine 15 mg 12/21/24 12:00 12/24/24 10:19 Mirtazapine 15 Mg Tablet PO 15 mg DAILY EVE Administration Prochlorperazine Edisylate 10 mg 12/21/24 00:35 12/24/24 03:07 Prochlorperazine Edisylate 10 Mg/2 Ml Vial IV PUSH 10 mg Q6H PRN Administration Nausea And Vomiting Sertraline HCl 125 mg 12/21/24 12:00 12/24/24 10:19 Sertraline Hcl 25 Mg Tablet PO 125 mg DAILY EVE Administration Sodium Chloride 1 spray 12/24/24 18:42 Saline 0.65% Herve Soln 44 Ml Btl NASAL Q6HR PRN Congestion Vitamin B Complex 1 cap 12/21/24 12:00 12/24/24 10:18 Vitamin B Complex Capsule PO 1 cap DAILY EVE Administration Vitamin D 2,000 units 12/22/24 09:00 12/24/24 10:15 Cholecalciferol 1,000 Units Tablet PO 2,000 units DAILY EVE Administration Radiology Results: ITS Impressions Chest X-Ray 12/20/24 18:42 IMPRESSION: No acute cardiopulmonary process. Head CT 12/20/24 19:02 IMPRESSION: No acute intracranial process. CT findings suggestive of left maxillary sinusitis. Chest CTA 12/20/24 21:44 IMPRESSION: No CT evidence of acute pulmonary embolus. No acute process detected in the chest. Abdomen Ultrasound 12/23/24 14:55 IMPRESSION: 1. Stable 4.5 cm fusiform aneurysm of infrarenal aorta. Labs Labs: Laboratory Results - last 24 hr 12/23/24 12/24/24 13:47 05:55 Magnesium 1.6 Ceruloplasmin 27
[2024-12-25 07:53] LABS: Basophils Percent Auto 0.3 % (0.2-1.2); Eosinophils Absolute Auto 0.2 K/mm3 (0-0.3); Eosinophils Percent Auto 4.8 % (0-4.4); Hematocrit 26.9 % (37.0-47.0); Hemoglobin 8.6 g/dL (12.0-15.0); Immature Granulocyte Absolute 0.03 K/mm3 (0.00-0.031); Immature Granulocyte Percent A 0.9 % (0-0.5); Immature Platelet Fraction Pct 4.7 % (0.9-11.2); Lymphocytes Absolute Auto 0.59 K/mm3 (0.9-3.2); Lymphocytes Percent Auto 17.6 % (18.3-44.2); Mean Corpuscular Hemoglobin 26.3 pg (26-34); Mean Corpuscular Volume 82.3 fl (80-100); Mean Platelet Volume 11.1 fl (7.4-10.4); Monocytes Absolute Auto 0.2 K/mm3 (0.1-0.6); Monocytes Percent Auto 5.4 % (2.6-8.5); Neutrophils Absolute Auto 2.4 K/mm3 (1.3-6.7); Platelet Count Result 104 k/mm3 (150-375); Red Blood Count 3.27 M/mm3 (4.2-5.4); Red Cell Distribution Width 16.2 % (11.5-14.5); White Blood Count 3.4 K/mm3 (4.5-10.0)
[2024-12-25 08:05] LABS: Alanine Aminotransferase 127 U/L (6-35); Albumin Level 2.5 g/dL (3.5-5.1); Alkaline Phosphatase 90 U/L (38-126); Anion Gap 2 mmol/L (4-12); Aspartate Amino Transferase 176 U/L (14-36); Bilirubin,Total 0.4 mg/dL (0.2-1.3); Blood Urea Nitrogen 9 mg/dL (7-17); Calcium 7.6 mg/dL (8.4-10.2); Carbon Dioxide 28 mmol/L (22-30); Chloride 107 mmol/L (98-107); Estimated CRCL calculation 72 ml/min; Estimated Glomerular Filt Rate > 60; Glucose 90 mg/dL (65-110); Lipase 16 U/L (23-300); Potassium 2.9 mmol/L (3.4-5.0); Sodium 137 mmol/L (137-145)
[2024-12-25 08:29] LABS: Parathyroid Intact 43.9 pg/mL (14.5-75.2)
[2024-12-25 08:35] LABS: Iron 37 ug/dL (37-170)
[2024-12-25 08:45] LABS: Percent Iron Saturation 14 % (20-50)
[2024-12-25] MEDS: busPIRone HCL 5 MG TABLET 15 MG PO ×3 (09:46→15:56)
[2024-12-25] MEDS: SERTRALINE HCL 25 MG TABLET 125 MG PO (09:46)
[2024-12-25] MEDS: VITAMIN B COMPLEX CAPSULE 1 CAP PO (09:47)
[2024-12-25] MEDS: CHOLECALCIFEROL 1,000 UNITS TABLET 2000 UNITS PO (09:47)
[2024-12-25] MEDS: CALCIUM CITRATE 315 MG/VITAMIN D 6.25 MCG (250 UNITS) TAB 1 TABLET PO (09:47)
[2024-12-25] MEDS: MELOXICAM 7.5 MG TABLET PO (09:47)
[2024-12-25] MEDS: MIRTAZAPINE 15 MG TABLET PO (09:47)
[2024-12-25] MEDS: ALPRAZolam (*CRX) 0.5 MG TABLET PO ×2 (09:48→15:56)
[2024-12-25] MEDS: FOLIC ACID 1 MG TABLET PO (09:48)
[2024-12-25] MEDS: CLOPIDOGREL BISULFATE 75 MG TABLET PO (09:48)
[2024-12-25] MEDS: CARBIDOPA/LEVODOPA 10/100 MG TABLET 2 TABLET PO ×3 (09:48→15:56)
[2024-12-25] MEDS: FLUDROCORTISONE ACETATE 0.1 MG TABLET PO (09:48)
[2024-12-25] MEDS: DULoxetine HCL 60 MG CAPSULE.DR PO (09:48)
[2024-12-25] MEDS: POTASSIUM CHLORIDE 20 MEQ ER TABLET 40 MEQ PO (09:53)
[2024-12-25] MEDS: POTASSIUM CHLORIDE INJ 40 MEQ in SODIUM CHLORIDE 0.9% IV 500 ML 130 MEQ IVPB (09:53)
[2024-12-25] MEDS: MAGNESIUM SULF 2 GM/WATER 50ML 2 GM/50 ML BAG IVPB (16:15)
[2024-12-26] VITALS (9 sets, daily range): BP systolic 131–210; BP diastolic 70–95; PULSE 74–84; RESP 16–18; TEMP 36.4–36.6; O2SAT 93–95
[2024-12-26] MEDS: SODIUM CHLORIDE 0.9% IV 1,000 ML 75 ML IV CONT ×2 (04:09→16:04)
[2024-12-26] MEDS: hydrALAZINE HCL 20 MG/ML VIAL 10 MG IV PUSH ×2 (04:37→16:03)
[2024-12-26 06:39] LABS: Basophils Percent Auto 0.7 % (0.2-1.2); Eosinophils Absolute Auto 0.3 K/mm3 (0-0.3); Eosinophils Percent Auto 7.5 % (0-4.4); Hematocrit 30.4 % (37.0-47.0); Hemoglobin 9.6 g/dL (12.0-15.0); Immature Granulocyte Absolute 0.15 K/mm3 (0.00-0.031); Immature Granulocyte Percent A 3.5 % (0-0.5); Lymphocytes Absolute Auto 1.01 K/mm3 (0.9-3.2); Lymphocytes Percent Auto 23.5 % (18.3-44.2); Mean Corpuscular HGB Conc 31.6 g/dl (32-36); Mean Corpuscular Hemoglobin 26.4 pg (26-34); Mean Corpuscular Volume 83.7 fl (80-100); Mean Platelet Volume 11.6 fl (7.4-10.4); Monocytes Absolute Auto 0.3 K/mm3 (0.1-0.6); Monocytes Percent Auto 6.8 % (2.6-8.5); Neutrophils Absolute Auto 2.5 K/mm3 (1.3-6.7); Platelet Count Result 133 k/mm3 (150-375); Red Blood Count 3.63 M/mm3 (4.2-5.4); Red Cell Distribution Width 16.3 % (11.5-14.5); White Blood Count 4.3 K/mm3 (4.5-10.0)
[2024-12-26 06:49] LABS: Alanine Aminotransferase 143 U/L (6-35); Albumin Level 2.8 g/dL (3.5-5.1); Alkaline Phosphatase 101 U/L (38-126); Anion Gap 7 mmol/L (4-12); Aspartate Amino Transferase 209 U/L (14-36); Bilirubin,Total 0.6 mg/dL (0.2-1.3); Blood Urea Nitrogen 9 mg/dL (7-17); Calcium 8.1 mg/dL (8.4-10.2); Carbon Dioxide 27 mmol/L (22-30); Chloride 104 mmol/L (98-107); Estimated CRCL calculation 77 ml/min; Estimated Glomerular Filt Rate > 60; Glucose 89 mg/dL (65-110); Potassium 3.4 mmol/L (3.4-5.0); Sodium 138 mmol/L (137-145)
[2024-12-26 08:29] LABS: Alpha Fetoprotein Tumor Marker 1.3 ng/mL
--- NOTE | 2024-12-26 08:32 | PM.IMPN ---
Progress Note: A&P Assessment and Plan (1) Acute metabolic encephalopathy: Code(s): G93.41 - Metabolic encephalopathy Status: Acute Assessment and Plan: And O2 at baseline Patient required sitter today (2) Influenza: Code(s): J11.1 - Influenza due to unidentified influenza virus with other respiratory manifestations Status: Acute Assessment and Plan: Supportive care Robitussin Tylenol (3) Acute hypoxemic respiratory failure: Code(s): J96.01 - Acute respiratory failure with hypoxia Status: Acute Assessment and Plan: Secondary to above (4) Hypokalemia: Code(s): E87.6 - Hypokalemia Status: Acute Assessment and Plan: Improving Daily BMP Replete as needed (5) Elevated liver enzymes: Code(s): R74.8 - Abnormal levels of other serum enzymes Status: Acute Assessment and Plan: elevated liver enzymes - drug induced vs MASLD vs hepatitis vs autoimmune vs myocytes vs genetic disorder vs nonhepatic disease-muscle injury, thyroid ) vs other Seen by GI with recommendations follow-up outpatient, no interventions needed inpatient Plan ECHO completed on 12/21- mild tricuspid valve regurgitation. Left ventricular systolic function is normal, estimated at >70%. Ca level is 7.7- will add oral supplement with vit d, order PTH within normal limits IVF due to poor oral intake Chronic and stable conditions 1. Sedentary status. 2. Dementia. 3. Parkinson's disease 4. Recurrent depression with anxiety. 5. Dyslipidemia. Code status: DNR VTE prophylaxis. SCDs; EVE Nutrition. Heart healthy- help with feeding. Time Spent With Patient Time with patient: Greater than 35 minutes Subjective Date/time seen: 12/26/24 08:32 Interval history: Yesenia Mcdonough is an 84F with a mHx significant for dementia, parkinson's disease, anxiety, depression, dyslipidemia and a sedentary status admitted for fatigue and AMS. Pt is admitted for acute metabolic encephalopathy with influenza A with hypoxia. A resident of [facility]) [facility] this morning, bladder scan after 8 hours is 250, will and IV fluids likely due to poor oral intake, patient confused from baseline Review of Systems Review of Systems: confused ROS unobtainable: Yes unobtainable due to mental status Exam Narrative: General: well appearing, appears stated age. HEENT: normocephalic, atraumatic. Mucous membranes moist. EOMI, PERRLA, bilateral sclera anicteric, no conjunctival injection. Neck supple without JVD, lymphadenopathy, or bruit. Respiratory: clear to ascultation bilaterally. No rales/rhonic/wheezes. Cardiovascular: Regular rate and rhythm, normal S1-S2 upon ascultation. No murmurs, rubs, or clicks. PMI is nondisplaced, capillary refill less than 3 second. Abdomen: Soft, round, no pulsatile masses, nondistended and nontender. No rebound, no guarding. No CVA tenderness, no hepatosplenomegaly. Bowel sounds present to all four quadrants. No high pitch or tinkling sounds, resonant to percussion. Extremities: No cyanosis, clubbing, or edema present. Pulses are palpable 2/2. Active ROM to all four extremities. Neuro: Alert and orientated x 0. PERRLA. Cranial nerves 2-12 intact without focal deficit. Skin: Warm, dry, and intact, without rash, erythema, or lesion. Psych: Pleasantly confused, cooperative, normal speech, normal affect, no hallucinations, no dysarthia Objective Data Vital Signs Vital Signs: Vital Signs - 24 hr 12/25/24 10:00 12/25/24 12:00 12/25/24 14:00 Temperature 97.7 F Pulse Rate 77 81 82 Respiratory Rate 16 Blood Pressure 133/61 Pulse Oximetry 93 12/25/24 16:00 12/25/24 20:00 12/25/24 20:13 Temperature 98.7 F Pulse Rate 82 85 80 Respiratory Rate 16 Blood Pressure 170/80 H Pulse Oximetry 94 12/26/24 00:00 12/26/24 04:00 12/26/24 04:50 Temperature Pulse Rate 77 75 79 Respiratory Rate Blood Pressure 210/95 H Pulse Oximetry 12/26/24 06:00 Temperature 97.6 F Pulse Rate 74 Respiratory Rate 16 Blood Pressure 181/74 H Pulse Oximetry 95 Intake/Output Intake/Output: Intake & Output 12/23/24 12/24/24 12/25/24 12/26/24 23:59 23:59 23:59 23:59 Intake Total 1100 1340 3970 600 Output Total 1075 2550 950 Balance 25 -1210 3020 600 Meds/Results Medications: Active Medications Generic Name Dose Route Start Last Admin Trade Name Freq PRN Reason Stop Dose Admin Acetaminophen 650 mg 12/21/24 00:35 12/21/24 20:43 Acetaminophen 325 Mg Tablet PO 650 mg Q4H PRN Administration Mild Pain (1-3) or Fever Albuterol/Ipratropium 3 ml 12/21/24 00:35 Ipratropium 0.5 Mg/Albuterol Sulfate 2.5 Mg Ampul.Neb 3 Ml INHALATION Q4HRT PRN shortness of breath/Wheezing Alprazolam 0.5 mg 12/21/24 17:00 12/25/24 15:56 Alprazolam (*Crx) 0.5 Mg Tablet PO 0.5 mg BID EVE Administration Buspirone HCl 15 mg 12/21/24 13:00 12/25/24 15:56 Buspirone Hcl 5 Mg Tablet PO 15 mg TID EVE Administration Calcium Citrate 1 tablet 12/25/24 09:00 12/25/24 09:47 Calcium Citrate 315 Mg/Vitamin D 6.25 Mcg (250 Units) Tab PO 1 tablet QAM EVE Administration Carbidopa/Levodopa 2 tablet 12/21/24 13:00 12/25/24 15:56 Carbidopa/Levodopa 10/100 Mg Tablet PO 2 tablet TID EVE Administration Clopidogrel Bisulfate 75 mg 12/21/24 12:00 12/25/24 09:48 Clopidogrel Bisulfate 75 Mg Tablet PO 75 mg DAILY EVE Administration Duloxetine HCl 60 mg 12/21/24 12:00 12/25/24 09:48 Duloxetine Hcl 60 Mg Capsule.Dr PO 60 mg DAILY EVE Administration Fludrocortisone Acetate 0.1 mg 12/21/24 12:00 12/25/24 09:48 Fludrocortisone Acetate 0.1 Mg Tablet PO 0.1 mg DAILY EVE Administration Folic Acid 1 mg 12/21/24 12:00 12/25/24 09:48 Folic Acid 1 Mg Tablet PO 1 mg DAILY EVE Administration Guaifenesin/Dextromethorphan 10 ml 12/21/24 00:35 12/21/24 20:43 Guaifenesin/Dextromethorphan 10 Ml Udc PO 10 ml Q4H PRN Administration Cough Heparin Sodium (Porcine) 5,000 units 12/21/24 09:00 12/23/24 21:07 Heparin Sodium 5,000 Units/Ml Vial SUB-Q 5,000 units Q12HR EVE Administration Hydralazine HCl 10 mg 12/21/24 05:56 12/26/24 04:37 Hydralazine Hcl 20 Mg/Ml Vial IV PUSH 10 mg Q8H PRN Administration Blood Pressure > 150 Sodium Chloride 1,000 mls @ 75 mls/hr 12/21/24 00:35 12/26/24 04:09 Normal Saline Iv IV CONT 75 mls/hr .[id number] EVE Administration Meloxicam 7.5 mg 12/21/24 12:00 12/25/24 09:47 Meloxicam 7.5 Mg Tablet PO 7.5 mg DAILY EVE Administration Mirtazapine 15 mg 12/21/24 12:00 12/25/24 09:47 Mirtazapine 15 Mg Tablet PO 15 mg DAILY EVE Administration Prochlorperazine Edisylate 10 mg 12/21/24 00:35 12/24/24 03:07 Prochlorperazine Edisylate 10 Mg/2 Ml Vial IV PUSH 10 mg Q6H PRN Administration Nausea And Vomiting Sertraline HCl 125 mg 12/21/24 12:00 12/25/24 09:46 Sertraline Hcl 25 Mg Tablet PO 125 mg DAILY EVE Administration Sodium Chloride 1 spray 12/24/24 18:42 Saline 0.65% Herve Soln 44 Ml Btl NASAL Q6HR PRN Congestion Vitamin B Complex 1 cap 12/21/24 12:00 12/25/24 09:47 Vitamin B Complex Capsule PO 1 cap DAILY EVE Administration Vitamin D 2,000 units 12/22/24 09:00 12/25/24 09:47 Cholecalciferol 1,000 Units Tablet PO 2,000 units DAILY EVE Administration Radiology Results: ITS Impressions Chest X-Ray 12/20/24 18:42 IMPRESSION: No acute cardiopulmonary process. Head CT 12/20/24 19:02 IMPRESSION: No acute intracranial process. CT findings suggestive of left maxillary sinusitis. Chest CTA 12/20/24 21:44 IMPRESSION: No CT evidence of acute pulmonary embolus. No acute process detected in the chest. Abdomen Ultrasound 12/23/24 14:55 IMPRESSION: 1. Stable 4.5 cm fusiform aneurysm of infrarenal aorta. Labs Labs: Laboratory Results - last 24 hr 12/23/24 12/25/24 12/26/24 13:47 07:37 05:50 WBC 3.4 L 4.3 L RBC 3.27 L 3.63 L Hgb 8.6 L 9.6 L Hct 26.9 L 30.4 L MCV 82.3 83.7 MCH 26.3 26.4 MCHC 32.0 31.6 L RDW 16.2 H 16.3 H Plt Count 104 L 133 L MPV 11.1 H 11.6 H Immature Gran % (Auto) 0.9 H 3.5 H Neut % (Auto) 71.0 58.0 Lymph % (Auto) 17.6 L 23.5 [place] % (Auto) 5.4 6.8 Eos % (Auto) 4.8 H 7.5 H Baso % (Auto) 0.3 0.7 Lymph # (Auto) 0.59 L 1.01 [place] # (Auto) 0.2 0.3 Eos # (Auto) 0.2 0.3 Baso # (Auto) 0.0 0.0 Abs Immat Gran (auto) 0.03 0.15 H Absolute Neuts (auto) 2.4 2.5 Absolute Nucleated RBC 0.000 0.000 Nucleated RBC % 0.0 0.0 % Immature Plt Fraction 4.7 Sodium 137 138 Potassium 2.9 L 3.4 Chloride 107 104 Carbon Dioxide 28 27 Anion Gap 2 L 7 BUN 9 9 Creatinine 0.43 L 0.40 L Estim Creat Clear Calc 72 77 Estimated GFR > 60 > 60 Glucose 90 89 Calcium 7.6 L 8.1 L Iron 37 TIBC 262 % Saturation 14 L Total Bilirubin 0.4 0.6 AST 176 H 209 H ALT 127 H 143 H Alkaline Phosphatase 90 101 Total Protein 5.0 L 6.0 L Albumin 2.5 L 2.8 L Lipase 16 L Alpha Fetoprotein 1.3 Quality Patient on comfort care in intermediate
[2024-12-26] MEDS: CARBIDOPA/LEVODOPA 10/100 MG TABLET 2 TABLET PO ×3 (08:50→16:04)
[2024-12-26] MEDS: CHOLECALCIFEROL 1,000 UNITS TABLET 2000 UNITS PO (08:50)
[2024-12-26] MEDS: FLUDROCORTISONE ACETATE 0.1 MG TABLET PO (08:51)
[2024-12-26] MEDS: ALPRAZolam (*CRX) 0.5 MG TABLET PO ×2 (08:51→16:04)
[2024-12-26] MEDS: MELOXICAM 7.5 MG TABLET PO (08:51)
[2024-12-26] MEDS: SERTRALINE HCL 25 MG TABLET 125 MG PO (08:51)
[2024-12-26] MEDS: MIRTAZAPINE 15 MG TABLET PO (08:51)
[2024-12-26] MEDS: busPIRone HCL 5 MG TABLET 15 MG PO ×3 (08:51→16:04)
[2024-12-26] MEDS: CLOPIDOGREL BISULFATE 75 MG TABLET PO (08:51)
[2024-12-26] MEDS: DULoxetine HCL 60 MG CAPSULE.DR PO (08:51)
[2024-12-26] MEDS: CALCIUM CITRATE 315 MG/VITAMIN D 6.25 MCG (250 UNITS) TAB 1 TABLET PO (08:51)
[2024-12-26] MEDS: FOLIC ACID 1 MG TABLET PO (08:51)
[2024-12-26] MEDS: ACETAMINOPHEN 325 MG TABLET 650 MG PO (16:03)
[2024-12-27 05:14] VITALS: BP 185/92; PULSE 85; RESP 18; TEMP 36.4; O2SAT 94
[2024-12-27 06:39] LABS: Basophils Percent Auto 0.4 % (0.2-1.2); Eosinophils Absolute Auto 0.3 K/mm3 (0-0.3); Eosinophils Percent Auto 5.9 % (0-4.4); Hematocrit 33.8 % (37.0-47.0); Hemoglobin 10.8 g/dL (12.0-15.0); Immature Granulocyte Absolute 0.05 K/mm3 (0.00-0.031); Immature Granulocyte Percent A 0.9 % (0-0.5); Lymphocytes Absolute Auto 1.01 K/mm3 (0.9-3.2); Mean Corpuscular Hemoglobin 26.5 pg (26-34); Mean Corpuscular Volume 82.8 fl (80-100); Mean Platelet Volume 11.3 fl (7.4-10.4); Monocytes Absolute Auto 0.4 K/mm3 (0.1-0.6); Monocytes Percent Auto 7.7 % (2.6-8.5); Neutrophils Absolute Auto 3.8 K/mm3 (1.3-6.7); Neutrophils Percent Auto 67.1 % (45.5-73.1); Platelet Count Result 184 k/mm3 (150-375); Red Blood Count 4.08 M/mm3 (4.2-5.4); Red Cell Distribution Width 16.3 % (11.5-14.5); White Blood Count 5.6 K/mm3 (4.5-10.0)
[2024-12-27 06:56] LABS: Alanine Aminotransferase 142 U/L (6-35); Albumin Level 3.2 g/dL (3.5-5.1); Alkaline Phosphatase 133 U/L (38-126); Anion Gap 7 mmol/L (4-12); Aspartate Amino Transferase 141 U/L (14-36); Bilirubin,Total 0.7 mg/dL (0.2-1.3); Blood Urea Nitrogen 6 mg/dL (7-17); Calcium 8.5 mg/dL (8.4-10.2); Carbon Dioxide 30 mmol/L (22-30); Chloride 102 mmol/L (98-107); Estimated CRCL calculation 74 ml/min; Estimated Glomerular Filt Rate > 60; Glucose 96 mg/dL (65-110); Potassium 3.1 mmol/L (3.4-5.0); Sodium 139 mmol/L (137-145)
--- NOTE | 2024-12-27 08:26 | PM.IMPN ---
Progress Note: A&P Assessment and Plan (1) Pneumonia: Code(s): J18.9 - Pneumonia, unspecified organism Status: Acute Assessment and Plan: Secondary to influenza Started on Rocephin and Zithromax (2) Acute metabolic encephalopathy: Code(s): G93.41 - Metabolic encephalopathy Status: Acute Assessment and Plan: Patient appears to be back at baseline, likely will be able to discharge tomorrow (3) Influenza: Code(s): J11.1 - Influenza due to unidentified influenza virus with other respiratory manifestations Status: Acute Assessment and Plan: Supportive care Robitussin Tylenol (4) Acute hypoxemic respiratory failure: Code(s): J96.01 - Acute respiratory failure with hypoxia Status: Acute Assessment and Plan: Improving Secondary to above (5) Hypokalemia: Code(s): E87.6 - Hypokalemia Status: Acute Assessment and Plan: Improving Daily BMP Replete as needed (6) Elevated liver enzymes: Code(s): R74.8 - Abnormal levels of other serum enzymes Status: Acute Assessment and Plan: elevated liver enzymes - drug induced vs MASLD vs hepatitis vs autoimmune vs myocytes vs genetic disorder vs nonhepatic disease-muscle injury, thyroid ) vs other Seen by GI with recommendations follow-up outpatient, no interventions needed inpatient (7) Malnourished: Code(s): E46 - Unspecified protein-calorie malnutrition Status: Acute Assessment and Plan: Regular diet Help with feeding Ensure Per family patient is at baseline Plan ECHO completed on 12/21- mild tricuspid valve regurgitation. Left ventricular systolic function is normal, estimated at >70%. Ca level is 7.7- will add oral supplement with vit d, order PTH within normal limits Chronic and stable conditions 1. Sedentary status. 2. Dementia. 3. Parkinson's disease 4. Recurrent depression with anxiety. 5. Dyslipidemia. Code status: DNR VTE prophylaxis. SCDs; EVE Time Spent With Patient Time with patient: Greater than 35 minutes Subjective Date/time seen: 12/27/24 08:26 Interval history: Yesenia Mcdonough is an 84F with a mHx significant for dementia, parkinson's disease, anxiety, depression, dyslipidemia and a sedentary status admitted for fatigue and AMS. Pt is admitted for acute metabolic encephalopathy with influenza A with hypoxia. A resident of [facility]) [facility] pulled this morning, bladder scan after 8 hours is 250, will and IV fluids likely due to poor oral intake, patient confused from baseline Patient hypertensive overnight received hydralazine IV, will start on p.o. hydralazine patient Per nursing patient was able to void, patient is also alert to self Review of Systems Review of Systems: ROS unobtainable: Yes unobtainable due to mental status Exam Narrative: General: well appearing, appears stated age. HEENT: normocephalic, atraumatic. Mucous membranes moist. EOMI, PERRLA, bilateral sclera anicteric, no conjunctival injection. Neck supple without JVD, lymphadenopathy, or bruit. Respiratory: clear to ascultation bilaterally. No rales/rhonic/wheezes. Cardiovascular: Regular rate and rhythm, normal S1-S2 upon ascultation. No murmurs, rubs, or clicks. PMI is nondisplaced, capillary refill less than 3 second. Abdomen: Soft, round, no pulsatile masses, nondistended and nontender. No rebound, no guarding. No CVA tenderness, no hepatosplenomegaly. Bowel sounds present to all four quadrants. No high pitch or tinkling sounds, resonant to percussion. Extremities: No cyanosis, clubbing, or edema present. Pulses are palpable 2/2. Active ROM to all four extremities. Neuro: Alert and orientated x 0. PERRLA. Cranial nerves 2-12 intact without focal deficit. Skin: Warm, dry, and intact, without rash, erythema, or lesion. Psych: Pleasantly confused, cooperative, normal speech, normal affect, no hallucinations, no dysarthia Objective Data Vital Signs Vital Signs: Vital Signs - 24 hr 12/26/24 08:30 12/26/24 12:11 12/26/24 13:55 Temperature 97.9 F Pulse Rate 84 Respiratory Rate 16 Blood Pressure 146/70 H 159/74 H Pulse Oximetry 93 Oxygen Delivery Room Air 12/26/24 16:32 12/26/24 17:41 12/26/24 20:40 Temperature 97.5 F L Pulse Rate 82 Respiratory Rate 18 Blood Pressure 177/76 H 131/76 138/75 Pulse Oximetry 94 Oxygen Delivery 12/27/24 05:14 Temperature 97.6 F Pulse Rate 85 Respiratory Rate 18 Blood Pressure 185/92 H Pulse Oximetry 94 Oxygen Delivery Intake/Output Intake/Output: Intake & Output 12/24/24 12/25/24 12/26/24 12/27/24 23:59 23:59 23:59 23:59 Intake Total 1340 3970 600 550 Output Total 2550 950 1100 775 Balance -1210 3020 -500 -936 Meds/Results Medications: Active Medications Generic Name Dose Route Start Last Admin Trade Name Freq PRN Reason Stop Dose Admin Acetaminophen 650 mg 12/21/24 00:35 12/26/24 16:03 Acetaminophen 325 Mg Tablet PO 650 mg Q4H PRN Administration Mild Pain (1-3) or Fever Albuterol/Ipratropium 3 ml 12/21/24 00:35 Ipratropium 0.5 Mg/Albuterol Sulfate 2.5 Mg Ampul.Neb 3 Ml INHALATION Q4HRT PRN shortness of breath/Wheezing Alprazolam 0.5 mg 12/21/24 17:00 12/26/24 16:04 Alprazolam (*Crx) 0.5 Mg Tablet PO 0.5 mg BID EVE Administration Buspirone HCl 15 mg 12/21/24 13:00 12/26/24 16:04 Buspirone Hcl 5 Mg Tablet PO 15 mg TID EVE Administration Calcium Citrate 1 tablet 12/25/24 09:00 12/26/24 08:51 Calcium Citrate 315 Mg/Vitamin D 6.25 Mcg (250 Units) Tab PO 1 tablet QAM EVE Administration Carbidopa/Levodopa 2 tablet 12/21/24 13:00 12/26/24 16:04 Carbidopa/Levodopa 10/100 Mg Tablet PO 2 tablet TID EVE Administration Clopidogrel Bisulfate 75 mg 12/21/24 12:00 12/26/24 08:51 Clopidogrel Bisulfate 75 Mg Tablet PO 75 mg DAILY EVE Administration Duloxetine HCl 60 mg 12/21/24 12:00 12/26/24 08:51 Duloxetine Hcl 60 Mg Capsule.Dr PO 60 mg DAILY EVE Administration Fludrocortisone Acetate 0.1 mg 12/21/24 12:00 12/26/24 08:51 Fludrocortisone Acetate 0.1 Mg Tablet PO 0.1 mg DAILY EVE Administration Folic Acid 1 mg 12/21/24 12:00 12/26/24 08:51 Folic Acid 1 Mg Tablet PO 1 mg DAILY EVE Administration Guaifenesin/Dextromethorphan 10 ml 12/21/24 00:35 12/21/24 20:43 Guaifenesin/Dextromethorphan 10 Ml Udc PO 10 ml Q4H PRN Administration Cough Heparin Sodium (Porcine) 5,000 units 12/21/24 09:00 12/23/24 21:07 Heparin Sodium 5,000 Units/Ml Vial SUB-Q 5,000 units Q12HR EVE Administration Hydralazine HCl 10 mg 12/21/24 05:56 12/26/24 16:03 Hydralazine Hcl 20 Mg/Ml Vial IV PUSH 10 mg Q8H PRN Administration Blood Pressure > 150 Sodium Chloride 1,000 mls @ 75 mls/hr 12/26/24 15:00 12/26/24 16:04 Normal Saline Iv IV CONT 75 mls/hr .[id number] EVE Administration Meloxicam 7.5 mg 12/21/24 12:00 12/26/24 08:51 Meloxicam 7.5 Mg Tablet PO 7.5 mg DAILY EVE Administration Mirtazapine 15 mg 12/21/24 12:00 12/26/24 08:51 Mirtazapine 15 Mg Tablet PO 15 mg DAILY EVE Administration Prochlorperazine Edisylate 10 mg 12/21/24 00:35 12/24/24 03:07 Prochlorperazine Edisylate 10 Mg/2 Ml Vial IV PUSH 10 mg Q6H PRN Administration Nausea And Vomiting Sertraline HCl 125 mg 12/21/24 12:00 12/26/24 08:51 Sertraline Hcl 25 Mg Tablet PO 125 mg DAILY EEV Administration Sodium Chloride 1 spray 12/24/24 18:42 Saline 0.65% Herve Soln 44 Ml Btl NASAL Q6HR PRN Congestion Vitamin B Complex 1 cap 12/21/24 12:00 12/26/24 10:03 Vitamin B Complex Capsule PO Not Given DAILY EVE Vitamin D 2,000 units 12/22/24 09:00 12/26/24 08:50 Cholecalciferol 1,000 Units Tablet PO 2,000 units DAILY EVE Administration Radiology Results: ITS Impressions Head CT 12/20/24 19:02 IMPRESSION: No acute intracranial process. CT findings suggestive of left maxillary sinusitis. Chest CTA 12/20/24 21:44 IMPRESSION: No CT evidence of acute pulmonary embolus. No acute process detected in the chest. Abdomen Ultrasound 12/23/24 14:55 IMPRESSION: 1. Stable 4.5 cm fusiform aneurysm of infrarenal aorta. Chest X-Ray 12/26/24 09:45 IMPRESSION: 1. Airspace opacities at the lung bases, left worse than right, consistent with atelectasis versus pneumonia. Labs Labs: Laboratory Results - last 24 hr 12/23/24 12/27/24 13:47 06:21 WBC 5.6 RBC 4.08 L Hgb 10.8 L Hct 33.8 L MCV 82.8 MCH 26.5 MCHC 32.0 RDW 16.3 H Plt Count 184 MPV 11.3 H Immature Gran % (Auto) 0.9 H Neut % (Auto) 67.1 Lymph % (Auto) 18.0 L [place] % (Auto) 7.7 Eos % (Auto) 5.9 H Baso % (Auto) 0.4 Lymph # (Auto) 1.01 [place] # (Auto) 0.4 Eos # (Auto) 0.3 Baso # (Auto) 0.0 Abs Immat Gran (auto) 0.05 H Absolute Neuts (auto) 3.8 Absolute Nucleated RBC 0.000 Nucleated RBC % 0.0 Sodium 139 Potassium 3.1 L Chloride 102 Carbon Dioxide 30 Anion Gap 7 BUN 6 L Creatinine 0.42 L Estim Creat Clear Calc 74 Estimated GFR > 60 Glucose 96 Calcium 8.5 Total Bilirubin 0.7 AST 141 H ALT 142 H Alkaline Phosphatase 133 H Total Protein 6.0 L Albumin 3.2 L Alpha Fetoprotein 1.3 GILA Screen Negative
[2024-12-27] MEDS: FLUDROCORTISONE ACETATE 0.1 MG TABLET PO (08:29)
[2024-12-27] MEDS: FOLIC ACID 1 MG TABLET PO (08:29)
[2024-12-27] MEDS: ALPRAZolam (*CRX) 0.5 MG TABLET PO ×2 (08:29→16:30)
[2024-12-27] MEDS: CHOLECALCIFEROL 1,000 UNITS TABLET 2000 UNITS PO (08:29)
[2024-12-27] MEDS: CALCIUM CITRATE 315 MG/VITAMIN D 6.25 MCG (250 UNITS) TAB 1 TABLET PO (08:29)
[2024-12-27] MEDS: SERTRALINE HCL 25 MG TABLET 125 MG PO (08:29)
[2024-12-27] MEDS: MELOXICAM 7.5 MG TABLET PO (08:29)
[2024-12-27] MEDS: busPIRone HCL 5 MG TABLET 15 MG PO ×3 (08:29→16:30)
[2024-12-27] MEDS: CARBIDOPA/LEVODOPA 10/100 MG TABLET 2 TABLET PO ×3 (08:29→16:30)
[2024-12-27] MEDS: MIRTAZAPINE 15 MG TABLET PO (08:29)
[2024-12-27] MEDS: DULoxetine HCL 60 MG CAPSULE.DR PO (08:29)
[2024-12-27] MEDS: CLOPIDOGREL BISULFATE 75 MG TABLET PO (08:29)
[2024-12-27] MEDS: SODIUM CHLORIDE 0.9% IV 1,000 ML 75 ML IV CONT (08:31)
[2024-12-27 08:32] VITALS: BP 190/96
[2024-12-27] MEDS: hydrALAZINE HCL 20 MG/ML VIAL 10 MG IV PUSH (08:32)
[2024-12-27] MEDS: hydrALAZINE 5 MG TABLET PO ×4 (08:46→21:30)
[2024-12-27] MEDS: AZITHROMYCIN 500 MG/NS 250 ML 500 MG/250 ML BAG 250 MG IVPB (08:51)
[2024-12-27] MEDS: POTASSIUM CHLORIDE 20 MEQ PACKET (FOR LIQUID) 40 MEQ PO (09:35)
[2024-12-27 09:38] VITALS: BP 131/64
[2024-12-27 12:17] LABS: LKM 1 Antibody <=20.0 U (<=20.0)
[2024-12-27 14:00] VITALS: BP 141/64; PULSE 81; RESP 18; TEMP 36.1; O2SAT 95
[2024-12-27 16:54] LABS: Immunoglobulin A 256 mg/dL (70-320); TTG IGA AB <1.0 U/mL
[2024-12-27 21:50] VITALS: BP 128/53; PULSE 79; RESP 14; TEMP 36.4; O2SAT 90
[2024-12-28 06:00] VITALS: BP 193/77; PULSE 80; RESP 14; TEMP 36.2; O2SAT 93
[2024-12-28 06:17] LABS: Alanine Aminotransferase 100 U/L (6-35); Alkaline Phosphatase 108 U/L (38-126); Anion Gap 10 mmol/L (4-12); Aspartate Amino Transferase 86 U/L (14-36); Bilirubin,Total 0.5 mg/dL (0.2-1.3); Blood Urea Nitrogen 13 mg/dL (7-17); Calcium 8.5 mg/dL (8.4-10.2); Carbon Dioxide 25 mmol/L (22-30); Chloride 105 mmol/L (98-107); Estimated CRCL calculation 60 ml/min; Estimated Glomerular Filt Rate > 60; Glucose 95 mg/dL (65-110); Potassium 3.1 mmol/L (3.4-5.0); Sodium 140 mmol/L (137-145)
[2024-12-28 06:26] LABS: Basophils Percent Auto 0.6 % (0.2-1.2); Eosinophils Absolute Auto 0.4 K/mm3 (0-0.3); Eosinophils Percent Auto 7.6 % (0-4.4); Hematocrit 29.7 % (37.0-47.0); Hemoglobin 9.2 g/dL (12.0-15.0); Immature Granulocyte Absolute 0.05 K/mm3 (0.00-0.031); Lymphocytes Absolute Auto 1.09 K/mm3 (0.9-3.2); Lymphocytes Percent Auto 21.9 % (18.3-44.2); Mean Corpuscular Hemoglobin 26.1 pg (26-34); Mean Corpuscular Volume 84.1 fl (80-100); Mean Platelet Volume 10.9 fl (7.4-10.4); Monocytes Absolute Auto 0.4 K/mm3 (0.1-0.6); Monocytes Percent Auto 7.6 % (2.6-8.5); Neutrophils Absolute Auto 3.1 K/mm3 (1.3-6.7); Neutrophils Percent Auto 61.3 % (45.5-73.1); Platelet Count Result 195 k/mm3 (150-375); Red Blood Count 3.53 M/mm3 (4.2-5.4)
[2024-12-28 06:33] LABS: Actin Antibody (IgG) <20 U (<20)
[2024-12-28] MEDS: POTASSIUM CHLORIDE 20 MEQ PACKET (FOR LIQUID) 40 MEQ PO (09:11)
[2024-12-28] MEDS: SERTRALINE HCL 25 MG TABLET 125 MG PO (09:11)
[2024-12-28] MEDS: busPIRone HCL 5 MG TABLET 15 MG PO ×3 (09:11→16:49)
[2024-12-28] MEDS: CARBIDOPA/LEVODOPA 10/100 MG TABLET 2 TABLET PO ×3 (09:11→16:49)
[2024-12-28] MEDS: CHOLECALCIFEROL 1,000 UNITS TABLET 2000 UNITS PO (09:11)
[2024-12-28] MEDS: CLOPIDOGREL BISULFATE 75 MG TABLET PO (09:12)
[2024-12-28] MEDS: MELOXICAM 7.5 MG TABLET PO (09:17)
[2024-12-28] MEDS: FLUDROCORTISONE ACETATE 0.1 MG TABLET PO (09:18)
[2024-12-28] MEDS: MIRTAZAPINE 15 MG TABLET PO (09:18)
[2024-12-28] MEDS: CALCIUM CITRATE 315 MG/VITAMIN D 6.25 MCG (250 UNITS) TAB 1 TABLET PO (09:18)
[2024-12-28] MEDS: AZITHROMYCIN 500 MG/NS 250 ML 500 MG/250 ML BAG 250 MG IVPB (09:18)
[2024-12-28] MEDS: ALPRAZolam (*CRX) 0.5 MG TABLET PO ×2 (09:18→16:49)
[2024-12-28] MEDS: DULoxetine HCL 60 MG CAPSULE.DR PO (09:18)
[2024-12-28] MEDS: hydrALAZINE 5 MG TABLET PO ×3 (09:18→16:50)
[2024-12-28] MEDS: FOLIC ACID 1 MG TABLET PO (09:18)
[2024-12-28] MEDS: VITAMIN B COMPLEX CAPSULE 1 CAP PO (09:19)
[2024-12-28 14:00] VITALS: BP 160/75; PULSE 78; RESP 16; TEMP 35.8; O2SAT 92
--- NOTE | 2024-12-28 14:39 | P.DS_ITS ---
DS: Summary Time Spent with Patient Time attestation: Total time spent providing and/or coordinating discharge services: DS: Data Data Completed and Pending Labs on day of discharge: Labs from last 24 hours 12/28/24 12/23/24 05:22 13:47 WBC 5.0 RBC 3.53 L Hgb 9.2 L Hct 29.7 L MCV 84.1 MCH 26.1 MCHC 31.0 L RDW 17.0 H Plt Count 195 MPV 10.9 H Immature Gran % (Auto) 1.0 H Neut % (Auto) 61.3 Lymph % (Auto) 21.9 [place] % (Auto) 7.6 Eos % (Auto) 7.6 H Baso % (Auto) 0.6 Lymph # (Auto) 1.09 [place] # (Auto) 0.4 Eos # (Auto) 0.4 H Baso # (Auto) 0.0 Abs Immat Gran (auto) 0.05 H Absolute Neuts (auto) 3.1 Absolute Nucleated RBC 0.000 Nucleated RBC % 0.0 Sodium 140 Potassium 3.1 L Chloride 105 Carbon Dioxide 25 Anion Gap 10 BUN 13 D Creatinine 0.53 L Estim Creat Clear Calc 60 Estimated GFR > 60 Glucose 95 Calcium 8.5 Total Bilirubin 0.5 AST 86 H ALT 100 H Alkaline Phosphatase 108 Total Protein 6.0 L Albumin 3.0 L IgA 256 Actin IgG Antibody <20 Tiss Transglut IgA Comm <1.0 Celiac Disease Interp See note Discharge Plan Discharge Attending physician on discharge: Anahi Fernando Consulting providers: Kaitlyn Fortune Discharging Clinician: Anahi Fernando Anticipated Discharge Date/Time: 12/28/24 14:34 Patient Disposition: NH Half-Way/Asst Living Activity: as tolerated Diet: heart healthy Patient Instructions: Antibiotic Form Patient Language: Arabic Stand Alone Forms: General Discharge Information Follow-up/Referrals: Tu Rouse MD [Primary Care Provider] - Discharge Medications: New dextromethorphan-guaifenesin 10-100 mg/5 mL Syrup 10 ml PO Q4H PRN (Reason: Cough) Qty: 237 0RF Saline Mist 0.65 % Aerosol,[place] 1 spray intranasal Q6HR PRN (Reason: Congestion) Qty: 10 0RF Continued meloxicam 7.5 mg tablet 7.5 mg PO DAILY quetiapine 25 mg tablet 12.5 mg PO BID Boost 0.04 gram- 1 kcal/mL liquid 1 ea PO TID acetaminophen [Pain Relief (acetaminophen)] 325 mg tablet 650 mg PO Q6H PRN (Reason: pain) Qty: 120 0RF atorvastatin 40 mg tablet 40 mg PO DAILY Qty: 90 0RF buspirone 15 mg tablet 15 mg PO TID Qty: 90 0RF carbidopa-levodopa 10-100 mg tablet,disintegrating 2 tablet PO TID Qty: 90 0RF cholecalciferol (vitamin D3) 50 mcg (2,000 unit) capsule 50 mcg PO DAILY Qty: 30 0RF clopidogrel [Plavix] 75 mg tablet 75 mg PO DAILY Qty: 90 1RF Rx Instructions: Please D/C the Eliquis. Thank you duloxetine 60 mg capsule,delayed release(DR/EC) 60 mg PO DAILY Qty: 90 0RF fludrocortisone 0.1 mg tablet 0.1 mg PO DAILY Qty: 90 2RF folic acid 1 mg tablet 1 mg PO DAILY Qty: 90 0RF mirtazapine 15 mg tablet 15 mg PO DAILY Qty: 90 0RF sertraline 100 mg tablet 125 mg PO DAILY Qty: 90 3RF Rx Instructions: PT TAKES 100MG PLUS 25MG TO EQUAL 125MG DOSE vitamin B complex Capsule 1 cap PO DAILY Qty: 90 3RF Changed alprazolam [Xanax] 0.5 mg tablet 0.5 mg PO BID PRN (Reason: anxiety) Qty: 10 0RF Date of admission: 12/21/24 07:45 Primary Care Provider: Tu Rouse Admitting Provider: Fernando Lerma Attending physician on admission: Fernando Lerma Condition: Stable
[2024-12-30 08:53] LABS: Mitochondrial (M2) Ab (IgG) <20.0 U
== END 2024-12-28 17:15 | DRG 193 ==
LOC: ANHED 22:20 → ANH3MEDSUR 23:22
PROVIDERS: Emergency Medicine; Nurse Practitioner; Admitting Provider Internal Medicine; Emergency Provider Emergency Medicine; PCP Family Medicine; Visit Provider Family Medicine
DX: J10.00 Influenza due to other identified influenza virus with unspecified type of pneumonia (principal); G93.41 Metabolic encephalopathy; J96.01 Acute respiratory failure with hypoxia; D61.818 Other pancytopenia; E46 Unspecified protein-calorie malnutrition; F03.90 Unspecified dementia, unspecified severity, without behavioral disturbance, psychotic disturbance, mood disturbance, and anxiety; I71.40 Abdominal aortic aneurysm, without rupture, unspecified; F41.8 Other specified anxiety disorders; G20.C Parkinsonism, unspecified; E78.5 Hyperlipidemia, unspecified; J32.0 Chronic maxillary sinusitis; E87.6 Hypokalemia; E83.51 Hypocalcemia; E83.42 Hypomagnesemia; D64.9 Anemia, unspecified; Z66 Do not resuscitate; Z86.16 Personal history of COVID-19; Z86.73 Personal history of transient ischemic attack (TIA), and cerebral infarction without residual deficits; Z87.442 Personal history of urinary calculi; Z90.49 Acquired absence of other specified parts of digestive tract; Z90.710 Acquired absence of both cervix and uterus; Z68.21 Body mass index [BMI] 21.0-21.9, adult
CPT/HCPCS: 36415; 70450; 71045; 71275; 76705; 80053; 80074; 81001; 82105; 82140; 82390; 82550; 82728; 82784; 82948; 83520; 83540; 83550; 83605; 83690; 83735; 83880; 83970; 84443; 84484; 85025; 85055; 85610; 85730; 86038; 86039; 86140; 86364; 86376; 87040; 87637; 93005; 93308; 96361; 96374; 97110; 97162; 97530; 99285; A9270; G0378; J0360; J0456; J0696; J0780; J1644; J2404; J3475; J3480; J7030; J7040; Q9967